=== PATIENT | female | born 1990 | race African-American/Black ===

== ENCOUNTER → 2017-12-25 15:32 | Outpatient (REF) | payer MEDICAID, SELFPAY ==
[2017-12-25 18:23] LABS: Basophils # 0.1 K/mm3 (0-0.2); Basophils % 0.7 % (0.1-2.0); Eosinophils # 0.1 K/mm3 (0.0-0.4); Eosinophils % 1.3 % (0.1-12.0); Hemoglobin 15.2 g/dL (12.2-16.2); Lymphocytes # 3.3 K/mm3 (0.7-4.5); Lymphocytes % 40.2 K/mm3 (10-50); Mean Corpuscular HGB Conc 33.7 g/dL (31.8-35.4); Mean Corpuscular Hemoglobin 31.6 pg (27.0-31.2); Mean Corpuscular Volume 93.7 fl (81-99); Mean Platelet Volume 8.2 fl (7.4-10.4); Monocytes # 0.6 K/mm3 (0.1-1.0); Neutrophils # 4.2 K/mm3 (1.8-7.8); Neutrophils % 50.8 % (37.0-80.0); Platelet Count 363 K/mm3 (142-424); Red Cell Distribution Width 13.1 % (11.5-17.5); White Blood Count 8.3 K/mm3 (4.8-10.8)
[2017-12-25 20:32] LABS: Alanine Aminotransferase 56 U/L (12-78); Albumin Level 4.1 gm/dL (3.4-5.0); Albumin/Globulin Ratio 0.9 (1.1-1.8); Alkaline Phosphatase 71 U/L (46-116); Anion Gap 16.7 mEq/L (5-15); Aspartate Amino Transferase 38 U/L (15-37); Bilirubin,Total 0.5 mg/dL (0.2-1.0); Blood Urea Nitrogen 7 mg/dL (7-18); Calcium 9.7 mg/dL (8.5-10.1); Carbon Dioxide 24 mmol/L (21.0-32.0); Chloride 103 mmol/L (98-107); Chol/HDL Ratio 5.9 (1-3.5); Cholesterol 267 mg/dL (140-200); Creatinine,Serum 0.98 mg/dL (0.55-1.02); Estimated Glomerular Filt Rate 69 ml/min (>60); GFR (African American) 83 ML/MIN (>60); Globulin 4.7 gm/dl (1.3-3.2); Glucose 89 mg/dL (74-106); HDL Cholesterol 45 mg/dL (29-89); LDL Cholesterol 184 mg/dL (0-130); Potassium 3.7 mmoL/L (3.5-5.1); Sodium 140 mmol/L (136-145); Thyroid Stimulating Hormone 2.85 uIU/ml (0.358-3.740); Total Protein,Serum 8.8 gm/dL (6.4-8.2); Triglycerides 189 mg/dL (30-200); VLDL Cholesterol 38 mg/dL (0-40)
[2017-12-25 22:29] LABS: Hemoglobin A1C 5.1 % (0.0-7.0)
[2017-12-27 06:23] LABS: Folate 9.6 ng/mL (>3.0); Vitamin B12 671 pg/mL (232-1245); Vitamin D 25 Hydroxy 17.9 ng/mL (30.0-100.0)
== END ==
LOC: LAB 15:32
PROVIDERS: Visit Provider Physician Assistant
DX: I10 Essential (primary) hypertension; E55.9 Vitamin D deficiency, unspecified
CPT/HCPCS: 80053; 80061; 82607; 82652; 82746; 83036; 84436; 84443; 85025

== ENCOUNTER → 2018-07-18 17:29 | Outpatient (CLI) | payer MEDICAID, SELFPAY ==
[2018-07-23 10:28] LABS: Neisseria gonorrhoeae, NAA Negative (Negative)
== END ==
PROVIDERS: Visit Provider Physician Assistant
DX: R30.0 Dysuria (principal)
CPT/HCPCS: 87086; 87491; 87591

== ENCOUNTER → 2018-08-27 13:59 | Outpatient (CLI) | payer MEDICAID, SELFPAY | PROVIDERS: Visit Provider Obstetrics & Gynecology | DX: Z34.90 Encounter for supervision of normal pregnancy, unspecified, unspecified trimester (principal) | CPT/HCPCS: 84702 ==

== ENCOUNTER → 2018-09-05 14:38 | Outpatient (CLI) | payer MEDICAID, SELFPAY ==
--- NOTE | 2018-09-05 14:50 | US_ITS ---
US OB transvaginal HISTORY: ITS.REASON: US OB T/V- Dates Check Viability ORDERING PHYSICIAN: Nafisa Zuniga MD PATIENT AGE: 27 years COMPARISON: None FINDINGS: There is an intrauterine gestational sac which has an oval appearance and mildly flattened on one end. A yolk sac is present. There appears to be a pole which measures 0.43 cm which would correlate to a gestational age of 6 weeks and 1 day. No heart tones are evident. The adnexa are unremarkable. There is a small amount fluid in the cul-de-sac. IMPRESSION: Intrauterine gestational sac with yolk sac and probable pole corresponding to gestational age of 6 weeks and 1 day. No heart tones evident. Cannot confirm viability at this time. Recommend follow-up exam in one week as well as correlation with serial beta hCGs to confirm viability
[2018-09-05 15:36] LABS: Basophils % 0.5 % (0.1-2.0); Eosinophils # 0.2 K/mm3 (0.0-0.4); Eosinophils % 2.3 % (0.1-12.0); Hematocrit 39.9 % (37.0-47.0); Hemoglobin 12.8 g/dL (12.2-16.2); Lymphocytes # 3.1 K/mm3 (0.7-4.5); Lymphocytes % 44.3 % (10-50); Mean Corpuscular HGB Conc 32.2 g/dL (31.8-35.4); Mean Corpuscular Volume 96.4 fl (81-99); Mean Platelet Volume 7.1 fl (7.4-10.4); Monocytes # 0.5 K/mm3 (0.1-1.0); Neutrophils # 3.2 K/mm3 (1.8-7.8); Neutrophils % 45.9 % (37.0-80.0); Platelet Count 327 K/mm3 (142-424); Red Blood Count 4.14 M/mm3 (4.20-5.40); Red Cell Distribution Width 13.2 % (11.5-17.5)
[2018-09-07 12:33] LABS: HIV Screen 4th Generation wRfx Non Reactive (Non Reactive)
[2018-09-07 12:34] LABS: Hepatitis B Surface Antigen Negative (Negative); Hepatitis C Antibody >11.0 s/co ratio (0.0-0.9); Rapid Plasma Reagin Ab Titer Non Reactive (NonRea<1:1)
== END ==
PROVIDERS: Visit Provider Obstetrics & Gynecology
DX: Z34.90 Encounter for supervision of normal pregnancy, unspecified, unspecified trimester (principal); O26.841 Uterine size-date discrepancy, first trimester; O36.80X0 Pregnancy with inconclusive fetal viability, not applicable or unspecified
CPT/HCPCS: 36415; 76817; 84702; 85025; 86592; 86703; 86762; 86850; 87340; 87380; G0432

== ENCOUNTER → 2018-09-20 07:56 | Outpatient (CLI) | payer MEDICAID, SELFPAY ==
--- NOTE | 2018-09-20 08:06 | US_ITS ---
US OB transvaginal HISTORY: ITS.REASON: US OB T/V- Check Viability of decreasing hCG ORDERING PHYSICIAN: Nafisa Zuniga MD PATIENT AGE: 27 years COMPARISON: None FINDINGS: There is an intrauterine gestational sac present. The yolk sac has collapsed. A pole is noted with a crown-rump length of 4 mm correlating to a gestational age of 6 weeks and 1 day. This is unchanged from 09/05/2018. No heart tones are evident. IMPRESSION: Nonviable intrauterine
[2018-09-20 10:40] LABS: HCG,Quantitative 62339 mIU/mL
== END ==
PROVIDERS: Visit Provider Obstetrics & Gynecology
DX: Z34.90 Encounter for supervision of normal pregnancy, unspecified, unspecified trimester (principal); O36.80X0 Pregnancy with inconclusive fetal viability, not applicable or unspecified
CPT/HCPCS: 36415; 76817; 84702

== ENCOUNTER → 2019-01-01 14:10 | Outpatient (CLI) | payer MEDICAID, SELFPAY ==
--- NOTE | 2019-01-01 14:12 | US_ITS ---
US Kidney CLINICAL INDICATION: Left-sided pain, back pain ORDERING PHYSICIAN: LEYDA Sue PATIENT AGE: 28 years Comparison: None FINDINGS: The kidneys are normal size shape and position. No hydronephrosis. No renal mass or perinephric fluid collection. No cortical thinning or scarring. IMPRESSION: Unremarkable bilateral renal ultrasound
== END ==
PROVIDERS: PCP Physician Assistant; Visit Provider Physician Assistant
DX: R10.9 Unspecified abdominal pain (principal)
CPT/HCPCS: 76770

== ENCOUNTER → 2019-04-01 17:15 | Outpatient (CLI) | payer MEDICAID, SELFPAY ==
[2019-04-01 18:42] LABS: Basophils % 0.6 % (0.1-2.0); Eosinophils # 0.1 K/mm3 (0.0-0.4); Eosinophils % 1.1 % (0.1-12.0); Hemoglobin 15.4 g/dL (12.2-16.2); Lymphocytes # 3.9 K/mm3 (0.7-4.5); Lymphocytes % 54.2 % (10-50); Mean Corpuscular HGB Conc 33.5 g/dL (31.8-35.4); Mean Corpuscular Hemoglobin 31.3 pg (27.0-31.2); Mean Corpuscular Volume 93.4 fl (81-99); Mean Platelet Volume 7.4 fl (7.4-10.4); Monocytes # 0.6 K/mm3 (0.1-1.0); Monocytes % 7.8 % (1.7-9.3); Neutrophils # 2.6 K/mm3 (1.8-7.8); Neutrophils % 36.4 % (37.0-80.0); Platelet Count 412 K/mm3 (142-424); Red Blood Count 4.93 M/mm3 (4.20-5.40); White Blood Count 7.2 K/mm3 (4.8-10.8)
[2019-04-01 19:00] LABS: MANUAL DIFFERENTIAL MANUAL DIFFERENTIAL (MANUAL DIFF)
[2019-04-01 19:36] LABS: Eosinophils % 1 % (0-3); Lymphocytes % 54 % (10-50); Monocytes % 8 % (2-9); Neutrophils % 36 % (42-76); Platelet Estimate Normal; RBC Morphology Normal; Total Cells Counted 100
[2019-04-01 20:17] LABS: Alanine Aminotransferase 58 U/L (12-78); Albumin Level 4.3 gm/dL (3.4-5.0); Alkaline Phosphatase 63 U/L (46-116); Aspartate Amino Transferase 32 U/L (15-37); Bilirubin,Total 0.7 mg/dL (0.2-1.0); Blood Urea Nitrogen 12 mg/dL (7-18); Calcium 9.4 mg/dL (8.5-10.1); Carbon Dioxide 21 mmol/L (21.0-32.0); Chloride 103 mmol/L (98-107); Chol/HDL Ratio 6.1 (1-3.5); Cholesterol 305 mg/dL (140-200); Creatinine,Serum 1.04 mg/dL (0.55-1.02); Estimated Glomerular Filt Rate 64 ml/min (>60); GFR (African American) 77 ML/MIN (>60); Globulin 4.5 gm/dl (1.3-3.2); Glucose 89 mg/dL (74-106); HDL Cholesterol 50 mg/dL (29-89); LDL Cholesterol 232 mg/dL (0-130); Sodium 137 mmol/L (136-145); T4 (Thyroxine) 9.1 ug/dl (4.7-13.3); Thyroid Stimulating Hormone 2.54 uIU/ml (0.358-3.740); Total Protein,Serum 8.8 gm/dL (6.4-8.2); Triglycerides 114 mg/dL (30-200); VLDL Cholesterol 23 mg/dL (0-40)
[2019-04-04 18:01] LABS: Vitamin D 25 Hydroxy 27.4 ng/mL (30.0-100.0)
== END ==
PROVIDERS: Visit Provider Physician Assistant
DX: F41.9 Anxiety disorder, unspecified (principal); E55.9 Vitamin D deficiency, unspecified
CPT/HCPCS: 80053; 80061; 82652; 84436; 84443; 85007; 85025

== ENCOUNTER → 2019-04-08 17:01 | Outpatient (CLI) | payer MEDICAID, SELFPAY ==
[2019-04-11 09:46] LABS: Neisseria gonorrhoeae, NAA Negative (Negative)
== END ==
PROVIDERS: Visit Provider Nurse Practitioner Obstetrics & Gynecology
DX: Z72.51 High risk heterosexual behavior (principal)
CPT/HCPCS: 87491; 87591

== ENCOUNTER → 2019-08-21 09:56 | Outpatient (CLI) | payer MEDICAID, SELFPAY ==
[2019-08-21 10:31] LABS: Basophils # 0.1 K/mm3 (0-0.2); Basophils % 0.8 % (0.1-2.0); Eosinophils # 0.2 K/mm3 (0.0-0.4); Eosinophils % 2.8 % (0.1-12.0); Hematocrit 45.3 % (37.0-47.0); Hemoglobin 15.5 g/dL (12.2-16.2); Lymphocytes % 45.2 % (10-50); Mean Corpuscular HGB Conc 34.1 g/dL (31.8-35.4); Mean Corpuscular Hemoglobin 32.6 pg (27.0-31.2); Mean Corpuscular Volume 95.4 fl (81-99); Mean Platelet Volume 7.3 fl (7.4-10.4); Monocytes # 0.5 K/mm3 (0.1-1.0); Monocytes % 7.6 % (1.7-9.3); Neutrophils # 2.9 K/mm3 (1.8-7.8); Neutrophils % 43.5 % (37.0-80.0); Platelet Count 378 K/mm3 (142-424); Red Blood Count 4.75 M/mm3 (4.20-5.40); Red Cell Distribution Width 12.8 % (11.5-17.5); White Blood Count 6.6 K/mm3 (4.8-10.8)
[2019-08-21 10:56] LABS: Anion Gap 6.1 mEq/L (5-15); Calcium 9.1 mg/dL (8.5-10.1); Carbon Dioxide 26 mmol/L (21.0-32.0); Chloride 103 mmol/L (98-107); Creatinine,Serum 0.87 mg/dL (0.55-1.02); Estimated Glomerular Filt Rate 78 ml/min (>60); GFR (African American) 95 ML/MIN (>60); HCG Qualitative, Serum Negative (Negative); Potassium 4.1 mmoL/L (3.5-5.1); Sodium 131 mmol/L (136-145)
[2019-08-21 11:23] LABS: Blood Urea Nitrogen 11 mg/dL (7-18); Glucose 99 mg/dL (74-106)
== END ==
PROVIDERS: Visit Provider Nurse Practitioner Obstetrics & Gynecology
DX: Z01.818 Encounter for other preprocedural examination (principal); Z30.9 Encounter for contraceptive management, unspecified
CPT/HCPCS: 36415; 80048; 84703; 85025

== ENCOUNTER → 2019-10-30 16:24 | Outpatient (CLI) | payer MEDICAID, SELFPAY | PROVIDERS: Visit Provider Nurse Practitioner Family | DX: R34 Anuria and oliguria (principal) | CPT/HCPCS: 87086; 87088 ==

== ENCOUNTER → 2019-11-06 16:39 | Outpatient (CLI) | payer MEDICAID, SELFPAY | PROVIDERS: Visit Provider Physician Assistant | DX: M54.9 Dorsalgia, unspecified (principal) | CPT/HCPCS: 87086; 87088; 87186 ==

== ENCOUNTER → 2020-01-29 15:11 | Outpatient (CLI) | payer MEDICAID, SELFPAY ==
[2020-01-29 18:12] LABS: Barbiturates Screen,Urine Negative ng/ml (<200)
[2020-01-29 18:13] LABS: Amphetamine/Metha Screen,Urine Negative ng/ml (<1000); Benzodiazepines Screen,Urine Positive ng/ml (<200)
[2020-01-29 18:14] LABS: Cannabinoid Screen,Urine Positive ng/ml (<50)
[2020-01-29 18:15] LABS: Cocaine Screen,Urine Negative ng/ml (<300); Methadone Screen,Urine Negative ng/ml (<300)
[2020-01-29 18:16] LABS: Opiate Screen,Urine Negative ng/ml (<300)
[2020-01-29 18:17] LABS: Phencyclidine Screen,Urine Negative ng/ml (<25)
== END ==
PROVIDERS: Visit Provider Podiatrist
DX: M79.675 Pain in left toe(s) (principal); M79.674 Pain in right toe(s)
CPT/HCPCS: 80305

== ENCOUNTER 2020-02-15 15:00 | Emergency (ER) | payer MEDICAID, SELFPAY ==
[2020-02-15 15:01] VITALS: BP 124/94; PULSE 87; RESP 18; TEMP 36.6; O2SAT 100; BMI 34.0
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
[2020-02-15 16:17] VITALS: BP 128/84; PULSE 73; RESP 18; TEMP 36.7; O2SAT 98
== END 2020-02-15 16:23 | disposition home or self-care (01) ==
PROVIDERS: Emergency Provider Emergency Medicine; PCP Physician Assistant
DX: M54.5 Low back pain (principal); F41.8 Other specified anxiety disorders; G40.909 Epilepsy, unspecified, not intractable, without status epilepticus; F25.0 Schizoaffective disorder, bipolar type; Z88.0 Allergy status to penicillin; F17.210 Nicotine dependence, cigarettes, uncomplicated
CPT/HCPCS: 72100; 96372; 99282

== ENCOUNTER → 2020-02-16 17:50 | Outpatient (CLI) | payer MEDICAID, SELFPAY | PROVIDERS: Visit Provider Podiatrist | DX: M79.675 Pain in left toe(s) (principal) | CPT/HCPCS: 87070; 87077; 87186; 87205 ==

== ENCOUNTER 2020-02-27 10:39 | Outpatient (RCR) | payer MEDICAID, SELFPAY ==
--- NOTE | 2020-02-27 11:26 | HMH.PTOPEV ---
PT Outpatient Evaluation Rehab PT Outpatient Evaluation Start: 02/27/20 11:12 Freq: Status: Active Protocol: Document 02/27/20 11:12 YOLANDA (Rec: 02/27/20 11:25 [email or web address] [id number]) Electronically Signed By Kwan Jones, PT 02/27/20 11:12 Outpatient Therapy Subjective History Subjective History Patient is a 29 year old female presenting to outpatient PT with reports of acute low back pain starting approx 2-3 weeks ago of insidious onset. Most recent imaging negative. Special tests indicate L upslip of the innominant. Comorbidities include hs of bipolar disorder , schizophrenia and tubal liagation. Chief Complaint Pain,Stiff Symptom Type Ache,Throb Symptoms Relieved By Heat,Ice,Prescription Meds Symptoms Aggravated By Standing,Bending/Stooping, Walking,Lifting Prior Functional Limitations None Current Functional Limitations Lifting,Housework,Sleeping, Standing,Squatting,Recreation Activity,Walking,Bending/ Stooping Symptom Description Constant but Variable Level of pain today (0-10) 7 Pain scale - at its best (0-10) 4 Pain scale - at its worst (0-10) 10 Lumbopelvic Eval Posture Thoracic Spine Posture Standing Position Increased Kyphosis Lumbar Spine Posture Standing Position Increased Lordosis Assistive device Assistive Devices None / NA Palapation tenderness bilateral lumbar spinal tenderness Yes: L3-S1 3/4 Lumbar/Sacral Palpation Findings Tenderness Lumbar/Sacral Palpation Overall Comment L PSIS 3/4 Accessory Movement L3 bilateral L4 bilateral L5 bilateral S1 bilateral Range of Motion Lumbar Spine Active Flexion Range of 70 Motion (degrees) Lumbar Spine Active Extension Range of 24 Motion (degrees) Left Lumbar Spine Lateral Flexion Active 22 Range of Motion (degrees) Right Lumbar Spine Lateral Flexion 25 Active Range of Motion (degrees) Lumbar Spine ROM Limitations Soft Tissue Tightness Manual Muscle Test Bilateral Knee Extension Strength Grade 5 Normal Knee Flexion Strength Grade 5 Normal Hip Flexion Strength Grade 5 Normal Ankle Dorsiflexion Strength Grade 5 Normal Gastronemius/Soleus Strength Grade 5 Normal DTR Rt Patellar 2+ Lt Pat
== END 2020-02-27 10:45 | disposition home or self-care (01) ==
LOC: PT 10:39
PROVIDERS: PCP Physician Assistant; Visit Provider Physician Assistant
DX: M54.5 Low back pain (principal)
CPT/HCPCS: 97163

== ENCOUNTER → 2020-06-09 14:07 | Outpatient (CLI) | payer MEDICAID, SELFPAY ==
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
== END ==
PROVIDERS: PCP Physician Assistant; Visit Provider Physician Assistant
DX: M54.5 Low back pain (principal)
CPT/HCPCS: 72148; 76376

== ENCOUNTER 2020-09-16 12:26 | Emergency (ER) | payer MEDICAID, SELFPAY ==
[2020-09-16] VITALS (7 sets, daily range): BP systolic 99–125; BP diastolic 62–93; PULSE 72–96; RESP 16–18; TEMP 37.4; O2SAT 96–99; BMI 35.9
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
[2020-09-16 12:51] LABS: Basophils # 0.1 K/mm3 (0-0.2); Basophils % 0.7 % (0.1-2.0); Eosinophils # 0.3 K/mm3 (0.0-0.4); Eosinophils % 3.7 % (0.1-12.0); Hematocrit 46.4 % (37.0-47.0); Hemoglobin 15.7 g/dL (12.2-16.2); Lymphocytes # 4.4 K/mm3 (0.7-4.5); Lymphocytes % 54.6 % (10-50); Mean Corpuscular HGB Conc 33.7 g/dL (31.8-35.4); Mean Platelet Volume 7.8 fl (7.4-10.4); Monocytes # 0.7 K/mm3 (0.1-1.0); Monocytes % 8.7 % (1.7-9.3); Neutrophils # 2.6 K/mm3 (1.8-7.8); Neutrophils % 32.2 % (37.0-80.0); Platelet Count 356 K/mm3 (142-424); Red Blood Count 4.88 M/mm3 (4.20-5.40); Red Cell Distribution Width 13.5 % (11.5-17.5)
[2020-09-16 12:54] LABS: MANUAL DIFFERENTIAL MANUAL DIFFERENTIAL (MANUAL DIFF)
[2020-09-16 13:00] LABS: Alanine Aminotransferase 72 U/L (12-78); Albumin Level 4.6 g/dl (3.5-5.0); Albumin/Globulin Ratio 1.1 (1.1-1.8); Alkaline Phosphatase 82 U/L (38-126); Aspartate Amino Transferase 67 U/L (14-36); Bilirubin,Total 0.4 mg/dl (0.2-1.3); Blood Urea Nitrogen 11 mg/dl (7-17); Calcium 9.9 mg/dl (8.4-10.2); Carbon Dioxide 29 mmol/L (22.0-30.0); Chloride 103 mmol/L (98-107); Creatinine Clearance Estimated 127 mL/min (50-200); Estimated Glomerular Filt Rate 75 ml/min (>60); GFR (African American) 90 ML/MIN (>60); Globulin 4.2 g/dL (1.3-3.2); Glucose 86 mg/dl (74-100); Sodium 139 mmol/L (136-145); Total Protein,Serum 8.8 g/dl (6.3-8.2)
[2020-09-16 13:03] LABS: Eosinophils % 5 % (0-3); Lymphocytes % 51 % (10-50); Monocytes % 6 % (2-9); Neutrophils % 38 % (42-76); Platelet Estimate Normal; RBC Morphology Normal; Total Cells Counted 100
[2020-09-16 13:06] LABS: Ethyl Alcohol < 10 mg/dl (0-10)
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
[2020-09-16 13:11] LABS: HCG Qualitative, Serum Negative (Negative)
[2020-10-12 13:08] LABS: POC Glucose,Bedside 132 (70-110)
== END 2020-09-16 16:58 | disposition home or self-care (01) ==
PROVIDERS: Emergency Provider Emergency Medicine; PCP Physician Assistant
DX: S00.83XA Contusion of other part of head, initial encounter (principal); S16.1XXA Strain of muscle, fascia and tendon at neck level, initial encounter; S39.012A Strain of muscle, fascia and tendon of lower back, initial encounter; S30.1XXA Contusion of abdominal wall, initial encounter; V48.1XXA Car passenger injured in noncollision transport accident in nontraffic accident, initial encounter; Y92.488 Other paved roadways as the place of occurrence of the external cause; Z88.0 Allergy status to penicillin; Z88.6 Allergy status to analgesic agent; F17.210 Nicotine dependence, cigarettes, uncomplicated
CPT/HCPCS: 70450; 70486; 71045; 71275; 72125; 72128; 72131; 72170; 74177; 80053; 82962; 84703; 85007; 85025; 99291; Q9967

== ENCOUNTER → 2020-12-14 17:45 | Outpatient (CLI) | payer MEDICAID, SELFPAY ==
[2020-12-14 18:46] LABS: Amphetamine/Metha Screen,Urine Negative ng/ml (<1000)
[2020-12-14 18:47] LABS: Barbiturates Screen,Urine Negative ng/ml (<200)
[2020-12-14 18:48] LABS: Benzodiazepines Screen,Urine Negative ng/ml (<200); Cannabinoid Screen,Urine Positive ng/ml (<50)
[2020-12-14 18:49] LABS: Cocaine Screen,Urine Negative ng/ml (<300)
[2020-12-14 18:50] LABS: Methadone Screen,Urine Negative ng/ml (<300); Opiate Screen,Urine Negative ng/ml (<300)
[2020-12-14 18:51] LABS: Phencyclidine Screen,Urine Negative ng/ml (<25)
== END ==
PROVIDERS: Visit Provider Physician Assistant
DX: R30.0 Dysuria (principal); Z79.899 Other long term (current) drug therapy
CPT/HCPCS: 80305; 87086

== ENCOUNTER → 2021-01-11 15:40 | Outpatient (CLI) | payer MEDICAID, SELFPAY ==
[2021-01-11 18:39] LABS: Alanine Aminotransferase 53 U/L (12-78); Albumin/Globulin Ratio 1.3 (1.1-1.8); Alkaline Phosphatase 83 U/L (38-126); Anion Gap 13.3 mEq/L (5-15); Aspartate Amino Transferase 50 U/L (14-36); Bilirubin,Total 0.8 mg/dl (0.2-1.3); Blood Urea Nitrogen 7 mg/dl (7-17); Calcium 9.7 mg/dl (8.4-10.2); Carbon Dioxide 19 mmol/L (22.0-30.0); Chloride 110 mmol/L (98-107); Chol/HDL Ratio 4.1 (1-3.5); Cholesterol 223 mg/dl (140-200); Estimated Glomerular Filt Rate 99 ml/min (>60); GFR (African American) 120 ML/MIN (>60); Globulin 3.9 g/dL (1.3-3.2); Glucose 120 mg/dl (74-100); HDL Cholesterol 54 mg/dl (40-60); Potassium 4.3 mmoL/L (3.5-5.1); Sodium 138 mmol/L (136-145); Total Protein,Serum 8.9 g/dl (6.3-8.2); Triglycerides 183 mg/dl (30-150); VLDL Cholesterol 37 mg/dL (0-40)
[2021-01-11 18:40] LABS: Basophils # 0.1 K/mm3 (0-0.2); Basophils % 0.8 % (0.1-2.0); Eosinophils # 0.2 K/mm3 (0.0-0.4); Eosinophils % 2.4 % (0.1-12.0); Hematocrit 46.8 % (37.0-47.0); Hemoglobin 16.2 g/dL (12.2-16.2); Lymphocytes # 3.6 K/mm3 (0.7-4.5); Lymphocytes % 43.7 % (10-50); Mean Corpuscular HGB Conc 34.6 g/dL (31.8-35.4); Mean Corpuscular Hemoglobin 32.2 pg (27.0-31.2); Mean Corpuscular Volume 93.1 fl (81-99); Mean Platelet Volume 8.6 fl (7.4-10.4); Monocytes # 0.6 K/mm3 (0.1-1.0); Monocytes % 7.5 % (1.7-9.3); Neutrophils # 3.7 K/mm3 (1.8-7.8); Neutrophils % 45.6 % (37.0-80.0); Platelet Count 354 K/mm3 (142-424); Red Blood Count 5.03 M/mm3 (4.20-5.40); Red Cell Distribution Width 13.3 % (11.5-17.5); White Blood Count 8.2 K/mm3 (4.8-10.8)
[2021-01-11 18:51] LABS: Direct LDL Cholesterol 114.49 mg/dL (100-129)
[2021-01-11 18:56] LABS: 25-OH Vitamin D, Total 52.8 ng/mL (30-100)
[2021-01-11 18:57] LABS: T4 (Thyroxine) 10.5 ug/dl (5.53-11.0)
[2021-01-11 18:58] LABS: Amphetamine/Metha Screen,Urine Negative ng/ml (<1000); Barbiturates Screen,Urine Negative ng/ml (<200)
[2021-01-11 18:59] LABS: Benzodiazepines Screen,Urine Positive ng/ml (<200)
[2021-01-11 19:01] LABS: Methadone Screen,Urine Negative ng/ml (<300)
[2021-01-11 19:02] LABS: Cocaine Screen,Urine Negative ng/ml (<300); Opiate Screen,Urine Positive ng/ml (<300)
[2021-01-11 19:03] LABS: Phencyclidine Screen,Urine Negative ng/ml (<25)
[2021-01-11 19:25] LABS: Cannabinoid Screen,Urine Positive ng/ml (<50)
[2021-01-14 23:07] LABS: Neisseria gonorrhoeae, NAA Negative (Negative)
== END ==
PROVIDERS: Visit Provider Physician Assistant
DX: R30.0 Dysuria (principal); N76.0 Acute vaginitis; E66.9 Obesity, unspecified; R53.83 Other fatigue; Z72.0 Tobacco use; F41.9 Anxiety disorder, unspecified; Z68.36 Body mass index [BMI] 36.0-36.9, adult
CPT/HCPCS: 80053; 80061; 80305; 82306; 84436; 84443; 85025; 87086; 87210; 87491; 87591

== ENCOUNTER 2021-02-23 13:54 | Emergency (ER) | payer MEDICAID, SELFPAY ==
[2021-02-23 13:55] VITALS: BP 120/83; PULSE 77; RESP 17; TEMP 36.7; O2SAT 67; BMI 36.0
--- NOTE | 2021-02-23 14:02 | PC.NURSE ---
stroke alert was called and then cancelled by dr Pulliam
--- NOTE | 2021-02-23 14:15 | PC.NURSE ---
1415- attempted to get pt history. pt gave some information but was not willing to answer a lot of questions at this time due to staccato speech.
[2021-02-23 14:28] VITALS: BP 111/69; PULSE 63; RESP 12; O2SAT 97
--- NOTE | 2021-02-23 14:30 | CT_ITS ---
Procedure: CT ANGIO NECK CTA HEAD CLINICAL HISTORY: staccato speech Confusion, slurred speech COMPARISON: CT CT ANGIO HEAD from 02/23/2021 TECHNIQUE: IV Contrast: 100ml Isovue 370 Axial images obtained with sagittal and coronal reformats. All CT scans at the facility use one or more dose reduction, viz: automated exposure control, ma/kV adjustment per patient size (including targeted exams where dose is matched to indication, i.e. head), or iterative reconstruction technique. FINDINGS: CTA neck: The aortic arch and great vessels have an unremarkable appearance. The common carotids and internal carotids are unremarkable. No evidence stenosis or dissection. No aneurysms or occlusive change. The vertebral arteries are unremarkable. No evidence dissection. There are a few scattered mildly prominent cervical lymph nodes which are nonspecific. CTA head: Arterial opacification is somewhat limited. No obvious aneurysm or dissection evident. There is mild protrudes along the posterior aspect of the suprasellar portion of the right internal carotid artery. This area measures less than 2 mm and may be related to an infundibulum as opposed to small aneurysm. Consider follow-up to confirm stability. No major intracranial occlusive process is evident. No evidence of sagittal sinus thrombosis. No enhancing lesions evident. IMPRESSION: No acute finding. No stenotic lesions dissections or aneurysms. 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 Stability may be confirmed with follow-up. Dictated by: Fernando Washington MD 02/23/2021 16:16 Fernando Washington MD in [facility] 02/23/2021 16:16
--- NOTE | 2021-02-23 14:30 | XR_ITS ---
PROCEDURE: XR CHEST 2V CLINICAL HISTORY: neuro change COMPARISON: CR CXR CHEST(2 VIEWS-NOT PORTABLE) from 04/26/2014 CR CXR2 CHEST-AP VIEW ONLY from 11/28/[address] ANGIO CHEST from 09/16/2020 CR XR CHEST PORTABLE from 09/16/2020 FINDINGS: The cardiomediastinal silhouette and pulmonary vascularity are within normal limits. The lungs are clear without infiltrates, suspicious nodules, or pleural effusions. No acute bony abnormalities. IMPRESSION: No acute findings. Dictated by: Fernando Washington MD 02/23/2021 17:09 Fernando Washington MD in [facility] 02/23/2021 17:10
--- NOTE | 2021-02-23 14:36 | HMH.EDNEU ---
ED Disposition Clinical Impression: Delirium, Abnormal drug screen Vaginitis Qualifiers: Chronicity: acute Qualified Code(s): N76.0 - Acute vaginitis Disposition: Home, Self-Care Condition on Discharge: Good Instructions: DI for Vaginal Discharge Additional Instructions: see pcp this week Prescriptions: Fluconazole [Diflucan 100mg tablet] 100 mg PO DAILY #5 tab Transmission Status: Pending to [facility] Referrals: Chaparrita Haynes PA [Primary Care Provider] - - Critical Care Critical Care Time: No Attestation: On 02/23/21, the high probability of a clinically significant, sudden or life threatening deterioration of the following system(s) required my full and direct attention, intervention and personal management. The time I documented below is in addition to time spent performing reported procedures but includes the following listed in this critical care notation. Medical Decision Making - Medical Records Medical records reviewed: Yes: I reviewed the patient's medical records. - Homer Inquiry Pt receiving controlled substance: No Vital Signs: 02/23/21 13:55 02/23/21 14:28 02/23/21 15:20 Temperature 98.1 F Temperature Source Oral Pulse Rate 63 72 Pulse Rate [Left Radial] 77 Respiratory Rate 17 12 16 Blood Pressure 111/69 114/78 Blood Pressure [Right Arm] 120/83 Blood Pressure Mean [Right Arm] 95 Blood Pressure Source Automatic Cuff Blood Pressure Source [Right Arm] Automatic Cuff Blood Pressure Position Supine Blood Pressure Position [Right Arm] Sitting 02 Sat by Pulse Oximetry 67 L 97 97 Oxygen Delivery Method Room Air Room Air Room Air 02/23/21 15:54 02/23/21 16:00 Temperature Temperature Source Pulse Rate 88 79 Pulse Rate [Left Radial] Respiratory Rate 22 22 Blood Pressure 124/87 133/87 Blood Pressure [Right Arm] Blood Pressure Mean [Right Arm] Blood Pressure Source Blood Pressure Source [Right Arm] Blood Pressure Position Blood Pressure Position [Right Arm] 02 Sat by Pulse Oximetry 100 99 Oxygen Delivery Method - Lab Data Lab results reviewed: Yes: I reviewed the patient's lab results. Lab Results 02/23/21 14:13: WBC 8.5, RBC 4.80, Hgb 15.1, Hct 43.5, MCV 90.6, MCH 31.4 H, MCHC 34.7, RDW 13.4, Plt Count 351, MPV 9.0, Neut % (Auto) 57.7, Lymph % (Auto) 34.3, [place] % (Auto) 5.0, Eos % (Auto) 2.1, Baso % (Auto) 0.8, Neut # (Auto) 4.9, Lymph # (Auto) 2.9, [place] # (Auto) 0.4, Eos # (Auto) 0.2, Baso # (Auto) 0.1 02/23/21 14:13: Sodium 140, Potassium 3.2 L, Chloride 108 H, Carbon Dioxide 24, Anion Gap 11.2, BUN 7, Creatinine 0.70, Estimated Creat Clear 178, Estimated GFR 99, Est GFR ( Amer) 120, Glucose 104 H, Calcium 9.7, Total Bilirubin 0.7, AST 48 H, ALT 35, Alkaline Phosphatase 89, Total Protein 8.5 H, Albumin 4.8, Globulin 3.7 H, Albumin/Globulin Ratio 1.3, Salicylates < 1.0 L, Acetaminophen < 10 L 02/23/21 14:13: Plasma/Serum Alcohol < 10 02/23/21 14:13: Serum HCG, Qual Negative 02/23/21 16:07: Urine Color Yellow, Urine Appearance Clear, Urine pH 6.5, Ur Specific [place] 1.010, Urine Protein Negative, Urine Glucose (UA) Negative, Urine Ketones Negative, Urine Blood Negative, Urine Nitrate Negative, Urine Bilirubin Negative, Urine Urobilinogen 1.0, Ur Leukocyte Esterase Negative, Urine RBC None, Urine WBC Occasional, Ur Squamous Epith Cells Occasional, Urine Bacteria None 02/23/21 16:07: Urine Opiates Screen Negative, Urine Methadone Screen Negative, Ur Barbituates Screen Negative, Ur Phencyclidine Scrn Negative, Ur Amphetamines Screen TNP, U Benzodiazepines Scrn Negative, Urine Cocaine Screen Negative, U Marijuana (THC) Screen Positive H Result diagrams: 02/23/21 14:13 02/23/21 14:13 Orders (Tests/Meds): ED MEDICATIONS Discontinued Medications Generic Name Dose Route Start Last Admin Trade Name Freq PRN Reason Stop Dose Admin Diphenhydramine HCl 25 mg 02/23/21 14:35 02/23/21 14:47 Diphenhydramine
[2021-02-23 14:41] LABS: Basophils # 0.1 K/mm3 (0-0.2); Basophils % 0.8 % (0.1-2.0); Eosinophils # 0.2 K/mm3 (0.0-0.4); Eosinophils % 2.1 % (0.1-12.0); Hematocrit 43.5 % (37.0-47.0); Hemoglobin 15.1 g/dL (12.2-16.2); Lymphocytes # 2.9 K/mm3 (0.7-4.5); Lymphocytes % 34.3 % (10-50); Mean Corpuscular HGB Conc 34.7 g/dL (31.8-35.4); Mean Corpuscular Hemoglobin 31.4 pg (27.0-31.2); Mean Corpuscular Volume 90.6 fl (81-99); Monocytes # 0.4 K/mm3 (0.1-1.0); Neutrophils # 4.9 K/mm3 (1.8-7.8); Neutrophils % 57.7 % (37.0-80.0); Platelet Count 351 K/mm3 (142-424); Red Cell Distribution Width 13.4 % (11.5-17.5); White Blood Count 8.5 K/mm3 (4.8-10.8)
[2021-02-23 14:44] LABS: Chloride 108 mmol/L (98-107); Potassium 3.2 mmoL/L (3.5-5.1); Sodium 140 mmol/L (136-145)
[2021-02-23 14:47] LABS: Alanine Aminotransferase 35 U/L (12-78); Albumin Level 4.8 g/dl (3.5-5.0); Albumin/Globulin Ratio 1.3 (1.1-1.8); Alkaline Phosphatase 89 U/L (38-126); Anion Gap 11.2 mEq/L (5-15); Aspartate Amino Transferase 48 U/L (14-36); Bilirubin,Total 0.7 mg/dl (0.2-1.3); Blood Urea Nitrogen 7 mg/dl (7-17); Calcium 9.7 mg/dl (8.4-10.2); Carbon Dioxide 24 mmol/L (22.0-30.0); Creatinine Clearance Estimated 178 mL/min (50-200); Estimated Glomerular Filt Rate 99 ml/min (>60); GFR (African American) 120 ML/MIN (>60); Globulin 3.7 g/dL (1.3-3.2); Glucose 104 mg/dl (74-100); Total Protein,Serum 8.5 g/dl (6.3-8.2)
[2021-02-23 14:48] LABS: Acetaminophen < 10 ug/ml (10-30); Ethyl Alcohol < 10 mg/dl (0-10); Salicylate < 1.0 mg/dL (2.0-20.0)
[2021-02-23 14:59] LABS: HCG Qualitative, Serum Negative (Negative)
--- NOTE | 2021-02-23 15:05 | CT_ITS ---
PROCEDURE: CT HEAD/BRAIN WO CON CLINICAL INDICATION: confusion Slurred speech COMPARISON: CT CT HEAD/BRAIN WO CON from 09/16/2020 TECHNIQUE: Axial images obtained. All CT scans at the facility use one or more dose reduction, viz: automated exposure control, ma/kV adjustment per patient size (including targeted exams where dose is matched to indication, i.e. head), or iterative reconstruction technique. FINDINGS: No midline shift, mass effect, intracranial hemorrhage, hydrocephalus, or extra-axial fluid collection is evident. There is mild degree of motion artifact at the skull base. The anterior arch and posterior arch of C1 are incompletely fused as a normal variant. The calvarium has an unremarkable appearance. No mastoid effusion. No sinus air-fluid level. IMPRESSION: No acute intracranial finding Dictated by: Fernando Washington MD 02/23/2021 15:59 Fernando Washington MD in [facility] 02/23/2021 15:59
[2021-02-23 15:20] VITALS: BP 114/78; PULSE 72; RESP 16; O2SAT 97
--- NOTE | 2021-02-23 15:44 | PC.NURSE ---
Pt is with rad.
--- NOTE | 2021-02-23 15:52 | PC.NURSE ---
Pt returned from rad
[2021-02-23 15:54] VITALS: BP 124/87; PULSE 88; RESP 22; O2SAT 100
[2021-02-23 16:00] VITALS: BP 133/87; PULSE 79; RESP 22; O2SAT 99
--- NOTE | 2021-02-23 16:06 | PC.NURSE ---
1405-pt stated she believed she was having a stroke. pt stated if you dont think its a stroke i dont want to be treated here. pt refused blood work at first but then stated she was okay with it.
[2021-02-23 16:11] LABS: Microscopic, Urine URINE MICROSCOPIC (MICROSCOPIC)
[2021-02-23 16:22] LABS: Appearance,Urine CLEAR (Clear); Bilirubin,Urine Negative (Negative); Blood, Urine Negative (Negative); Color,Urine YELLOW (Yellow); Glucose,Urine (UA) Negative (Negative); Ketones,Urine Negative (Negative); Leukocyte Esterase,Urine Negative (Negative); Nitrate,Urine Negative (Negative); PH,Urine 6.5 (5.0-8.5); Protein,Urine Negative (Negative)
[2021-02-23 16:34] LABS: Benzodiazepines Screen,Urine Negative ng/ml (<200); Squamous Epithelial Cell,Urine Occasional #/hpf (0-5); WBC,Urine Occasional #/hpf (0-3)
[2021-02-23 16:35] LABS: Barbiturates Screen,Urine Negative ng/ml (<200)
[2021-02-23 16:36] LABS: Cannabinoid Screen,Urine Positive ng/ml (<50); Cocaine Screen,Urine Negative ng/ml (<300)
[2021-02-23 16:37] LABS: Methadone Screen,Urine Negative ng/ml (<300)
[2021-02-23 16:38] LABS: Opiate Screen,Urine Negative ng/ml (<300); Phencyclidine Screen,Urine Negative ng/ml (<25)
--- NOTE | 2021-02-23 16:56 | PC.NURSE ---
Dr pratt at bedside
[2021-02-23 17:13] VITALS: BP 133/87; PULSE 79; RESP 20; TEMP 36.7; O2SAT 99
== END 2021-02-23 17:15 | disposition home or self-care (01) ==
PROVIDERS: Emergency Provider Emergency Medicine; PCP Physician Assistant
DX: R41.0 Disorientation, unspecified (principal); N76.0 Acute vaginitis; R89.2 Abnormal level of other drugs, medicaments and biological substances in specimens from other organs, systems and tissues; F12.10 Cannabis abuse, uncomplicated; F41.8 Other specified anxiety disorders; Z79.899 Other long term (current) drug therapy
CPT/HCPCS: 70450; 70496; 70498; 71046; 80053; 80305; 80329; 81001; 84703; 85025; 96365; 99282; 99283; Q9967

== ENCOUNTER 2021-03-27 08:14 | Emergency (ER) | payer MEDICAID, SELFPAY ==
[2021-03-27 08:14] VITALS: BP 122/86; PULSE 90; RESP 18; TEMP 36.5; O2SAT 100; BMI 33.2
--- NOTE | 2021-03-27 08:26 | HMH.EDBACK ---
ED Disposition Clinical Impression: Sciatica associated with disorder of lumbar spine Low back pain Qualifiers: Chronicity: acute Back pain laterality: left Sciatica presence: with sciatica Sciatica laterality: sciatica of left side Qualified Code(s): M54.42 - Lumbago with sciatica, left side Disposition: Home, Self-Care Condition on Discharge: Fair Instructions: DI for Low Back Pain, DI for Back Pain With Sciatica Additional Instructions: Not lift anything heavier than a grocery bag. No stooping, bending over, or lifting heavy objects for the next 2 days. Follow-up with your primary care physician in 3 days if you do not feel better. Return to the emergency department if you feel worse. Take all medications as prescribed. Prescriptions: Ketorolac Tromethamine [Toradol 10mg tablet] 10 mg PO Q6HP PRN #8 tab MDD 40mg/day PRN Reason: Back pain Transmission Status: Pending to [facility] predniSONE [Deltasone 20mg tablet] 60 mg PO DAILY #15 tab Transmission Status: Pending to [id number] Referrals: Chaparrita Haynes PA [Primary Care Provider] - 3 days - Critical Care Critical Care Time: No Attestation: On 03/27/21, the high probability of a clinically significant, sudden or life threatening deterioration of the following system(s) required my full and direct attention, intervention and personal management. The time I documented below is in addition to time spent performing reported procedures but includes the following listed in this critical care notation. Medical Decision Making - Medical Records Medical records reviewed: Yes: I reviewed the patient's medical records. - Homer Inquiry Pt receiving controlled substance: No Medical Decision Narrative: The patient presents to the emergency department with what appears to be an exacerbation of chronic back pain. She was lifting something heavy at work yesterday. After that she started developing low back pain radiating to the left posterior thigh. Her neurologic exam is normal. Her straight leg raise is positive. This appears to be sciatica without any neuro deficits. The patient will be treated with nonsteroidal anti-inflammatories as well as steroids as an outpatient. The patient will be instructed not to lift any heavy objects. I have instructed the patient to follow-up with her primary care physician in about 3 days if her symptoms do not improve. Back Pain HPI - General Chief Complaint: Back Pain/Injury Stated Complaint: back pain Time Seen by Provider: 03/27/21 08:26 Mode of Arrival: Ambulatory - History of Present Illness HPI Narrative: The patient presents to the emergency department complaining of low back pain radiating to the left posterior thigh. She states that this is similar to her prior back pain. She has been diagnosed with sciatica in the past and has had MRIs as well as plain x-rays in the past. She states that this pain developed this time after having lifted a heavy object at work yesterday. She denies any neuro deficits. MD Complaint: back pain Similar Symptoms Previously: Yes - Related Data Previous Rx's Medication Instructions Recorded clonazepam 0.5 mg tablet 0.5 mg PO BID #60 tab 12/14/20 atorvastatin 10 mg tablet See Rx Instructions .ROUTE 03/09/21 .COMPLEX #90 tab djjzwdbfwtysidz-txwtbvrcxcanbwh-OU 5 ml PO Q6H PRN #180 ml 03/09/21 2 mg-30 mg-10 mg/5 mL oral syrup cariprazine 1.5 mg capsule 1.5 mg PO DAILY #90 cap 03/09/21 cholecalciferol (vitamin D3) 25 See Rx Instructions .ROUTE 03/09/21 mcg (1,000 unit) tablet .COMPLEX #90 tab doxepin 25 mg capsule See Rx Instructions .ROUTE 03/09/21 .COMPLEX #90 cap ergocalciferol (vitamin D2) 1,250 See Rx Instructions .ROUTE 03/09/21 mcg (50,000 unit) capsule .COMPLEX #14 cap hydroxyzine HCl 25 mg tablet See Rx Instructions .ROUTE 03/09/21 .COMPLEX #90 tab prazosin 1 mg capsule 1 mg PO QHS #90 cap 03/09/21 promethazine 12.5 mg tablet 12.5 mg P
[2021-03-27 08:51] VITALS: BP 124/90; PULSE 66; RESP 20; TEMP 36.5; O2SAT 99
== END 2021-03-27 08:56 | disposition home or self-care (01) ==
PROVIDERS: Emergency Provider Emergency Medicine; PCP Physician Assistant
DX: M54.42 Lumbago with sciatica, left side (principal); X50.0XXA Overexertion from strenuous movement or load, initial encounter; Y92.69 Other specified industrial and construction area as the place of occurrence of the external cause; Y99.0 Civilian activity done for income or pay; F17.210 Nicotine dependence, cigarettes, uncomplicated
CPT/HCPCS: 96372; 99281

== ENCOUNTER 2021-04-08 21:20 | Emergency (ER) | payer MEDICAID, SELFPAY ==
[2021-04-08 21:34] VITALS: BP 128/92; PULSE 64; RESP 18; TEMP 36.8; O2SAT 100; BMI 32.0
[2021-04-08 21:43] VITALS: BP 128/92; PULSE 64; RESP 18; TEMP 36.8; O2SAT 100
[2021-04-08 21:53] LABS: Microscopic, Urine URINE MICROSCOPIC (MICROSCOPIC)
[2021-04-08 21:55] LABS: Appearance,Urine SL CLOUDY (Clear); Bilirubin,Urine Negative (Negative); Blood, Urine Negative (Negative); Color,Urine YELLOW (Yellow); Glucose,Urine (UA) Negative (Negative); Ketones,Urine Negative (Negative); Leukocyte Esterase,Urine Negative (Negative); Nitrate,Urine Negative (Negative); Protein,Urine Negative (Negative); Urobilinogen,Urine 0.2 EU/dl (0.2)
--- NOTE | 2021-04-08 22:02 | HMH.EDBACK ---
ED Disposition Clinical Impression: Lumbar radiculopathy, Obesity (BMI 30.0-34.9) Disposition: Home, Self-Care Condition on Discharge: Good Instructions: DI for Back Pain With Sciatica Additional Instructions: use meds and see pcp on sunday Prescriptions: predniSONE [Prednisone 20mg Tab] 20 mg PO BID #10 tab Transmission Status: Pending to [facility] Referrals: Chaparrita Haynes PA [Primary Care Provider] - - Critical Care Critical Care Time: No Attestation: On 04/08/21, the high probability of a clinically significant, sudden or life threatening deterioration of the following system(s) required my full and direct attention, intervention and personal management. The time I documented below is in addition to time spent performing reported procedures but includes the following listed in this critical care notation. Medical Decision Making - Medical Records Medical records reviewed: Yes: I reviewed the patient's medical records. - Homer Inquiry Pt receiving controlled substance: No Vital Signs: 04/08/21 21:34 04/08/21 21:43 Temperature 98.3 F 98.3 F Temperature Source Oral Oral Pulse Rate 64 Pulse Rate [Right Brachial] 64 Respiratory Rate 18 18 Blood Pressure 128/92 H Blood Pressure [Right Arm] 128/92 H Blood Pressure Mean [Right Arm] 104 Blood Pressure Source Automatic Cuff Blood Pressure Source [Right Arm] Automatic Cuff Blood Pressure Position Supine Blood Pressure Position [Right Arm] Supine 02 Sat by Pulse Oximetry 100 100 Oxygen Delivery Method Room Air Room Air - Lab Data Lab results reviewed: Yes: I reviewed the patient's lab results. Lab Results 04/08/21 21:30: Urine Color Yellow, Urine Appearance Sl cloudy, Urine pH 6.0, Ur Specific [place] 1.010, Urine Protein Negative, Urine Glucose (UA) Negative, Urine Ketones Negative, Urine Blood Negative, Urine Nitrate Negative, Urine Bilirubin Negative, Urine Urobilinogen 0.2, Ur Leukocyte Esterase Negative, Urine RBC 3-5, Urine WBC 3-5, Ur Squamous Epith Cells 5-10, Urine Bacteria Trace Orders (Tests/Meds): ED MEDICATIONS Generic Name Dose Route Start Last Admin Trade Name Freq PRN Reason Stop Dose Admin Sodium Chloride 1,000 mls @ 999 mls/hr 04/08/21 22:30 04/08/21 22:16 Sod Chlor 0.9% 1000ml Bag IV 04/08/21 23:30 999 mls/hr .Q1H1M MICKEY Administration Discontinued Medications Generic Name Dose Route Start Last Admin Trade Name Awilda PRN Reason Stop Dose Admin Ketorolac Tromethamine 30 mg 04/08/21 22:03 04/08/21 22:07 Ketorolac 30mg/Ml Vial IV 04/08/21 22:04 30 mg ONCE ONE Administration Methylprednisolone Sodium Succinate 125 mg 04/08/21 22:02 04/08/21 22:07 Methylprednisolone Sod Succ 125mg Vial IV 04/08/21 22:03 125 mg ONCE ONE Administration - Radiology Data #1 Image(s): L-Spine Image Reviewed: Yes I have reviewed radiologist's interpretation Preliminary Findings: Abnormal (see report ) - Reevaluation(s) Time: 23:39 Reevaluation #1: improved Medical Decision Narrative: acute lumbar radicular pain and will give trial of meds Back Pain HPI - General Chief Complaint: Back Pain/Injury Stated Complaint: ao Nina LOWER BACK PAIN Time Seen by Provider: 04/08/21 22:02 Mode of Arrival: Ambulatory Source of Information: Patient, Medical Record Limitations: No Limitations Description of Symptoms (Recalled from ER Triage Doc. by RN): Pt reports lower back pain since 1400 today. Pt bent over to mop under a bed and felt a pop twice. pt reports pain 7/10 and pain radiates down both legs. - History of Present Illness HPI Narrative: acute excerbation of lumbar pain bending over w/o rash or fever or trauma and no gi or gu sx Complaint: back pain Onset (ago): hour(s) Duration: intermittent Similar Symptoms Previously: Yes Location: lumbar spine Severity: moderate Quality: sharp Radiation: left leg, right leg Context: bending Associated symp
[2021-04-08 22:03] LABS: Bacteria,Urine Trace /lpf
--- NOTE | 2021-04-08 22:43 | XR_ITS ---
PROCEDURE INFORMATION: Exam: XR Lumbosacral Spine Exam date and time: 04/08/2021 10:43 PM Age: 30 years old Clinical indication: Low back pain TECHNIQUE: Imaging protocol: XR of the lumbosacral spine. Views: 4 or 5 views. COMPARISON: CT LUMBAR SPINE WO CON 09/16/2020 2:16 PM FINDINGS: Bones/joints: There are moderate discogenic degenerative changes of L5-S1. Soft tissues: Unremarkable. IMPRESSION: There are moderate discogenic degenerative changes of L5-S1.
[2021-04-09 00:26] VITALS: BP 122/68; PULSE 62; RESP 16; TEMP 36.8; O2SAT 98
== END 2021-04-09 00:31 | disposition home or self-care (01) ==
PROVIDERS: Emergency Provider Emergency Medicine; PCP Physician Assistant
DX: M54.16 Radiculopathy, lumbar region (principal); E66.9 Obesity, unspecified; F41.8 Other specified anxiety disorders; F17.210 Nicotine dependence, cigarettes, uncomplicated; Z88.0 Allergy status to penicillin; Z79.899 Other long term (current) drug therapy
CPT/HCPCS: 72110; 81001; 96365; 96375; 99282

== ENCOUNTER 2021-06-02 15:09 | Emergency (ER) | payer MEDICAID, SELFPAY ==
--- NOTE | 2021-06-02 15:14 | XR_ITS ---
PROCEDURE: XR WRIST RT MIN 3V CLINICAL INDICATION: punched something COMPARISON: No exams were available for comparison FINDINGS: No fracture or dislocation. No lytic or blastic change. There is normal mineralization. The joint spaces are well-preserved. No significant degenerative/arthritic changes. No erosive changes evident. Other findings:None. IMPRESSION: No acute findings. Dictated by: Fernando Washington MD 06/02/2021 16:07 Fernando Washington MD in [place] 06/02/2021 16:07
--- NOTE | 2021-06-02 15:14 | XR_ITS ---
PROCEDURE: XR HAND RT MIN 3V CLINICAL INDICATION: punched something COMPARISON: No exams were available for comparison FINDINGS: There is a healing fracture involving the mid shaft of the 5th metacarpal. There is some developing callus formation. There is minimal impaction of the fracture fragments. There is mild dorsal displacement of the distal fracture fragment of approximately 2-3 mm. The The joint spaces are well-preserved. No significant degenerative/arthritic changes. No erosive changes evident. Other findings:None. IMPRESSION: Minimally displaced and impacted healing fracture of the 5th metacarpal Dictated by: Fernando Washington MD 06/02/2021 16:16 Fernando Washington MD in [place] 06/02/2021 16:16
[2021-06-02 15:17] VITALS: BP 119/78; PULSE 79; RESP 16; TEMP 36.6; O2SAT 99; BMI 31.1
[2021-06-02 17:01] VITALS: BP 110/78; PULSE 69; RESP 16; TEMP 36.6
--- NOTE | 2021-06-02 17:02 | HMH.EDUTC ---
[facility] [place] Clinical Impression: Right hand fracture Qualifiers: Encounter type: initial encounter Fracture type: closed Qualified Code(s): S62.91XA - Unspecified fracture of right wrist and hand, initial encounter for closed fracture Disposition: Home, Self-Care Condition on Discharge: Good Instructions: DI for a Hand Fracture, Hand Fracture Additional Instructions: Rest the extremity, apply ice for 15 minutes as tolerated three or four times per day, Elevate the extremity as tolerated while you are resting. Take ibuprofen for pain. I sent in a prescription to your pharmacy. Follow up with Dr. Schofield (orthopedics). I called his office and made an appointment for June 08 at 9:00am. Please call and verify this appointment with his office before you go. Follow up with your regular doctor. GO TO THE ER FOR ANY WORSENING SYMPTOMS Referrals: Chaparrita Haynes PA [Primary Care Provider] - Dell Schofield MD [Staff Physician] - 06/08/21 9:00 am Time of Disposition: 17:04 Medical Decision Making - Medical Records Medical records reviewed: No: I reviewed the patient's medical records. - Homer Inquiry Pt receiving controlled substance: No Vital Signs: 06/02/21 15:17 06/02/21 17:01 Temperature 98 F 98 F Temperature Source Oral Pulse Rate 69 Pulse Rate [Left] 79 Respiratory Rate 16 16 Blood Pressure 110/78 Blood Pressure [Right Arm] 119/78 Blood Pressure Mean [Right Arm] 91 02 Sat by Pulse Oximetry 99 - Radiology Data #1 Image(s): Hand Image Reviewed: Yes I reviewed the patient's radiology image, Yes I have reviewed radiologist's interpretation Preliminary Findings: Abnormal PROCEDURE: XR WRIST RT MIN 3V CLINICAL INDICATION: punched something COMPARISON: No exams were available for comparison FINDINGS: No fracture or dislocation. No lytic or blastic change. There is normal mineralization. The joint spaces are well-preserved. No significant degenerative/arthritic changes. No erosive changes evident. Other findings:None. IMPRESSION: No acute findings. Dictated by: Fernando Washington MD 06/02/2021 16:07 Fernando Washington MD in [place] 06/02/2021 16:07 [facility] [place] HPI - General Stated complaint: Right hand injury Time Seen by Provider: 06/02/21 15:35 Mode of Arrival: Ambulatory Source of Information: Patient Limitations: No Limitations Description of Symptoms (Recalled from Triage Doc. by RN): pt punched a wooden door about a week ago. pt presents with swelling to her R hand. pt c/o pain on a scale 8/10 HEENT Symptoms (Recalled from RN notes): No Resp Symptoms (Recalled from RN notes): No Skin Symptoms (Recalled from RN notes): No MS Symptoms (Recalled from RN notes): Yes (R hand pain) Functional Status (Recalled from RN notes): na - History of Present Illness Provider Complaint: She states that she punched a door 1 week ago. Since then she has had right hand pain and swelling. She denies any other injury. - Related Data Home Medications Medication Instructions Recorded Confirmed Atorvastatin Calcium [Lipitor 10mg See Rx Instructions .ROUTE .COMPLEX 04/08/21 04/08/21 Tab] Cariprazine HCl [Vraylar] 1.5 mg PO DAILY 04/08/21 04/08/21 Cholecalciferol (Vitamin D3) See Rx Instructions .ROUTE .COMPLEX 04/08/21 04/08/21 [Vitamin D3 1,000 Unit Tab] Doxepin HCl [Sinequan 25mg capsule] See Rx Instructions .ROUTE .COMPLEX 04/08/21 04/08/21 Prazosin HCl [Minipress] 1 mg PO QHS 04/08/21 04/08/21 SUMAtriptan succinate [Sumatriptan See Rx Instructions PO .COMPLEX 04/08/21 04/08/21 Succinate] Tizanidine HCl See Rx Instructions .ROUTE .COMPLEX 04/08/21 04/08/21 hydrOXYzine HCL [Hydroxyzine HCl] See Rx Instructions .ROUTE .COMPLEX 04/08/21 04/08/21 Previous Rx's Medication Instructions Recorded clonazepam 0.5 mg tablet 0.5 mg PO BID #60 tab 12/14/20 nwbrgouareuesuy-eyfingmbvvbzdrp-BF 5 ml PO Q6H PRN #180 ml 03/09/21 2 mg-30 mg-10 mg/5 mL oral syrup er
== END 2021-06-02 17:11 | disposition home or self-care (01) ==
PROVIDERS: Emergency Provider Nurse Practitioner Family; PCP Physician Assistant
DX: S62.91XA Unspecified fracture of right hand, initial encounter for closed fracture (principal); W22.09XA Striking against other stationary object, initial encounter; Y92.019 Unspecified place in single-family (private) house as the place of occurrence of the external cause; F17.210 Nicotine dependence, cigarettes, uncomplicated; F41.8 Other specified anxiety disorders; F19.11 Other psychoactive substance abuse, in remission
CPT/HCPCS: 29125; 73110; 73130; 99202; G0463

== ENCOUNTER 2021-06-07 14:00 | Outpatient (RCR) | payer MEDICAID, SELFPAY | END 2021-06-07 14:05 | disposition home or self-care (01) | LOC: PT 14:00 | PROVIDERS: Visit Provider Physician Assistant | DX: M54.50 Low back pain, unspecified (principal) | CPT/HCPCS: 97010; 97014; 97110; 97163; G0283 ==

== ENCOUNTER 2021-06-13 23:06 | Emergency (ER) | payer MEDICAID, SELFPAY ==
[2021-06-13 23:08] VITALS: BP 114/86; PULSE 88; RESP 16; TEMP 37.4; O2SAT 94; BMI 29.5
[2021-06-13 23:30] LABS: Coronavirus 19, PCR Not Detected (NotDetected); Influenza A, PCR Not Detected (NotDetected); Influenza B, PCR Not Detected (NotDetected)
--- NOTE | 2021-06-13 23:34 | CT_ITS ---
PROCEDURE INFORMATION: Exam: CT Abdomen And Pelvis With Contrast Exam date and time: 06/13/2021 11:34 PM Age: 30 years old Clinical indication: Abdominal pain; Localized; Left lower quadrant (llq); Patient HX: Left lower abd pain with nausea and vomiting TECHNIQUE: Imaging protocol: Computed tomography of the abdomen and pelvis with contrast. Radiation optimization: All CT scans at this facility use at least one of these dose optimization techniques: automated exposure control; mA and/or kV adjustment per patient size (includes targeted exams where dose is matched to clinical indication); or iterative reconstruction. Contrast material: ISOVUE; Contrast volume: 75 ml; Contrast route: IV; COMPARISON: CT ABDOMEN PELVIS W CON 09/16/2020 2:23 PM FINDINGS: Lungs: Calcification in the left lower lobe consistent with granuloma. There is a nonspecific nodular density in the right middle lobe measuring 3.4 mm seen on series 3, image 7. Pleural spaces: There are no pleural effusions. Heart: The visualized portions of the heart are unremarkable. There is no evidence of pericardial fluid collections. Liver: There are 2 hyperdense masses within the liver, 1 in the left lobe measuring approximately 15 x 13 mm and the other in the right lobe measuring approximately 11 by 10 mm. There is an the additional heterogeneous hypoechoic density in the right hepatic lobe showing mild peripheral puddling of contrast measuring approximately 11.4 x 11.4 mm suggestive of a hemiangioma. Gallbladder and bile ducts: Normal. No calcified stones. No ductal dilation. Pancreas: The pancreas is normal. Spleen: The spleen is normal. Adrenal glands: The adrenal glands are normal. Kidneys and ureters: There are a few tiny bilateral renal collecting system calcifications. No hydronephrosis. Stomach and bowel: There is a moderate degree of residual ingested material within the stomach.The duodenum is unremarkable. There is apparent small bowel wall thickening involving a few loops of proximal small bowel which is nonspecific and could be related to incomplete distension. Cannot entirely exclude other entities including enteritis or other inflammatory/infiltrative processes. Remaining Unopacified loops of small bowel within range of normal. Lack of gastrointestinal contrast limits evaluation of bowel. There is mildly excessive colonic stool content. Appendix: No evidence of appendicitis. Intraperitoneal space: There is no evidence of free intraperitoneal or pelvic fluid. No evidence of intraperitoneal free air. Vasculature: No abdominal aortic aneurysm. Lymph nodes: There is no evidence of pathologic adenopathy. Urinary bladder: The bladder is decompressed. Reproductive: The uterus is either atrophic or absent. The left ovary is normal. The right ovary is normal. Bones/joints: There is no evidence of acute fracture. Small focus of sclerosis in the right proximal femur measuring approximately 10 mm is nonspecific but may reflect benign enostosis . Similar but smaller finding is seen slightly more distally and in the proximal left femur. Soft tissues: There is a tiny fat-containing umbilical hernia. IMPRESSION: 1. Apparent nonspecific wall thickening involving a few loops of proximal small bowel which could be related to incomplete distension. Cannot exclude other entities including enteritis or other inflammatory/infiltrative processes. 2. 2 hyperdense masses within the liver, 1 in the left lobe measuring approximately 15 x 13 mm and the other in the right lobe measuring approximately 11 by 10 mm, , which were present on prior exam dated 09/16/2020, although not as well visualized iban
[2021-06-13 23:44] LABS: Microscopic, Urine URINE MICROSCOPIC (MICROSCOPIC)
[2021-06-13 23:46] LABS: Appearance,Urine SL CLOUDY (Clear); Basophils # 0.1 K/mm3 (0-0.2); Basophils % 0.9 % (0.1-2.0); Bilirubin,Urine Negative (Negative); Blood, Urine Negative (Negative); Color,Urine YELLOW (Yellow); Eosinophils # 0.1 K/mm3 (0.0-0.4); Eosinophils % 1.4 % (0.1-12.0); Glucose,Urine (UA) Negative (Negative); Hematocrit 48.3 % (37.0-47.0); Ketones,Urine Negative (Negative); Leukocyte Esterase,Urine Negative (Negative); Lymphocytes # 2.9 K/mm3 (0.7-4.5); Lymphocytes % 32.2 % (10-50); Mean Corpuscular HGB Conc 33.1 g/dL (31.8-35.4); Mean Corpuscular Hemoglobin 32.1 pg (27.0-31.2); Mean Corpuscular Volume 97.1 fl (81-99); Mean Platelet Volume 8.3 fl (7.4-10.4); Monocytes # 0.5 K/mm3 (0.1-1.0); Monocytes % 5.8 % (1.7-9.3); Neutrophils # 5.4 K/mm3 (1.8-7.8); Neutrophils % 59.6 % (37.0-80.0); Nitrate,Urine Negative (Negative); Platelet Count 379 K/mm3 (142-424); Protein,Urine Negative (Negative); Red Blood Count 4.97 M/mm3 (4.20-5.40); Red Cell Distribution Width 13.4 % (11.5-17.5); Specific Gravity, Urine >= 1.030 (1.005-1.030); Urobilinogen,Urine 0.2 EU/dl (0.2); White Blood Count 9.1 K/mm3 (4.8-10.8)
[2021-06-13 23:48] VITALS: BP 110/71; PULSE 79; O2SAT 93
[2021-06-13 23:54] LABS: Alanine Aminotransferase 35 U/L (12-78); Albumin Level 4.5 g/dl (3.5-5.0); Albumin/Globulin Ratio 1.1 (1.1-1.8); Alkaline Phosphatase 64 U/L (38-126); Amylase 98 U/L (30-110); Anion Gap 11.3 mEq/L (5-15); Aspartate Amino Transferase 44 U/L (14-36); Bacteria,Urine Trace /lpf; Bilirubin,Total 0.5 mg/dl (0.2-1.3); Blood Urea Nitrogen 7 mg/dl (7-17); Calcium 9.7 mg/dl (8.4-10.2); Carbon Dioxide 27 mmol/L (22.0-30.0); Chloride 104 mmol/L (98-107); Creatinine Clearance Estimated 128 mL/min (50-200); Estimated Glomerular Filt Rate 85 ml/min (>60); GFR (African American) 103 ML/MIN (>60); Globulin 4.1 g/dL (1.3-3.2); Glucose 120 mg/dl (74-100); Lactic Acid 0.9 mmol/L (0.7-2.1); Lipase 33 U/L (23-300); Potassium 4.3 mmoL/L (3.5-5.1); RBC,Urine Occasional #/hpf (0-3); Sodium 138 mmol/L (136-145); Total Protein,Serum 8.6 g/dl (6.3-8.2); WBC,Urine Occasional #/hpf (0-3)
[2021-06-14 00:03] LABS: Amphetamine/Metha Screen,Urine Negative ng/ml (<1000); Barbiturates Screen,Urine Negative ng/ml (<200)
[2021-06-14 00:04] LABS: Benzodiazepines Screen,Urine Negative ng/ml (<200)
[2021-06-14 00:05] LABS: Cannabinoid Screen,Urine Positive ng/ml (<50); Cocaine Screen,Urine Negative ng/ml (<300)
[2021-06-14 00:06] LABS: Methadone Screen,Urine Negative ng/ml (<300)
[2021-06-14 00:07] LABS: Opiate Screen,Urine Positive ng/ml (<300); Phencyclidine Screen,Urine Negative ng/ml (<25)
[2021-06-14 00:19] LABS: Erythrocyte Sedimentation Rate 2 mm/hr (0-20)
[2021-06-14 00:30] VITALS: BP 118/81; PULSE 78; O2SAT 95
[2021-06-14 01:00] VITALS: BP 104/71; PULSE 77; O2SAT 95
--- NOTE | 2021-06-14 01:20 | HMH.EDNVD ---
ED Disposition Clinical Impression: Abdominal pain Qualifiers: Abdominal location: generalized Qualified Code(s): R10.84 - Generalized abdominal pain Disposition: Home, Self-Care Condition on Discharge: Good Instructions: DI for Acute Abdominal Pain Additional Instructions: see pcp this week Referrals: Chaparrita Haynes PA [Primary Care Provider] - - Critical Care Critical Care Time: No Attestation: On 06/13/21, the high probability of a clinically significant, sudden or life threatening deterioration of the following system(s) required my full and direct attention, intervention and personal management. The time I documented below is in addition to time spent performing reported procedures but includes the following listed in this critical care notation. Medical Decision Making - Medical Records Medical records reviewed: Yes: I reviewed the patient's medical records. - [place] Inquiry Pt receiving controlled substance: No Vital Signs: 06/13/21 23:08 06/13/21 23:48 06/14/21 00:30 Temperature 99.3 F Temperature Source Oral Pulse Rate 79 78 Pulse Rate [Left] 88 Respiratory Rate 16 Blood Pressure 110/71 118/81 Blood Pressure [Right Arm] 114/86 Blood Pressure Mean 84 87 Blood Pressure Mean [Right Arm] 95 02 Sat by Pulse Oximetry 94 L 93 L 95 Oxygen Delivery Method Room Air Room Air Room Air 06/14/21 01:00 Temperature Temperature Source Pulse Rate 77 Pulse Rate [Left] Respiratory Rate Blood Pressure 104/71 L Blood Pressure [Right Arm] Blood Pressure Mean 79 Blood Pressure Mean [Right Arm] 02 Sat by Pulse Oximetry 95 Oxygen Delivery Method Room Air - Lab Data Lab results reviewed: Yes: I reviewed the patient's lab results. Lab Results 06/13/21 23:16: SARS-CoV-2 (PCR) Not detected, Influenza A Untype (PCR) Not detected, Influenza Type B (PCR) Not detected 06/13/21 23:30: Urine Color Yellow, Urine Appearance Sl cloudy, Urine pH 6.0, Ur Specific Fraser >= 1.030, Urine Protein Negative, Urine Glucose (UA) Negative, Urine Ketones Negative, Urine Blood Negative, Urine Nitrate Negative, Urine Bilirubin Negative, Urine Urobilinogen 0.2, Ur Leukocyte Esterase Negative, Urine RBC Occasional, Urine WBC Occasional, Ur Squamous Epith Cells None, Urine Bacteria Trace 06/13/21 23:30: WBC 9.1, RBC 4.97, Hgb 16.0, Hct 48.3 H, MCV 97.1, MCH 32.1 H, MCHC 33.1, RDW 13.4, Plt Count 379, MPV 8.3, Neut % (Auto) 59.6, Lymph % (Auto) 32.2, Frio % (Auto) 5.8, Eos % (Auto) 1.4, Baso % (Auto) 0.9, Neut # (Auto) 5.4, Lymph # (Auto) 2.9, Frio # (Auto) 0.5, Eos # (Auto) 0.1, Baso # (Auto) 0.1, ESR 2 06/13/21 23:30: Sodium 138, Potassium 4.3, Chloride 104, Carbon Dioxide 27, Anion Gap 11.3, BUN 7, Creatinine 0.80, Estimated Creat Clear 128, Estimated GFR 85, Est GFR ( Amer) 103, Glucose 120 H, Calcium 9.7, Total Bilirubin 0.5, AST 44 H, ALT 35, Alkaline Phosphatase 64, C-Reactive Protein 4.0, Total Protein 8.6 H, Albumin 4.5, Globulin 4.1 H, Albumin/Globulin Ratio 1.1, Amylase 98, Lipase 33, Procalcitonin 0.040 06/13/21 23:30: Lactate 0.9 06/13/21 23:30: Urine Opiates Screen Positive H, Urine Methadone Screen Negative, Ur Barbituates Screen Negative, Ur Phencyclidine Scrn Negative, Ur Amphetamines Screen Negative, U Benzodiazepines Scrn Negative, Urine Cocaine Screen Negative, U Marijuana (THC) Screen Positive H Result diagrams: 06/13/21 23:30 06/13/21 23:30 Orders (Tests/Meds): ED MEDICATIONS Generic Name Dose Route Start Last Admin Trade Name Freq PRN Reason Stop Dose Admin Sodium Chloride 1,000 mls @ 999 mls/hr 06/13/21 23:45 06/13/21 23:56 Sod Chlor 0.9% 1000ml Bag IV 06/14/21 00:45 999 mls/hr .Q1H1M MICKEY Administration Discontinued Medications Generic Name Dose Route Start Last Admin Trade Name Freq PRN Reason Stop Dose Admin Acetaminophen 1,000 mg 06/13/21 23:41 06/13/21 23:56 Acetaminophen 500mg Tab PO 06/13/21 23:42 1,000 mg ONCE ONE Administration Famoti
[2021-06-14 02:13] VITALS: BP 104/71; PULSE 78; RESP 14; TEMP 37.2; O2SAT 95
[2021-06-15 13:15] LABS: Lithium (Eskalith(R)) 0.2 mmol/L (0.5-1.2)
== END 2021-06-14 02:15 | disposition home or self-care (01) ==
PROVIDERS: Emergency Provider Emergency Medicine; PCP Physician Assistant
DX: R10.84 Generalized abdominal pain (principal); F41.8 Other specified anxiety disorders; I10 Essential (primary) hypertension; F12.10 Cannabis abuse, uncomplicated; F19.10 Other psychoactive substance abuse, uncomplicated; Z88.0 Allergy status to penicillin
CPT/HCPCS: 74177; 80053; 80178; 80305; 81001; 82150; 83605; 83690; 84145; 85025; 85651; 86140; 87040; 99283; C9803; Q9967; U0003; U0005

== ENCOUNTER → 2021-06-30 08:35 | Outpatient (CLI) | payer MEDICAID, SELFPAY ==
--- NOTE | 2021-06-30 08:35 | US_ITS ---
PROCEDURE: US GALLBLADDER CLINICAL INDICATION: abdominal pain COMPARISON: CT CT ABDOMEN PELVIS W CON from 06/13/2021 FINDINGS: Pancreas: Unremarkable/Not well seen Liver: In the right hepatic lobe anteriorly there is a 1.3 x 1 cm hypoechoic lesion indeterminate. It can't be determined from these images if this is related to the hypodense lesion with peripheral puddling or the hyperdense lesion in the right hepatic lobe. As mentioned previously nonemergent MRI of the liver with hemangioma protocol may provide more definitive evaluation.. There is appropriate direction of blood flow within a non dilated portal vein. Right kidney: Unremarkable appearing. No hydronephrosis. Gallbladder: No stones are evident. There is no gallbladder wall thickening. Common duct is normal in diameter. IMPRESSION: Negative gallbladder ultrasound. No stones evident. Indeterminate 1.3 cm hypoechoic lesion of the right hepatic lobe anteriorly Dictated by: Fernando Washington MD 06/30/2021 15:40 Fernando Washington MD in [place] 06/30/2021 15:40
== END ==
PROVIDERS: PCP Emergency Medicine; Visit Provider Emergency Medicine
DX: R10.9 Unspecified abdominal pain (principal)
CPT/HCPCS: 76705

== ENCOUNTER → 2021-07-27 09:01 | Outpatient (CLI) | payer MEDICAID, SELFPAY ==
--- NOTE | 2021-07-27 09:02 | MR_ITS ---
PROCEDURE INFORMATION: Exam: MR Abdomen Without and With Contrast Exam date and time: 07/27/2021 9:02 AM Age: 30 years old Clinical indication: Abdominal pain; Additional info: Liver lesion. Liver lesion seen on US, nausea, . 16ml prohance injected. TECHNIQUE: Imaging protocol: MR of the abdomen without and with intravenous contrast. Contrast material: PROHANCE; Contrast volume: 16 ml; Contrast route: IV; COMPARISON: 1. CT ABDOMEN PELVIS W CON 06/13/2021 11:54 PM 2. ABDPELW/O CT ABD PELVIS W/O CONTRAST 07/06/2017 7:00:[address] ABDOMEN PELVIS W CON 09/16/2020 2:23:06 PM FINDINGS: Lungs: Lung bases are clear. Liver: There is enlargement of the liver, measuring 19.2 cm. Minimal hepatic steatosis is appreciated. Liver lesions as follows: Lesion 1: -Location: Segment IV B -Morphology: Ellipsoid and well-circumscribed. -Size: 1.9 cm x 2 cm. -T1: Hypointense -T2: Hyperintense -DWI: Hyperintense -Contrast enhancement: Early arterial peripheral nodular enhancement with complete filling at the portal venous phase sequences. -COMMENTS: THIS IS MOST COMPATIBLE WITH A HEMANGIOMA. Lesion 2: -Location: Segment V -Morphology: Well-circumscribed and ellipsoid. -Size: 1.6 cm x 9 mm. -T1: Hypointense -T2: Hyperintense -DWI: Hyperintense -Contrast enhancement: Early arterial peripheral nodular enhancement with centripetal fill in at the portal venous phase sequences. -COMMENTS: THIS IS MOST COMPATIBLE WITH A HEMANGIOMA. Lesion 3: -Location: Segment V -Morphology: Well-circumscribed and ellipsoid. -Size: 1.2 cm x 8 mm. -T1: Hypointense -T2: Hyperintense -DWI: Hyperintense -Contrast enhancement: Minimal peripheral enhancement on the early arterial phase images with gradual centripetal fill in. There is complete fill in on the delayed 10 and 15 minutes postcontrast images. -COMMENTS: THIS IS MOST IN FAVOR WITH A SMALL AND PERHAPS ATYPICAL HEMANGIOMA. Lesion 4: -Location: Segment II -Morphology: Ovoid and well-circumscribed. -Size: 8 mm x 8 mm. -T1: Hypointense -T2: Hyperintense -DWI: Hyperintense -Contrast enhancement: Early arterial complete enhancement. -COMMENTS: THIS IS MOST IN FAVOR WITH A TINY FLASH FILLING HEMANGIOMA. The liver is otherwise unremarkable. Gallbladder and bile ducts: Unremarkable. No stones. No ductal dilation. Pancreas: Unremarkable. No ductal dilation. Spleen: Unremarkable. No splenomegaly. Adrenal glands: Unremarkable. No mass. Kidneys and ureters: Unremarkable. No solid mass. No hydronephrosis. Stomach and bowel: Visualized stomach and intestines are unremarkable. Intraperitoneal space: No free fluid. Arteries: No abdominal aortic aneurysm. Bones/joints: No acute skeletal abnormality or aggressive osseous lesion. Soft tissues: Body wall soft tissues are unremarkable. IMPRESSION: 1. FOUR HEPATIC HEMANGIOMAS. THESE ARE COMPATIBLE WITH THE PREVIOUSLY IDENTIFIED LIVER LESIONS DATING BACK TO 2017. 2. NO CONCERNING OR AGGRESSIVE LIVER LESIONS ARE APPRECIATED. SPECIFICALLY, THERE IS NO EVIDENCE FOR HEPATOCELLULAR CARCINOMA. 3. ASIDE FROM MILD HEPATIC STEATOSIS, THERE IS NO EVIDENCE FOR INFILTRATIVE/DEPOSITION RELATED LIVER DISEASE IN THIS EXAMINATION. 4. MILD HEPATOMEGALY.
== END ==
PROVIDERS: PCP Physician Assistant; Visit Provider Physician Assistant
DX: K76.9 Liver disease, unspecified (principal)
CPT/HCPCS: 74183; A9576

== ENCOUNTER 2021-10-06 10:51 | Emergency (ER) | payer MEDICAID, SELFPAY ==
[2021-10-06 11:03] VITALS: BP 114/77; PULSE 85; RESP 17; TEMP 36.6; O2SAT 98; BMI 34.0
[2021-10-06 11:29] LABS: Strep Scrn Group A (Rapid) Negative (Negative)
--- NOTE | 2021-10-06 11:53 | HMH.EDUTC ---
[facility] Disposition Clinical Impression: Lesion of tongue, Tongue pain, Tongue infection Disposition: Home, Self-Care Condition on Discharge: Good Additional Instructions: Drink plenty of fluids. Take tylenol for pain or fever. Take the medications as directed. Follow up with your regular doctor. Follow up with the ENT doctor. I put in a referral to Dr. Velez. Any areas that are sore in your mouth for longer than 2 weeks must be evaluated by an ENT. There is alway the possibility of oral cancer that has to be ruled out in this case. GO TO THE ER FOR ANY WORSENING SYMPTOMS Use the viscous lidocaine for the localized pain and discomfort. Prescriptions: cephALEXin [cephALEXin 500mg capsule] 500 mg PO Q6H 10 Days #40 cap Transmission Status: Received by [facility] lidocaine HCL [Lidocaine 2% viscous solution 15mL UDC] 1 applicatio MM QIDP PRN #60 ml PRN Reason: Mouth Irritation Transmission Status: Received by [facility] Referrals: Chaparrita Haynes PA [Primary Care Provider] - Adela Velez MD [Consulting Physician] - Time of Disposition: 12:22 Medical Decision Making - Medical Records Medical records reviewed: No: I reviewed the patient's medical records. - [place] Inquiry Pt receiving controlled substance: No Vital Signs: 10/06/21 11:03 10/06/21 12:26 Temperature 98 F 98 F Temperature Source Oral Pulse Rate 85 Pulse Rate [Left] 85 Respiratory Rate 17 17 Blood Pressure 114/77 Blood Pressure [Right Arm] 114/77 Blood Pressure Mean [Right Arm] 89 02 Sat by Pulse Oximetry 98 - Lab Data Lab Results 10/06/21 11:08: Group A Strep Rapid Negative Orders (Tests/Meds): ORDERS Category Date Time Status Strep Screen Confirmation Stat Micro 10/06/21 11:08 Received [facility] HPI - General Stated complaint: knot on tongue, hard to talk Time Seen by Provider: 10/06/21 11:53 Mode of Arrival: Ambulatory Source of Information: Patient Limitations: No Limitations Description of Symptoms (Recalled from Triage Doc. by RN): pt c/o a knot on my tongue, hard to talk. x1 month HEENT Symptoms (Recalled from RN notes): Yes Resp Symptoms (Recalled from RN notes): No Skin Symptoms (Recalled from RN notes): No MS Symptoms (Recalled from RN notes): No Functional Status (Recalled from RN notes): wnl - History of Present Illness Provider Complaint: She states that for the past 1 month she has had a sore area on her tongue. She states that she can feel a knot beneath the area where she is sore. Seh denies any known injury to her tongue. She does not have any teeth to bite it with. She denies any other complaints. She does smoke cigarettes. She denies any oral tobacco use. - Related Data Previous Rx's Medication Instructions Recorded atorvastatin 10 mg tablet See Rx Instructions .ROUTE 06/06/21 .COMPLEX #90 tab cholecalciferol (vitamin D3) 25 See Rx Instructions .ROUTE 06/06/21 mcg (1,000 unit) tablet .COMPLEX #90 tab doxepin 25 mg capsule See Rx Instructions .ROUTE 06/06/21 .COMPLEX #90 cap ergocalciferol (vitamin D2) 1,250 See Rx Instructions .ROUTE 06/06/21 mcg (50,000 unit) capsule .COMPLEX #14 cap prazosin 1 mg capsule 1 mg PO QHS #90 cap 06/06/21 propranolol 120 mg capsule,24 120 mg PO DAILY #90 cap 06/06/21 hr,extended release ondansetron 8 mg disintegrating 8 mg PO Q8H PRN #30 tab 06/27/21 tablet cetirizine 10 mg tablet 10 mg PO DAILY #90 tab 07/11/21 fluticasone propionate 50 1 spray INTRANASAL QDAY 30 Days 07/11/21 mcg/actuation nasal #9.9 g spray,suspension hydroxyzine HCl 25 mg tablet See Rx Instructions .ROUTE 07/19/21 .COMPLEX #90 tab linaclotide 145 mcg capsule See Rx Instructions .ROUTE 07/19/21 .COMPLEX #90 cap sumatriptan succinate 100 mg tablet See Rx Instructions .ROUTE 08/22/21 .COMPLEX #9 tab cariprazine 3 mg capsule See Rx Instructions .ROUTE 10/06/21 .COMPLEX #30 capsule cephALEXin [cephALEXin
[2021-10-06 12:26] VITALS: BP 114/77; PULSE 85; RESP 17; TEMP 36.6
== END 2021-10-06 12:26 | disposition home or self-care (01) ==
PROVIDERS: Emergency Provider Nurse Practitioner Family; PCP Physician Assistant
DX: K14.0 Glossitis (principal); F17.210 Nicotine dependence, cigarettes, uncomplicated
CPT/HCPCS: 87430; 99202; 99212; 99213; G0463

== ENCOUNTER → 2022-03-23 06:09 | Outpatient (CLI) | payer MEDICAID, SELFPAY ==
[2022-03-22 18:00] LABS: Adenovirus,PCR Not Detected (NotDetected); Bordetella Pertussis Not Detected (NotDetected); Chlamydophila Pneumoniae, PCR Not Detected (NotDetected); Coronavirus 19, PCR Not Detected (NotDetected); Coronavirus 229E Not Detected (NotDetected); Coronavirus NL63 Not Detected (NotDetected); Coronavirus OC43 Not Detected (NotDetected); Coronovirus HKU1,PCR Not Detected (NotDetected); Human Metapneumovirus Not Detected (NotDetected); Influenza A, PCR Not Detected (NotDetected); Influenza AH1, 2009 Not Detected (NotDetected); Influenza AH1, PCR Not Detected (NotDetected); Influenza AH3,PCR Not Detected (NotDetected); Influenza B, PCR Not Detected (NotDetected); Mycoplasma Pneumoniae, PCR Not Detected (NotDetected); Parainfluenza 1, PCR Not Detected (NotDetected); Parainfluenza 2, PCR Not Detected (NotDetected); Parainfluenza 3, PCR Not Detected (NotDetected); Parainfluenza 4, PCR Not Detected (NotDetected); Respiratory Syncytial Virus Not Detected (NotDetected); Rhinovirus/Enterovirus Not Detected (NotDetected)
== END ==
PROVIDERS: PCP Physician Assistant; Visit Provider Physician Assistant
DX: Z20.822 Contact with and (suspected) exposure to COVID-19 (principal); R11.2 Nausea with vomiting, unspecified
CPT/HCPCS: 87086; 87581; 87632; 87798; C9803; U0003; U0005

== ENCOUNTER → 2022-04-10 15:52 | Outpatient (CLI) | payer MEDICAID, SELFPAY ==
[2022-04-10 18:01] LABS: Basophils # 0.1 K/mm3 (0-0.2); Basophils % 1.1 % (0.1-2.0); Eosinophils # 0.3 K/mm3 (0.0-0.4); Eosinophils % 2.8 % (0.1-12.0); Hemoglobin 14.8 g/dL (12.2-16.2); Lymphocytes # 2.9 K/mm3 (0.7-4.5); Lymphocytes % 32.3 % (10-50); Mean Corpuscular HGB Conc 31.6 g/dL (31.8-35.4); Mean Corpuscular Hemoglobin 31.9 pg (27.0-31.2); Mean Corpuscular Volume 101.1 fl (81-99); Mean Platelet Volume 8.2 fl (7.4-10.4); Monocytes # 0.7 K/mm3 (0.1-1.0); Monocytes % 7.8 % (1.7-9.3); Neutrophils # 5.1 K/mm3 (1.8-7.8); Neutrophils % 55.9 % (37.0-80.0); Platelet Count 408 K/mm3 (142-424); Red Blood Count 4.65 M/mm3 (4.20-5.40); Red Cell Distribution Width 13.2 % (11.5-17.5); White Blood Count 9.1 K/mm3 (4.8-10.8)
[2022-04-10 19:03] LABS: Alanine Aminotransferase 28 U/L (12-78); Albumin Level 4.3 g/dl (3.5-5.0); Albumin/Globulin Ratio 1.4 (1.1-1.8); Alkaline Phosphatase 55 U/L (38-126); Anion Gap 11.3 mEq/L (5-15); Aspartate Amino Transferase 40 U/L (14-36); Bilirubin,Total 0.3 mg/dl (0.2-1.3); Blood Urea Nitrogen 6 mg/dl (7-17); Calcium 9.2 mg/dl (8.4-10.2); Carbon Dioxide 28 mmol/L (22.0-30.0); Chloride 106 mmol/L (98-107); Estimated Glomerular Filt Rate 84 ml/min (>60); GFR (African American) 102 ML/MIN (>60); Globulin 3.1 g/dL (1.3-3.2); Glucose 78 mg/dl (74-100); Potassium 4.3 mmoL/L (3.5-5.1); Sodium 141 mmol/L (136-145); Total Protein,Serum 7.4 g/dl (6.3-8.2)
== END ==
PROVIDERS: PCP Physician Assistant; Visit Provider Nurse Practitioner Obstetrics & Gynecology
DX: Z01.419 Encounter for gynecological examination (general) (routine) without abnormal findings (principal)
CPT/HCPCS: 36415; 80053; 85025

== ENCOUNTER → 2022-04-14 14:08 | Outpatient (CLI) | payer MEDICAID, SELFPAY ==
--- NOTE | 2022-04-14 14:08 | US_ITS ---
FINAL REPORT CLINICAL HISTORY: pelvic pain FINDINGS: Transvaginal sonographic images of the pelvis were obtained. The uterus measures 5.6 x 3.5 x 4.7 cm. The endometrium measures 0.52 cm. The right ovary measures 2.8 x 2.0 x 2.0 cm. The left ovary measures 3.1 x 2.1 x 1.8 cm. Multiple small follicles are seen in both ovaries. There is no evidence of free fluid. IMPRESSION: No acute process. Reviewed, Interpreted and Dictated by Alexandro Huber III, MD Transcribed by Yarelis Mayfield Authenticated and . [facility]
== END ==
PROVIDERS: PCP Physician Assistant; Visit Provider Nurse Practitioner Obstetrics & Gynecology
DX: R10.2 Pelvic and perineal pain (principal)
CPT/HCPCS: 76830

== ENCOUNTER 2022-04-29 20:00 | Emergency (ER) | payer MEDICAID, SELFPAY ==
[2022-04-29 20:02] VITALS: BP 103/86; PULSE 100; RESP 19; TEMP 36.6; O2SAT 100; BMI 33.6
[2022-04-29 20:15] LABS: Coronavirus 19, PCR Not Detected (NotDetected); Influenza A, PCR Not Detected (NotDetected); Influenza B, PCR Not Detected (NotDetected)
--- NOTE | 2022-04-29 20:19 | XR_ITS ---
PROCEDURE INFORMATION: Exam: XR Chest Exam date and time: 04/29/2022 8:42 PM Age: 31 years old Clinical indication: Cough and other: Possible covid; Additional info: Cough, poss covid TECHNIQUE: Imaging protocol: Radiologic exam of the chest. Views: 2 views. COMPARISON: CR XR CHEST 2V 02/23/2021 3:39 PM FINDINGS: Lungs: No consolidation. Probable calcified granuloma within LEFT lung base. Pleural spaces: No significant pleural effusion. No pneumothorax. Heart/Mediastinum: No cardiomegaly. Bones/joints: No displaced fracture. Soft tissues: Unremarkable. IMPRESSION: No definite acute cardiopulmonary disease. If symptoms persist, consider CT for further evaluation.
[2022-04-29 20:31] LABS: Basophils # 0.2 K/mm3 (0-0.2); Basophils % 1.3 % (0.1-2.0); Eosinophils # 0.1 K/mm3 (0.0-0.4); Eosinophils % 0.7 % (0.1-12.0); Hematocrit 46.6 % (37.0-47.0); Hemoglobin 15.7 g/dL (12.2-16.2); Lymphocytes # 4.9 K/mm3 (0.7-4.5); Lymphocytes % 44.2 % (10-50); Mean Corpuscular HGB Conc 33.7 g/dL (31.8-35.4); Mean Corpuscular Hemoglobin 32.5 pg (27.0-31.2); Mean Corpuscular Volume 96.4 fl (81-99); Mean Platelet Volume 7.9 fl (7.4-10.4); Monocytes # 0.8 K/mm3 (0.1-1.0); Monocytes % 7.1 % (1.7-9.3); Neutrophils # 5.2 K/mm3 (1.8-7.8); Neutrophils % 46.6 % (37.0-80.0); Platelet Count 351 K/mm3 (142-424); Red Blood Count 4.84 M/mm3 (4.20-5.40); Red Cell Distribution Width 13.4 % (11.5-17.5); White Blood Count 11.1 K/mm3 (4.8-10.8)
[2022-04-29 20:32] LABS: Alanine Aminotransferase 43 U/L (12-78); Albumin Level 4.6 g/dl (3.5-5.0); Albumin/Globulin Ratio 1.2 (1.1-1.8); Alkaline Phosphatase 61 U/L (38-126); Anion Gap 11.4 mEq/L (5-15); Aspartate Amino Transferase 50 U/L (14-36); Bilirubin,Total 0.4 mg/dl (0.2-1.3); Blood Urea Nitrogen 9 mg/dl (7-17); Calcium 10.2 mg/dl (8.4-10.2); Carbon Dioxide 27 mmol/L (22.0-30.0); Chloride 105 mmol/L (98-107); Creatinine Clearance Estimated 131 mL/min (50-200); Estimated Glomerular Filt Rate 84 ml/min (>60); GFR (African American) 102 ML/MIN (>60); Globulin 3.8 g/dL (1.3-3.2); Glucose 100 mg/dl (74-100); Potassium 3.4 mmoL/L (3.5-5.1); Sodium 140 mmol/L (136-145); Total Protein,Serum 8.4 g/dl (6.3-8.2)
[2022-04-29 20:38] LABS: C-Reactive Protein 1.2 mg/L (0-4)
--- NOTE | 2022-04-29 20:50 | PC.NURSE ---
Pt gone to RAD
[2022-04-29 20:51] LABS: Procalcitonin 0.033 ng/mL (0.0-2.0)
--- NOTE | 2022-04-29 20:53 | PC.NURSE ---
Pt back from RAD
[2022-04-29 20:57] LABS: Erythrocyte Sedimentation Rate 14 mm/hr (0-20)
[2022-04-29 21:09] LABS: Microscopic, Urine URINE MICROSCOPIC (MICROSCOPIC)
[2022-04-29 21:19] LABS: Appearance,Urine CLEAR (Clear); Bilirubin,Urine Negative (Negative); Blood, Urine TRACE-I (Negative); Color,Urine YELLOW (Yellow); Glucose,Urine (UA) Negative (Negative); Ketones,Urine Negative (Negative); Leukocyte Esterase,Urine Negative (Negative); Nitrate,Urine Negative (Negative); PH,Urine 6.5 (5.0-8.5); Protein,Urine Negative (Negative); Urobilinogen,Urine 0.2 EU/dl (0.2)
[2022-04-29 21:31] LABS: WBC,Urine Occasional #/hpf (0-3)
[2022-04-29 21:32] VITALS: BP 118/73; PULSE 65; O2SAT 100
[2022-04-29 21:32] LABS: Amorphous Sediment,Urine 2+ /lpf; Bacteria,Urine 3+ /lpf; Squamous Epithelial Cell,Urine 20-50 #/hpf (0-5)
--- NOTE | 2022-04-29 21:32 | PC.NURSE ---
Rounded on pt. No needs or complaints voiced at this time.
[2022-04-29 22:00] VITALS: BP 107/73; PULSE 72; O2SAT 99
--- NOTE | 2022-04-29 22:11 | HMH.EDURI ---
Discharge Plan Disposition Patient Disposition: Home, Self-Care Prescriptions Prescriptions: New ondansetron HCl 4 mg Tablet 4 mg PO Q8H PRN (Reason: Nausea) Qty: 14 0RF levofloxacin 500 mg tablet 500 mg PO DAILY Qty: 7 0RF No Action atorvastatin 10 mg tablet See Rx Instructions .Route .COMPLEX Qty: 90 3RF Rx Instructions: TAKE ONE TABLET BY MOUTH ONCE A DAY FOR CHOLESTEROL cholecalciferol (vitamin D3) 25 mcg (1,000 unit) tablet See Rx Instructions .Route .COMPLEX Qty: 90 3RF Rx Instructions: TAKE ONE TABLET BY MOUTH ONCE A DAY quetiapine [Seroquel XR] 50 mg tablet extended release 24 hr 100 mg PO HS Qty: 180 0RF ondansetron 8 mg tablet,disintegrating 8 mg PO Q8H PRN (Reason: nausea and vomiting) Qty: 30 0RF cetirizine [All Day Allergy (cetirizine)] 10 mg tablet 10 mg PO DAILY Qty: 90 3RF metronidazole 500 mg tablet 500 mg PO BID Qty: 28 1RF triamcinolone acetonide 0.1 % paste 1 applic dental BID PRN (Reason: mouth irritation) Qty: 5 0RF Rx Instructions: use after food and/or drink and/or oral hygiene albuterol sulfate 90 mcg/actuation HFA aerosol inhaler 1 inh inhalation QID PRN (Reason: shortness of breath or wheezing) Qty: 6.7 0RF tizanidine 4 mg tablet See Rx Instructions .ROUTE .COMPLEX Qty: 90 0RF Dose Instruction: TAKE ONE TABLET BY MOUTH EVERY 8 HOURS NEEDED FOR MUSCLE SPASTICITY Rx Instructions: TAKE ONE TABLET BY MOUTH EVERY 8 HOURS NEEDED FOR MUSCLE SPASTICITY sumatriptan succinate 100 mg tablet See Rx Instructions .ROUTE .COMPLEX Qty: 9 2RF Dose Instruction: TAKE 1 TABLET BY MOUTH AT ONSET OF MIGRAINE, THEN MAY REPEAT 1 TIME IN 2 HOURS IF NO RELIEF. MAX OF 2 IN 24 HOURS. Rx Instructions: TAKE 1 TABLET BY MOUTH AT ONSET OF MIGRAINE, THEN MAY REPEAT 1 TIME IN 2 HOURS IF NO RELIEF. MAX OF 2 IN 24 HOURS. propranolol 120 mg capsule,extended release 24 hr See Rx Instructions .ROUTE .COMPLEX Qty: 30 2RF Dose Instruction: TAKE ONE CAPSULE BY MOUTH ONCE A DAY FOR BLOOD PRESSURE Rx Instructions: TAKE ONE CAPSULE BY MOUTH ONCE A DAY FOR BLOOD PRESSURE ergocalciferol (vitamin D2) 1,250 mcg (50,000 unit) capsule See Rx Instructions .ROUTE .COMPLEX Qty: 4 3RF Dose Instruction: TAKE ONE CAPSULE BY MOUTH EVERY WEEK Rx Instructions: TAKE ONE CAPSULE BY MOUTH EVERY WEEK Vraylar 3 mg capsule See Rx Instructions .ROUTE .COMPLEX Qty: 30 2RF Dose Instruction: TAKE ONE CAPSULE BY MOUTH ONCE A DAY Rx Instructions: TAKE ONE CAPSULE BY MOUTH ONCE A DAY doxepin 25 mg capsule See Rx Instructions .ROUTE .COMPLEX Qty: 30 2RF Dose Instruction: TAKE ONE CAPSULE BY MOUTH AT BEDTIME Rx Instructions: TAKE ONE CAPSULE BY MOUTH AT BEDTIME hydroxyzine HCl 25 mg tablet See Rx Instructions .ROUTE .COMPLEX Qty: 90 2RF Dose Instruction: TAKE ONE TABLET BY MOUTH 3 TIMES A DAY NEEDED FOR ANXIETY Rx Instructions: TAKE ONE TABLET BY MOUTH 3 TIMES A DAY NEEDED FOR ANXIETY prazosin 1 mg capsule See Rx Instructions .ROUTE .COMPLEX Qty: 90 3RF Dose Instruction: TAKE ONE CAPSULE BY MOUTH AT BEDTIME Rx Instructions: TAKE ONE CAPSULE BY MOUTH AT BEDTIME lithium carbonate 300 mg tablet extended release See Rx Instructions .ROUTE .COMPLEX Qty: 30 0RF Dose Instruction: TAKE ONE TABLET BY MOUTH AT BEDTIME Rx Instructions: TAKE ONE TABLET BY MOUTH AT BEDTIME Referrals Follow up/Referrals: Chaparrita Haynes PA [Primary Care Provider] - See instructions Clinical Impressions Clinical Impression: Bronchitis Instructions Patient Instructions: DI for Acute Bronchitis Discharge ED Provider: Mau Pulliam URI/Sore Throat HPI General Chief Complaint: Upper Respiratory Infection Stated Complaint: covid exposed,V&D,Sore throat, Time Seen by Provider: 04/29/22 22:11 Mode of Arrival: Family Vehicle
[2022-04-29 22:31] VITALS: BP 109/90; PULSE 73; O2SAT 100
[2022-04-29 22:38] VITALS: BP 109/80; PULSE 82; RESP 18; TEMP 36.7; O2SAT 98
== END 2022-04-29 22:40 | disposition home or self-care (01) ==
PROVIDERS: Emergency Provider Emergency Medicine; PCP Physician Assistant
DX: J20.9 Acute bronchitis, unspecified (principal); F17.210 Nicotine dependence, cigarettes, uncomplicated; Z20.822 Contact with and (suspected) exposure to COVID-19
CPT/HCPCS: 71046; 80053; 81001; 84145; 85025; 85651; 86140; 87086; 96361; 96374; 99284; C9803; J2405; U0003; U0005

== ENCOUNTER → 2022-05-19 14:45 | Outpatient (CLI) | payer MEDICAID, SELFPAY ==
[2022-05-19 18:32] LABS: Basophils # 0.1 K/mm3 (0-0.2); Basophils % 1.1 % (0.1-2.0); Eosinophils # 0.4 K/mm3 (0.0-0.4); Eosinophils % 3.8 % (0.1-12.0); Hematocrit 43.9 % (37.0-47.0); Hemoglobin 14.9 g/dL (12.2-16.2); Lymphocytes # 2.9 K/mm3 (0.7-4.5); Lymphocytes % 29.6 % (10-50); Mean Corpuscular HGB Conc 33.9 g/dL (31.8-35.4); Mean Corpuscular Volume 97.4 fl (81-99); Mean Platelet Volume 8.8 fl (7.4-10.4); Monocytes # 0.6 K/mm3 (0.1-1.0); Neutrophils # 5.8 K/mm3 (1.8-7.8); Neutrophils % 59.5 % (37.0-80.0); Platelet Count 348 K/mm3 (142-424); Red Blood Count 4.51 M/mm3 (4.20-5.40); Red Cell Distribution Width 13.2 % (11.5-17.5); White Blood Count 9.7 K/mm3 (4.8-10.8)
[2022-05-19 18:39] LABS: Alanine Aminotransferase 55 U/L (12-78); Albumin Level 4.2 g/dl (3.5-5.0); Albumin/Globulin Ratio 1.3 (1.1-1.8); Alkaline Phosphatase 53 U/L (38-126); Anion Gap 16.3 mEq/L (5-15); Aspartate Amino Transferase 61 U/L (14-36); Bilirubin,Total 0.6 mg/dl (0.2-1.3); Blood Urea Nitrogen 12 mg/dl (7-17); Calcium 9.3 mg/dl (8.4-10.2); Carbon Dioxide 23 mmol/L (22.0-30.0); Chloride 105 mmol/L (98-107); Estimated Glomerular Filt Rate 84 ml/min (>60); GFR (African American) 102 ML/MIN (>60); Globulin 3.2 g/dL (1.3-3.2); Glucose 103 mg/dl (74-100); Potassium 4.3 mmoL/L (3.5-5.1); Sodium 140 mmol/L (136-145); Total Protein,Serum 7.4 g/dl (6.3-8.2)
[2022-05-21 08:09] LABS: Hep A Ab, Total Negative (Negative); Hep B Core Ab, Total Negative (Negative); Hep B Surface Ab, Qual Non Reactive (.); Hepatitis B Surface Antigen Negative (Negative); Hepatitis C Antibody >11.0 s/co ratio (0.0-0.9)
[2022-05-21 10:36] LABS: HIV Screen 4th Generation wRfx Non Reactive (Non Reactive)
[2022-05-25 04:11] LABS: ALT (SGPT) P5P 46 IU/L (0-40); Alpha 2-Macroglobulins, Qn 201 mg/dL (110-276); Apolipoprotein A-1 154 mg/dL (116-209); Bilirubin, Total 0.3 mg/dL (0.0-1.2); Fibrosis Score 0.16 (0.00-0.21); GGT 97 IU/L (0-60); Haptoglobin 69 mg/dL (33-278); Necroinflammat Activity Grade A0-A1 (.); Necroinflammat Activity Score 0.22 (0.00-0.17)
[2022-05-25 22:07] LABS: HCV Genotype Charge YES; HCV RNA (International Units) 19900000 IU/mL (.); Hepatitis C Genotype 1a (.)
== END ==
PROVIDERS: PCP Nurse Practitioner Family; Visit Provider Nurse Practitioner Family
DX: B18.2 Chronic viral hepatitis C (principal); Z11.4 Encounter for screening for human immunodeficiency virus [HIV]
CPT/HCPCS: 80053; 81596; 85025; 86703; 86704; 86706; 86708; 87340; 87380; 87522; 87902; G0432

== ENCOUNTER → 2022-05-24 13:59 | Outpatient (CLI) | payer MEDICAID, SELFPAY ==
[2022-05-24 14:05] LABS: MANUAL DIFFERENTIAL MANUAL DIFFERENTIAL (MANUAL DIFF)
[2022-05-24 14:40] LABS: Basophils # 0.1 K/mm3 (0-0.2); Basophils % 0.8 % (0.1-2.0); Eosinophils % 0.1 % (0.1-12.0); Hematocrit 45.6 % (37.0-47.0); Hemoglobin 15.2 g/dL (12.2-16.2); Lymphocytes # 3.7 K/mm3 (0.7-4.5); Mean Corpuscular HGB Conc 33.2 g/dL (31.8-35.4); Mean Corpuscular Hemoglobin 32.2 pg (27.0-31.2); Mean Platelet Volume 7.8 fl (7.4-10.4); Monocytes # 0.9 K/mm3 (0.1-1.0); Monocytes % 6.2 % (1.7-9.3); Neutrophils % 67.9 % (37.0-80.0); Platelet Count 361 K/mm3 (142-424); Red Blood Count 4.71 M/mm3 (4.20-5.40); Red Cell Distribution Width 13.4 % (11.5-17.5); White Blood Count 14.7 K/mm3 (4.8-10.8)
[2022-05-24 15:42] LABS: Lymphocytes % 24 % (10-50); Monocytes % 2 % (2-9); Neutrophils % 74 % (42-76); Total Cells Counted 100
[2022-05-24 15:43] LABS: Tear Drop Cells 1+
[2022-05-24 15:44] LABS: Platelet Estimate Normal
[2022-05-24 16:59] LABS: Chloride 105 mmol/L (98-107); Sodium 140 mmol/L (136-145)
[2022-05-24 17:00] LABS: Potassium 4.8 mmoL/L (3.5-5.1)
[2022-05-24 17:02] LABS: Alanine Aminotransferase 61 U/L (12-78); Albumin Level 4.8 g/dl (3.5-5.0); Albumin/Globulin Ratio 1.4 (1.1-1.8); Alkaline Phosphatase 66 U/L (38-126); Anion Gap 15.8 mEq/L (5-15); Aspartate Amino Transferase 62 U/L (14-36); Bilirubin,Total 0.3 mg/dl (0.2-1.3); Blood Urea Nitrogen 5 mg/dl (7-17); Calcium 9.7 mg/dl (8.4-10.2); Carbon Dioxide 24 mmol/L (22.0-30.0); Estimated Glomerular Filt Rate 98 ml/min (>60); GFR (African American) 119 ML/MIN (>60); Globulin 3.5 g/dL (1.3-3.2); Glucose 73 mg/dl (74-100); Total Protein,Serum 8.3 g/dl (6.3-8.2)
[2022-05-24 17:22] LABS: HCG,Quantitative < 2 mIU/ml (0-5.42)
== END ==
PROVIDERS: PCP Physician Assistant; Visit Provider Nurse Practitioner Obstetrics & Gynecology
DX: Z01.812 Encounter for preprocedural laboratory examination (principal); Z20.822 Contact with and (suspected) exposure to COVID-19; N92.0 Excessive and frequent menstruation with regular cycle
CPT/HCPCS: 36415; 80053; 84702; 85007; 85014; 85018; 85048; 85049; C9803; U0003; U0005

== ENCOUNTER 2022-05-26 05:07 | Day surgery (SDC) | payer MEDICAID, SELFPAY ==
[2022-05-23 11:19] VITALS: BMI 34.0
[2022-05-26] VITALS (12 sets, daily range): BP systolic 95–120; BP diastolic 55–85; PULSE 57–89; RESP 16–20; TEMP 36.1–43; O2SAT 91–99
[2022-05-26 07:39] LABS: Appearance,Urine SL CLOUDY (Clear); Bilirubin,Urine Negative (Negative); Blood, Urine Negative (Negative); Color,Urine YELLOW (Yellow); Glucose,Urine (UA) Negative (Negative); Ketones,Urine Negative (Negative); Leukocyte Esterase,Urine Negative (Negative); Microscopic, Urine URINE MICROSCOPIC (MICROSCOPIC); Nitrate,Urine Negative (Negative); PH,Urine 6.5 (5.0-8.5); Protein,Urine Negative (Negative); Specific Gravity, Urine 1.015 (1.005-1.030); Urobilinogen,Urine 0.2 EU/dl (0.2)
--- NOTE | 2022-05-26 07:51 | EXP.ANES.CKL ---
[facility] Medical History Allergic rhinitis Allergies Anxiety Anxiety Asthma Bipolar disorder Bipolar disorder Chronic cough Chronic headaches Cracked skin on feet Depression Headache, migraine History of gastroesophageal reflux (GERD) Hyperlipemia Hypertension Kidney stone Low back pain Migraines Nasal bleeding Seizures Sinus headache Urinary tract infection Surgical History History of surgery KIDNEY STENT PLACED AND REMOVED Family History Mother Ovarian cancer Diabetes Father Lung cancer Diabetes Liver failure Social History Smoking Status: Current every day smoker tobacco type: cigarettes packs per day: 1 years smoked: 15 second hand exposure: Yes alcohol intake: current substance use type: former substance user and marijuana 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al status: unemployed Travel in the last 8 weeks: None housing: house number of children: 0 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al exposures/hazards: No caffeine: Yes [facility] Anesthesia Checklist Patient Identification Patient Identification: Arm Band Structural Data Admitted From: Home Planned Operative Procedure/s: Hysteroscopy, D&C, Novasure Ablation Consent for Planned Operative Procedure(s) Verified: Yes Verified Documents: Surgical Consent and History and Physical NPO Status Verified Time NPO: 00:00 Additional verifications Anesthesia Reactions: No Hx Blood Transfusions: No Blood Transfusion Reaction: No Airway Assessment C-Spine Mobility Assessed: Yes TMJ Mobility Assessed: Yes Dentition: Edentulous Neurological Assessment Level of Consciousness: Awake and Alert Anesthesia Plan Anesthesia Risk discussed: Yes Anesthesia Plan: Verified ASA Class: II Anesthesia Type: General
[2022-05-26 07:52] LABS: Bacteria,Urine Trace /lpf; WBC,Urine Occasional #/hpf (0-3)
--- NOTE | 2022-05-26 08:08 | EXP.OP.NOTE ---
Date of procedure: 05/26/22 Pre-op Diagnosis:: Menorrhagia Post-op Diagnosis:: Menorrhagia Procedure performed:: Hysteroscopy, NovaSure ablation Surgeon:: Eric Carpenter MD CORPORATE STRATEGY ASSOCIATE:: Tan Ansari Anesthesia: LMA Estimated blood loss (mL): 50 Clinical Note:: She is a 31-year-old 0 para 0 lady who expressed a desire for NovaSure ablation. She has extremely heavy periods. She has not had a tubal ligation but she does not want to have children. She has a female partner. Operative findings:: She had a normal-appearing retroverted uterus. The endometrium appeared somewhat lush but otherwise normal. The uterus sounded to 7 cm. The width was 3.5 cm and the length of the endometrial cavity was 4.5 cm. Operative note:: She was taken to the operating room where LMA anesthesia was found be adequate. She was prepped and draped in the normal sterile fashion in the lithotomy position. A weighted speculum was placed in the vagina and the anterior lip of the cervix was grasped with a tenaculum. The cervix was then dilated to approximately 6 mm. I then inserted a hysteroscope into the uterine cavity and the findings were as previously dictated. I then sounded the uterus and determine the length of the uterus. I then inserted the NovaSure device and determine the width of the endometrial cavity. The endometrial cavity length was 4.5 cm and the width was 3.5 cm. This was placed into the NovaSure device. I then ran the device through its program. I further inspected the endometrial cavity and was found to be completely charred. I then injected 30 cc of 0.5% ropivacaine at the 3:00, 5:00, 7:00, and 9:00 positions of the cervix. She tolerated procedure well and was taken to the recovery room in excellent condition. All sponge and instrument counts were correct. The estimated blood loss was less than 50 cc. Condition: stable Disposition: PACU Specimens:: None Complications:: None
--- NOTE | 2022-05-26 08:11 | P.PNANES_ITS ---
[facility] Anesthesia Record Part I Anesthesia Record I Intake, IV Amount: 1,000 Estimated blood loss (mL): 25 Urine output (mL): 0 Blood Products used (#): none Blood Pressure: 115/70 SaO2: 91 Pulse Rate: 63 Respiratory Rate: 16 Temperature: 97.6 F Patient is:: Drowsy, Nasal O2 and Stable Stable to PACU at:: 08:05
--- NOTE | 2022-05-26 08:46 | SUR.PHASEI ---
0835- detailed report called to sabine rogers in post op at this time. 0836- pt left in stable condition with sabine rogers in post op
--- NOTE | 2022-05-26 09:19 | P.PNANES_ITS ---
[facility] Anesthesia Record Part II Anesthesia Record Part II Discharge Time: 08:35 Destination: Surgical Day Care (OP Surgery) PACU nurse assessment reviewed?: Yes Patient Condition:: Good Anesthesia Complications:: None Swallowing reflex intact?: Yes Cyanosis?: No Blood Pressure: 108/81 Pulse Rate: 60 Temperature: 97.6 F Mental Status: Alert & Oriented Pain level:: 0 Nausea and/or vomitting:: None Intake, IV Amount: 0
== END 2022-05-26 09:07 | disposition home or self-care (01) ==
PROVIDERS: PCP Nurse Practitioner Family; Visit Provider Nurse Practitioner Obstetrics & Gynecology
PROC: 0U5B8ZZ Destruction of Endometrium, Via Natural or Artificial Opening Endoscopic (ICD-10-PCS; CPT 58563; principal; 2022-05-26 07:30)
DX: N92.0 Excessive and frequent menstruation with regular cycle (principal); Z72.0 Tobacco use; Z79.899 Other long term (current) drug therapy
CPT/HCPCS: 58563; 81001; 94640; 96374; J2405

== ENCOUNTER 2022-06-06 18:04 | Emergency (ER) | payer MEDICAID, SELFPAY ==
--- NOTE | 2022-06-06 19:17 | ECG_ITS ---
APPROVED REPORT Exam: Resting ECG HR:60 bpm ECG Measurements Heart Rate 60 AXES SD 159 P 29 QRSd 93 QRS 87 QT 391 T 69 QTc 393 Conclusion SINUS RHYTHM NORMAL ECG UNCONFIRMED REPORT Electronically signed by : Joseph Valladares MD 06/06/2022 20:48:00
[2022-06-06 19:25] VITALS: BMI 32.3
--- NOTE | 2022-06-06 19:39 | XR_ITS ---
PROCEDURE INFORMATION: Exam: XR Chest Exam date and time: 06/06/2022 7:38 PM Age: 31 years old Clinical indication: Other: Chest pain; Patient HX: Blood in urine TECHNIQUE: Imaging protocol: Radiologic exam of the chest. Views: 2 views. COMPARISON: CR XR CHEST 2V 04/29/2022 8:42 PM FINDINGS: Lungs: Stable 7 mm nodule at the lateral left lung base which may be a small granuloma. No consolidation. Pleural spaces: No pneumothorax. Heart/Mediastinum: No cardiomegaly. Bones/joints: No acute fracture. IMPRESSION: No acute findings.
[2022-06-06 19:47] LABS: Microscopic, Urine URINE MICROSCOPIC (MICROSCOPIC)
[2022-06-06 19:47] LABS: Basophils # 0.2 K/mm3 (0-0.2); Basophils % 1.1 % (0.1-2.0); Eosinophils # 0.4 K/mm3 (0.0-0.4); Eosinophils % 2.1 % (0.1-12.0); Hematocrit 46.6 % (37.0-47.0); Hemoglobin 15.7 g/dL (12.2-16.2); Lymphocytes # 3.8 K/mm3 (0.7-4.5); Lymphocytes % 22.4 % (10-50); Mean Corpuscular HGB Conc 33.6 g/dL (31.8-35.4); Mean Corpuscular Hemoglobin 32.8 pg (27.0-31.2); Mean Corpuscular Volume 97.7 fl (81-99); Mean Platelet Volume 8.3 fl (7.4-10.4); Monocytes # 0.9 K/mm3 (0.1-1.0); Neutrophils # 11.8 K/mm3 (1.8-7.8); Neutrophils % 69.4 % (37.0-80.0); Platelet Count 389 K/mm3 (142-424); Red Blood Count 4.77 M/mm3 (4.20-5.40); Red Cell Distribution Width 13.3 % (11.5-17.5); White Blood Count 17.1 K/mm3 (4.8-10.8)
[2022-06-06 19:51] VITALS: BP 112/70; PULSE 80; RESP 18; TEMP 36.7; O2SAT 98; BMI 34.0
[2022-06-06 19:53] LABS: MANUAL DIFFERENTIAL MANUAL DIFFERENTIAL (MANUAL DIFF)
[2022-06-06 19:59] LABS: Chloride 103 mmol/L (98-107); Sodium 139 mmol/L (136-145)
[2022-06-06 20:02] LABS: Blood Urea Nitrogen 8 mg/dl (7-17); Calcium 9.2 mg/dl (8.4-10.2); Carbon Dioxide 24 mmol/L (22.0-30.0); Creatinine Clearance Estimated 151 mL/min (50-200); Estimated Glomerular Filt Rate 98 ml/min (>60); GFR (African American) 119 ML/MIN (>60); Glucose 99 mg/dl (74-100)
--- NOTE | 2022-06-06 20:03 | CT_ITS ---
PROCEDURE INFORMATION: Exam: CT Abdomen And Pelvis Without Contrast Exam date and time: 06/06/2022 8:20 PM Age: 31 years old Clinical indication: Abdominal pain; Prior surgery; Surgery date: <1 month; Surgery type: D&c TECHNIQUE: Imaging protocol: Computed tomography of the abdomen and pelvis without contrast. Radiation optimization: All CT scans at this facility use at least one of these dose optimization techniques: automated exposure control; mA and/or kV adjustment per patient size (includes targeted exams where dose is matched to clinical indication); or iterative reconstruction. COMPARISON: MR ABDOMEN WO/W CON 07/27/2021 9:28 AM FINDINGS: Lungs: Calcified granuloma left lower lobe. Liver: Right lobe of the liver measures 18 cm in length. Three subtle hypodense foci are again demonstrated in both the left and right lobes of the liver. No contrast was administered. Gallbladder and bile ducts: Normal. No calcified stones. No ductal dilation. Pancreas: Normal. No ductal dilation. Spleen: Normal. No splenomegaly. Adrenal glands: Normal. No mass. Kidneys and ureters: The bilateral punctate nonobstructing renal calculi demonstrated in both upper poles as well as the lower pole of the right kidney. These measure up to 3 mm. Stomach and bowel: Extensive amount of retained stool throughout the colon. Findings compatible with excessive stool burden. Appendix: No evidence of appendicitis. Intraperitoneal space: Unremarkable. No free air. No significant fluid collection. Vasculature: Unremarkable. No abdominal aortic aneurysm. Lymph nodes: Unremarkable. No enlarged lymph nodes. Urinary bladder: Unremarkable as visualized. Reproductive: Unremarkable as visualized. Bones/joints: Unremarkable. No acute fracture. Soft tissues: Small fat filled umbilical hernia. Other findings: These have been demonstrated to correspond to hemangiomas on a prior MR of the abdomen dated 07/27/2021. IMPRESSION: 1. Extensive amount of retained stool throughout the colon. Findings compatible with excessive stool burden. 2. Hypodense foci again demonstrated in the left and right lobes of the liver. These findings have been demonstrated to correspond to hemangiomas on a prior MRI of the abdomen dated 07/27/2021. No contrast administered on the current study. 3. Multiple bilateral non-obstructing renal calculi.
[2022-06-06 20:08] LABS: Appearance,Urine CLOUDY (Clear); Blood, Urine 3+ (Negative); Color,Urine ORANGE (Yellow); Glucose,Urine (UA) Negative (Negative); Ketones,Urine Negative (Negative); Leukocyte Esterase,Urine 3+ (Negative); Nitrate,Urine Negative (Negative); Protein,Urine 1+ (Negative); Specific Gravity, Urine 1.015 (1.005-1.030); Urobilinogen,Urine 0.2 EU/dl (0.2)
[2022-06-06 20:09] LABS: Urine Pregnancy, HCG Qual. Negative (Negative)
[2022-06-06 20:10] LABS: Bilirubin,Urine 1+ (Negative)
[2022-06-06 20:17] LABS: Troponin I < 0.01 ng/ml (0.00-0.034)
[2022-06-06 20:22] LABS: Bacteria,Urine Trace /lpf; RBC,Urine TNTC #/hpf (0-3); WBC,Urine 20-50 #/hpf (0-3)
--- NOTE | 2022-06-06 20:41 | HMH.EDGENADL ---
Discharge Plan Disposition Patient Disposition: Home, Self-Care Prescriptions Prescriptions: New cefdinir [cefdinir] 300 mg capsule 300 mg PO BID Qty: 14 0RF No Action triamcinolone acetonide 0.1 % paste 1 applic dental BID PRN (Reason: mouth irritation) Qty: 5 0RF Rx Instructions: use after food and/or drink and/or oral hygiene albuterol sulfate 90 mcg/actuation HFA aerosol inhaler 1 inh inhalation QID PRN (Reason: shortness of breath or wheezing) Qty: 6.7 0RF Linzess 145 mcg capsule 145 mcg PO DAILY cetirizine [All Day Allergy (cetirizine)] 10 mg tablet 10 mg PO DAILY atorvastatin 10 mg tablet 10 mg PO DAILY Rx Instructions: TAKE ONE TABLET BY MOUTH ONCE A DAY FOR CHOLESTEROL doxepin 25 mg capsule 25 mg PO HS Rx Instructions: TAKE ONE CAPSULE BY MOUTH AT BEDTIME sumatriptan succinate 100 mg tablet 100 mg PO DAILYP PRN (Reason: migraines) Rx Instructions: TAKE 1 TABLET BY MOUTH AT ONSET OF MIGRAINE, THEN MAY REPEAT 1 TIME IN 2 HOURS IF NO RELIEF. MAX OF 2 IN 24 HOURS. prazosin 1 mg capsule 1 mg PO HS Rx Instructions: TAKE ONE CAPSULE BY MOUTH AT BEDTIME lithium carbonate 300 mg tablet extended release 300 mg PO HS Rx Instructions: TAKE ONE TABLET BY MOUTH AT BEDTIME hydroxyzine HCl 25 mg tablet 25 mg PO TID Rx Instructions: TAKE ONE TABLET BY MOUTH 3 TIMES A DAY NEEDED FOR ANXIETY ergocalciferol (vitamin D2) 1,250 mcg (50,000 unit) capsule 50,000 unit PO WEEKLY Rx Instructions: TAKE ONE CAPSULE BY MOUTH EVERY WEEK propranolol 120 mg capsule,extended release 24 hr 120 mg PO DAILY Rx Instructions: TAKE ONE CAPSULE BY MOUTH ONCE A DAY FOR BLOOD PRESSURE cholecalciferol (vitamin D3) 25 mcg (1,000 unit) tablet 1,000 unit PO DAILY Rx Instructions: TAKE ONE TABLET BY MOUTH ONCE A DAY quetiapine 50 mg tablet extended release 24 hr 50 mg PO DAILY Rx Instructions: TAKE TWO TABLETS BY MOUTH AT BEDTIME Vraylar 3 mg capsule 3 mg PO DAILY Rx Instructions: TAKE ONE CAPSULE BY MOUTH ONCE A DAY ondansetron HCl 4 mg Tablet 4 mg PO Q8H PRN (Reason: Nausea) Qty: 14 0RF Referrals Follow up/Referrals: Eric Carpenter MD [Staff Physician] - See instructions Stone,Chaparrita Davison, PA [Primary Care Provider] - See instructions Clinical Impressions Clinical Impression: UTI (urinary tract infection), SIRS (systemic inflammatory response syndrome) Instructions Patient Instructions: DI for Urinary Tract Infection (UTI) Discharge ED Provider: Farhad Bear General Adult HPI <Farhad Bear MD - Last Filed: 06/06/22 21:04> General Chief complaint: Chest Pain Stated complaint: Heavy Bleeding after surgery Time Seen by Provider: 06/06/22 19:30 Mode of Arrival: Wheelchair Source of Information: Patient Limitations: No Limitations Description of Symptoms (Recalled from ER Triage Doc. by RN): Per pt, she had an ablation and a suction d&c on 05/26/22 by . Pt states that since yesterday she has had abdominal pain and diffuse back pain. Patient states the she began having chest pain described as a stabbing since 5pm. Says that the pain radiates to her right chest. Patient did not think that the chest pain was severe until she was waiting in the lobby. Patient also states that she is having vaginal pain and burning in her vagina for the prior three days and vaginal bleeding since this a.m. History of Present Illness HPI narrative: Patient is a 31-year-old female with a past medical history of recent suction D&C on 05/26. She states that since yesterday she started to get diffuse abdominal pain. She locates it more in her suprapubic region as well as her back. She says that it does burn when she pees a little bit. She says that she has had vaginal bleeding since the procedure but says that it might have gotten a little bit worse. She says that
--- NOTE | 2022-06-06 20:53 | US_ITS ---
PROCEDURE INFORMATION: Exam: US Pelvis, Transvaginal; US Duplex Artery or Vein of the Abdominal and/or Reproductive Organs, Limited Ovaries Exam date and time: 06/06/2022 9:56 PM Age: 31 years old Clinical indication: Pelvic pain; Prior surgery; Surgery date: <1 month; Surgery type: D and c on may 26; Additional info: Concern for endometritis/retained products from d and c. TECHNIQUE: Imaging protocol: Real-time transvaginal pelvic ultrasound with image documentation. Transvaginal imaging was used for better evaluation of the endometrium, adnexa, and/or cervix. Real-time duplex ultrasound scan of the arterial flow of the ovaries with B-mode, color Doppler flow and spectral waveform analysis. COMPARISON: US TRANSVAGINAL 04/14/2022 2:57 PM FINDINGS: Uterus: Uterus measures 6.6 x 3.5 x 5.0 cm in size. No myometrial mass. Endometrium: 1.0 cm in thickness. No significant vascularity.0.3 x 1.1 x 0.9 cm hypoechoic lesion with few internal echoes within endometrial canal. Right ovary: 2.3 x 1.3 x 1.4 cm in size. No mass. Normal flow. Left ovary: 2.2 x 2.3 x 3.2 cm in size. No mass. Normal flow. Intraperitoneal space: Trace free fluid within pelvis. IMPRESSION: Small mildly complex fluid collection within endometrial canal, possibly hemorrhage. Infection not entirely excluded. Clinical correlation is needed.
--- NOTE | 2022-06-06 20:58 | PC.NURSE ---
U/S called for transvaginal U/S
[2022-06-06 21:00] VITALS: BP 100/54; PULSE 78; O2SAT 96
[2022-06-06 21:30] VITALS: BP 103/69; PULSE 80; O2SAT 98
[2022-06-06 21:39] LABS: Lymphocytes % 27 % (10-50); Monocytes % 1 % (2-9); Neutrophils % 71 % (42-76); Platelet Estimate Normal; RBC Morphology Normal; Total Cells Counted 100
[2022-06-06 22:30] VITALS: BP 125/72; PULSE 87; RESP 20; TEMP 36.8; O2SAT 98
--- NOTE | 2022-06-06 22:54 | PC.NURSE ---
Second trop cancelled per Dr. Pulliam
== END 2022-06-06 22:32 | disposition home or self-care (01) ==
PROVIDERS: Emergency Provider Student in an Organized Health Care Education/Training Program; PCP Physician Assistant
DX: R07.9 Chest pain, unspecified (principal); R10.9 Unspecified abdominal pain; N93.9 Abnormal uterine and vaginal bleeding, unspecified; M54.50 Low back pain, unspecified; R30.0 Dysuria; R06.02 Shortness of breath; D72.829 Elevated white blood cell count, unspecified; R05.9 Cough, unspecified; I10 Essential (primary) hypertension; K21.9 Gastro-esophageal reflux disease without esophagitis; E78.5 Hyperlipidemia, unspecified; F31.9 Bipolar disorder, unspecified; G43.909 Migraine, unspecified, not intractable, without status migrainosus; G40.909 Epilepsy, unspecified, not intractable, without status epilepticus; J45.909 Unspecified asthma, uncomplicated; F41.9 Anxiety disorder, unspecified; Z79.51 Long term (current) use of inhaled steroids; Z79.52 Long term (current) use of systemic steroids; Z79.899 Other long term (current) drug therapy; Z88.0 Allergy status to penicillin; Z87.440 Personal history of urinary (tract) infections; Z83.3 Family history of diabetes mellitus; Z80.1 Family history of malignant neoplasm of trachea, bronchus and lung; Z83.79 Family history of other diseases of the digestive system; Z80.41 Family history of malignant neoplasm of ovary; Z98.890 Other specified postprocedural states
CPT/HCPCS: 71046; 74176; 76830; 80048; 81001; 81025; 84484; 85007; 85025; 86140; 87086; 93005; 96361; 96374; 96375; 99285

== ENCOUNTER 2022-07-23 09:29 | Emergency (ER) | payer MEDICAID, SELFPAY ==
[2022-07-23 09:31] VITALS: BP 119/81; PULSE 90; RESP 17; TEMP 36.7; O2SAT 98; BMI 33.2
--- NOTE | 2022-07-23 09:37 | PC.NURSE ---
DR. SOMMERS AT BEDSIDE FOR EVALUATION
--- NOTE | 2022-07-23 09:42 | HMH.EDGENADL ---
Discharge Plan Disposition Patient Disposition: Home, Self-Care Condition: Good Prescriptions Prescriptions: New ondansetron 4 mg tablet,disintegrating 4 mg PO DAILY Qty: 30 0RF cefdinir 300 mg capsule 300 mg PO BID 10 Days Qty: 20 0RF No Action triamcinolone acetonide 0.1 % paste 1 applic dental BID PRN (Reason: mouth irritation) Qty: 5 0RF Rx Instructions: use after food and/or drink and/or oral hygiene albuterol sulfate 90 mcg/actuation HFA aerosol inhaler 1 inh inhalation QID PRN (Reason: shortness of breath or wheezing) Qty: 6.7 0RF sofosbuvir-velpatasvir 400-100 mg tablet 1 tab PO DAILY Qty: 28 2RF sumatriptan succinate 100 mg tablet See Rx Instructions .ROUTE .COMPLEX Qty: 9 0RF Dose Instruction: TAKE 1 TABLET BY MOUTH AT ONSET OF MIGRAINE, THEN MAY REPEAT 1 TIME IN 2 HOURS IF NO RELIEF. MAX OF 2 IN 24 HOURS. Rx Instructions: TAKE 1 TABLET BY MOUTH AT ONSET OF MIGRAINE, THEN MAY REPEAT 1 TIME IN 2 HOURS IF NO RELIEF. MAX OF 2 IN 24 HOURS. propranolol 120 mg capsule,extended release 24 hr See Rx Instructions .ROUTE .COMPLEX Qty: 30 0RF Dose Instruction: TAKE ONE CAPSULE BY MOUTH ONCE A DAY FOR BLOOD PRESSURE Rx Instructions: TAKE ONE CAPSULE BY MOUTH ONCE A DAY FOR BLOOD PRESSURE Vraylar 3 mg capsule See Rx Instructions .ROUTE .COMPLEX Qty: 30 0RF Dose Instruction: TAKE ONE CAPSULE BY MOUTH ONCE A DAY Rx Instructions: TAKE ONE CAPSULE BY MOUTH ONCE A DAY hydroxyzine HCl 25 mg tablet See Rx Instructions .ROUTE .COMPLEX Qty: 90 0RF Dose Instruction: TAKE ONE TABLET BY MOUTH 3 TIMES A DAY NEEDED FOR ANXIETY Rx Instructions: TAKE ONE TABLET BY MOUTH 3 TIMES A DAY NEEDED FOR ANXIETY doxepin 25 mg capsule See Rx Instructions .ROUTE .COMPLEX Qty: 30 0RF Dose Instruction: TAKE ONE CAPSULE BY MOUTH AT BEDTIME Rx Instructions: TAKE ONE CAPSULE BY MOUTH AT BEDTIME cholecalciferol (vitamin D3) 25 mcg (1,000 unit) tablet See Rx Instructions .ROUTE .COMPLEX Qty: 30 0RF Dose Instruction: TAKE ONE TABLET BY MOUTH ONCE A DAY Rx Instructions: TAKE ONE TABLET BY MOUTH ONCE A DAY atorvastatin 10 mg tablet See Rx Instructions .ROUTE .COMPLEX Qty: 30 0RF Dose Instruction: TAKE ONE TABLET BY MOUTH ONCE A DAY FOR CHOLESTEROL Rx Instructions: TAKE ONE TABLET BY MOUTH ONCE A DAY FOR CHOLESTEROL Linzess 145 mcg capsule 145 mcg PO DAILY cetirizine [All Day Allergy (cetirizine)] 10 mg tablet 10 mg PO DAILY prazosin 1 mg capsule 1 mg PO HS Rx Instructions: TAKE ONE CAPSULE BY MOUTH AT BEDTIME lithium carbonate 300 mg tablet extended release 300 mg PO HS Rx Instructions: TAKE ONE TABLET BY MOUTH AT BEDTIME ergocalciferol (vitamin D2) 1,250 mcg (50,000 unit) capsule 50,000 unit PO WEEKLY Rx Instructions: TAKE ONE CAPSULE BY MOUTH EVERY WEEK quetiapine 50 mg tablet extended release 24 hr 50 mg PO DAILY Rx Instructions: TAKE TWO TABLETS BY MOUTH AT BEDTIME Referrals Follow up/Referrals: Chaparrita Haynes PA [Primary Care Provider] - See instructions Activity Restrictions/Add. Instructions Additional Instructions/Restrictions: Please follow up with your primary care physician in 2-3 days for further management. Please take antibiotic as prescribed for your UTI. Please also drink plenty of water and eat 3 balanced meals. Also discuss with your primary care physician regarding rechecking your potassium levels in a few weeks, now that you are no longer on your potassium supplements. You have also been prescribed zofran please take as prescribed. Return to ED if inability to eat and drink or worsening symptoms. Call back to hospital in 3 hours to obtain your COVID results. If COVID positive self quarantine for 5 days. Clinical Impressions Clinical Impression: UTI (urinary tract infection), Upper respiratory infe
[2022-07-23 10:00] LABS: Basophils # 0.1 K/mm3 (0-0.2); Basophils % 1.3 % (0.1-2.0); Eosinophils # 0.1 K/mm3 (0.0-0.4); Eosinophils % 0.7 % (0.1-12.0); Hematocrit 44.1 % (37.0-47.0); Hemoglobin 14.5 g/dL (12.2-16.2); Lymphocytes # 2.4 K/mm3 (0.7-4.5); Lymphocytes % 30.1 % (10-50); Mean Corpuscular HGB Conc 32.9 g/dL (31.8-35.4); Mean Corpuscular Hemoglobin 31.9 pg (27.0-31.2); Mean Platelet Volume 8.1 fl (7.4-10.4); Monocytes # 0.5 K/mm3 (0.1-1.0); Monocytes % 6.6 % (1.7-9.3); Neutrophils # 4.8 K/mm3 (1.8-7.8); Neutrophils % 61.3 % (37.0-80.0); Platelet Count 394 K/mm3 (142-424); Red Blood Count 4.54 M/mm3 (4.20-5.40); Red Cell Distribution Width 13.5 % (11.5-17.5); White Blood Count 7.8 K/mm3 (4.8-10.8)
[2022-07-23 10:01] VITALS: BP 120/58; PULSE 68; O2SAT 100
[2022-07-23 10:04] LABS: Microscopic, Urine URINE MICROSCOPIC (MICROSCOPIC)
[2022-07-23 10:05] LABS: Chloride 109 mmol/L (98-107); Sodium 137 mmol/L (136-145)
[2022-07-23 10:07] LABS: Appearance,Urine CLEAR (Clear); Blood, Urine Negative (Negative); Color,Urine YELLOW (Yellow); Glucose,Urine (UA) Negative (Negative); Ketones,Urine Negative (Negative); Leukocyte Esterase,Urine Negative (Negative); Nitrate,Urine Negative (Negative); Protein,Urine 1+ (Negative); Specific Gravity, Urine >= 1.030 (1.005-1.030)
[2022-07-23 10:08] LABS: Alanine Aminotransferase 27 U/L (12-78); Albumin Level 4.3 g/dl (3.5-5.0); Albumin/Globulin Ratio 1.3 (1.1-1.8); Alkaline Phosphatase 64 U/L (38-126); Aspartate Amino Transferase 36 U/L (14-36); Bilirubin,Total 0.6 mg/dl (0.2-1.3); Blood Urea Nitrogen 6 mg/dl (7-17); Calcium 9.5 mg/dl (8.4-10.2); Carbon Dioxide 23 mmol/L (22.0-30.0); Creatinine Clearance Estimated 148 mL/min (50-200); Estimated Glomerular Filt Rate 98 ml/min (>60); GFR (African American) 119 ML/MIN (>60); Globulin 3.3 g/dL (1.3-3.2); Glucose 103 mg/dl (74-100); Lipase 21 U/L (23-300); Total Protein,Serum 7.6 g/dl (6.3-8.2)
[2022-07-23 10:09] LABS: Lactic Acid 0.7 mmol/L (0.7-2.1)
[2022-07-23 10:11] LABS: Bilirubin,Urine 1+ (Negative)
[2022-07-23 10:12] LABS: HCG Qualitative, Serum Negative (Negative)
--- NOTE | 2022-07-23 10:12 | PC.NURSE ---
notified ER of critical potassium
[2022-07-23 10:16] LABS: Coronavirus 19, PCR Not Detected (NotDetected); Influenza A, PCR Not Detected (NotDetected); Influenza B, PCR Not Detected (NotDetected)
[2022-07-23 10:18] LABS: Bacteria,Urine 2+ /lpf; Mucus,Urine 1+ /lpf
--- NOTE | 2022-07-23 10:21 | PC.NURSE ---
DR. SOMMERS AT BEDSIDE TO DISCUSS POC
[2022-07-23 10:31] VITALS: BP 113/83; PULSE 76; O2SAT 100
[2022-07-23 10:35] VITALS: BP 113/83; PULSE 71; RESP 17; TEMP 36.7; O2SAT 100
== END 2022-07-23 10:35 | disposition home or self-care (01) ==
PROVIDERS: Emergency Provider Student in an Organized Health Care Education/Training Program; PCP Physician Assistant
DX: N39.0 Urinary tract infection, site not specified (principal); J06.9 Acute upper respiratory infection, unspecified; E87.6 Hypokalemia; Z79.899 Other long term (current) drug therapy; Z88.0 Allergy status to penicillin; I10 Essential (primary) hypertension; E78.5 Hyperlipidemia, unspecified; F31.9 Bipolar disorder, unspecified; K21.9 Gastro-esophageal reflux disease without esophagitis; G43.909 Migraine, unspecified, not intractable, without status migrainosus; Z80.41 Family history of malignant neoplasm of ovary; Z80.1 Family history of malignant neoplasm of trachea, bronchus and lung; Z83.3 Family history of diabetes mellitus
CPT/HCPCS: 80053; 81001; 83605; 83690; 84703; 85025; 87086; 99284; C9803; U0003; U0005

== ENCOUNTER 2022-08-17 17:26 | Emergency (ER) | payer MEDICAID, SELFPAY ==
[2022-08-17 18:18] VITALS: BP 126/83; PULSE 78; RESP 18; TEMP 36.7; O2SAT 99; BMI 32.1
--- NOTE | 2022-08-17 18:20 | PC.NURSE ---
pt in triage room at this time to assess pt, VS obtained, VS WNL. Explained to pt I will have to put pt back out in lobby until a bed is available in ER for pt but I will ask ER MD for any verbal orders for that we can go ahead and get started on her like a chest xray. Pt begins taking bp cuff and sat probe off and states If I pass out again it's on ya'll , pt then has her significant other help her up, I explained to pt again that I do not have a bed available in the ER for pt at this time, I will get her in a room as soon as one is available, pt walking out of triage state to me If I pass out again I'm suing you and continues to walk to the lobby. Notified greenhouse staff of the above. supervisor channel process states she is on the way down to transport an admitted pt to second floor, which will then open up and bed. Stated to greenhouse staff I will room this pt as soon as the admitted pt ER room is cleaned.
--- NOTE | 2022-08-17 18:34 | PC.NURSE ---
registration called out for assistance for pt in the bathroom for vomiting blood. PT ambulated to wheelchair. Ask pt where she would like to sit in the lobby until bed is available. pt states that literally she is vomiting blood are we just going to leave her out there. Explained by myself and Brenda Delatorre that no rooms in ER are available, offered to retake pt vitals, pt refused at this time. Pt called her dad and told him she was vomiting blood and we would not see her. Per pt her dad will be here and he has some words for us and he heard how we were talking to her. Pt offered by Brenda to bring pt back to the ER and place in the hallway, pt refused and states if you put me in the hallway there will be trouble , at this time, pt states what are we going to do if she dies? Again instructed pt that we have no beds in the ER, we do have a pt being admitted and going upstairs and then we can get her back to that room. Pt states that she wants to talk with a higher nurse than us. HS aware and will see pt.
--- NOTE | 2022-08-17 19:38 | PC.NURSE ---
shift change report given to sabine cordova and giannarn
--- NOTE | 2022-08-17 19:54 | PC.NURSE ---
pt brought back to room 8. She states I think I have a UTI because I'm itching and it tamez when I pee . Asked pt to give a urine sample but she it unable to at this time. Stating I just peed before I came back . Pt has also stated during this triage, I haven't been able to pee for a while because I can't keep anything down . She further states I did drink a little red Gatorade earlier today. Pt also reports she has had a light nose bleed intermittently the last few days.
--- NOTE | 2022-08-17 20:11 | PC.NURSE ---
Pt used call drake to let staff know, I have been recording you doing nothing . She was given hospital policy on video recording. Pt crumbled up the paper and threw it in the floor. supervisor ride assembly notified on these events.
[2022-08-17 20:24] LABS: Chloride 103 mmol/L (98-107); Sodium 140 mmol/L (136-145)
[2022-08-17 20:26] LABS: Alanine Aminotransferase 16 U/L (12-78); Aspartate Amino Transferase 30 U/L (14-36); Blood Urea Nitrogen 8 mg/dl (7-17); Creatinine Clearance Estimated 125 mL/min (50-200); Estimated Glomerular Filt Rate 84 ml/min (>60); GFR (African American) 102 ML/MIN (>60)
[2022-08-17 20:27] LABS: Albumin Level 4.4 g/dl (3.5-5.0); Albumin/Globulin Ratio 1.4 (1.1-1.8); Alkaline Phosphatase 55 U/L (38-126); Bilirubin,Total 0.4 mg/dl (0.2-1.3); Carbon Dioxide 29 mmol/L (22.0-30.0); Globulin 3.2 g/dL (1.3-3.2); Glucose 96 mg/dl (74-100); Total Protein,Serum 7.6 g/dl (6.3-8.2)
--- NOTE | 2022-08-17 20:27 | XR_ITS ---
PROCEDURE INFORMATION: Exam: XR Chest Exam date and time: 08/17/2022 8:50 PM Age: 31 years old Clinical indication: Cough; Additional info: Congestion, cough TECHNIQUE: Imaging protocol: Radiologic exam of the chest. Views: 1 view. COMPARISON: CR XR CHEST 2V 06/06/2022 7:38 PM FINDINGS: Lungs: No consolidation. Stable small nodular calcification left midlung zone likely granulomatous in nature. Pleural spaces: Unremarkable. No pleural effusion. No pneumothorax. Heart/Mediastinum: Unremarkable. No cardiomegaly. Bones/joints: Unremarkable for age. IMPRESSION: Negative chest
--- NOTE | 2022-08-17 20:27 | PC.NURSE ---
pt call light was on. I opened the curtain. the pt asked If I can not pee can you all cath me? . I replied Yes at which point she added Just so you are aware I have been recording all of you standing around doing nothing. I then closed the curtain went to the nurses station. retrieved and made a copy of the hospitals recording policy. i entered the room and handed the paper to the pt and said. Im sorry, it is against hospital policy for you to record the staff with out permission and here is a copy so you can have the guide lines she took the paper from me then crumbled it up and threw it at the floor. her father then turned to me and said you had to go get that didn't you? I responded yes sir its our policy. and I left the room.
[2022-08-17 20:46] LABS: Basophils # 0.2 K/mm3 (0-0.2); Eosinophils # 0.3 K/mm3 (0.0-0.4); Eosinophils % 2.9 % (0.1-12.0); Hematocrit 48.7 % (37.0-47.0); Hemoglobin 15.4 g/dL (12.2-16.2); Lymphocytes # 4.5 K/mm3 (0.7-4.5); Lymphocytes % 52.3 % (10-50); Mean Corpuscular HGB Conc 31.6 g/dL (31.8-35.4); Mean Corpuscular Hemoglobin 31.7 pg (27.0-31.2); Mean Corpuscular Volume 100.2 fl (81-99); Mean Platelet Volume 7.7 fl (7.4-10.4); Monocytes # 0.7 K/mm3 (0.1-1.0); Monocytes % 7.7 % (1.7-9.3); Neutrophils % 35.1 % (37.0-80.0); Platelet Count 375 K/mm3 (142-424); Red Blood Count 4.86 M/mm3 (4.20-5.40); Red Cell Distribution Width 13.2 % (11.5-17.5); White Blood Count 8.6 K/mm3 (4.8-10.8)
--- NOTE | 2022-08-17 20:55 | PC.NURSE ---
Pt used call light to request staff to take out my IV because I am gonna leave . Let pt know she is not up for discharge yet and she states well I want that number to report all yall for being rude and not helping me. I am fucking sick and passing out and throwing uip blood and no one is doing any thing about it! Pt's father also cussing in room. I let him know that was inappropriate and if he could not maintain his composure he needs to leave the room. [facility] supervisor with this RN and witnessed this encounter. Pt also requesting this RN to leave the room because I don't want to deal with you . Unfortunately, I let pt know that there are limited number of staff and she has already requested several other staff to not come back in her or I will call the police . motor vehicles supervisor aware.
[2022-08-17 21:01] LABS: HCG Qualitative, Serum Negative (Negative); MANUAL DIFFERENTIAL MANUAL DIFFERENTIAL (MANUAL DIFF)
--- NOTE | 2022-08-17 21:04 | HMH.EDGENADL ---
Discharge Plan Disposition Chief Complaint: Weakness Prescriptions Prescriptions: No Action benzonatate 100 mg capsule 100 mg PO TID PRN (Reason: cough) Qty: 30 0RF ondansetron 4 mg tablet,disintegrating 4 mg PO DAILY Qty: 30 0RF docusate sodium 100 mg tablet 100 mg PO DAILY Qty: 30 2RF albuterol sulfate 90 mcg/actuation HFA aerosol inhaler 1 inh inhalation QID PRN (Reason: shortness of breath or wheezing) Qty: 6.7 0RF sofosbuvir-velpatasvir 400-100 mg tablet 1 tab PO DAILY levofloxacin 500 mg tablet 500 mg PO DAILY 10 Days Qty: 10 0RF methylprednisolone [Medrol (Corwin)] 4 mg tablets,dose pack See Rx Instructions PO PER PKG DIR Qty: 21 0RF Rx Instructions: PO PER PKG DIR minocycline 100 mg capsule 100 mg PO BID Qty: 14 0RF [id number] [Bromfed DM] 2-30-10 mg/5 mL syrup 10 ml PO TID PRN (Reason: cold symptoms) 5 Days Qty: 150 0RF atorvastatin 10 mg tablet See Rx Instructions .ROUTE .COMPLEX Qty: 30 0RF Dose Instruction: TAKE ONE TABLET BY MOUTH ONCE A DAY FOR CHOLESTEROL Rx Instructions: TAKE ONE TABLET BY MOUTH ONCE A DAY FOR CHOLESTEROL doxepin 25 mg capsule See Rx Instructions .ROUTE .COMPLEX Qty: 30 0RF Dose Instruction: TAKE ONE CAPSULE BY MOUTH AT BEDTIME Rx Instructions: TAKE ONE CAPSULE BY MOUTH AT BEDTIME hydroxyzine HCl 25 mg tablet See Rx Instructions .ROUTE .COMPLEX Qty: 90 0RF Dose Instruction: TAKE ONE TABLET BY MOUTH 3 TIMES A DAY NEEDED FOR ANXIETY Rx Instructions: TAKE ONE TABLET BY MOUTH 3 TIMES A DAY NEEDED FOR ANXIETY Vraylar 3 mg capsule See Rx Instructions .ROUTE .COMPLEX Qty: 30 0RF Dose Instruction: TAKE ONE CAPSULE BY MOUTH ONCE A DAY Rx Instructions: TAKE ONE CAPSULE BY MOUTH ONCE A DAY sumatriptan succinate 100 mg tablet See Rx Instructions .ROUTE .COMPLEX Qty: 9 0RF Dose Instruction: TAKE 1 TABLET BY MOUTH AT ONSET OF MIGRAINE, THEN MAY REPEAT 1 TIME IN 2 HOURS IF NO RELIEF. MAX OF 2 IN 24 HOURS. Rx Instructions: TAKE 1 TABLET BY MOUTH AT ONSET OF MIGRAINE, THEN MAY REPEAT 1 TIME IN 2 HOURS IF NO RELIEF. MAX OF 2 IN 24 HOURS. propranolol 120 mg capsule,extended release 24 hr See Rx Instructions .ROUTE .COMPLEX Qty: 30 0RF Dose Instruction: TAKE ONE CAPSULE BY MOUTH ONCE A DAY FOR BLOOD PRESSURE Rx Instructions: TAKE ONE CAPSULE BY MOUTH ONCE A DAY FOR BLOOD PRESSURE cetirizine 10 mg tablet See Rx Instructions .ROUTE .COMPLEX Qty: 30 0RF Dose Instruction: TAKE ONE TABLET BY MOUTH ONCE A DAY Rx Instructions: TAKE ONE TABLET BY MOUTH ONCE A DAY prazosin 1 mg capsule See Rx Instructions .ROUTE .COMPLEX Qty: 30 0RF Dose Instruction: TAKE ONE CAPSULE BY MOUTH AT BEDTIME Rx Instructions: TAKE ONE CAPSULE BY MOUTH AT BEDTIME ergocalciferol (vitamin D2) 1,250 mcg (50,000 unit) capsule See Rx Instructions .ROUTE .COMPLEX Qty: 4 0RF Dose Instruction: TAKE ONE CAPSULE BY MOUTH EVERY WEEK Rx Instructions: TAKE ONE CAPSULE BY MOUTH EVERY WEEK quetiapine 50 mg tablet extended release 24 hr See Rx Instructions .ROUTE .COMPLEX Qty: 60 0RF Dose Instruction: TAKE TWO TABLETS BY MOUTH AT BEDTIME Rx Instructions: TAKE TWO TABLETS BY MOUTH AT BEDTIME lithium carbonate 300 mg tablet extended release See Rx Instructions .ROUTE .COMPLEX Qty: 30 0RF Dose Instruction: TAKE ONE TABLET BY MOUTH AT BEDTIME Rx Instructions: TAKE ONE TABLET BY MOUTH AT BEDTIME Linzess 145 mcg capsule 145 mcg PO DAILY ergocalciferol (vitamin D2) 1,250 mcg (50,000 unit) capsule 50,000 unit PO WEEKLY Rx Instructions: TAKE ONE CAPSULE BY MOUTH EVERY WEEK Referrals Follow up/Referrals: Gopal Bentley MD [Primary Care Provider] - See instructions Discharge ED Provider: Fausto Vigil General Adult HPI General Chief complaint: Weakness
[2022-08-17 21:45] LABS: Eosinophils % 4 % (0-3); Lymphocytes % 59 % (10-50); Monocytes % 2 % (2-9); Neutrophils % 35 % (42-76); Total Cells Counted 100
[2022-08-17 21:46] LABS: Macrocytosis 1+; Platelet Estimate Normal
[2022-08-17 22:00] VITALS: BP 141/100; PULSE 80; RESP 20; TEMP -17.7; TEMP 0; O2SAT 98
== END 2022-08-17 22:05 | disposition left against medical advice (07) ==
PROVIDERS: Emergency Medicine; Emergency Provider Student in an Organized Health Care Education/Training Program; PCP Family Medicine
DX: J18.9 Pneumonia, unspecified organism (principal); R53.1 Weakness; R55 Syncope and collapse; K62.5 Hemorrhage of anus and rectum; F31.9 Bipolar disorder, unspecified; J45.909 Unspecified asthma, uncomplicated; F41.9 Anxiety disorder, unspecified; Z87.440 Personal history of urinary (tract) infections; E78.5 Hyperlipidemia, unspecified; I10 Essential (primary) hypertension; M54.50 Low back pain, unspecified; R56.9 Unspecified convulsions
CPT/HCPCS: 71045; 80053; 84703; 85007; 85025; 99285

== ENCOUNTER → 2022-08-18 15:46 | Outpatient (CLI) | payer MEDICAID, SELFPAY ==
[2022-08-18 17:53] LABS: Adenovirus,PCR Not Detected (NotDetected); Bordetella Pertussis Not Detected (NotDetected); Chlamydophila Pneumoniae, PCR Not Detected (NotDetected); Coronavirus 19, PCR Not Detected (NotDetected); Coronavirus 229E Not Detected (NotDetected); Coronavirus NL63 Not Detected (NotDetected); Coronavirus OC43 Not Detected (NotDetected); Coronovirus HKU1,PCR Not Detected (NotDetected); Human Metapneumovirus Not Detected (NotDetected); Influenza A, PCR Not Detected (NotDetected); Influenza AH1, 2009 Not Detected (NotDetected); Influenza AH1, PCR Not Detected (NotDetected); Influenza AH3,PCR Not Detected (NotDetected); Influenza B, PCR Not Detected (NotDetected); Mycoplasma Pneumoniae, PCR Not Detected (NotDetected); Parainfluenza 1, PCR Not Detected (NotDetected); Parainfluenza 2, PCR Not Detected (NotDetected); Parainfluenza 3, PCR Not Detected (NotDetected); Parainfluenza 4, PCR Not Detected (NotDetected); Respiratory Syncytial Virus Not Detected (NotDetected); Rhinovirus/Enterovirus Not Detected (NotDetected)
== END ==
PROVIDERS: PCP Nurse Practitioner Family; Visit Provider Nurse Practitioner Family
DX: R50.9 Fever, unspecified (principal); R05.9 Cough, unspecified; R55 Syncope and collapse; R11.2 Nausea with vomiting, unspecified; J02.9 Acute pharyngitis, unspecified
CPT/HCPCS: 87581; 87632; 87798; C9803; U0003; U0005

== ENCOUNTER → 2022-12-22 08:39 | Outpatient (CLI) | payer MEDICAID, SELFPAY ==
--- NOTE | 2022-12-22 08:43 | XR_ITS ---
FINAL REPORT CLINICAL HISTORY: Left knee pain FINDINGS: Left knee Three views were obtained. There is no acute fracture or dislocation. The joint spaces appear normal. No soft tissue abnormality is identified. IMPRESSION: No acute process. Reviewed, Interpreted and Dictated by Nick Kent MD Transcribed by Yarelis Mayfield Authenticated and [facility]
--- NOTE | 2022-12-22 08:43 | XR_ITS ---
FINAL REPORT CLINICAL HISTORY: right knee pain FINDINGS: Right knee Three views were obtained. There is no acute fracture or dislocation. The joint spaces appear normal. No soft tissue abnormality is identified. IMPRESSION: No acute process. Reviewed, Interpreted and Dictated by Nick Kent MD Transcribed by Yarelis Mayfield Authenticated and . [facility]
== END ==
PROVIDERS: PCP Physician Assistant; Visit Provider Orthopaedic Surgery
DX: M25.561 Pain in right knee (principal); M25.562 Pain in left knee
CPT/HCPCS: 73562

== ENCOUNTER 2023-01-09 14:24 | Emergency (ER) | payer MEDICAID, SELFPAY ==
[2023-01-09 14:30] VITALS: BP 134/90; PULSE 66; RESP 19; TEMP 36.9; O2SAT 99; BMI 30.9
--- NOTE | 2023-01-09 14:40 | EXP.UTC ---
Discharge Plan Disposition Patient Disposition: Home, Self-Care Condition: Good Prescriptions Prescriptions: New cefdinir 300 mg capsule 300 mg PO BID 10 Days Qty: 20 0RF ondansetron 4 mg tablet,disintegrating 4 mg PO Q8H PRN (Reason: nausea and vomiting) Qty: 10 0RF No Action docusate sodium 100 mg tablet 100 mg PO DAILY Qty: 30 2RF quetiapine 50 mg tablet extended release 24 hr 50 mg PO HS clonazepam [Klonopin] 1 mg tablet 1 mg PO BID Qty: 60 0RF aripiprazole [Abilify] 15 mg tablet 15 mg PO HS Qty: 30 2RF prazosin 2 mg capsule 2 mg PO HS Qty: 30 2RF albuterol sulfate 90 mcg/actuation HFA aerosol inhaler 2 inh inhalation Q4-6H PRN (Reason: shortness of breath or wheezing) Qty: 8.5 1RF Vraylar 4.5 mg capsule 4.5 mg PO DAILY Qty: 30 2RF cholecalciferol (vitamin D3) 25 mcg (1,000 unit) tablet See Rx Instructions .ROUTE .COMPLEX Qty: 30 0RF Dose Instruction: TAKE ONE TABLET BY MOUTH ONCE A DAY Rx Instructions: TAKE ONE TABLET BY MOUTH ONCE A DAY sumatriptan succinate 100 mg tablet See Rx Instructions .ROUTE .COMPLEX Qty: 9 0RF Dose Instruction: TAKE 1 TABLET BY MOUTH AT ONSET OF MIGRAINE, THEN MAY REPEAT 1 TIME IN 2 HOURS IF NO RELIEF. MAX OF 2 IN 24 HOURS. Rx Instructions: TAKE 1 TABLET BY MOUTH AT ONSET OF MIGRAINE, THEN MAY REPEAT 1 TIME IN 2 HOURS IF NO RELIEF. MAX OF 2 IN 24 HOURS. lithium carbonate 300 mg tablet extended release See Rx Instructions .ROUTE .COMPLEX Qty: 30 2RF Dose Instruction: TAKE ONE TABLET BY MOUTH AT BEDTIME Rx Instructions: TAKE ONE TABLET BY MOUTH AT BEDTIME cetirizine 10 mg tablet See Rx Instructions .ROUTE .COMPLEX Qty: 30 2RF Dose Instruction: TAKE ONE TABLET BY MOUTH ONCE A DAY Rx Instructions: TAKE ONE TABLET BY MOUTH ONCE A DAY atorvastatin 10 mg tablet See Rx Instructions .ROUTE .COMPLEX Qty: 30 2RF Dose Instruction: TAKE ONE TABLET BY MOUTH ONCE A DAY FOR CHOLESTEROL Rx Instructions: TAKE ONE TABLET BY MOUTH ONCE A DAY FOR CHOLESTEROL doxepin 25 mg capsule See Rx Instructions .ROUTE .COMPLEX Qty: 30 2RF Dose Instruction: TAKE ONE CAPSULE BY MOUTH AT BEDTIME Rx Instructions: TAKE ONE CAPSULE BY MOUTH AT BEDTIME hydroxyzine HCl 25 mg tablet See Rx Instructions .ROUTE .COMPLEX Qty: 90 0RF Dose Instruction: TAKE ONE TABLET BY MOUTH 3 TIMES A DAY NEEDED FOR ANXIETY Rx Instructions: TAKE ONE TABLET BY MOUTH 3 TIMES A DAY NEEDED FOR ANXIETY propranolol 120 mg capsule,extended release 24 hr See Rx Instructions .ROUTE .COMPLEX Qty: 30 0RF Dose Instruction: TAKE ONE CAPSULE BY MOUTH ONCE A DAY FOR BLOOD PRESSURE Rx Instructions: TAKE ONE CAPSULE BY MOUTH ONCE A DAY FOR BLOOD PRESSURE Linzess 145 mcg capsule 145 mcg PO DAILY Referrals Follow up/Referrals: Chaparrita Haynes PA [Primary Care Provider] - See instructions Activity Restrictions/Add. Instructions Additional Instructions/Restrictions: Drink extra fluids with and between meals. If you have difficulty drinking, try very small amounts of water or suck on ice chips. ? Avoid fruit juices, as these do not replace minerals and can actually increase diarrhea. ? Children and adults can use sports drinks to replenish electrolytes. Younger children and infants should use products formulated for children, like oral rehydration solutions. ? Eat food in small amounts and let your stomach recover. ? Get lots of rest. You may feel tired or weak. ? No greasy or fried foods for the next 24-48 hours BRAT diet Bananas Rice Apples and [place] ? Make sure to drink plenty of liquids ? Return if needed ? Straight to ER if any life threatening symptoms ? Zofran as prescribed ? You was given an outpatient order for diarrhea panel, please collect specimen and bring back to
[2023-01-09 14:43] LABS: Apearance,Urine Cloudy (Clear); Color,Urine Dark Yellow (Yellow); Protein,Urine Trace (Negative)
[2023-01-09 14:44] LABS: Bilirubin,Urine Negative (Negative); Blood, Urine Trace (Negative); Glucose,Urine (UA) Negative (Negative); Ketones,Urine Negative (Negative); UTC Leukocyte Esterase,Urine 1+ (Negative); UTC Nitrate,Urine Negative (Negative); UTC Pregnancy Test, Urine Negative (Negative); Urobilinogen,Urine 0.2 EU/dl (0.2)
[2023-01-09 15:08] VITALS: BP 134/90; PULSE 66; RESP 19; TEMP 36.9; O2SAT 99
== END 2023-01-09 15:10 | disposition home or self-care (01) ==
PROVIDERS: Emergency Provider Nurse Practitioner; PCP Physician Assistant
DX: N39.0 Urinary tract infection, site not specified (principal); R11.2 Nausea with vomiting, unspecified; R19.7 Diarrhea, unspecified; R51.9 Headache, unspecified; F17.290 Nicotine dependence, other tobacco product, uncomplicated; I10 Essential (primary) hypertension; E78.5 Hyperlipidemia, unspecified; F41.9 Anxiety disorder, unspecified; F31.9 Bipolar disorder, unspecified
CPT/HCPCS: 81003; 81025; 87086; 99212; 99214; G0463

== ENCOUNTER → 2023-02-07 11:00 | Outpatient (CLI) | payer MEDICAID, SELFPAY ==
[2023-02-07 12:50] LABS: Basophils % 0.5 % (0.1-2.0); Eosinophils # 0.4 K/mm3 (0.0-0.4); Hematocrit 42.7 % (37.0-47.0); Hemoglobin 14.6 g/dL (12.2-16.2); Lymphocytes # 3.6 K/mm3 (0.7-4.5); Lymphocytes % 40.6 % (10-50); Mean Corpuscular HGB Conc 34.3 g/dL (31.8-35.4); Mean Corpuscular Hemoglobin 31.9 pg (27.0-31.2); Mean Platelet Volume 8.3 fl (7.4-10.4); Monocytes # 0.8 K/mm3 (0.1-1.0); Monocytes % 9.2 % (1.7-9.3); Neutrophils # 4.1 K/mm3 (1.8-7.8); Neutrophils % 45.7 % (37.0-80.0); Platelet Count 340 K/mm3 (142-424); Red Blood Count 4.59 M/mm3 (4.20-5.40); Red Cell Distribution Width 12.9 % (11.5-17.5)
[2023-02-07 12:55] LABS: Benzodiazepines Screen,Urine Negative ng/ml (<200)
[2023-02-07 12:56] LABS: Amphetamine/Metha Screen,Urine Negative ng/ml (<1000); Barbiturates Screen,Urine Negative ng/ml (<200)
[2023-02-07 12:57] LABS: Cannabinoid Screen,Urine Positive ng/ml (<50)
[2023-02-07 12:58] LABS: Cocaine Screen,Urine Negative ng/ml (<300); Methadone Screen,Urine Negative ng/ml (<300)
[2023-02-07 12:59] LABS: Alanine Aminotransferase 16 U/L (12-78); Albumin Level 4.4 g/dl (3.5-5.0); Albumin/Globulin Ratio 1.4 (1.1-1.8); Alkaline Phosphatase 56 U/L (38-126); Anion Gap 16.4 mEq/L (5-15); Aspartate Amino Transferase 32 U/L (14-36); Bilirubin,Total 0.4 mg/dl (0.2-1.3); Blood Urea Nitrogen 13 mg/dl (7-17); Calcium 9.8 mg/dl (8.4-10.2); Carbon Dioxide 22 mmol/L (22.0-30.0); Chloride 105 mmol/L (98-107); Estimated Glomerular Filt Rate 98 ml/min (>60); GFR (African American) 118 ML/MIN (>60); Globulin 3.1 g/dL (1.3-3.2); Glucose 88 mg/dl (74-100); Opiate Screen,Urine Negative ng/ml (<300); Phencyclidine Screen,Urine Negative ng/ml (<25); Potassium 4.4 mmoL/L (3.5-5.1); Sodium 139 mmol/L (136-145); Total Protein,Serum 7.5 g/dl (6.3-8.2)
[2023-02-07 13:29] LABS: Thyroid Stimulating Hormone 3.92 uIU/mL (0.465-4.68)
[2023-02-08 08:53] LABS: HIV Screen 4th Generation wRfx Non Reactive (Non Reactive)
[2023-02-08 11:12] LABS: Rapid Plasma Reagin Ab Titer Non Reactive (NonRea<1:1)
[2023-02-08 14:18] LABS: Lithium (Eskalith(R)) 0.1 mmol/L (0.5-1.2)
[2023-02-08 23:34] LABS: Neisseria gonorrhoeae, NAA Negative (Negative)
[2023-03-07 23:50] LABS: Treponema pallidum Antibodies Non Reactive
== END ==
LOC: LAB.DROPOF 02-21 14:24
PROVIDERS: PCP Physician Assistant; Visit Provider Physician Assistant
DX: Z79.899 Other long term (current) drug therapy (principal); Z86.19 Personal history of other infectious and parasitic diseases; Z87.898 Personal history of other specified conditions; G40.909 Epilepsy, unspecified, not intractable, without status epilepticus; Z11.4 Encounter for screening for human immunodeficiency virus [HIV]; F31.9 Bipolar disorder, unspecified
CPT/HCPCS: 80053; 80178; 80305; 84443; 85025; 86593; 86703; 86780; 87086; 87491; 87522; 87591; G0432

== ENCOUNTER → 2023-02-07 13:54 | Outpatient (CLI) | payer MEDICAID, SELFPAY | PROVIDERS: PCP Physician Assistant; Visit Provider Physician Assistant | DX: F31.9 Bipolar disorder, unspecified (principal) ==

== ENCOUNTER 2023-02-11 16:27 | Emergency (ER) | payer MEDICAID, SELFPAY ==
[2023-02-11 16:29] VITALS: BP 104/69; PULSE 77; RESP 17; TEMP 36.9; O2SAT 100; BMI 31.7
[2023-02-11 16:38] VITALS: BP 104/69; PULSE 79; O2SAT 100
[2023-02-11 17:00] VITALS: BP 95/52; PULSE 79; O2SAT 97
[2023-02-11 17:18] VITALS: BP 112/79; PULSE 85; O2SAT 99
--- NOTE | 2023-02-11 17:23 | HMH.EDGENADL ---
Discharge Plan Disposition Patient Disposition: Home, Self-Care Condition: Good Prescriptions Prescriptions: New ondansetron HCl 4 mg tablet 4 mg PO Q8H 4 Days Qty: 12 0RF No Action Orabase (benzocaine) 20 % paste 1 applic mucous membrane TID PRN (Reason: mix with kenalog) Qty: 11.9 0RF triamcinolone acetonide 0.1 % paste 1 applic dental TID PRN (Reason: mouth irritation) Qty: 5 0RF Rx Instructions: use after food and/or drink and/or oral hygiene ziprasidone HCl [Geodon] 20 mg capsule 20 mg PO BID Qty: 60 2RF Rx Instructions: give with food (meal/snack) clonazepam [Klonopin] 1 mg tablet 1 mg PO BID Qty: 60 0RF albuterol sulfate 90 mcg/actuation HFA aerosol inhaler 2 inh inhalation Q4-6H PRN (Reason: shortness of breath or wheezing) Qty: 8.5 1RF cholecalciferol (vitamin D3) 25 mcg (1,000 unit) tablet See Rx Instructions .ROUTE .COMPLEX Qty: 30 0RF Dose Instruction: TAKE ONE TABLET BY MOUTH ONCE A DAY Rx Instructions: TAKE ONE TABLET BY MOUTH ONCE A DAY cetirizine 10 mg tablet See Rx Instructions .ROUTE .COMPLEX Qty: 30 2RF Dose Instruction: TAKE ONE TABLET BY MOUTH ONCE A DAY Rx Instructions: TAKE ONE TABLET BY MOUTH ONCE A DAY atorvastatin 10 mg tablet See Rx Instructions .ROUTE .COMPLEX Qty: 30 2RF Dose Instruction: TAKE ONE TABLET BY MOUTH ONCE A DAY FOR CHOLESTEROL Rx Instructions: TAKE ONE TABLET BY MOUTH ONCE A DAY FOR CHOLESTEROL propranolol 120 mg capsule,extended release 24 hr See Rx Instructions .ROUTE .COMPLEX Qty: 30 0RF Dose Instruction: TAKE ONE CAPSULE BY MOUTH ONCE A DAY FOR BLOOD PRESSURE Rx Instructions: TAKE ONE CAPSULE BY MOUTH ONCE A DAY FOR BLOOD PRESSURE ondansetron 4 mg tablet,disintegrating 4 mg PO Q8H PRN (Reason: nausea and vomiting) Qty: 10 0RF Referrals Follow up/Referrals: Chaparrita Haynes PA [Primary Care Provider] - See instructions Activity Restrictions/Add. Instructions Additional Instructions/Restrictions: Zofran (nausea medication) has been sent to the pharmacy. He can put this under your tongue and let it dissolve every 6 hours for vomiting. Be sure to drink as much electrolyte containing fluid as you can. If you have any other concerning signs or symptoms, return to your primary care provider or the emergency department for further evaluation. Clinical Impressions Clinical Impression: Vomiting and diarrhea Stand Alone Forms Stand Alone Forms: Work/School Release Instructions Patient Instructions: DI for Acute Abdominal Pain Discharge ED Provider: Tomasz Cheung General Adult HPI General Chief complaint: Abdominal Pain Stated complaint: diarrhea, migraine, abd pain Time Seen by Provider: 02/11/23 16:36 Mode of Arrival: Ambulatory Source of Information: Patient Limitations: No Limitations Description of Symptoms (Recalled from ER Triage Doc. by RN): 32 F presents from home with c/o mid abdominal pain, nausea/vomiting/diarrhea that started last night after eating dinner. Patient reports this has continued to worsen since last night, and causing her to become light headed. Patient does have chronc issues with n/d and abdominal pain. Denies fever, chills, chest pain, SOA History of Present Illness HPI narrative: This is a 32-year-old female with numerous psychiatric diagnoses, menorrhagia, chronic abdominal pain, anxiety presenting with abdominal pain, vomiting, diarrhea. Patient states that today, she started vomiting. Diarrhea. Has had too numerous to count episodes of vomiting and diarrhea. Nonbloody. No fevers, chills, chest pain, shortness of breath, but has had dysuria. Nothing in particular makes it better Related Data Previous Rx's Medication Instructions Recorded albuterol sulfate 90 mcg/actuation 2 inh inhalation Q4-6H PRN 08/18/22 aerosol inhaler shortness of breath or wheezing #8.5 grams cholecalciferol (vitamin D3) 25
[2023-02-11 17:26] LABS: Microscopic, Urine URINE MICROSCOPIC (MICROSCOPIC)
[2023-02-11 17:28] LABS: Basophils % 0.5 % (0.1-2.0); Eosinophils # 0.4 K/mm3 (0.0-0.4); Eosinophils % 4.5 % (0.1-12.0); Hematocrit 41.8 % (37.0-47.0); Hemoglobin 13.9 g/dL (12.2-16.2); Lymphocytes # 3.5 K/mm3 (0.7-4.5); Lymphocytes % 41.4 % (10-50); Mean Corpuscular HGB Conc 33.4 g/dL (31.8-35.4); Mean Corpuscular Hemoglobin 31.4 pg (27.0-31.2); Mean Platelet Volume 7.7 fl (7.4-10.4); Monocytes # 0.6 K/mm3 (0.1-1.0); Monocytes % 6.8 % (1.7-9.3); Neutrophils % 46.8 % (37.0-80.0); Platelet Count 323 K/mm3 (142-424); Red Blood Count 4.44 M/mm3 (4.20-5.40); Red Cell Distribution Width 12.9 % (11.5-17.5); White Blood Count 8.5 K/mm3 (4.8-10.8)
[2023-02-11 17:30] VITALS: BP 112/73; PULSE 70; O2SAT 100
[2023-02-11 17:33] LABS: Urine Pregnancy, HCG Qual. Negative (Negative)
[2023-02-11 17:37] LABS: Chloride 104 mmol/L (98-107); Sodium 139 mmol/L (136-145)
[2023-02-11 17:39] LABS: Alanine Aminotransferase 19 U/L (12-78); Aspartate Amino Transferase 32 U/L (14-36); Blood Urea Nitrogen 13 mg/dl (7-17); Creatinine Clearance Estimated 140 mL/min (50-200); Estimated Glomerular Filt Rate 98 ml/min (>60); GFR (African American) 118 ML/MIN (>60)
[2023-02-11 17:40] LABS: Albumin Level 4.3 g/dl (3.5-5.0); Albumin/Globulin Ratio 1.4 (1.1-1.8); Alkaline Phosphatase 42 U/L (38-126); Appearance,Urine CLEAR (Clear); Bilirubin,Total 0.3 mg/dl (0.2-1.3); Bilirubin,Urine Negative (Negative); Blood, Urine Negative (Negative); Calcium 9.7 mg/dl (8.4-10.2); Carbon Dioxide 25 mmol/L (22.0-30.0); Color,Urine YELLOW (Yellow); Globulin 3.1 g/dL (1.3-3.2); Glucose 95 mg/dl (74-100); Glucose,Urine (UA) Negative (Negative); Ketones,Urine Negative (Negative); Leukocyte Esterase,Urine Negative (Negative); Lipase 42 U/L (23-300); Nitrate,Urine Negative (Negative); PH,Urine 6.5 (5.0-8.5); Protein,Urine Negative (Negative); Specific Gravity, Urine <= 1.005 (1.005-1.030); Total Protein,Serum 7.4 g/dl (6.3-8.2); Urobilinogen,Urine 0.2 EU/dl (0.2)
[2023-02-11 18:06] LABS: Erythrocyte Sedimentation Rate 15 mm/hr (0-20)
[2023-02-11 18:13] LABS: Squamous Epithelial Cell,Urine Occasional #/hpf (0-5); WBC,Urine Occasional #/hpf (0-3)
[2023-02-11 18:52] VITALS: BP 112/73; PULSE 70; RESP 16; TEMP 36.9
== END 2023-02-11 18:53 | disposition home or self-care (01) ==
PROVIDERS: Emergency Provider Emergency Medicine; PCP Physician Assistant
DX: R10.9 Unspecified abdominal pain (principal); R11.2 Nausea with vomiting, unspecified; R19.7 Diarrhea, unspecified; R42 Dizziness and giddiness; F41.9 Anxiety disorder, unspecified; F31.9 Bipolar disorder, unspecified; J45.909 Unspecified asthma, uncomplicated; G43.909 Migraine, unspecified, not intractable, without status migrainosus; E78.5 Hyperlipidemia, unspecified; I10 Essential (primary) hypertension; F17.290 Nicotine dependence, other tobacco product, uncomplicated
CPT/HCPCS: 80053; 81001; 81025; 83690; 85025; 85651; 86140; 96374; 96375; 99284; 99285; J2405

== ENCOUNTER 2023-03-09 07:51 | Emergency (ER) | payer MEDICAID, SELFPAY ==
[2023-03-09 07:52] VITALS: BP 119/73; PULSE 91; RESP 18; TEMP 36.7; O2SAT 98; BMI 31.1
[2023-03-09 08:00] VITALS: BP 128/83; PULSE 83; O2SAT 97
--- NOTE | 2023-03-09 08:04 | XR_ITS ---
FINAL REPORT CLINICAL HISTORY: twisting injury, lateral right ankle pain COMPARISON: None FINDINGS: AP, oblique, and lateral views of the right ankle were obtained. There is no prior exam for comparison. There is no fracture or dislocation. The ankle mortise is intact. Lateral soft tissue edema. IMPRESSION: Lateral soft tissue edema without acute osseous abnormality of the right ankle. Reviewed, Interpreted and Dictated by Lauren Chicas MD Transcribed by Rosa Gutierrez Authenticated and [facility]
[2023-03-09 08:20] LABS: Alanine Aminotransferase 17 U/L (12-78); Albumin Level 4.9 g/dl (3.5-5.0); Albumin/Globulin Ratio 1.6 (1.1-1.8); Alkaline Phosphatase 52 U/L (38-126); Aspartate Amino Transferase 29 U/L (14-36); Bilirubin,Total 0.5 mg/dl (0.2-1.3); Blood Urea Nitrogen 13 mg/dl (7-17); Calcium 9.5 mg/dl (8.4-10.2); Carbon Dioxide 23 mmol/L (22.0-30.0); Chloride 108 mmol/L (98-107); Creatinine Clearance Estimated 138 mL/min (50-200); Estimated Glomerular Filt Rate 98 ml/min (>60); GFR (African American) 118 ML/MIN (>60); Globulin 3.1 g/dL (1.3-3.2); Glucose 98 mg/dl (74-100); Lipase 42 U/L (23-300); Sodium 139 mmol/L (136-145)
--- NOTE | 2023-03-09 08:25 | PC.NURSE ---
radiology aware of ankle x-ray
--- NOTE | 2023-03-09 08:33 | HMH.EDGENADL ---
Discharge Plan Disposition Patient Disposition: Home, Self-Care Prescriptions Prescriptions: New ondansetron 4 mg tablet,disintegrating 4 mg PO Q6H PRN (Reason: nausea and vomiting) 5 Days Qty: 20 0RF No Action Orabase (benzocaine) 20 % paste 1 applic mucous membrane TID PRN (Reason: mix with kenalog) Qty: 11.9 0RF triamcinolone acetonide 0.1 % paste 1 applic dental TID PRN (Reason: mouth irritation) Qty: 5 0RF Rx Instructions: use after food and/or drink and/or oral hygiene ziprasidone HCl [Geodon] 20 mg capsule 20 mg PO BID Qty: 60 2RF Rx Instructions: give with food (meal/snack) clonazepam [Klonopin] 1 mg tablet 1 mg PO BID Qty: 60 0RF albuterol sulfate 90 mcg/actuation HFA aerosol inhaler 2 inh inhalation Q4-6H PRN (Reason: shortness of breath or wheezing) Qty: 8.5 1RF cholecalciferol (vitamin D3) 25 mcg (1,000 unit) tablet See Rx Instructions .ROUTE .COMPLEX Qty: 30 0RF Dose Instruction: TAKE ONE TABLET BY MOUTH ONCE A DAY Rx Instructions: TAKE ONE TABLET BY MOUTH ONCE A DAY cetirizine 10 mg tablet See Rx Instructions .ROUTE .COMPLEX Qty: 30 2RF Dose Instruction: TAKE ONE TABLET BY MOUTH ONCE A DAY Rx Instructions: TAKE ONE TABLET BY MOUTH ONCE A DAY atorvastatin 10 mg tablet See Rx Instructions .ROUTE .COMPLEX Qty: 30 2RF Dose Instruction: TAKE ONE TABLET BY MOUTH ONCE A DAY FOR CHOLESTEROL Rx Instructions: TAKE ONE TABLET BY MOUTH ONCE A DAY FOR CHOLESTEROL propranolol 120 mg capsule,extended release 24 hr See Rx Instructions .ROUTE .COMPLEX Qty: 30 0RF Dose Instruction: TAKE ONE CAPSULE BY MOUTH ONCE A DAY FOR BLOOD PRESSURE Rx Instructions: TAKE ONE CAPSULE BY MOUTH ONCE A DAY FOR BLOOD PRESSURE ondansetron 4 mg tablet,disintegrating 4 mg PO Q8H PRN (Reason: nausea and vomiting) Qty: 10 0RF ondansetron HCl 4 mg tablet 4 mg PO Q8H 4 Days Qty: 12 0RF Referrals Follow up/Referrals: Chaparrita Haynes PA [Primary Care Provider] - See instructions Activity Restrictions/Add. Instructions Additional Instructions/Restrictions: Please return with any inability to tolerate fluids by mouth. Clinical Impressions Clinical Impression: Nausea vomiting and diarrhea Stand Alone Forms Stand Alone Forms: Work/School Release Instructions Patient Instructions: DI for Diarrhea and Traveler's Diarrhea -- Adult, DI for Diarrhea and Traveler's Diarrhea -- Child, DI for Nausea -- Adult, DI for Nausea -- Child Discharge ED Provider: Tomasz Cheung General Adult HPI General Chief complaint: Nausea/Vomiting/Diarrhea Stated complaint: Weak, dizzy, vomiting, diarrhea Time Seen by Provider: 03/09/23 07:53 Mode of Arrival: Ambulatory Source of Information: Patient Limitations: No Limitations Description of Symptoms (Recalled from ER Triage Doc. by RN): Patient reports nausea, diarrhea and lightheadedness for [address] the [address] into the ER for evaluation she twisted her right ankle also. History of Present Illness HPI narrative: Patient is a 32-year-old female here with nausea vomiting diarrhea. This been going on for 2 days. She has no fever, no sick contacts, no significant abdominal pain associated with this other than cramping intermittently when she has vomiting episodes. Nonbloody nonbilious bilious emesis. No blood in her stool. No significant past medical problems. Related Data Previous Rx's Medication Instructions Recorded albuterol sulfate 90 mcg/actuation 2 inh inhalation Q4-6H PRN 08/18/22 aerosol inhaler shortness of breath or wheezing #8.5 grams cholecalciferol (vitamin D3) 25 See Rx Instructions .Route 09/07/22 mcg (1,000 unit) tablet .COMPLEX #30 tabs atorvastatin 10 mg tablet See Rx Instructions .Route 12/22/22 .COMPLEX #30 tabs cetirizine 10 mg tablet See Rx Instructions .Route 12/22/22 .COMPLEX #30 tabs ondansetron 4 mg disintegrating 4 mg PO Q8H PRN nause
--- NOTE | 2023-03-09 08:46 | XR_ITS ---
FINAL REPORT CLINICAL HISTORY: pain and swelling top of rt foot COMPARISON: None FINDINGS: AP, oblique and lateral views of the right foot were obtained. There is no prior exam for comparison. There is no acute fracture or dislocation. The joint spaces are preserved. Soft tissues are normal. IMPRESSION: No acute osseous abnormality of the right foot. Reviewed, Interpreted and Dictated by Lauren Chicas MD Transcribed by Rosa Gutierrez Authenticated and [facility]
[2023-03-09 08:58] LABS: HCG,Quantitative < 2 mIU/ml (0-5.42)
[2023-03-09 09:18] LABS: Hematocrit 42.4 % (37.0-47.0); Hemoglobin 14.8 g/dL (12.2-16.2); Mean Corpuscular HGB Conc 34.9 g/dL (31.8-35.4); Mean Corpuscular Hemoglobin 31.7 pg (27.0-31.2); Mean Corpuscular Volume 90.8 fl (81-99); Platelet Count 318 K/mm3 (142-424); Red Blood Count 4.67 M/mm3 (4.20-5.40); Red Cell Distribution Width 12.2 % (11.5-17.5); White Blood Count 8.9 K/mm3 (4.8-10.8)
[2023-03-09 09:19] LABS: Basophils # 0.1 K/mm3 (0-0.2); Basophils % 0.7 % (0.1-2.0); Eosinophils # 0.3 K/mm3 (0.0-0.4); Eosinophils % 3.8 % (0.1-12.0); Lymphocytes # 3.7 K/mm3 (0.7-4.5); Lymphocytes % 41.4 % (10-50); Mean Platelet Volume 9.7 fl (7.4-10.4); Monocytes # 0.9 K/mm3 (0.1-1.0); Monocytes % 10.2 % (1.7-9.3); Neutrophils # 3.8 K/mm3 (1.8-7.8); Neutrophils % 43.1 % (37.0-80.0)
[2023-03-09 09:35] VITALS: BP 108/61; PULSE 71; RESP 18; TEMP 36.7; O2SAT 100
== END 2023-03-09 09:39 | disposition home or self-care (01) ==
PROVIDERS: Student in an Organized Health Care Education/Training Program; Emergency Provider Emergency Medicine; PCP Physician Assistant
DX: R11.2 Nausea with vomiting, unspecified (principal); R19.7 Diarrhea, unspecified; R42 Dizziness and giddiness; F41.9 Anxiety disorder, unspecified; J45.909 Unspecified asthma, uncomplicated; F31.9 Bipolar disorder, unspecified; I10 Essential (primary) hypertension; E78.5 Hyperlipidemia, unspecified; F17.290 Nicotine dependence, other tobacco product, uncomplicated
CPT/HCPCS: 73610; 73630; 80053; 83690; 84702; 85025; 96361; 96374; 96375; 99285; J0131; J2405

== ENCOUNTER 2023-03-11 15:47 | Emergency (ER) | payer MEDICAID, SELFPAY ==
[2023-03-11 16:00] VITALS: BP 129/78; PULSE 72; RESP 20; O2SAT 100
[2023-03-11 16:14] VITALS: BP 122/80; PULSE 78; RESP 20; TEMP 36.9; O2SAT 100; BMI 29.2
--- NOTE | 2023-03-11 16:27 | HMH.EDGENADL ---
Discharge Plan Disposition Patient Disposition: Home, Self-Care Condition: Good Prescriptions Prescriptions: No Action Orabase (benzocaine) 20 % paste 1 applic mucous membrane TID PRN (Reason: mix with kenalog) Qty: 11.9 0RF triamcinolone acetonide 0.1 % paste 1 applic dental TID PRN (Reason: mouth irritation) Qty: 5 0RF Rx Instructions: use after food and/or drink and/or oral hygiene ziprasidone HCl [Geodon] 20 mg capsule 20 mg PO BID Qty: 60 2RF Rx Instructions: give with food (meal/snack) clonazepam [Klonopin] 1 mg tablet 1 mg PO BID Qty: 60 0RF albuterol sulfate 90 mcg/actuation HFA aerosol inhaler 2 inh inhalation Q4-6H PRN (Reason: shortness of breath or wheezing) Qty: 8.5 1RF cholecalciferol (vitamin D3) 25 mcg (1,000 unit) tablet See Rx Instructions .ROUTE .COMPLEX Qty: 30 0RF Dose Instruction: TAKE ONE TABLET BY MOUTH ONCE A DAY Rx Instructions: TAKE ONE TABLET BY MOUTH ONCE A DAY cetirizine 10 mg tablet See Rx Instructions .ROUTE .COMPLEX Qty: 30 2RF Dose Instruction: TAKE ONE TABLET BY MOUTH ONCE A DAY Rx Instructions: TAKE ONE TABLET BY MOUTH ONCE A DAY atorvastatin 10 mg tablet See Rx Instructions .ROUTE .COMPLEX Qty: 30 2RF Dose Instruction: TAKE ONE TABLET BY MOUTH ONCE A DAY FOR CHOLESTEROL Rx Instructions: TAKE ONE TABLET BY MOUTH ONCE A DAY FOR CHOLESTEROL propranolol 120 mg capsule,extended release 24 hr See Rx Instructions .ROUTE .COMPLEX Qty: 30 0RF Dose Instruction: TAKE ONE CAPSULE BY MOUTH ONCE A DAY FOR BLOOD PRESSURE Rx Instructions: TAKE ONE CAPSULE BY MOUTH ONCE A DAY FOR BLOOD PRESSURE ondansetron 4 mg tablet,disintegrating 4 mg PO Q8H PRN (Reason: nausea and vomiting) Qty: 10 0RF ondansetron HCl 4 mg tablet 4 mg PO Q8H 4 Days Qty: 12 0RF ondansetron 4 mg tablet,disintegrating 4 mg PO Q6H PRN (Reason: nausea and vomiting) 5 Days Qty: 20 0RF Referrals Follow up/Referrals: Provider,Referral, MD [Referring] - See instructions Activity Restrictions/Add. Instructions Additional Instructions/Restrictions: Seizure precautions - do not do any of these activities until cleared by your neurologist: 1) avoid sleep deprivation 2) avoid open bodies of water and open flames 3) avoid swimming alone 4) take showers, do not take baths 5) avoid any situation where loss of consciousness may predispose to injury or 6) avoid driving Clinical Impressions Clinical Impression: Observed seizure-like activity Stand Alone Forms Stand Alone Forms: Work/School Release Instructions Patient Instructions: DI for Seizure Disorder -- Adult, DI for Seizure (Not Epilepsy/Seizure Disorder), DI for Seizure Disorder -- Child Discharge ED Provider: Kirill Jasso General Adult HPI General Chief complaint: Seizure Stated complaint: seizure Time Seen by Provider: 03/11/23 16:15 Mode of Arrival: EMS Source of Information: Patient Limitations: No Limitations Description of Symptoms (Recalled from ER Triage Doc. by RN): pt to ed c/o seizure. pt states she was working at [employer] and had a seizure. pt states she has a hx of seizures and takes medications daily. pt states pcp has been adjusting dosing. pt reports feeling at baseline, just tired. History of Present Illness HPI narrative: 32-year-old female history of bipolar disorder, reported seizure disorder on multiple medications, recent history of visit for nausea vomiting and diarrhea, presents after spell at work today. Patient reports that she has had increased stress and has been feeling bad at home. Denies fevers chills. Reports some throat pain. Reports history of frequent UTIs, but think she has UTI right now, complaining of burning with urination. Reports that she was unable to take her seizure medications a couple days ago but has been taking them over the last couple of days.Spell was characteristic for her. Lasted a s
--- NOTE | 2023-03-11 16:36 | PC.NURSE ---
rounded on pt, warm blanket given, urine sent to lab
[2023-03-11 16:44] LABS: Microscopic, Urine URINE MICROSCOPIC (MICROSCOPIC)
[2023-03-11 16:49] LABS: Appearance,Urine SL CLOUDY (Clear); Bilirubin,Urine Negative (Negative); Blood, Urine Negative (Negative); Color,Urine YELLOW (Yellow); Glucose,Urine (UA) Negative (Negative); Ketones,Urine Negative (Negative); Leukocyte Esterase,Urine TRACE (Negative); Nitrate,Urine Negative (Negative); PH,Urine 6.5 (5.0-8.5); Protein,Urine Negative (Negative); Urobilinogen,Urine 0.2 EU/dl (0.2)
[2023-03-11 16:58] LABS: Basophils % 0.4 % (0.1-2.0); Eosinophils # 0.1 K/mm3 (0.0-0.4); Eosinophils % 0.6 % (0.1-12.0); Hematocrit 43.3 % (37.0-47.0); Lymphocytes # 1.9 K/mm3 (0.7-4.5); Lymphocytes % 16.9 % (10-50); Mean Corpuscular HGB Conc 32.4 g/dL (31.8-35.4); Mean Corpuscular Hemoglobin 30.8 pg (27.0-31.2); Mean Corpuscular Volume 95.1 fl (81-99); Monocytes # 0.5 K/mm3 (0.1-1.0); Monocytes % 4.7 % (1.7-9.3); Neutrophils # 8.9 K/mm3 (1.8-7.8); Neutrophils % 77.5 % (37.0-80.0); Platelet Count 318 K/mm3 (142-424); Red Blood Count 4.55 M/mm3 (4.20-5.40); Red Cell Distribution Width 13.1 % (11.5-17.5); White Blood Count 11.5 K/mm3 (4.8-10.8)
[2023-03-11 17:00] VITALS: BP 117/81; PULSE 76; O2SAT 100
[2023-03-11 17:01] LABS: Bacteria,Urine Trace /lpf; WBC,Urine Occasional #/hpf (0-3)
[2023-03-11 17:02] LABS: Chloride 108 mmol/L (98-107); Potassium 4.1 mmoL/L (3.5-5.1); Sodium 140 mmol/L (136-145)
[2023-03-11 17:05] LABS: Alanine Aminotransferase 16 U/L (12-78); Albumin Level 4.4 g/dl (3.5-5.0); Albumin/Globulin Ratio 1.3 (1.1-1.8); Alkaline Phosphatase 52 U/L (38-126); Anion Gap 14.1 mEq/L (5-15); Aspartate Amino Transferase 27 U/L (14-36); Bilirubin,Total 0.3 mg/dl (0.2-1.3); Blood Urea Nitrogen 11 mg/dl (7-17); Carbon Dioxide 22 mmol/L (22.0-30.0); Creatinine Clearance Estimated 142 mL/min (50-200); Estimated Glomerular Filt Rate 98 ml/min (>60); GFR (African American) 118 ML/MIN (>60); Globulin 3.3 g/dL (1.3-3.2); Total Protein,Serum 7.7 g/dl (6.3-8.2)
[2023-03-11 17:06] LABS: Calcium 9.4 mg/dl (8.4-10.2); Glucose 97 mg/dl (74-100)
[2023-03-11 17:30] VITALS: BP 109/71; PULSE 74; RESP 18; O2SAT 99
--- NOTE | 2023-03-11 17:42 | PC.NURSE ---
rounded on pt nothing needed, call light at bs
[2023-03-11 18:03] VITALS: BP 112/74; PULSE 74; RESP 20; TEMP 36.9; O2SAT 99
== END 2023-03-11 18:05 | disposition home or self-care (01) ==
PROVIDERS: Emergency Provider Emergency Medicine; PCP Physician Assistant
DX: G40.909 Epilepsy, unspecified, not intractable, without status epilepticus (principal); F41.9 Anxiety disorder, unspecified; J45.909 Unspecified asthma, uncomplicated; E78.5 Hyperlipidemia, unspecified; F31.9 Bipolar disorder, unspecified; I10 Essential (primary) hypertension
CPT/HCPCS: 80053; 81001; 85025; 96361; 96374; 99284; J2405

== ENCOUNTER → 2023-04-02 17:22 | Outpatient (CLI) | payer MEDICAID, SELFPAY ==
[2023-04-03 10:27] LABS: Barbiturates Screen,Urine Negative ng/ml (<200); Benzodiazepines Screen,Urine Negative ng/ml (<200)
[2023-04-03 10:28] LABS: Amphetamine/Metha Screen,Urine Negative ng/ml (<1000)
[2023-04-03 10:29] LABS: Cocaine Screen,Urine Negative ng/ml (<300); Methadone Screen,Urine Negative ng/ml (<300)
[2023-04-03 10:30] LABS: Cannabinoid Screen,Urine Positive ng/ml (<50); Opiate Screen,Urine Negative ng/ml (<300)
[2023-04-03 10:31] LABS: Phencyclidine Screen,Urine Negative ng/ml (<25)
== END ==
PROVIDERS: Nurse Practitioner Psychiatric/Mental Health; PCP Physician Assistant; Visit Provider Physician Assistant
DX: Z87.898 Personal history of other specified conditions (principal)
CPT/HCPCS: 80305

== ENCOUNTER 2023-07-01 12:55 | Emergency (ER) | payer MEDICAID, SELFPAY ==
[2023-07-01] VITALS (9 sets, daily range): BP systolic 100–118; BP diastolic 57–79; PULSE 70–90; RESP 16–20; TEMP 36.7; O2SAT 96–99; BMI 29.2
--- NOTE | 2023-07-01 13:36 | PC.NURSE ---
RT @ BS for lubao neb
[2023-07-01 13:52] LABS: Strep Scrn Group A (Rapid) Negative (Negative)
--- NOTE | 2023-07-01 14:00 | PC.NURSE ---
Rounded on patient; warm blanket provided. Call light within reach of patient
--- NOTE | 2023-07-01 14:11 | HMH.EDGENADL ---
Discharge Plan Disposition Patient Disposition: Home, Self-Care Prescriptions Prescriptions: New prednisone 20 mg tablet 40 mg PO BID 5 Days Qty: 20 0RF ondansetron 4 mg tablet,disintegrating 4 mg PO Q6H PRN (Reason: nausea and vomiting) Qty: 10 1RF nicotine 21 mg/24 hr patch 24 hour 1 patch transdermal DAILY Qty: 14 4RF No Action minocycline 100 mg tablet 100 mg PO BID Qty: 60 2RF tretinoin 0.025 % cream 1 applic topical HS Qty: 45 0RF albuterol sulfate 90 mcg/actuation HFA aerosol inhaler 2 inh inhalation Q4-6H PRN (Reason: shortness of breath or wheezing) Qty: 8.5 1RF atorvastatin 10 mg tablet See Rx Instructions .ROUTE .COMPLEX Qty: 30 2RF Dose Instruction: TAKE ONE TABLET BY MOUTH ONCE A DAY FOR CHOLESTEROL Rx Instructions: TAKE ONE TABLET BY MOUTH ONCE A DAY FOR CHOLESTEROL cetirizine 10 mg tablet See Rx Instructions .ROUTE .COMPLEX Qty: 30 2RF Dose Instruction: TAKE ONE TABLET BY MOUTH ONCE A DAY Rx Instructions: TAKE ONE TABLET BY MOUTH ONCE A DAY cholecalciferol (vitamin D3) 25 mcg (1,000 unit) tablet See Rx Instructions .ROUTE .COMPLEX Qty: 30 0RF Dose Instruction: TAKE ONE TABLET BY MOUTH ONCE A DAY Rx Instructions: TAKE ONE TABLET BY MOUTH ONCE A DAY propranolol 120 mg capsule,extended release 24 hr See Rx Instructions .ROUTE .COMPLEX Qty: 30 2RF Dose Instruction: TAKE ONE CAPSULE BY MOUTH ONCE A DAY FOR BLOOD PRESSURE Rx Instructions: TAKE ONE CAPSULE BY MOUTH ONCE A DAY FOR BLOOD PRESSURE divalproex [Depakote ER] 250 mg tablet extended release 24 hr 250 mg PO BID Qty: 60 2RF magnesium citrate Solution 300 ml PO DAILY PRN (Reason: constipation) Qty: 296 1RF Linzess 145 mcg capsule 145 mcg PO DAILY Qty: 30 2RF permethrin [Elimite] 5 % cream 1 applic topical Q14D Qty: 60 1RF Trintellix 10 mg tablet 10 mg PO .COMPLEX Qty: 30 1RF Rx Instructions: 10 mg PO take 1/2 tablet for 8 days; then increase to 1 tablet; clonazepam [Klonopin] 1 mg tablet 1 mg PO BID Qty: 60 0RF Referrals Follow up/Referrals: Chaparrita Haynes PA [Primary Care Provider] - See instructions Activity Restrictions/Add. Instructions Additional Instructions/Restrictions: 4 puffs of albuterol every 4 hours for the next 48 hours. Take prednisone daily for 5 days. Zofran also sent to the pharmacy with a refill for nausea and vomiting. Call your family doctor to establish care for this visit to the emergency department and schedule follow-up within 48 hours to ensure improvement. If you have any worsening of your condition or any other concerning signs or symptoms, return to the emergency department or your primary care doctor for further evaluation. Clinical Impressions Clinical Impression: Asthma exacerbation Instructions Patient Instructions: DI for Diarrhea and Traveler's Diarrhea -- Adult, DI for Diarrhea and Traveler's Diarrhea -- Child, DI for Nausea -- Adult, DI for Nausea -- Child Discharge ED Provider: Tomasz Cheung General Adult HPI General Chief complaint: Nausea/Vomiting/Diarrhea Stated complaint: vomiting,diarrhea,cough,sweats Time Seen by Provider: 07/01/23 12:59 Mode of Arrival: Ambulatory Source of Information: Patient Limitations: No Limitations Description of Symptoms (Recalled from ER Triage Doc. by RN): Presents to ED with c/o N/V/D x 3 days. Patient denies fever. Patient reports a dry cough and states her trhoat hurts when she swallows. Patient reports scant blood in stool. Patient took Zofran 4mg SL yesterday. History of Present Illness HPI narrative: 32-year-old female history of hepatitis C, anxiety, bipolar, depression, UTIs presenting with cough, vomiting, fever. Patient states that she has had 1 sick contact in the past few days. Cough is productive of clear frothy sputum. Feels febrile, but has not had objective temperatures measured. Denies urinary sympt
[2023-07-01 14:42] LABS: Coronavirus 19, PCR Not Detected (NotDetected); Influenza A, PCR Not Detected (NotDetected); Influenza B, PCR Not Detected (NotDetected)
== END 2023-07-01 15:54 | disposition home or self-care (01) ==
PROVIDERS: Emergency Provider Emergency Medicine; PCP Physician Assistant
DX: R05.9 Cough, unspecified (principal); R50.9 Fever, unspecified; R11.10 Vomiting, unspecified; J45.901 Unspecified asthma with (acute) exacerbation; I10 Essential (primary) hypertension; Z87.891 Personal history of nicotine dependence
CPT/HCPCS: 87430; 87636; 99284

== ENCOUNTER 2023-07-05 19:25 | Emergency (ER) | payer MEDICAID, SELFPAY ==
[2023-07-05 19:25] VITALS: RESP 22; TEMP 36.7; O2SAT 97; BMI 28.3
--- NOTE | 2023-07-05 19:30 | ECG_ITS ---
APPROVED REPORT Exam: Resting ECG HR:79 bpm ECG Measurements Heart Rate 79 AXES WV 157 P 45 QRSd 100 QRS 72 QT 349 T 50 QTc 384 Conclusion SINUS RHYTHM WITH SINUS ARRHYTHMIA NORMAL ECG INTERPRETATION BASED ON A DEFAULT AGE OF 40 YEARS UNCONFIRMED REPORT Electronically signed by : Joseph Valladares MD 07/06/2023 16:10:04
[2023-07-05 19:39] VITALS: PULSE 86
[2023-07-05 19:41] VITALS: BP 145/104; PULSE 86; RESP 22; TEMP 36.7; O2SAT 97
[2023-07-05 20:00] VITALS: BP 92/55; PULSE 77; RESP 18; O2SAT 96
[2023-07-05 20:30] VITALS: BP 104/62; PULSE 74; RESP 14; O2SAT 97
--- NOTE | 2023-07-05 20:30 | XR_ITS ---
PROCEDURE INFORMATION: Exam: XR Chest Exam date and time: 07/05/2023 8:31 PM Age: 32 years old Clinical indication: Sternal or substernal pain; Additional info: Cp TECHNIQUE: Imaging protocol: Radiologic exam of the chest. Views: 2 views. COMPARISON: CR XR CHEST PORTABLE 08/17/2022 8:50 PM FINDINGS: Lungs: Left lower lobe calcified granulomas unchanged from prior exam. No consolidations Pleural spaces: Unremarkable. No pleural effusion. No pneumothorax. Heart/Mediastinum: Unremarkable. No cardiomegaly. Bones/joints: Unremarkable. IMPRESSION: No acute findings.
--- NOTE | 2023-07-05 20:31 | HMH.EDGENADL ---
Discharge Plan Disposition Patient Disposition: Home, Self-Care Chief Complaint: Chest Pain Prescriptions Prescriptions: No Action minocycline 100 mg tablet 100 mg PO BID Qty: 60 2RF tretinoin 0.025 % cream 1 applic topical HS Qty: 45 0RF albuterol sulfate 90 mcg/actuation HFA aerosol inhaler 2 inh inhalation Q4-6H PRN (Reason: shortness of breath or wheezing) Qty: 8.5 1RF atorvastatin 10 mg tablet See Rx Instructions .ROUTE .COMPLEX Qty: 30 2RF Dose Instruction: TAKE ONE TABLET BY MOUTH ONCE A DAY FOR CHOLESTEROL Rx Instructions: TAKE ONE TABLET BY MOUTH ONCE A DAY FOR CHOLESTEROL cetirizine 10 mg tablet See Rx Instructions .ROUTE .COMPLEX Qty: 30 2RF Dose Instruction: TAKE ONE TABLET BY MOUTH ONCE A DAY Rx Instructions: TAKE ONE TABLET BY MOUTH ONCE A DAY cholecalciferol (vitamin D3) 25 mcg (1,000 unit) tablet See Rx Instructions .ROUTE .COMPLEX Qty: 30 0RF Dose Instruction: TAKE ONE TABLET BY MOUTH ONCE A DAY Rx Instructions: TAKE ONE TABLET BY MOUTH ONCE A DAY propranolol 120 mg capsule,extended release 24 hr See Rx Instructions .ROUTE .COMPLEX Qty: 30 2RF Dose Instruction: TAKE ONE CAPSULE BY MOUTH ONCE A DAY FOR BLOOD PRESSURE Rx Instructions: TAKE ONE CAPSULE BY MOUTH ONCE A DAY FOR BLOOD PRESSURE divalproex [Depakote ER] 250 mg tablet extended release 24 hr 250 mg PO BID Qty: 60 2RF magnesium citrate Solution 300 ml PO DAILY PRN (Reason: constipation) Qty: 296 1RF Linzess 145 mcg capsule 145 mcg PO DAILY Qty: 30 2RF permethrin [Elimite] 5 % cream 1 applic topical Q14D Qty: 60 1RF Trintellix 10 mg tablet 10 mg PO .COMPLEX Qty: 30 1RF Rx Instructions: 10 mg PO take 1/2 tablet for 8 days; then increase to 1 tablet; clonazepam [Klonopin] 1 mg tablet 1 mg PO BID Qty: 60 0RF prednisone 20 mg tablet 40 mg PO BID 5 Days Qty: 20 0RF ondansetron 4 mg tablet,disintegrating 4 mg PO Q6H PRN (Reason: nausea and vomiting) Qty: 10 1RF nicotine 21 mg/24 hr patch 24 hour 1 patch transdermal DAILY Qty: 14 4RF Referrals Follow up/Referrals: Provider,Referral, MD [Primary Care Provider] - See instructions Aftab,Celso, MD [Staff Physician] - See instructions Activity Restrictions/Add. Instructions Additional Instructions/Restrictions: At this time it was felt you are safe to be discharged home. If new or worsening symptoms please do not hesitate to return the emergency department. Please call and schedule an appointment with Dr. Ugalde as you are able. Clinical Impressions Clinical Impression: Chest pain Discharge ED Provider: Chandan Tinoco General Adult HPI General Chief complaint: Chest Pain Stated complaint: Chest pain Time Seen by Provider: 07/05/23 20:00 Mode of Arrival: Wheelchair Source of Information: Patient Limitations: No Limitations Description of Symptoms (Recalled from ER Triage Doc. by RN): Patient states she has been having increased shortness of breath and chest pain for the last week. States she was seen here at this emergency department a few days ago. States tonight the pain started about 45mins ago. Pain in substernal chest pain that radiates to middle of back, feels like someone is stabbing me right through my chest. Patient has c/o shortness of breath History of Present Illness HPI narrative: Patient is a 32-year-old female with past medical history of asthma, chronic smoker, bipolar, anxiety, depression who presents emergency department for evaluation of chest pain. Patient states that he has been going on for about a week. Substernal. Intermittently stabbing. Per chart review patient was diagnosed with an asthma exacerbation earlier this week. No other acute complaints at this time. Related Data Previous Rx's Medication Instructions Recorded albuterol sulfate 90 mcg/actuation 2 inh inhalation Q4-6H PRN 03/29/23 aerosol inhaler sh
[2023-07-05 20:47] LABS: D-Dimer 0.51 ug/mL (0.0-0.5)
[2023-07-05 20:51] LABS: Basophils # 0.1 K/mm3 (0-0.2); Basophils % 0.8 % (0.1-2.0); Eosinophils # 0.3 K/mm3 (0.0-0.4); Eosinophils % 2.4 % (0.1-12.0); Hematocrit 44.7 % (37.0-47.0); Hemoglobin 15.6 g/dL (12.2-16.2); Lymphocytes # 5.4 K/mm3 (0.7-4.5); Lymphocytes % 43.9 % (10-50); Mean Corpuscular HGB Conc 34.9 g/dL (31.8-35.4); Mean Corpuscular Hemoglobin 33.4 pg (27.0-31.2); Mean Corpuscular Volume 95.6 fl (81-99); Mean Platelet Volume 8.1 fl (7.4-10.4); Monocytes % 7.8 % (1.7-9.3); Neutrophils # 5.5 K/mm3 (1.8-7.8); Neutrophils % 45.1 % (37.0-80.0); Platelet Count 371 K/mm3 (142-424); Red Blood Count 4.67 M/mm3 (4.20-5.40); White Blood Count 12.3 K/mm3 (4.8-10.8)
[2023-07-05 20:53] LABS: Alanine Aminotransferase 19 U/L (12-78); Albumin Level 4.6 g/dl (3.5-5.0); Albumin/Globulin Ratio 1.4 (1.1-1.8); Alkaline Phosphatase 59 U/L (38-126); Aspartate Amino Transferase 31 U/L (14-36); Bilirubin,Total 0.4 mg/dl (0.2-1.3); Blood Urea Nitrogen 6 mg/dl (7-17); Carbon Dioxide 21 mmol/L (22.0-30.0); Chloride 107 mmol/L (98-107); Creatinine Clearance Estimated 117 mL/min (50-200); Estimated Glomerular Filt Rate 84 ml/min (>60); GFR (African American) 101 ML/MIN (>60); Globulin 3.3 g/dL (1.3-3.2); Glucose 110 mg/dl (74-100); Potassium 3.5 mmoL/L (3.5-5.1); Total Protein,Serum 7.9 g/dl (6.3-8.2)
[2023-07-05 21:06] LABS: Troponin I < 0.01 ng/ml (0.00-0.034)
[2023-07-05 21:49] LABS: Anion Gap 14.5 mEq/L (5-15); Sodium 139 mmol/L (136-145)
--- NOTE | 2023-07-05 22:29 | PC.NURSE ---
Second trop sent. Patient up to bathroom
[2023-07-05 23:01] LABS: Troponin I < 0.01 ng/ml (0.00-0.034)
[2023-07-05 23:10] VITALS: BP 110/78; PULSE 64; RESP 16; TEMP 36.7
== END 2023-07-05 23:22 | disposition home or self-care (01) ==
PROVIDERS: Emergency Provider Emergency Medicine
DX: R07.9 Chest pain, unspecified (principal); J45.909 Unspecified asthma, uncomplicated; F17.290 Nicotine dependence, other tobacco product, uncomplicated; F31.9 Bipolar disorder, unspecified; F41.1 Generalized anxiety disorder; I10 Essential (primary) hypertension; E78.5 Hyperlipidemia, unspecified
CPT/HCPCS: 71046; 80053; 84484; 85025; 85378; 93005; 96374; 99284

== ENCOUNTER 2023-07-23 19:11 | Emergency (ER) | payer MEDICAID, SELFPAY ==
[2023-07-23 19:11] VITALS: BP 137/89; PULSE 110; RESP 24; TEMP 36.6; O2SAT 98; BMI 30.9
--- NOTE | 2023-07-23 19:18 | ECG_ITS ---
APPROVED REPORT Exam: Resting ECG HR:115 bpm ECG Measurements Heart Rate 115 AXES RI 143 P 54 QRSd 90 QRS 83 QT 298 T 26 QTc 366 Conclusion SINUS TACHYCARDIA NONSPECIFIC T-WAVE ABNORMALITY ABNORMAL RHYTHM ECG UNCONFIRMED REPORT Electronically signed by : Joseph Valladares MD 07/24/2023 10:17:54
[2023-07-23 19:28] VITALS: PULSE 110
--- NOTE | 2023-07-23 19:29 | XR_ITS ---
PROCEDURE INFORMATION: Exam: XR Chest Exam date and time: 07/23/2023 7:32 PM Age: 32 years old Clinical indication: Dyspnea TECHNIQUE: Imaging protocol: Radiologic exam of the chest. Views: 1 view. COMPARISON: CR XR CHEST 2V 07/05/2023 8:31 PM FINDINGS: Lungs: Unremarkable. No consolidation. Pleural spaces: Unremarkable. No pleural effusion. No pneumothorax. Heart/Mediastinum: Unremarkable. No cardiomegaly. Bones/joints: Unremarkable. IMPRESSION: No acute findings.
[2023-07-23 19:30] VITALS: PULSE 120; RESP 17; O2SAT 97
--- NOTE | 2023-07-23 19:30 | HMH.EDCP ---
Discharge Plan Disposition Patient Disposition: Home, Self-Care Prescriptions Prescriptions: No Action cetirizine 10 mg tablet See Rx Instructions .ROUTE .COMPLEX Dose Instruction: TAKE ONE TABLET BY MOUTH ONCE A DAY Rx Instructions: TAKE ONE TABLET BY MOUTH ONCE A DAY Rexulti 2 mg tablet 2 mg PO DAILY Qty: 30 2RF Rx Instructions: Start after sample pack given in office today clonazepam [Klonopin] 1 mg tablet 1 mg PO BID Qty: 60 0RF doxycycline hyclate 100 mg tablet 100 mg PO BID Qty: 20 0RF prednisone 20 mg tablet 20 mg PO BID Qty: 10 0RF Rx Instructions: administer with food or milk albuterol sulfate [Proventil HFA] 90 mcg/actuation HFA aerosol inhaler 2 puff inhalation Q6H Qty: 8.5 0RF Rx Instructions: administer with spacer albuterol sulfate 90 mcg/actuation HFA aerosol inhaler 2 inh inhalation Q4-6H PRN (Reason: shortness of breath or wheezing) Qty: 8.5 1RF permethrin [Elimite] 5 % cream 1 applic topical Q14D Qty: 60 1RF Trintellix 10 mg tablet 10 mg PO .COMPLEX Qty: 30 1RF Rx Instructions: 10 mg PO take 1/2 tablet for 8 days; then increase to 1 tablet; ondansetron 4 mg tablet,disintegrating 4 mg PO Q6H PRN (Reason: nausea and vomiting) Qty: 10 1RF nicotine 21 mg/24 hr patch 24 hour 1 patch transdermal DAILY Qty: 14 4RF Referrals Follow up/Referrals: Chaparrita Haynes PA [Primary Care Provider] - See instructions Activity Restrictions/Add. Instructions Additional Instructions/Restrictions: No evidence of an acute cardiopulmonary emergency noted today. Your symptoms were mostly consistent with a panic attack and I advised that you follow-up with your psychiatrist and your primary care doctor as needed. Clinical Impressions Clinical Impression: Panic attack, Chest pain, Dyspnea Discharge ED Provider: Cheryl Zuniga [facility] General Chief Complaint: Chest Pain Stated Complaint: soa Time Seen by Provider: 07/23/23 19:26 Mode of Arrival: EMS Source of Information: Patient Limitations: No Limitations Description of Symptoms (Recalled from ER Triage Doc. by RN): pt reports had pneumonia last week, finished her antibiotics and steroids, hurting mid sternal chest that radiates down her left arm, pt reports productive cough History of Present Illness HPI narrative: 32-year-old female who is extremely anxious and tearful and history is limited secondary to this presents today with chest pain shortness of breath and states she is having severe panic and anxiety attacks. She states that she is very stressed out over Rosalie because he had multiple family members around this time of year and she has lots of life stressors. She is able to tell me that she has had some cough shortness of breath but unable to provide really any other meaningful information at this moment. Related Data Home Medications Medication Instructions Recorded Confirmed cetirizine 10 mg tablet See Rx Instructions .Route .COMPLEX 07/09/23 07/17/23 Previous Rx's Medication Instructions Recorded albuterol sulfate 90 mcg/actuation 2 inh inhalation Q4-6H PRN 03/29/23 aerosol inhaler shortness of breath or wheezing #8.5 grams vortioxetine 10 mg tablet 10 mg PO .COMPLEX #30 tabs 04/16/23 (Trintellix) permethrin 5 % topical cream 1 applic topical Q14D 2 doses #60 06/07/23 (Elimite) grams nicotine 21 mg/24 hr daily 1 patch transdermal DAILY #14 ea 07/01/23 transdermal patch ondansetron 4 mg disintegrating 4 mg PO Q6H PRN nausea and 07/01/23 tablet vomiting #10 tabs albuterol sulfate 90 mcg/actuation 2 puff inhalation Q6H #8.5 grams 07/17/23 aerosol inhaler (Proventil HFA) brexpiprazole 2 mg tablet (Rexulti) 2 mg PO DAILY #30 tabs 07/17/23 clonazepam 1 mg tablet (Klonopin) 1 mg PO BID #60 tabs 07/17/23 doxycycline hyclate 100 mg tablet 100 mg PO BID #20 tabs 07/17/23 prednisone 20 mg tablet 20 mg PO BID #10 tabs 07/17/23 Allergi
[2023-07-23 19:39] LABS: Chloride 105 mmol/L (98-107); Potassium 3.8 mmoL/L (3.5-5.1); Sodium 138 mmol/L (136-145)
[2023-07-23 19:41] LABS: Basophils # 0.1 K/mm3 (0-0.2); Basophils % 0.5 % (0.1-2.0); Eosinophils # 0.1 K/mm3 (0.0-0.4); Eosinophils % 0.8 % (0.1-12.0); Hematocrit 47.1 % (37.0-47.0); Hemoglobin 16.1 g/dL (12.2-16.2); Lymphocytes # 4.4 K/mm3 (0.7-4.5); Lymphocytes % 47.9 % (10-50); Mean Corpuscular HGB Conc 34.2 g/dL (31.8-35.4); Mean Corpuscular Hemoglobin 33.5 pg (27.0-31.2); Mean Corpuscular Volume 98.1 fl (81-99); Mean Platelet Volume 8.2 fl (7.4-10.4); Monocytes # 0.5 K/mm3 (0.1-1.0); Monocytes % 5.3 % (1.7-9.3); Neutrophils # 4.2 K/mm3 (1.8-7.8); Neutrophils % 45.5 % (37.0-80.0); Platelet Count 369 K/mm3 (142-424); Red Cell Distribution Width 13.4 % (11.5-17.5); White Blood Count 9.3 K/mm3 (4.8-10.8)
[2023-07-23 19:42] LABS: Alanine Aminotransferase 23 U/L (12-78); Albumin Level 5.1 g/dl (3.5-5.0); Albumin/Globulin Ratio 1.4 (1.1-1.8); Alkaline Phosphatase 30 U/L (38-126); Anion Gap 13.8 mEq/L (5-15); Aspartate Amino Transferase 37 U/L (14-36); Bilirubin,Total 0.6 mg/dl (0.2-1.3); Blood Urea Nitrogen 10 mg/dl (7-17); Calcium 9.3 mg/dl (8.4-10.2); Carbon Dioxide 23 mmol/L (22.0-30.0); Creatinine Clearance Estimated 128 mL/min (50-200); Estimated Glomerular Filt Rate 84 ml/min (>60); GFR (African American) 101 ML/MIN (>60); Globulin 3.7 g/dL (1.3-3.2); Glucose 132 mg/dl (74-100); Total Protein,Serum 8.8 g/dl (6.3-8.2)
[2023-07-23 19:55] LABS: Troponin I < 0.01 ng/ml (0.00-0.034)
--- NOTE | 2023-07-23 20:17 | PC.NURSE ---
Pt reports having long standing carvalho, [address]F [address] at arrival
--- NOTE | 2023-07-23 20:25 | PC.NURSE ---
Pt up to bathroom with tech, pt requested significant other to go in bathroom with her, tech remained outside door, significant other called out stated pt passed out and he lowered her to floor, pt found to be sitting in bathroom floor, denies injury, assisted back to room, VSS, provider aware
--- NOTE | 2023-07-23 20:31 | PC.NURSE ---
When being put back in bed she reported that the medication she received for pain was helping but states she is still having pain. Her eyes remained closed and she was assisted to the bed with assist x2.
--- NOTE | 2023-07-23 20:31 | PC.NURSE ---
patient states she is having anxiety attach, held pts. hand and talked her down using breathing method. father at bedside
[2023-07-23 21:21] VITALS: BP 124/82; PULSE 107; RESP 18; TEMP 36.9; O2SAT 97
== END 2023-07-23 21:25 | disposition home or self-care (01) ==
PROVIDERS: Emergency Provider Student in an Organized Health Care Education/Training Program; PCP Physician Assistant
DX: R07.9 Chest pain, unspecified (principal); R06.02 Shortness of breath; F41.0 Panic disorder [episodic paroxysmal anxiety]; M79.602 Pain in left arm; F31.9 Bipolar disorder, unspecified; I10 Essential (primary) hypertension; E78.5 Hyperlipidemia, unspecified; F17.290 Nicotine dependence, other tobacco product, uncomplicated; R00.0 Tachycardia, unspecified
CPT/HCPCS: 71045; 80053; 84484; 85025; 93005; 96361; 96374; 99285

== ENCOUNTER 2023-08-27 10:45 | Outpatient (CLI) | payer MEDICAID, SELFPAY ==
--- NOTE | 2023-08-27 10:45 | CT_ITS ---
APPROVED REPORT [employer]: CLINICAL INDICATION Chest Pain TECHNIQUE Image Acquisition: A 128 slice MDCT scanner (Wirea View) was used for data acquisition. A noncontrast coronary calcium scan was performed. A CT attenuation threshold of 130 Hounsfield units (HU) was used for the detection of calcium in contiguous voxels of 1 sq mm in area to be counted as individual lesions. Bolus tracking in the ascending aorta with a threshold of 180 HU was performed. Immediately afterwards, ECG synchronized cardiac CT was then performed from the cardiac base to apex using retrospective gating with ECG tube current modulation. A total of 85 mL of Isovue 370 mg/mL contrast medium was administered at 5 mL/sec followed by a saline flush using a biphasic injection protocol. A tube voltage of 120 KVp was used. The patient received the following medications prior to the cardiac CT. 100 mg of oral metoprolol 0.8 mg of sublingual nitroglycerin The average heart rate at the time of acquisition was 65 bpm and regular. Image Reconstruction Transaxial images were reconstructed at 0.67 mm slide thickness. Data was reviewed interactively on an advanced workstation capable of 2 and 3-dimensional displays in all conventional reconstruction formats, including multiplanar reformations, maximum intensity projections, curved multiplanar reformations, and volume rendered reconstructions. When applicable, selected routine images describing the relevant coronary anatomy and pathology were saved and sent to PACS. Complications None Technical Quality Overall image quality was good. Coronary artery opacification was adequate. Total DLP (Dose-Length Product) is 1301.2 mGy-cm. The reported value represents the total of one or more individual components during the CT acquisition of this date and at this time, and as such, the same value may appear in more than one CT report depending on the interpreting/reporting physicians. COMPARISON None FINDINGS CT Coronary Calcium Scoring LMA (Left Main Artery) = 0 LAD (Left Anterior Descending) = 0 LCX (Left Coronary Circumflex) = 0 RCA (Right Coronary Artery) = 0 Total Calcium Score = 0 using the AJ-130 method. The interpretation of the calcium heart score is based on the following continuum*: 0 = no calcified plaque detected (risk of coronary artery disease is very low ??? less than 5%) 1-10 = calcium detected in extremely minimal levels (risk of coronary diseases is still low ??? less than 10%) 11-100 = mild levels of plaque detected with certainty (mild or minimal narrowing of heart arteries is likely) 101-400 = definite,at least moderate levels of plaque detected (relatively high risk of a heart attack within 3-5 years) >401-999 = extensive levels of plaque detected (high risk of heart attack, high levels of vascular disease are present, high likelihood of at least one significant coronary narrowing) *The calcium heart score quantifies the burden of coronary calcification/plaque in the coronary arteries. The calcium heart score is not able to evaluate the presence or burden of non-calcified (i.e. soft) plaque. There is no identifiable calcification in the aortic valve, mitral annulus or mitral valve, pericardium, or myocardium. Coronary CT Angiography The coronary arterial system is right dominant. Quantitative Stenosis Grading: Left Main (LM): The left main originates normally from the left sinus of Valsalva. The LM bifurcates into the left anterior descending artery and left circumflex artery. The LM is patent with no evidence of atherosclerosis. Left Anterior Descending (LAD) and Diagonal Branches: The LAD gives off 4 diagonal branches. The LAD is a large vessel with wrap-around segment apically. The LAD and its branches are patent with no evidence of atherosclerosis. There is no evidence of LAD bridge. Left Circumflex (LCX) and Obtuse Marginals (OM): The LCX gives off 2 Obtuse Marginal (OM) branches. The LCX and its branches are patent with no evidence of atherosclerosis. Right Coronary Artery (RCA): The RCA originates normally from the right sinus of Valsalva. The RCA gives off a posterior descending artery (PDA) and posterolateral (PL) branches. The RCA and its branches are patent with no evidence of atherosclerosis. Non-Coronary Cardiac Findings: Analysis of the left ventricular (LV) structure and function was performed after 3-D reconstruction of the LV from axial images, with user-corrected automatic contouring for assessment of LV volumes and user-defined reconstruction from oblique planes for measurement of 3-D cardiac structure and function. LVEDV: 146 mL LVESV: 62 mL SV: 84 mL LVEF: 58 % -The left ventricle is normal in size with normal left ventricular systolic function. -There is no left atrial appendage filling defect. Two right pulmonary veins and two left pulmonary veins drain normally into the left atrium. -No pericardial thickening or calcification. -Central and branch pulmonary arteries in the [id number] are unremarkable. -Thoracic aorta within the visualized thoracic aortic-branches in the [id number] is unremarkable. Extracardiac Structures No significant extra-cardiac findings. IMPRESSION -No coronary calcification with an Agatston score = 0 using the AJ-130 method. -No evidence of significant flow-limiting atherosclerosis of the coronary arteries. -No evidence of coronary anomalies. -CAD-RADS 0. Management recommendations per ACC/AHA guidelines*, as clinically appropriate. -No significant non-coronary cardiac findings in the visualized segments of the chest. *Recommendations: CAD RADS 0: Reassurance. Consider non-atherosclerotic causes of chest pain. CAD RADS 1: Consider non-atherosclerotic causes of chest pain. Consider preventive therapy and risk factor modification. CAD RADS 2: Consider non-atherosclerotic causes of chest pain. Consider preventive therapy and risk factor modification, particularly for patients with nonobstructive plaque in multiple segments. CAD RADS 3: Consider further functional testing. Consider symptom-guided anti-ischemic and preventive pharmacotherapy as well as risk factor modification per published guideline statements. CAD RADS 4A: Consider further functional testing or invasive coronary angiography with revascularization per published guideline statements. Consider symptom-guided anti-ischemic and preventive pharmacotherapy as well as risk factor modification per published guideline statements. CAD RADS 4B: Invasive coronary angiography recommended with revascularization per published guideline statements. Consider symptom-guided anti-ischemic and preventive pharmacotherapy as well as risk factor modification per published guideline statements. CAD RADS 5: Consider invasive angiography and/or viability assessment with revascularization per published guideline statements. Consider symptom-guided anti-ischemic and preventive pharmacotherapy as well as risk factor modification per published guideline statements. CRITICAL RESULT None COMMUNICATION Per this written report The coronary and cardiac findings of this CCTA were reviewed, reported, and signed by Venancio Kee MD (Ornamenter) Conclusion Electronically signed by : Kailee Kee MD 08/29/2023 15:02:07
[2023-08-27 11:01] VITALS: BMI 30.9
[2023-08-27 11:13] VITALS: BP 110/69; PULSE 81; RESP 18; TEMP 36.2; O2SAT 100
[2023-08-27] MEDS: METOPROLOL TARTRATE 50MG TABLET 100 MG (11:19)
[2023-08-27 11:32] LABS: Anion Gap 5.8 mEq/L (5-15); Blood Urea Nitrogen 6 mg/dl (7-17); Calcium 8.4 mg/dl (8.4-10.2); Carbon Dioxide 23 mmol/L (22.0-30.0); Chloride 110 mmol/L (98-107); Creatinine Clearance Estimated 141 mL/min (50-200); Estimated Glomerular Filt Rate 98 ml/min (>60); GFR (African American) 118 ML/MIN (>60); Glucose 104 mg/dl (74-100); Potassium 3.8 mmoL/L (3.5-5.1); Sodium 135 mmol/L (136-145)
[2023-08-27 11:57] LABS: HCG Qualitative, Serum Negative (Negative)
[2023-08-27 12:30] VITALS: BP 110/72; PULSE 55; RESP 18; O2SAT 100
[2023-08-27] MEDS: NITROGLYCERIN 0.4MG SL TABLET 0.800000000000000044 MG SL (12:30)
[2023-08-27 12:35] VITALS: BP 96/64; PULSE 61; RESP 18; O2SAT 100
[2023-08-27] MEDS: 0.9 % SODIUM CHLORIDE 50 ML VIAL IV (12:45)
[2023-08-27] MEDS: IOPAMIDOL-370 (76%);100ML BOTTLE 85 ML IV (12:46)
[2023-08-27 12:50] VITALS: BP 103/56; PULSE 67; RESP 18; O2SAT 99
--- NOTE | 2023-08-27 13:05 | CA_ITS ---
APPROVED REPORT EXAM: Comprehensive 2D, Doppler, and color-flow Echocardiogram Auto Body Technician: Peg Garcia RT(R) Ht: 5 ft 3 in Wt: 167lbs BSA: 1.79 BP: 108/74 mmHg Indications: CP, elevated d-dimer, smoker, SOB, family history of HD, bipolar, asthma, dizziness. 2D Dimensions LVEF (Lott's) 64.10 % F: 54 - 74 LV Volume 82.10 mL F: 46 - 106 LV Volume Index 45.9 mL/m2 F: 29 - 61 LA Volume 24.30 mL LA Volume Index 13.58 mL/m2 (M/F) 16-34 EF AP4 66.00 % EF AP2 65.3 % EF BP 64.1 % GL Strain -18.3 % M-Mode Dimensions RVDd 3.15 cm (0.9-2.6) LA Diam 3.70 cm (1.9-4.0) LVDd 4.13 cm (3.5-5.7) LVDs 3.19 cm (3.5-5.7) IVSd 0.95 cm (0.6-1.1) PWd 0.76 cm (0.6-1.1) EF (Teich) 46.20% FS 22.80% EDV (Teich) 75.50 mL ESV (Teich) 40.60 mL LV Diastology E Decel Time 173 (160-240 msec) E/A Ratio 1.0 Mitral Valve MV E Max Ron. 93.0 (40-130 cm/s) MV A Velocity 91.0 (40-130 cm/s) E/A Ratio 1.03 MV PHT 51.0 ms Left Ventricle The left ventricle is normal size. The left ventricular systolic function is normal. The left ventricular ejection fraction is within the normal range. There is normal left ventricular wall thickness. There is normal LV segmental wall motion. The left ventricular diastolic function is normal. LVEF is 60%. Right Ventricle The right ventricle is normal size. The right ventricular systolic function is normal. Atria The left atrium size is normal. The right atrium size is normal. There is no Doppler evidence of interatrial shunt. Aortic Valve The aortic valve opens well. There is no aortic valvular stenosis. No aortic regurgitation is present. Mitral Valve The mitral valve is normal in structure. No evidence of mitral valve stenosis. There is no mitral valve regurgitation noted. Tricuspid Valve The tricuspid valve leaflets are thin and pliable. Trace tricuspid regurgitation. There is insufficient TR jet to estimate RVSP. Pulmonic Valve The pulmonary valve is normal in structure. Trace pulmonic regurgitation. Great Vessels The aortic root is normal in size. The ascending aorta is normal in size. IVC is normal in size and collapses >50% with inspiration. Pericardium There is no pericardial effusion. Other Information Study Quality: Adequate Conclusion Normal biventricular systolic function (LVEF 60%). No significant valvular stenosis or regurgitation. Electronically signed by : Kailee Kee MD 08/31/2023 14:08:19
== END 2023-08-27 23:59 | disposition home or self-care (01) ==
PROVIDERS: PCP Physician Assistant; Visit Provider Nurse Practitioner
DX: R06.00 Dyspnea, unspecified (principal); R07.9 Chest pain, unspecified; F31.9 Bipolar disorder, unspecified; Z87.898 Personal history of other specified conditions
CPT/HCPCS: 75571; 75574; 80048; 84703; 93306; Q9967

== ENCOUNTER 2023-11-28 16:56 | Emergency (ER) | payer MEDICAID, SELFPAY ==
[2023-11-28 17:45] VITALS: BP 99/61; PULSE 66; RESP 18; TEMP 36.9; O2SAT 95; BMI 30.1
--- NOTE | 2023-11-28 17:54 | ED_ITS ---
Discharge Plan Prescriptions Prescriptions: No Action albuterol sulfate 90 mcg/actuation HFA aerosol inhaler 2 inh inhalation Q4-6H PRN (Reason: shortness of breath or wheezing) Qty: 8.5 1RF pantoprazole 40 mg tablet,delayed release (DR/EC) 40 mg PO DAILY Caplyta 42 mg capsule 42 mg PO DAILY trazodone 50 mg tablet 50 mg PO QHS PRN (Reason: sleep) Qty: 30 1RF atorvastatin 10 mg tablet 10 mg PO DAILY budesonide-formoterol [Symbicort] 160-4.5 mcg/actuation HFA aerosol inhaler See Rx Instructions .ROUTE .COMPLEX Rx Instructions: see rx Referrals Follow up/Referrals: Jessica Villalba PA [Primary Care Provider] - See instructions Discharge ED Provider: Primitivo Murray [facility] General Stated complaint: sore throat, cough, vomiting Mode of Arrival: Ambulatory Source of Information: Patient Limitations: No Limitations Time Seen by Provider: 11/28/23 17:54 Description of Symptoms (Recalled from Triage Doc. by RN): Pt's symptoms are sore throat, vomiting, SIN, stomach ache, and runny nose. HEENT Symptoms (Recalled from RN notes): Yes Resp Symptoms (Recalled from RN notes): No Skin Symptoms (Recalled from RN notes): No MS Symptoms (Recalled from RN notes): No Functional Status (Recalled from RN notes): n/a History of Present Illness Provider Complaint: She states that for the past 2 days she has had sore throat, low grade fever, malaise and chills. Related Data Home Medications Medication Instructions Recorded Confirmed lumateperone 42 mg capsule 42 mg PO DAILY 09/11/23 11/28/23 (Caplyta) pantoprazole 40 mg tablet,delayed 40 mg PO DAILY 09/11/23 11/28/23 release atorvastatin 10 mg tablet 10 mg PO DAILY 11/28/23 11/28/23 budesonide-formoterol HFA 160 See Rx Instructions .Route .COMPLEX 11/28/23 11/28/23 mcg-4.5 mcg/actuation aerosol inhaler (Symbicort) Previous Rx's Medication Instructions Recorded albuterol sulfate 90 mcg/actuation 2 inh inhalation Q4-6H PRN 03/29/23 aerosol inhaler shortness of breath or wheezing #8.5 grams trazodone 50 mg tablet 50 mg PO QHS PRN sleep #30 tabs 09/12/23 Allergies Allergy/AdvReac Type Severity Reaction Status Date / Time Penicillins Allergy Rash Verified 11/28/23 17:52 Worker's Comp Is this a Worker's Comp case?: No [facility] Disclaimer: The information contained in this section may have been updated after the patient was seen, as this information can be updated by other users. Medical History Allergic rhinitis Allergies Anxiety Anxiety Asthma Bipolar disorder Bipolar disorder Chronic cough Chronic headaches Cracked skin on feet Delirium Depression Headache, migraine History of gastroesophageal reflux (GERD) History of UTI Hyperlipemia Hypertension Kidney stone Low back pain Migraines Nasal bleeding Seizures Sinus headache Urinary tract infection Surgical History History of esophagogastroduodenoscopy (EGD) History of surgery KIDNEY STENT PLACED AND REMOVED History of tubal ligation Family History Mother Ovarian cancer Diabetes Father Lung cancer Diabetes Liver failure Social History Smoking Status: Current every day smoker tobacco type: cigarettes packs per day: 1 years smoked: 15 second hand exposure: Yes alcohol intake: current substance use type: former substance user and marijuana 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al status: unemployed Travel in the last 8 weeks: None housing: house number of children: 0 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al exposures/hazards: No caffeine: Yes ROS Obtained: Yes All systems reviewed & no additional complaints except as documented Constitutional Constitutional: Reports chills and Reports fever(s) Eyes Eyes: Denies eye discharge ENT Ears, Nose, Mouth, and Throat: Reports as per HPI Cardiovascular Cardiovascular: Denies chest pain Respiratory Respiratory: Denies chest congestion and Reports cough Gastrointestinal Gastrointestingal: Reports nausea; Denies abdominal pain, constipation, cramping, diarrhea or vomiting Musculoskeletal Musculoskeletal: Denies arthralgias Integumentary/Breasts Skin/Breast: Denies rash Neurologic Neurologic: Denies paresthesias Physical Exam General General appearance: alert and in no apparent distress Head Head exam: atraumatic, normocephalic and normal inspection Eye Eye exam: Present normal appearance, PERRL and EOMI ENT ENT exam: Present mucous membranes moist and normal external ear exam Expanded ENT Exam TM/Canal exam: Bilateral TM: erythema and bulging Nose exam: Absent sinus tenderness Mouth exam: Present normal external inspection; Absent drooling Teeth exam: Present normal inspection Throat exam: Present tonsillar erythema, tonsillomegaly and tonsillar exudate Neck Neck exam: Present normal inspection, full ROM and trachea midline; Absent tenderness, meningismus or lymphadenopathy Chest Chest inspection: Present normal inspection and symmetric chest wall rise; Absent tenderness Respiratory Respiratory exam: Present normal lung sounds bilaterally; Absent respiratory distress, wheezes, stridor or accessory muscle use Cardiovascular Cardiovascular exam: Present regular rate and normal rhythm; Absent systolic murmur or diastolic murmur Abdominal Exam Abdominal exam: Present soft and normal bowel sounds; Absent distention, tenderness, guarding, rebound or rigidity Extremities Exam Extremities exam: Present normal inspection and normal capillary refill; Absent calf tenderness Back Exam Back exam: Present normal inspection and full ROM; Absent tenderness, CVA tenderness (R) or CVA tenderness (L) Neurological Exam Neurological exam: Present alert, oriented X3 and CN II-XII intact Psychiatric Psychiatric exam: Present normal affect and normal mood Skin Skin exam: Present warm, dry, intact and normal color Medical Decision Making Medical Records Medical records reviewed: No I reviewed the patient's medical records. [place] Inquiry Pt receiving controlled substance: No Vital Signs: 11/28/23 17:45 Temperature 98.4 F Temperature Source Oral Pulse Rate [Right Radial] 66 Respiratory Rate 18 Blood Pressure [Right Arm] 99/61 L Blood Pressure Mean [Right Arm] 73 Blood Pressure Source [Right Arm] Automatic Cuff Blood Pressure Position [Right Arm] Sitting 02 Sat by Pulse Oximetry 95 Oxygen Delivery Method Room Air Lab Data Lab results reviewed: Yes I reviewed the patient's lab results.
[2023-11-28 18:17] LABS: UTC Strep Screen (Rapid) Negative (Negative)
[2023-11-28 18:42] VITALS: BP 99/61; PULSE 66; RESP 18; TEMP 36.9; O2SAT 95
[2023-11-28 18:46] LABS: Coronavirus 19, PCR Not Detected (NotDetected); Influenza A, PCR Not Detected (NotDetected); Influenza B, PCR Not Detected (NotDetected)
== END 2023-11-28 18:42 | disposition home or self-care (01) ==
PROVIDERS: Emergency Provider Nurse Practitioner Family; PCP Physician Assistant
DX: J02.9 Acute pharyngitis, unspecified (principal); R50.9 Fever, unspecified; B34.9 Viral infection, unspecified; F17.210 Nicotine dependence, cigarettes, uncomplicated; I10 Essential (primary) hypertension; E78.5 Hyperlipidemia, unspecified
CPT/HCPCS: 87636; 87880; 99212; 99214; G0463

== ENCOUNTER 2023-12-08 16:35 | Emergency (ER) | payer MEDICAID, SELFPAY ==
--- NOTE | 2023-12-08 16:29 | ECG_ITS ---
APPROVED REPORT Exam: Resting ECG HR:64 bpm ECG Measurements Heart Rate 64 AXES [place] 146 P 38 QRSd 89 QRS 85 QT 378 T 78 QTc 387 Conclusion SINUS RHYTHM WITH SINUS ARRHYTHMIA NORMAL ECG UNCONFIRMED REPORT Electronically signed by : JYOTI RAMÍREZ, 12/10/2023 03:01:56
[2023-12-08 16:36] VITALS: BP 110/74; PULSE 80; RESP 16; TEMP 36.7; O2SAT 96; BMI 30.2
--- NOTE | 2023-12-08 16:51 | HMH.EDGENADL ---
Discharge Plan Disposition Patient Disposition: Home, Self-Care Chief Complaint: Seizure Prescriptions Prescriptions: No Action albuterol sulfate 90 mcg/actuation HFA aerosol inhaler 2 inh inhalation Q4-6H PRN (Reason: shortness of breath or wheezing) Qty: 8.5 1RF pantoprazole 40 mg tablet,delayed release (DR/EC) 40 mg PO DAILY Caplyta 42 mg capsule 42 mg PO DAILY trazodone 50 mg tablet 50 mg PO QHS PRN (Reason: sleep) Qty: 30 1RF atorvastatin 10 mg tablet 10 mg PO DAILY budesonide-formoterol [Symbicort] 160-4.5 mcg/actuation HFA aerosol inhaler See Rx Instructions .ROUTE .COMPLEX Rx Instructions: see rx azithromycin [Zithromax] 250 mg tablet 250 mg PO UD DOSE PK Qty: 6 0RF Rx Instructions: Take two (2) tablets today, then one (1) tablet days #2 thru #5 methylprednisolone 4 mg Tablets,Dose Pack 4 mg PO DIRECTED 6 Days Qty: 21 0RF Rx Instructions: Take 1 pack as directed for 6 days Referrals Follow up/Referrals: Jessica Villalba PA [Primary Care Provider] - See instructions Activity Restrictions/Add. Instructions Additional Instructions/Restrictions: Call your family doctor to establish care for this visit to the emergency department and schedule follow-up within 48 hours to ensure improvement. Talk to them about possible referral to behavioral health versus neurology if you continue to have symptoms. Clinical Impressions Clinical Impression: Psychogenic nonepileptic seizure Instructions Patient Instructions: DI for Seizure Disorder -- Adult, DI for Seizure (Not Epilepsy/Seizure Disorder), DI for Seizure Disorder -- Child Discharge ED Provider: Tomasz Cheung General Adult HPI General Chief complaint: Seizure Stated complaint: seizure Time Seen by Provider: 12/08/23 16:36 Mode of Arrival: Ambulatory Source of Information: Patient and Parent(s) Limitations: No Limitations Description of Symptoms (Recalled from ER Triage Doc. by RN): pts father states she has been having seizure activity. He states each episode lasts 5-6 minutes and pt sleeps for a long time after. pt is a poor historian History of Present Illness HPI narrative: 33-year-old female with history of schizophrenia, bipolar disorder, migraines, anxiety, depression, PTSD, among others presenting with concern for seizures all day, family here to corroborate story. They state that patient has been having seizures on and off all day. They consist of shaking intermittently bilaterally, not one-sided in particular. Patient has not bitten her tongue, urinated on herself, lost continence of bowel. No confusion afterward. Patient denies are open, patient aware of these episodes. No history of seizures in the past, has never had EEG. Recently had CT head done at outside hospital, this was negative, reportedly. Patient having an episode when I walked in the room, answering questions, stating she has a migraine and dysuria. No fevers, chills, nausea, vomiting, flank pain, chest pain, shortness of breath, or any other complaints at this time. Please note that above description of symptoms, in this electronic medical record under categorization of recalled from ER triage doctor by RN are reflective of an initial nursing assessment, however, is not reflective of my full history and physical exam that was personally taken and clarified. Consequentially, this preceding description of symptoms, which may include the patient's categorized chief complaint in the EMR, do not reflect my personal clinical impression, and the ultimate description of history of present illness and patient stated complaints should be deferred to this section of the note. Unless stated otherwise or congruent with this section of the note, additional signs, symptoms, or incongruence should be interpreted as inaccurate with my clinical impression. Related Data Home Medications Medication Instructions Recorded Confirmed lumateperone 42 mg capsule 42 mg PO DAILY 09/11/23 11/28/23 (Caplyta) pantoprazole 40 mg tablet,delayed 40 mg PO DAILY 09/11/23 11/28/23 release atorvastatin 10 mg tablet 10 mg PO DAILY 11/28/23 11/28/23 budesonide-formoterol HFA 160 See Rx Instructions .Route .COMPLEX 11/28/23 11/28/23 mcg-4.5 mcg/actuation aerosol inhaler (Symbicort) Previous Rx's Medication Instructions Recorded albuterol sulfate 90 mcg/actuation 2 inh inhalation Q4-6H PRN 03/29/23 aerosol inhaler shortness of breath or wheezing #8.5 grams trazodone 50 mg tablet 50 mg PO QHS PRN sleep #30 tabs 09/12/23 azithromycin 250 mg tablet 250 mg PO UD DOSE PK #6 tabs 11/28/23 (Zithromax) methylprednisolone 4 mg tablets in 4 mg PO DIRECTED 6 days #21 tabs 11/28/23 a dose pack Allergies Allergy/AdvReac Type Severity Reaction Status Date / Time Penicillins Allergy Rash Verified 11/28/23 17:52 [facility] Disclaimer: The information contained in this section may have been updated after the patient was seen, as this information can be updated by other users. Medical History Allergic rhinitis Allergies Anxiety Anxiety Asthma Bipolar disorder Bipolar disorder Chronic cough Chronic headaches Cracked skin on feet Delirium Depression Headache, migraine History of gastroesophageal reflux (GERD) History of UTI Hyperlipemia Hypertension Kidney stone Low back pain Migraines Nasal bleeding Seizures Sinus headache Urinary tract infection Surgical History History of esophagogastroduodenoscopy (EGD) History of surgery KIDNEY STENT PLACED AND REMOVED History of tubal ligation Family History Mother Ovarian cancer Diabetes Father Lung cancer Diabetes Liver failure Social History Smoking Status: Current every day smoker tobacco type: cigarettes packs per day: 1 years smoked: 15 second hand exposure: Yes alcohol intake: current substance use type: former substance user and marijuana 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al status: unemployed Travel in the last 8 weeks: None housing: house number of children: 0 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al exposures/hazards: No caffeine: Yes ROS Obtained: Yes All systems reviewed & no additional complaints except as documented Physical Exam General General appearance: alert and in no apparent distress Head Head exam: atraumatic and normocephalic Eye Eye exam: Present normal appearance, PERRL and EOMI ENT ENT exam: Present mucous membranes moist Neck Neck exam: Present normal inspection, full ROM and trachea midline Respiratory Respiratory exam: Present normal lung sounds bilaterally; Absent respiratory distress, wheezes, stridor, accessory muscle use or prolonged expiratory phase Cardiovascular Cardiovascular exam: Present regular rate and normal rhythm Abdominal Exam Abdominal exam: Present soft; Absent distention, tenderness, guarding, rebound or rigidity Extremities Exam Extremities exam: Present normal inspection; Absent edema Neurological Exam Neurological exam: Present alert, oriented X3, CN II-XII intact and normal gait; Absent motor sensory deficit Skin Skin exam: Present warm and dry; Absent diaphoresis or erythema Medical Decision Making Medical Records Medical records reviewed: Yes I reviewed the patient's medical records. [place] Inquiry Pt receiving controlled substance: No [place] was queried for this patient: No Vital Signs: 12/08/23 16:36 12/08/23 17:00 12/08/23 17:30 Temperature 98.1 F Temperature Source Oral Pulse Rate 45 L 46 L Pulse Rate [Right Radial] 80 Respiratory Rate 16 18 18 Blood Pressure 104/69 L 113/69 Blood Pressure [Right Arm] 110/74 Blood Pressure Mean 84 89 Blood Pressure Mean [Right Arm] 86 02 Sat by Pulse Oximetry 96 97 97 Oxygen Delivery Method Room Air Lab Data Lab Results 12/08/23 16:37: WBC 6.6, RBC 4.87, Hgb 16.0, Hct 49.1 H, MCV 100.9 H, MCH 32.9 H, MCHC 32.6, RDW 13.7, Plt Count 312, MPV 8.2, Neut % (Auto) 48.5, Lymph % (Auto) 41.9, [place] % (Auto) 7.0, Eos % (Auto) 1.4, Baso % (Auto) 1.3, Neut # (Auto) 3.2, Lymph # (Auto) 2.8, [place] # (Auto) 0.5, Eos # (Auto) 0.1, Baso # (Auto) 0.1, Sodium 139, Potassium 4.1, Chloride 110 H, Carbon Dioxide 26, Anion Gap 7.1, BUN 7, Creatinine 0.70, Estimated Creat Clear 136, Estimated GFR 97, Est GFR ( Amer) 117, Glucose 96, Calcium 9.4, Magnesium 1.9, Total Bilirubin 0.8, AST 31, ALT 15, Alkaline Phosphatase 56, Total Protein 7.1, Albumin 4.2, Globulin 2.9, Albumin/Globulin Ratio 1.4 12/08/23 17:05: Urine Color Yellow, Urine Appearance Clear, Urine pH 7.0, Ur Specific [place] 1.010, Urine Protein Negative, Urine Glucose (UA) Negative, Urine Ketones Negative, Urine Blood Negative, Urine Nitrate Negative, Urine Bilirubin Negative, Urine Urobilinogen 0.2, Ur Leukocyte Esterase Negative, Urine RBC None, Urine WBC None, Ur Squamous Epith Cells 3-5, Urine Bacteria None, Urine HCG, Qual Negative 12/08/23 16:37 12/08/23 16:37 Orders (Tests/Meds): ED MEDICATIONS Discontinued Medications Generic Name Dose Route Start Last Admin Trade Name Awilda PRN Reason Stop Dose Admin Acetaminophen 1,000 mg 12/08/23 16:47 12/08/23 17:02 Acetaminophen 1,000mg/100ml Vial IV 12/08/23 16:48 1,000 mg ONCE ONE Administration Diphenhydramine HCl 25 mg 12/08/23 16:47 12/08/23 17:03 Diphenhydramine 50mg/Ml Vial IV 12/08/23 16:48 25 mg ONCE ONE Administration Lactated Ringer's 1,000 mls @ 999 mls/hr 12/08/23 16:47 12/08/23 17:02 Lactated Ringer's 1000 Ml Bag IV 12/08/23 17:47 999 mls/hr .Q1H1M ONE Administration Ketorolac Tromethamine 15 mg 12/08/23 16:47 12/08/23 17:02 Ketorolac 30mg/Ml Vial IV 12/08/23 16:48 15 mg ONCE ONE Administration Prochlorperazine Edisylate 10 mg 12/08/23 16:47 12/08/23 17:03 Prochlorperazine 10mg/2ml Vial IV 12/08/23 16:48 10 mg ONCE ONE Administration ORDERS Category Date Time Status CBC w/Auto Diff [Complete Blood Count Auto Diff] Stat Lab 12/08/23 16:37 Completed CMP [Comprehensive Metabolic Panel] Stat Lab 12/08/23 16:37 Completed Magnesium Stat Lab 12/08/23 16:37 Completed UA [Urinalysis and Microscopic] Stat Lab 12/08/23 17:05 Completed Urine , HCG Qual. Stat Lab 12/08/23 17:05 Completed VBG [Venous Blood Gas] Stat RT 12/08/23 16:47 Ordered Medical Decision Narrative: 33-year-old female with history of schizophrenia, bipolar disorder, migraines, anxiety, depression, PTSD, among others presenting with concern for seizures all day, family here to corroborate story. They state that patient has been having seizures on and off all day. They consist of shaking intermittently bilaterally, not one-sided in particular. Patient has not bitten her tongue, urinated on herself, lost continence of bowel. No confusion afterward. Patient denies are open, patient aware of these episodes. No history of seizures in the past, has never had EEG. Recently had CT head done at outside hospital, this was negative, reportedly. Patient having an episode when I walked in the room, answering questions, stating she has a migraine and dysuria. No fevers, chills, nausea, vomiting, flank pain, chest pain, shortness of breath, or any other complaints at this time. H&P noted that patient has numerous psychiatric comorbidities underlying which is complicating this picture. History was obtained via conversation with patient and family. On arrival, patient hemodynamically stable, alert, oriented x4, appropriate, GCS 15, moving all extremities spontaneously, pupils equal and reactive to light. Full physical exam performed and significant for well-appearing female no acute distress. Think she is having an episode now. States she is having a migraine. Grossly neurologically intact and cranial nerves, cerebellar, motor, sensory, reflexes intact and symmetric. Abdomen is soft, nontender, nondistended, no flank tenderness. No overlying skin changes. No rash, no neck tenderness or stiffness. Lungs and heart without acute complaints or findings. Pulses are equal and symmetric. Differential includes headache, migraine, pseudoseizures, anxiety, depression, metabolic abnormality, UTI, among others. Patient was given migraine cocktail for symptomatic management and correction of underlying abnormalities. Workup independently interpreted and significant for nonactionable hematologic workup. No UTI, urine is negative. See radiology read for full review of final results. Independent interpretation of EKG shows sinus rhythm [address] or T wave changes concerning for acute anemia. No abnormalities overall. NH, QRS, QT intervals within normal limits. On reevaluation, patient eating, feeling much better, no complaints, appropriate for discharge. Patient has true seizure disorder, given presentation. Is recommended that she keeps having these I feel it is incredibly unlikely that situations, she follow-up with her family doctor and possible referral to neurology versus behavioral health. She is agreeable to this plan. Because patient at baseline without signs or symptoms of clinical decompensation, deemed appropriate for discharge. Results were relayed to patient who voiced understanding and were agreeable to outpatient management and follow up. I discussed my clinical impression with patient and answered all questions. At this time, the evidence for any other entities in the differential is insufficient to warrant any further testing or ED observation. This was explained as well. Advisory was given that persistent or worsening symptoms require further evaluation. I confirmed the understanding of this discussion. Critical Care Critical Care Time Critical Care Time: No
[2023-12-08 16:58] LABS: Basophils # 0.1 K/mm3 (0-0.2); Basophils % 1.3 % (0.1-2.0); Eosinophils # 0.1 K/mm3 (0.0-0.4); Eosinophils % 1.4 % (0.1-12.0); Hematocrit 49.1 % (37.0-47.0); Lymphocytes # 2.8 K/mm3 (0.7-4.5); Lymphocytes % 41.9 % (10-50); Mean Corpuscular HGB Conc 32.6 g/dL (31.8-35.4); Mean Corpuscular Hemoglobin 32.9 pg (27.0-31.2); Mean Corpuscular Volume 100.9 fl (81-99); Mean Platelet Volume 8.2 fl (7.4-10.4); Monocytes # 0.5 K/mm3 (0.1-1.0); Neutrophils # 3.2 K/mm3 (1.8-7.8); Neutrophils % 48.5 % (37.0-80.0); Platelet Count 312 K/mm3 (142-424); Red Blood Count 4.87 M/mm3 (4.20-5.40); Red Cell Distribution Width 13.7 % (11.5-17.5); White Blood Count 6.6 K/mm3 (4.8-10.8)
[2023-12-08 17:00] VITALS: BP 104/69; PULSE 45; RESP 18; O2SAT 97
[2023-12-08 17:00] LABS: Chloride 110 mmol/L (98-107); Sodium 139 mmol/L (136-145)
[2023-12-08 17:01] LABS: Potassium 4.1 mmoL/L (3.5-5.1)
[2023-12-08] MEDS: ACETAMINOPHEN 1,000MG/100ML VIAL 1000 MG IV (17:02)
[2023-12-08] MEDS: LACTATED RINGERS 1000ML 1,000 ML 999 ML IV (17:02)
[2023-12-08] MEDS: KETOROLAC 30MG/ML VIAL 15 MG IV (17:02)
[2023-12-08 17:03] LABS: Alanine Aminotransferase 15 U/L (12-78); Albumin Level 4.2 g/dl (3.5-5.0); Albumin/Globulin Ratio 1.4 (1.1-1.8); Alkaline Phosphatase 56 U/L (38-126); Anion Gap 7.1 mEq/L (5-15); Aspartate Amino Transferase 31 U/L (14-36); Bilirubin,Total 0.8 mg/dl (0.2-1.3); Blood Urea Nitrogen 7 mg/dl (7-17); Calcium 9.4 mg/dl (8.4-10.2); Carbon Dioxide 26 mmol/L (22.0-30.0); Creatinine Clearance Estimated 136 mL/min (50-200); Estimated Glomerular Filt Rate 97 ml/min (>60); GFR (African American) 117 ML/MIN (>60); Globulin 2.9 g/dL (1.3-3.2); Glucose 96 mg/dl (74-100); Total Protein,Serum 7.1 g/dl (6.3-8.2)
[2023-12-08] MEDS: diphenhydrAMINE 50MG/ML VIAL 25 MG IV (17:03)
[2023-12-08] MEDS: PROCHLORPERAZINE 10MG/2ML VIAL 10 MG IV (17:03)
[2023-12-08 17:04] LABS: Magnesium 1.9 mg/dl (1.6-2.3)
[2023-12-08 17:23] LABS: Microscopic, Urine URINE MICROSCOPIC (MICROSCOPIC)
[2023-12-08 17:28] LABS: Appearance,Urine CLEAR (Clear); Bilirubin,Urine Negative (Negative); Blood, Urine Negative (Negative); Color,Urine YELLOW (Yellow); Glucose,Urine (UA) Negative (Negative); Ketones,Urine Negative (Negative); Leukocyte Esterase,Urine Negative (Negative); Nitrate,Urine Negative (Negative); Protein,Urine Negative (Negative); Urobilinogen,Urine 0.2 EU/dl (0.2)
[2023-12-08 17:29] LABS: Urine Pregnancy, HCG Qual. Negative (Negative)
[2023-12-08 17:30] VITALS: BP 113/69; PULSE 46; RESP 18; O2SAT 97
[2023-12-08 18:24] VITALS: BP 128/98; PULSE 86; RESP 16; TEMP 37.1; O2SAT 96
== END 2023-12-08 18:36 | disposition home or self-care (01) ==
PROVIDERS: Emergency Provider Emergency Medicine; PCP Physician Assistant
DX: F44.5 Conversion disorder with seizures or convulsions; I49.9 Cardiac arrhythmia, unspecified; F31.9 Bipolar disorder, unspecified; F17.210 Nicotine dependence, cigarettes, uncomplicated; I10 Essential (primary) hypertension; E78.5 Hyperlipidemia, unspecified; K21.9 Gastro-esophageal reflux disease without esophagitis
CPT/HCPCS: 80053; 81001; 81025; 83735; 85025; 93005; 96361; 96374; 96375; 99284; J0131

== ENCOUNTER 2023-12-17 16:14 | Emergency (ER) | payer MEDICAID, SELFPAY ==
--- NOTE | 2023-12-17 16:17 | ECG_ITS ---
APPROVED REPORT Exam: Resting ECG HR:68 bpm ECG Measurements Heart Rate 68 AXES [place] 144 P 27 QRSd 89 QRS 85 QT 385 T 56 QTc 402 Conclusion SINUS RHYTHM WITH SINUS ARRHYTHMIA NORMAL ECG UNCONFIRMED REPORT Electronically signed by : LUCERO MARTINEZ, 12/17/2023 19:10:40
--- NOTE | 2023-12-17 16:17 | CT_ITS ---
PROCEDURE INFORMATION: Exam: CT Head Without Contrast Exam date and time: 12/17/2023 4:55 PM Age: 33 years old Clinical indication: Syncope and collapse; Additional info: Seizure, found down TECHNIQUE: Imaging protocol: Computed tomography of the head without contrast. Radiation optimization: All CT scans at this facility use at least one of these dose optimization techniques: automated exposure control; mA and/or kV adjustment per patient size (includes targeted exams where dose is matched to clinical indication); or iterative reconstruction. COMPARISON: CT ANGIO HEAD 02/23/2021 3:33 PM FINDINGS: Brain: No acute intracranial hemorrhage, cerebral edema, or midline shift. Cerebral ventricles: No hydrocephalus. Paranasal sinuses: There is no acute sinusitis. Mastoid air cells: Visualized mastoid air cells are well aerated. Orbital cavities: The visualized orbits appear unremarkable. Bones/joints: No acute fracture. Soft tissues: Unremarkable. IMPRESSION: No acute intracranial abnormality.
--- NOTE | 2023-12-17 16:22 | ED_ITS ---
Discharge Plan Disposition Patient Disposition: Home, Self-Care Condition: Good Prescriptions Prescriptions: No Action albuterol sulfate 90 mcg/actuation HFA aerosol inhaler 2 inh inhalation Q4-6H PRN (Reason: shortness of breath or wheezing) Qty: 8.5 1RF pantoprazole 40 mg tablet,delayed release (DR/EC) 40 mg PO DAILY Caplyta 42 mg capsule 42 mg PO DAILY trazodone 50 mg tablet 50 mg PO QHS PRN (Reason: sleep) Qty: 30 1RF atorvastatin 10 mg tablet 10 mg PO DAILY budesonide-formoterol [Symbicort] 160-4.5 mcg/actuation HFA aerosol inhaler See Rx Instructions .ROUTE .COMPLEX Rx Instructions: see rx azithromycin [Zithromax] 250 mg tablet 250 mg PO UD DOSE PK Qty: 6 0RF Rx Instructions: Take two (2) tablets today, then one (1) tablet days #2 thru #5 methylprednisolone 4 mg Tablets,Dose Pack 4 mg PO DIRECTED 6 Days Qty: 21 0RF Rx Instructions: Take 1 pack as directed for 6 days Activity Restrictions/Add. Instructions Additional Instructions/Restrictions: You have been evaluated in the ED for your complaints. You may follow-up with your PCP in the next 3 to 5 days. Please return to ED for any new or worsening symptoms. You received Keppra in the ED today which should help to prevent seizures over the next 24 hours. I did speak with your neurologist Dr. Lora at [facility] and made her aware. You should receive a call for follow-up appointment on tomorrow. Please do not operate a vehicle over the next 90 days. Clinical Impressions Clinical Impression: Seizure-like activity Instructions Patient Instructions: DI for Seizure Disorder -- Adult, DI for Seizure (Not Epilepsy/Seizure Disorder), DI for Seizure Disorder -- Child Discharge ED Provider: Manjinder Arthur Adult HPI General Chief complaint: Seizure Stated complaint: seizures Time Seen by Provider: 12/17/23 16:17 Mode of Arrival: EMS Source of Information: Patient and EMS Limitations: No Limitations History of Present Illness HPI narrative: 33-year-old female with past medical history significant for HLD, asthma, GERD, migraines, anxiety, bipolar disorder, hypertension, depression, history of PNES, presents today for evaluation concerning seizure-like activity onset prior to arrival. Report was given by EMS that patient was found outside on the ground by family was with no signs of head trauma. EMS reported that en route to ED patient had a 15-second tonic-clonic seizure. Patient states that she has had cough and congestion over the past several days. Denies any fevers. Reports chest discomfort and shortness of breath over the past week. Also states that she has had dysuria and hematuria. She does smoke marijuana but denies any other substances. Denies alcohol use. Denies any numbness, tingling or weakness. no further complaints Related Data Home Medications Medication Instructions Recorded Confirmed lumateperone 42 mg capsule 42 mg PO DAILY 09/11/23 11/28/23 (Caplyta) pantoprazole 40 mg tablet,delayed 40 mg PO DAILY 09/11/23 11/28/23 release atorvastatin 10 mg tablet 10 mg PO DAILY 11/28/23 11/28/23 budesonide-formoterol HFA 160 See Rx Instructions .Route .COMPLEX 11/28/23 11/28/23 mcg-4.5 mcg/actuation aerosol inhaler (Symbicort) Previous Rx's Medication Instructions Recorded albuterol sulfate 90 mcg/actuation 2 inh inhalation Q4-6H PRN 03/29/23 aerosol inhaler shortness of breath or wheezing #8.5 grams trazodone 50 mg tablet 50 mg PO QHS PRN sleep #30 tabs 09/12/23 azithromycin 250 mg tablet 250 mg PO UD DOSE PK #6 tabs 11/28/23 (Zithromax) methylprednisolone 4 mg tablets in 4 mg PO DIRECTED 6 days #21 tabs 11/28/23 a dose pack Allergies Allergy/AdvReac Type Severity Reaction Status Date / Time Penicillins Allergy Rash Verified 11/28/23 17:52 [facility] Disclaimer: The information contained in this section may have been updated after the patient was seen, as this information can be updated by other users. Medical History Allergic rhinitis Allergies Anxiety Anxiety Asthma Bipolar disorder Bipolar disorder Chronic cough Chronic headaches Cracked skin on feet Delirium Depression Headache, migraine History of gastroesophageal reflux (GERD) History of UTI Hyperlipemia Hypertension Kidney stone Low back pain Migraines Nasal bleeding Seizures Sinus headache Urinary tract infection Surgical History History of esophagogastroduodenoscopy (EGD) History of surgery KIDNEY STENT PLACED AND REMOVED History of tubal ligation Family History Mother Ovarian cancer Diabetes Father Lung cancer Diabetes Liver failure Social History Smoking Status: Unknown if ever smoked years smoked: 15 second hand exposure: Yes alcohol intake: current alcohol intake frequency: holidays/special occasions only substance use type: former substance user and marijuana 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al status: unemployed Travel in the last 8 weeks: None housing: house number of children: 0 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al exposures/hazards: No caffeine: Yes ROS Obtained: Yes All systems reviewed & no additional complaints except as documented Physical Exam General General appearance: alert and in no apparent distress Head Head exam: atraumatic and normocephalic Eye Eye exam: Present normal appearance, PERRL and EOMI ENT ENT exam: Present normal oropharynx and mucous membranes moist Neck Neck exam: Present full ROM; Absent meningismus Respiratory Respiratory exam: Absent respiratory distress, wheezes, stridor or accessory muscle use Cardiovascular Cardiovascular exam: Present normal rhythm Abdominal Exam Abdominal exam: Present soft; Absent distention, tenderness, guarding, rebound or rigidity Neurological Exam Neurological exam: Present alert, oriented X3 and CN II-XII intact; Absent motor sensory deficit Psychiatric Psychiatric exam: Present normal affect and normal mood Skin Skin exam: Present warm and dry Medical Decision Making Medical Records Medical records reviewed: Yes I reviewed the patient's medical records. [place] Inquiry Pt receiving controlled substance: No [place] was queried for this patient: No Vital Signs: 12/17/23 16:31 12/17/23 17:09 Temperature 97.8 F Temperature Source Oral Pulse Rate 72 Pulse Rate [Left Radial] 69 Respiratory Rate 10 L 20 Blood Pressure 118/81 Blood Pressure [Right Arm] 139/97 H Blood Pressure Mean [Right Arm] 111 02 Sat by Pulse Oximetry 99 100 Oxygen Delivery Method Room Air Room Air Lab Data Lab Results 12/17/23 16:19: WBC 7.5, RBC 4.89, Hgb 15.6, Hct 48.2 H, MCV 98.6, MCH 32.0 H, MCHC 32.4, RDW 13.4, Plt Count 278, MPV 8.6, Neut % (Auto) 34.1 L, Lymph % (Auto) 55.6 H, Daniels % (Auto) 7.0, Eos % (Auto) 2.1, Baso % (Auto) 1.2, Neut # (Auto) 2.6, Lymph # (Auto) 4.2, Daniels # (Auto) 0.5, Eos # (Auto) 0.2, Baso # (Auto) 0.1, Total Counted 100, Neutrophils % (Manual) 30 L, Lymphocytes % (Manual) 59 H, Monocytes % (Manual) 8, Eosinophils % (Manual) 3, Platelet Estimate Normal, RBC Morphology Normal, Sodium 139, Potassium 3.8, Chloride 107, Carbon Dioxide 23, Anion Gap 12.8, BUN 9, Creatinine 0.80, Estimated GFR 83, Est GFR ( Amer) 101, Glucose 94, Calcium 9.8, Total Bilirubin 0.7, AST 43 H, ALT 40, Alkaline Phosphatase 55, Troponin I < 0.01, Total Protein 7.7, Albumin 4.7, Globulin 3.0, Albumin/Globulin Ratio 1.6, Procalcitonin < 0.030, Serum HCG, Qual Negative 12/17/23 17:12: Urine Color Yellow, Urine Appearance Clear, Urine pH 6.5, Ur Specific [place] 1.020, Urine Protein Negative, Urine Glucose (UA) Negative, Urine Ketones Negative, Urine Blood Negative, Urine Nitrate Negative, Urine Bilirubin 1+ A, Urine Urobilinogen 0.2, Ur Leukocyte Esterase Negative, Urine RBC Occasional, Urine WBC None, Ur Squamous Epith Cells 5-10, Urine Bacteria Trace, Urine Yeast Occasional, Urine Opiates Screen Negative, Urine Methadone Screen Negative, Ur Barbituates Screen Negative, Ur Phencyclidine Scrn Negative, Ur Amphetamines Screen Negative, U Benzodiazepines Scrn Negative, Urine Cocaine Screen Negative, U Marijuana (THC) Screen Positive H 12/17/23 16:19 12/17/23 16:19 Orders (Tests/Meds): ED MEDICATIONS Discontinued Medications Generic Name Dose Route Start Last Admin Trade Name Freq PRN Reason Stop Dose Admin Lactated Ringer's 1,000 mls @ 999 mls/hr 12/17/23 16:17 12/17/23 16:40 Lactated Ringer's 1000 Ml Bag IV 12/17/23 17:17 999 mls/hr .Q1H1M ONE Administration Levetiracetam 2,000 mg/ Sodium 120 mls @ 240 mls/hr 12/17/23 16:19 12/17/23 16:25 Chloride IV 12/17/23 16:20 240 mls/hr ONCE ONE Administration ORDERS Category Date Time Status CT head/brain wo con Stat Cat Scan 12/17/23 16:17 Completed Complete Blood Count Auto Diff Stat Lab 12/17/23 16:19 Completed Comprehensive Metabolic Panel Stat Lab 12/17/23 16:19 Completed HCG Qualitative, Serum Stat Lab 12/17/23 16:19 Completed Lactate Venous Stat Lab 12/17/23 16:46 Ordered Procalcitonin Stat Lab 12/17/23 16:19 Completed Trop I [Troponin I] Stat Lab 12/17/23 16:19 Completed Troponin I Q3H Lab 12/17/23 19:30 Ordered Troponin I Q3H Lab 12/17/23 22:30 Ordered UA [Urinalysis and Microscopic] Stat Lab 12/17/23 17:12 Completed UDS [Drug Screen,Urine] Stat Lab 12/17/23 17:12 Completed ECG Data Tracing #1: I reviewed this ECG and interpreted as documented below: EKG personally today by me. Sinus rhythm with sinus arrhythmia with a rate of 68 bpm. No ischemic changes. QTc 402. Medical Decision Narrative: 33-year-old female with past medical history significant for HLD, asthma, GERD, migraines, anxiety, bipolar disorder, hypertension, depression, history of PNES, presents today for evaluation concerning seizure-like activity onset prior to arrival. Report was given by EMS that patient was found outside on the ground by family was with no signs of head trauma. EMS reported that en route to ED patient had a 15-second tonic-clonic seizure. Patient states that she has had cough and congestion over the past several days. Denies any fevers. Reports chest discomfort and shortness of breath over the past week. Also states that she has had dysuria and hematuria. She does smoke marijuana but denies any other substances. Denies alcohol use. Of note, she does state that she had a recent EEG on this past Sunday at [facility] On assessment she was in medically stable, lethargic appearing. Alert and oriented. Chest clear to auscultation bilaterally. No external signs of trauma. Abdomen soft nondistended nontender palpation. During my assessment with patient she did have what appeared to be a tonic-clonic seizure lasting about 20 seconds. About 10 seconds after seizure subsided patient was able to respond to my questions with nodding her head and followed commands. Differential diagnoses include but limited to PNES, epilepsy, intracranial [place], electrolyte disturbance, dysrhythmia, ACS, substance use, among others I did order an EKG did not show any ischemic changes. No elevation in WBC at 7.5. No electrolyte derangements. Negative screen. First troponin less than 0.01. Procalcitonin unremarkable. No signs of UTI on urinalysis. Marijuana UDS. I did order for CT head and he was without any acute intracranial abnormalities. I did speak with patient's neurologist Dr. Lora at [facility] and discussed management. She recommended Keppra which has already been given. Stated that given patient's unremarkable workup and returned to baseline that she will schedule follow-up with patient on tomorrow. I did reassess patient who remained medically stable and in no acute distress. She stated that she felt improved at this time. Discussed ED workup and results and discussion with Dr. Lora. She verbalized understanding and agreed with plan. Provided her with return ED precautions and instructions concerning follow-up. She was subsequently discharged home in medically stable and in no acute distress Critical Care Critical Care Time Critical Care Time: No
[2023-12-17] MEDS: levETIRAcetam 2,000 MG in 0.9 % SODIUM CHLORIDE 100 ML 240 MG IV (16:25)
[2023-12-17 16:31] VITALS: BP 118/81; PULSE 72; RESP 10; O2SAT 99
[2023-12-17] MEDS: LACTATED RINGERS 1000ML 1,000 ML 999 ML IV (16:40)
[2023-12-17 16:43] LABS: HCG Qualitative, Serum Negative (Negative)
[2023-12-17 16:45] LABS: Alanine Aminotransferase 40 U/L (12-78); Albumin Level 4.7 g/dl (3.5-5.0); Albumin/Globulin Ratio 1.6 (1.1-1.8); Alkaline Phosphatase 55 U/L (38-126); Anion Gap 12.8 mEq/L (5-15); Aspartate Amino Transferase 43 U/L (14-36); Bilirubin,Total 0.7 mg/dl (0.2-1.3); Blood Urea Nitrogen 9 mg/dl (7-17); Calcium 9.8 mg/dl (8.4-10.2); Carbon Dioxide 23 mmol/L (22.0-30.0); Chloride 107 mmol/L (98-107); Estimated Glomerular Filt Rate 83 ml/min (>60); GFR (African American) 101 ML/MIN (>60); Glucose 94 mg/dl (74-100); Potassium 3.8 mmoL/L (3.5-5.1); Sodium 139 mmol/L (136-145); Total Protein,Serum 7.7 g/dl (6.3-8.2)
--- NOTE | 2023-12-17 16:46 | PC.NURSE ---
Pt provided with warm blanket. No needs voiced. Call light within reach and father at BS
[2023-12-17 16:57] LABS: Troponin I < 0.01 ng/ml (0.00-0.034)
[2023-12-17 17:09] VITALS: BP 139/97; PULSE 69; RESP 20; TEMP 36.6; O2SAT 100; BMI 27.4
[2023-12-17 17:15] LABS: Procalcitonin < 0.030 ng/mL (0.0-2.0)
[2023-12-17 17:20] LABS: Microscopic, Urine URINE MICROSCOPIC (MICROSCOPIC)
[2023-12-17 17:23] LABS: Appearance,Urine CLEAR (Clear); Blood, Urine Negative (Negative); Color,Urine YELLOW (Yellow); Glucose,Urine (UA) Negative (Negative); Ketones,Urine Negative (Negative); Leukocyte Esterase,Urine Negative (Negative); Nitrate,Urine Negative (Negative); PH,Urine 6.5 (5.0-8.5); Protein,Urine Negative (Negative); Urobilinogen,Urine 0.2 EU/dl (0.2)
[2023-12-17 17:27] LABS: Bilirubin,Urine 1+ (Negative)
--- NOTE | 2023-12-17 17:32 | PC.NURSE ---
spoke with HS at [place] for phone number for neurology
[2023-12-17 17:41] LABS: Amphetamine/Metha Screen,Urine Negative ng/ml (<1000); Barbiturates Screen,Urine Negative ng/ml (<200)
[2023-12-17 17:42] LABS: Benzodiazepines Screen,Urine Negative ng/ml (<200)
[2023-12-17 17:43] LABS: Cocaine Screen,Urine Negative ng/ml (<300); Methadone Screen,Urine Negative ng/ml (<300)
[2023-12-17 17:44] LABS: Cannabinoid Screen,Urine Positive ng/ml (<50)
[2023-12-17 17:45] LABS: Opiate Screen,Urine Negative ng/ml (<300); Phencyclidine Screen,Urine Negative ng/ml (<25)
[2023-12-17 17:46] LABS: Bacteria,Urine Trace /lpf; RBC,Urine Occasional #/hpf (0-3); Yeast,Urine Occasional /lpf
[2023-12-17 18:07] LABS: Basophils # 0.1 K/mm3 (0-0.2); Basophils % 1.2 % (0.1-2.0); Eosinophils # 0.2 K/mm3 (0.0-0.4); Eosinophils % 2.1 % (0.1-12.0); Hematocrit 48.2 % (37.0-47.0); Hemoglobin 15.6 g/dL (12.2-16.2); Lymphocytes # 4.2 K/mm3 (0.7-4.5); Lymphocytes % 55.6 % (10-50); Mean Corpuscular HGB Conc 32.4 g/dL (31.8-35.4); Mean Corpuscular Volume 98.6 fl (81-99); Mean Platelet Volume 8.6 fl (7.4-10.4); Monocytes # 0.5 K/mm3 (0.1-1.0); Neutrophils # 2.6 K/mm3 (1.8-7.8); Neutrophils % 34.1 % (37.0-80.0); Platelet Count 278 K/mm3 (142-424); Red Blood Count 4.89 M/mm3 (4.20-5.40); Red Cell Distribution Width 13.4 % (11.5-17.5); White Blood Count 7.5 K/mm3 (4.8-10.8)
[2023-12-17 18:10] LABS: MANUAL DIFFERENTIAL MANUAL DIFFERENTIAL (MANUAL DIFF)
[2023-12-17 18:26] LABS: Eosinophils % 3 % (0-3); Lymphocytes % 59 % (10-50); Monocytes % 8 % (2-9); Neutrophils % 30 % (42-76); Platelet Estimate Normal; RBC Morphology Normal; Total Cells Counted 100
[2023-12-17 18:47] VITALS: BP 132/78; PULSE 72; RESP 20; TEMP 36.6; O2SAT 98
== END 2023-12-17 18:49 | disposition home or self-care (01) ==
PROVIDERS: Emergency Provider Emergency Medicine; PCP Pediatrics
DX: R56.9 Unspecified convulsions (principal); I49.9 Cardiac arrhythmia, unspecified; R06.02 Shortness of breath; R05.9 Cough, unspecified; I10 Essential (primary) hypertension; E78.5 Hyperlipidemia, unspecified; K21.9 Gastro-esophageal reflux disease without esophagitis
CPT/HCPCS: 70450; 80053; 80307; 81001; 84145; 84484; 84703; 85007; 85025; 93005; 96361; 96374; 99285; J1953

== ENCOUNTER 2024-01-25 10:00 | Emergency (ER) | payer MEDICAID, SELFPAY ==
--- NOTE | 2024-01-25 09:59 | ECG_ITS ---
APPROVED REPORT Exam: Resting ECG HR:99 bpm ECG Measurements Heart Rate 99 AXES ND 153 P 47 QRSd 85 QRS 88 QT 329 T 51 QTc 386 Conclusion SINUS RHYTHM Electronically signed by : LU CAMPOS, 01/25/2024 13:19:58
[2024-01-25 10:01] VITALS: BP 131/95; PULSE 90; RESP 11; TEMP 36.7; O2SAT 99; BMI 26.5
[2024-01-25 10:03] VITALS: PULSE 94; RESP 18; O2SAT 98
--- NOTE | 2024-01-25 10:13 | XR_ITS ---
FINAL REPORT CLINICAL HISTORY: fall, L shoulder pain pt has had a tubal FINDINGS: Left shoulder Four views were obtained. There is no acute fracture or dislocation. The joint spaces appear normal. No soft tissue abnormality is identified. IMPRESSION: No acute process. Reviewed, Interpreted and Dictated by Alexandro Huber III, MD Transcribed by Yarelis Mayfield Authenticated and [facility]
--- NOTE | 2024-01-25 10:13 | XR_ITS ---
FINAL REPORT CLINICAL HISTORY: soa, L shoulder pain pt has had a tubal FINDINGS: SINGLE-VIEW CHEST The heart size is normal. The mediastinum is normal. The lungs are clear. There is no pneumothorax. IMPRESSION: No acute cardiopulmonary process. Reviewed, Interpreted and Dictated by Alexandro Huber III, MD Transcribed by Yarelis Mayfield Authenticated and [facility]
[2024-01-25] MEDS: LACTATED RINGERS 1000ML 1,000 ML 999 ML IV (10:21)
--- NOTE | 2024-01-25 10:21 | ED_ITS ---
Discharge Plan Disposition Patient Disposition: Home, Self-Care Chief Complaint: Chest Pain Prescriptions Prescriptions: No Action albuterol sulfate 90 mcg/actuation HFA aerosol inhaler 2 inh inhalation Q4-6H PRN (Reason: shortness of breath or wheezing) Qty: 8.5 1RF pantoprazole 40 mg tablet,delayed release (DR/EC) 40 mg PO DAILY Caplyta 42 mg capsule 42 mg PO DAILY Qty: 30 1RF trazodone 50 mg tablet 50 mg PO QHS PRN (Reason: sleep) Qty: 30 1RF propranolol 20 mg tablet PO PRN mupirocin 2 % ointment topical budesonide-formoterol [Symbicort] 160-4.5 mcg/actuation HFA aerosol inhaler See Rx Instructions .ROUTE .COMPLEX Rx Instructions: see rx Activity Restrictions/Add. Instructions Additional Instructions/Restrictions: Workup today was negative and reassuring. Continue following with behavioral health for anxiety and panic. Continue following with your family doctor for further coordination of care as well. Clinical Impressions Clinical Impression: Seizure-like activity, Headache, Panic attack Discharge ED Provider: Tomasz Cheung General Adult HPI General Chief complaint: Chest Pain Stated complaint: chest pain Time Seen by Provider: 01/25/24 10:08 Mode of Arrival: Ambulatory Source of Information: Patient Limitations: No Limitations Description of Symptoms (Recalled from ER Triage Doc. by RN): pt presents to ED with c/o chest pain, fall. pt reports she was awoken this am but family reporting that pt had a fall out of her bed hitting her left arm, head, and ribs. pt reports a hx of seizures. pt reports pain with inspiration History of Present Illness HPI narrative: Please note that above description of symptoms, in this electronic medical record under categorization of recalled from ER triage doctor by RN are reflective of an initial nursing assessment, however, is not reflective of my full history and physical exam that was personally taken and clarified. Consequentially, this preceding description of symptoms, which may include the patient's categorized chief complaint in the EMR, do not reflect my personal clinical impression, and the ultimate description of history of present illness and patient stated complaints should be deferred to this section of the note. Unless stated otherwise or congruent with this section of the note, additional signs, symptoms, or incongruence should be interpreted as inaccurate with my clinical impression. Related Data Home Medications Medication Instructions Recorded Confirmed pantoprazole 40 mg tablet,delayed 40 mg PO DAILY 09/11/23 01/23/24 release budesonide-formoterol HFA 160 See Rx Instructions .Route .COMPLEX 11/28/23 01/23/24 mcg-4.5 mcg/actuation aerosol inhaler (Symbicort) mupirocin 2 % topical ointment topical 01/15/24 01/23/24 propranolol 20 mg tablet mg PO PRN 01/15/24 01/23/24 Previous Rx's Medication Instructions Recorded albuterol sulfate 90 mcg/actuation 2 inh inhalation Q4-6H PRN 03/29/23 aerosol inhaler shortness of breath or wheezing #8.5 grams lumateperone 42 mg capsule 42 mg PO DAILY #30 caps 01/15/24 (Caplyta) trazodone 50 mg tablet 50 mg PO QHS PRN sleep #30 tabs 01/15/24 Allergies Allergy/AdvReac Type Severity Reaction Status Date / Time Penicillins Allergy Rash Verified 01/15/24 13:45 [facility] Disclaimer: The information contained in this section may have been updated after the patient was seen, as this information can be updated by other users. Medical History History of UTI Hyperlipemia Seizures Kidney stone Urinary tract infection Chronic cough Asthma Sinus headache History of gastroesophageal reflux (GERD) Allergies Migraines Delirium Headache, migraine Anxiety Low back pain Bipolar disorder Nasal bleeding Cracked skin on feet Allergic rhinitis Chronic headaches Hypertension Anxiety Bipolar disorder Depression Surgical History History of esophagogastroduodenoscopy (EGD) History of tubal ligation History of surgery KIDNEY STENT PLACED AND REMOVED Family History Mother Ovarian cancer Diabetes Father Lung cancer Diabetes Liver failure Social History Smoking Status: Current every day smoker tobacco type: cigarettes packs per day: 1 years smoked: 15 second hand exposure: Yes alcohol intake: current alcohol intake frequency: holidays/special occasions only substance use type: former substance user and marijuana 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al status: unemployed Travel in the last 8 weeks: None housing: house number of children: 0 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al exposures/hazards: No caffeine: Yes ROS Obtained: Yes All systems reviewed & no additional complaints except as documented Physical Exam General General appearance: alert, in no apparent distress and anxious Head Head exam: atraumatic and normocephalic Eye Eye exam: Present normal appearance, PERRL and EOMI; Absent conjunctival redness, periorbital swelling or periorbital tenderness ENT ENT exam: Present mucous membranes moist Neck Neck exam: Present normal inspection, full ROM and trachea midline Respiratory Respiratory exam: Present normal lung sounds bilaterally; Absent respiratory distress, wheezes, stridor, accessory muscle use or prolonged expiratory phase Cardiovascular Cardiovascular exam: Present regular rate and normal rhythm Abdominal Exam Abdominal exam: Present soft; Absent distention, tenderness, guarding, rebound or rigidity Extremities Exam Extremities exam: Present tenderness (Posterior aspect of left shoulder, no outward signs of injury or deformity.); Absent edema Neurological Exam Neurological exam: Present alert, oriented X3, CN II-XII intact and normal gait; Absent motor sensory deficit Skin Skin exam: Present warm and dry; Absent diaphoresis or erythema Medical Decision Making Medical Records Medical records reviewed: Yes I reviewed the patient's medical records. [place] Inquiry Pt receiving controlled substance: No [place] was queried for this patient: No Vital Signs: 01/25/24 10:01 01/25/24 10:03 01/25/24 10:30 Temperature 98.0 F Temperature Source Oral Pulse Rate 94 H Pulse Rate [Left Radial] 90 Respiratory Rate 11 L 18 12 Blood Pressure Blood Pressure [Right Arm] 131/95 H Blood Pressure Mean [Right Arm] 107 02 Sat by Pulse Oximetry 99 98 Oxygen Delivery Method Room Air 01/25/24 11:12 Temperature Temperature Source Pulse Rate 66 Pulse Rate [Left Radial] Respiratory Rate 24 Blood Pressure 125/82 Blood Pressure [Right Arm] Blood Pressure Mean [Right Arm] 02 Sat by Pulse Oximetry 100 Oxygen Delivery Method Lab Data Lab Results 01/25/24 10:00: WBC 9.6, RBC 4.46, Hgb 14.4, Hct 44.8, MCV 100.3 H, MCH 32.3 H, MCHC 32.2, RDW 13.8, Plt Count 293, MPV 8.2, Neut % (Auto) 47.5, Lymph % (Auto) 41.1, [place] % (Auto) 7.6, Eos % (Auto) 2.5, Baso % (Auto) 1.3, Neut # (Auto) 4.6, Lymph # (Auto) 4.0, [place] # (Auto) 0.7, Eos # (Auto) 0.2, Baso # (Auto) 0.1, S odium 135 L, Potassium 4.0, Chloride 105, Carbon Dioxide 23, Anion Gap 11.0, BUN 7, Creatinine 0.80, Estimated Creat Clear 105, Estimated GFR 83, Est GFR ( Amer) 101, Glucose 106 H, Calcium 9.4, Total Bilirubin 0.3, AST 28, ALT 16, Alkaline Phosphatase 51, Troponin I < 0.01, Total Protein 7.4, Albumin 4.3, Globulin 3.1, Albumin/Globulin Ratio 1.4 01/25/24 10:25: Urine Color Yellow, Urine Appearance Clear, Urine pH 7.0, Ur Specific [place] <= 1.005, Urine Protein Negative, Urine Glucose (UA) Negative, Urine Ketones Negative, Urine Blood Negative, Urine Nitrate Negative, Urine Bilirubin Negative, Urine Urobilinogen 0.2, Ur Leukocyte Esterase Negative, Urine HCG, Qual Negative 01/25/24 10:30: VBG pH 7.40, VBG pCO2 37.8, VBG pO2 60.9 H, VBG HCO3 22.7 L, VBG Total CO2 23.9, VBG O2 Saturation 93.3 H, VBG Base Excess -2.1, VBG Lactic Acid 1.7 01/25/24 10:00 01/25/24 10:00 Orders (Tests/Meds): ED MEDICATIONS Discontinued Medications Generic Name Dose Route Start Last Admin Trade Name Awilda PRN Reason Stop Dose Admin Acetaminophen 1,000 mg 01/25/24 10:13 01/25/24 10:22 Acetaminophen 500mg Tab PO 01/25/24 10:14 1,000 mg ONCE ONE Administration Dexamethasone Sodium Phosphate 10 mg 01/25/24 10:13 01/25/24 10:25 Dexamethasone 4mg/Ml 1ml Vial IV 01/25/24 10:14 10 mg ONCE ONE Administration Diphenhydramine HCl 25 mg 01/25/24 10:13 01/25/24 10:22 Diphenhydramine 50mg/Ml Vial IV 06/07/24 10:14 25 mg ONCE ONE Administration Lactated Ringer's 1,000 mls @ 999 mls/hr 01/25/24 10:13 01/25/24 10:21 Lactated Ringer's 1000 Ml Bag IV 01/25/24 11:13 999 mls/hr .Q1H1M ONE Administration Ketorolac Tromethamine 15 mg 01/25/24 10:13 01/25/24 10:23 Ketorolac 30mg/Ml Vial IV 01/25/24 10:14 15 mg ONCE ONE Administration Prochlorperazine Edisylate 10 mg 01/25/24 10:13 01/25/24 10:22 Prochlorperazine 10mg/2ml Vial IV 01/25/24 10:14 10 mg ONCE ONE Administration ORDERS Category Date Time Status CXR --portable [XR chest portable] Stat Exams 01/25/24 10:13 Completed Shoulder XR left minimum 2 views [XR shoulder LT min 2V Exams 01/25/24 10:13 Completed ] Stat CBC w/Auto Diff [Complete Blood Count Auto Diff] Stat Lab 01/25/24 10:00 Completed CMP [Comprehensive Metabolic Panel] Stat Lab 01/25/24 10:00 Completed Trop I [Troponin I] Stat Lab 01/25/24 10:00 Completed Troponin I Q3H Lab 01/25/24 13:15 Ordered Troponin I Q3H Lab 01/25/24 16:15 Ordered UA [Urinalysis and Microscopic] Stat Lab 01/25/24 10:25 Results Urine , HCG Qual. Stat Lab 01/25/24 10:25 Completed VBG [Venous Blood Gas] Stat RT 01/25/24 10:30 Completed Medical Decision Narrative: 33-year-old female with history of schizophrenia, bipolar disorder, migraines, anxiety and panic, depression, PTSD, PNES, among others presenting with concern for seizure. Patient states that she thinks she had a seizure in her sleep. She fell out of bed, hit her shoulder on a glass coffee table. She does remember the fall. States that she is having severe pain left shoulder and she is having difficulty breathing because of shortness of breath and anxiety. Denies cough, fevers, chills, sick symptoms, but has also been having headaches since all of this. Denies unilateral deficits, any other concerns at this time. Has not taken any meds for the symptoms. History was obtained via conversation with patient. On arrival, patient hemodynamically stable, alert, oriented x4, appropriate, GCS 15, moving all extremities spontaneously, pupils equal and reactive to light. Full physical exam performed and significant for very anxious appearing female who is in no acute distress. Tearful. Nontachypneic, nontachycardic, lungs and heart are clear to auscultation without focal sounds. Neurologically intact including care nerve, cerebellar, motor and sensory exams, ambulatory. Differential includes nonepileptic seizure, anxiety, panic attack, fall, shoulder MSK injury, fracture, dislocation, sprain, factitious disorder, somatizations, malingering, ACS, [place], PE, among others. Patient was given Benadryl, Compazine, Toradol, fluid bolus, Decadron, acetaminophen for symptomatic management and correction of underlying abnormalities. Workup independently interpreted and significant for nonactionable CBC or chemistry. VBG nonactionable with pH 7.4, CO2 low end of normal at 37, oxygen high and lactate negative more consistent with panic attack. Chest x-ray negative, left upper extremity shoulder x-ray also negative on independent rotation. See radiology read for full review of final results. Independent interpretation of EKG shows sinus rhythm [address] or T wave changes concerning for acute ischemia. [place], QRS, QT intervals within normal limits. [place] normal. Low risk [place], PERC negative, D-dimer not necessary. Heart score 0. Urine hCG negative, urinalysis not UTI. On reevaluation, patient resting comfortably, voiding spontaneously, ambulating, at neurologic baseline. Tearful and anxious. 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 Because patient at baseline without signs or symptoms of clinical decompensation, deemed appropriate for discharge. Results were relayed to patient who voiced understanding and were agreeable to outpatient management and follow up. I discussed my clinical impression with patient and answered all questions. At this time, the evidence for any other entities in the differential is insufficient to warrant any further testing or ED observation. This was explained as well. Advisory was given that persistent or worsening symptoms require further evaluation. I confirmed the understanding of this discussion. Programming Instructor disclaimer Much of this encounter note is an electronic manager appointment spoken language to printed text. Electronic manager appointment of the spoken language may permit errors. Although I have reviewed the note, some errors may still exist. Critical Care Critical Care Time Critical Care Time: No
[2024-01-25] MEDS: PROCHLORPERAZINE 10MG/2ML VIAL 10 MG IV (10:22)
[2024-01-25] MEDS: ACETAMINOPHEN 500MG TAB 1000 MG PO (10:22)
[2024-01-25] MEDS: diphenhydrAMINE 50MG/ML VIAL 25 MG IV (10:22)
[2024-01-25] MEDS: KETOROLAC 30MG/ML VIAL 15 MG IV (10:23)
[2024-01-25 10:25] LABS: Chloride 105 mmol/L (98-107); Sodium 135 mmol/L (136-145)
[2024-01-25] MEDS: DEXAMETHASONE 4MG/ML 1ML VIAL 10 MG IV (10:25)
[2024-01-25 10:28] LABS: Alanine Aminotransferase 16 U/L (12-78); Albumin Level 4.3 g/dl (3.5-5.0); Albumin/Globulin Ratio 1.4 (1.1-1.8); Alkaline Phosphatase 51 U/L (38-126); Aspartate Amino Transferase 28 U/L (14-36); Bilirubin,Total 0.3 mg/dl (0.2-1.3); Blood Urea Nitrogen 7 mg/dl (7-17); Calcium 9.4 mg/dl (8.4-10.2); Carbon Dioxide 23 mmol/L (22.0-30.0); Creatinine Clearance Estimated 105 mL/min (50-200); Estimated Glomerular Filt Rate 83 ml/min (>60); GFR (African American) 101 ML/MIN (>60); Globulin 3.1 g/dL (1.3-3.2); Glucose 106 mg/dl (74-100); Total Protein,Serum 7.4 g/dl (6.3-8.2)
[2024-01-25 10:29] LABS: Basophils # 0.1 K/mm3 (0-0.2); Basophils % 1.3 % (0.1-2.0); Eosinophils # 0.2 K/mm3 (0.0-0.4); Eosinophils % 2.5 % (0.1-12.0); Hematocrit 44.8 % (37.0-47.0); Hemoglobin 14.4 g/dL (12.2-16.2); Lymphocytes % 41.1 % (10-50); Mean Corpuscular HGB Conc 32.2 g/dL (31.8-35.4); Mean Corpuscular Hemoglobin 32.3 pg (27.0-31.2); Mean Corpuscular Volume 100.3 fl (81-99); Mean Platelet Volume 8.2 fl (7.4-10.4); Monocytes # 0.7 K/mm3 (0.1-1.0); Monocytes % 7.6 % (1.7-9.3); Neutrophils # 4.6 K/mm3 (1.8-7.8); Neutrophils % 47.5 % (37.0-80.0); Platelet Count 293 K/mm3 (142-424); Red Blood Count 4.46 M/mm3 (4.20-5.40); Red Cell Distribution Width 13.8 % (11.5-17.5); White Blood Count 9.6 K/mm3 (4.8-10.8)
[2024-01-25 10:30] VITALS: RESP 12
[2024-01-25 10:30] LABS: Microscopic, Urine URINE MICROSCOPIC (MICROSCOPIC)
[2024-01-25 10:44] LABS: Lactate Venous 1.7 mmol/L (0.4-2.0); VBG Base Excess -2.1 mmol/L (-2.4-2.3); VBG HCO3 22.7 mmol/L (23-30); VBG Oxygen Saturation 93.3 % (50-70); VBG PCO2 37.8 mmol/L (35-51); VBG PO2 60.9 mmol/L (28-40); VBG Total CO2 23.9 mmol/L (23-27)
[2024-01-25 11:00] LABS: Troponin I < 0.01 ng/ml (0.00-0.034)
[2024-01-25 11:12] VITALS: BP 125/82; PULSE 66; RESP 24; O2SAT 100
[2024-01-25 11:17] LABS: Appearance,Urine CLEAR (Clear); Bilirubin,Urine Negative (Negative); Blood, Urine Negative (Negative); Color,Urine YELLOW (Yellow); Glucose,Urine (UA) Negative (Negative); Ketones,Urine Negative (Negative); Leukocyte Esterase,Urine Negative (Negative); Nitrate,Urine Negative (Negative); Protein,Urine Negative (Negative); Specific Gravity, Urine <= 1.005 (1.005-1.030); Urine Pregnancy, HCG Qual. Negative (Negative); Urobilinogen,Urine 0.2 EU/dl (0.2)
[2024-01-25 11:31] VITALS: BP 101/58; PULSE 67; RESP 19; O2SAT 97
[2024-01-25 11:56] VITALS: BP 136/57; PULSE 67; RESP 17; TEMP 36.7; O2SAT 99
[2024-01-25 12:45] LABS: Squamous Epithelial Cell,Urine Occasional #/hpf (0-5); WBC,Urine Occasional #/hpf (0-3)
[2024-01-25 12:46] LABS: Amorphous Sediment,Urine Trace /lpf
== END 2024-01-25 11:58 | disposition home or self-care (01) ==
PROVIDERS: Emergency Provider Emergency Medicine
DX: R07.9 Chest pain, unspecified (principal); R51.9 Headache, unspecified; F44.5 Conversion disorder with seizures or convulsions; M25.512 Pain in left shoulder; F41.0 Panic disorder [episodic paroxysmal anxiety]; F17.210 Nicotine dependence, cigarettes, uncomplicated; E78.5 Hyperlipidemia, unspecified; I10 Essential (primary) hypertension; K21.9 Gastro-esophageal reflux disease without esophagitis; W06.XXXA Fall from bed, initial encounter; F31.9 Bipolar disorder, unspecified; F41.9 Anxiety disorder, unspecified
CPT/HCPCS: 71045; 73030; 80053; 81001; 81025; 82803; 84484; 85025; 93005; 96361; 96374; 96375; 99285; J7120

== ENCOUNTER 2024-04-16 20:03 | Emergency (ER) | payer MEDICAID, SELFPAY ==
--- NOTE | 2024-04-16 20:15 | XR_ITS ---
PROCEDURE INFORMATION: Exam: XR Chest Exam date and time: 04/16/2024 9:13 PM Age: 33 years old Clinical indication: Pain; Chest pressure; Additional info: Cp pseudoseizure TECHNIQUE: Imaging protocol: Radiologic exam of the chest. Views: 1 view. Total images: 1 COMPARISON: CR XR CHEST PORTABLE 01/25/2024 10:28 AM FINDINGS: Tubes, catheters and devices: EKG leads are present. Lungs: Calcified pulmonary granuloma. No consolidation. No pulmonary vascular congestion or edema. Pleural spaces: Unremarkable. No pleural effusion. No pneumothorax. Heart/Mediastinum: Unremarkable. No cardiomegaly. No mediastinal widening or hilar enlargement. Bones/joints: Unremarkable. Soft tissues: Breast attenuation artifact. Other findings: Slight rotation to the right. IMPRESSION: 1. No radiographically acute cardiopulmonary process. 2. Remote calcified granulomatous disease.
--- NOTE | 2024-04-16 20:19 | ECG_ITS ---
APPROVED REPORT Exam: Resting ECG HR:96 bpm ECG Measurements Heart Rate 96 AXES AK 160 P 59 QRSd 90 QRS 79 QT 319 T 57 QTc 372 Conclusion SINUS RHYTHM WITH OCCASIONAL VENTRICULAR PREMATURE COMPLEXES BORDERLINE ECG No STEMI Electronically signed by : MICHELLE MEREDITH, 04/17/2024 06:25:23
[2024-04-16 20:26] VITALS: BP 158/99; PULSE 107; RESP 20; TEMP 36.8; O2SAT 98; BMI 27.4
[2024-04-16 20:37] LABS: Basophils # 0.1 K/mm3 (0-0.2); Basophils % 0.9 % (0.1-2.0); Eosinophils # 0.2 K/mm3 (0.0-0.4); Eosinophils % 1.1 % (0.1-12.0); Hematocrit 48.4 % (37.0-47.0); Hemoglobin 15.7 g/dL (12.2-16.2); Lymphocytes # 5.3 K/mm3 (0.7-4.5); Lymphocytes % 40.8 % (10-50); Mean Corpuscular HGB Conc 32.4 g/dL (31.8-35.4); Mean Corpuscular Hemoglobin 32.4 pg (27.0-31.2); Mean Corpuscular Volume 99.8 fl (81-99); Monocytes % 7.8 % (1.7-9.3); Neutrophils # 6.5 K/mm3 (1.8-7.8); Neutrophils % 49.5 % (37.0-80.0); Platelet Count 310 K/mm3 (142-424); Red Blood Count 4.84 M/mm3 (4.20-5.40); Red Cell Distribution Width 13.1 % (11.5-17.5); White Blood Count 13.1 K/mm3 (4.8-10.8)
[2024-04-16 20:42] VITALS: BP 121/80; PULSE 114; RESP 28; O2SAT 99
[2024-04-16 20:45] LABS: VBG Base Excess -8.6 mmol/L (-2.4-2.3); VBG HCO3 16.8 mmol/L (23-30); VBG Oxygen Saturation 99.4 % (50-70); VBG PCO2 29.9 mmol/L (35-51); VBG PH 7.37 mmol/L (7.31-7.41); VBG PO2 199.8 mmol/L (28-40); VBG Total CO2 17.7 mmol/L (23-27)
[2024-04-16 20:52] LABS: Chloride 109 mmol/L (98-107); Sodium 139 mmol/L (136-145)
[2024-04-16 20:54] LABS: Alanine Aminotransferase 23 U/L (12-78); Aspartate Amino Transferase 30 U/L (14-36); Blood Urea Nitrogen 6 mg/dl (7-17); Carbon Dioxide 19 mmol/L (22.0-30.0); Creatinine Clearance Estimated 103 mL/min (50-200); Estimated Glomerular Filt Rate 73 ml/min (>60); GFR (African American) 88 ML/MIN (>60)
[2024-04-16 20:55] LABS: Albumin/Globulin Ratio 1.5 (1.1-1.8); Alkaline Phosphatase 48 U/L (38-126); Bilirubin,Total 0.7 mg/dl (0.2-1.3); Calcium 9.6 mg/dl (8.4-10.2); Globulin 3.4 g/dL (1.3-3.2); Glucose 98 mg/dl (74-100); Lipase 35 U/L (23-300); Magnesium 1.5 mg/dl (1.6-2.3); Total Protein,Serum 8.4 g/dl (6.3-8.2)
[2024-04-16 20:59] LABS: Ethyl Alcohol < 10 mg/dl (0-10)
[2024-04-16 21:00] LABS: Lactic Acid 2.7 mmol/L (0.7-2.1)
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
[2024-04-16 21:02] LABS: Activated Partial Thrombo Time 30.2 seconds (22.8-30.6)
[2024-04-16 21:08] LABS: Acetaminophen < 10 ug/ml (10-30); Salicylate < 1.0 mg/dL (2.0-20.0)
--- NOTE | 2024-04-16 21:08 | PC.NURSE ---
[place] [employer] at bedside per pt request
[2024-04-16 21:12] LABS: HCG,Quantitative < 2 mIU/ml (0-5.42)
[2024-04-16 21:18] LABS: Microscopic, Urine URINE MICROSCOPIC (MICROSCOPIC)
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
[2024-04-16 21:26] LABS: Appearance,Urine CLEAR (Clear); Bilirubin,Urine Negative (Negative); Blood, Urine Negative (Negative); Color,Urine YELLOW (Yellow); Glucose,Urine (UA) Negative (Negative); Ketones,Urine Negative (Negative); Leukocyte Esterase,Urine 1+ (Negative); Nitrate,Urine Negative (Negative); Protein,Urine Negative (Negative); Specific Gravity, Urine 1.015 (1.005-1.030); Urobilinogen,Urine 0.2 EU/dl (0.2)
[2024-04-16 21:26] LABS: T4 (Thyroxine) 10.1 ug/dl (5.53-11.0); Troponin I < 0.01 ng/ml (0.00-0.034)
[2024-04-16 21:39] LABS: Amphetamine/Metha Screen,Urine Negative ng/ml (<1000); Barbiturates Screen,Urine Negative ng/ml (<200)
[2024-04-16 21:40] LABS: Benzodiazepines Screen,Urine Negative ng/ml (<200)
[2024-04-16 21:41] LABS: Cannabinoid Screen,Urine Positive ng/ml (<50); Cocaine Screen,Urine Positive ng/ml (<300)
[2024-04-16 21:42] LABS: Methadone Screen,Urine Negative ng/ml (<300)
[2024-04-16 21:43] LABS: Opiate Screen,Urine Negative ng/ml (<300); Phencyclidine Screen,Urine Negative ng/ml (<25)
[2024-04-16 21:47] LABS: Bacteria,Urine 1+ /lpf; Mucus,Urine 1+ /lpf; Squamous Epithelial Cell,Urine TNTC #/hpf (0-5); Trichomonas,Urine 1+ /lpf
[2024-04-16 22:02] LABS: D-Dimer 0.32 ug/mL (0.0-0.5)
--- NOTE | 2024-04-16 22:09 | PC.NURSE ---
[facility] in room at this time
--- NOTE | 2024-04-16 23:21 | PC.NURSE ---
Pt resting in bed, Friend at bedside at this time. Father reports he has to go home and take his insulin and will be back.
[2024-04-17 00:29] LABS: Reflex Lactic Add Lactic Reflex
--- NOTE | 2024-04-17 00:36 | PC.NURSE ---
blood work drawn
[2024-04-17 00:51] LABS: Lactic Acid Follow Up (RFLX 1) 0.7 mmol/L (0.7-2.1)
[2024-04-17 01:07] LABS: Troponin I < 0.01 ng/ml (0.00-0.034)
[2024-04-17 01:30] VITALS: BP 126/89; PULSE 89; RESP 18; TEMP 37.1; O2SAT 97
--- NOTE | 2024-04-19 08:30 | PC.NURSE ---
urine culture reviewed with , due to colony count, possible contaminated, wait for final
== END 2024-04-17 01:43 | disposition home or self-care (01) ==
PROVIDERS: Emergency Provider Emergency Medicine
DX: F41.0 Panic disorder [episodic paroxysmal anxiety] (principal); R74.02 Elevation of levels of lactic acid dehydrogenase [LDH]; R00.0 Tachycardia, unspecified; E83.42 Hypomagnesemia; F14.90 Cocaine use, unspecified, uncomplicated; B96.83 Acinetobacter baumannii as the cause of diseases classified elsewhere; F31.9 Bipolar disorder, unspecified
CPT/HCPCS: 71045; 80050; 80053; 80307; 80320; 80329; 81001; 82803; 83605; 83690; 83735; 84436; 84443; 84484; 84702; 85025; 85378; 85730; 87086; 87088; 87186; 93005; 96361; 96365; 96375; 99285; G0480; J1790; J2060; J3475; J7030; J7120

== ENCOUNTER 2024-05-19 20:08 | Emergency (ER) | payer MEDICAID, SELFPAY ==
[2024-05-19 22:27] VITALS: BP 125/69; PULSE 70; O2SAT 100
[2024-05-19 22:29] VITALS: BP 125/69; PULSE 68; RESP 16; TEMP 36.7; O2SAT 100; BMI 29.5
[2024-05-19 22:31] VITALS: BP 100/70; PULSE 63; O2SAT 100
--- NOTE | 2024-05-19 22:51 | HMH.EDGENADL ---
Discharge Plan Disposition Patient Disposition: Home, Self-Care Prescriptions Prescriptions: New Preparation H 0.25-14-74.9 % ointment 1 applic [place] TID PRN (Reason: hemorrhoids) Qty: 28 1RF No Action albuterol sulfate 90 mcg/actuation HFA aerosol inhaler 2 inh inhalation Q4-6H PRN (Reason: shortness of breath or wheezing) Qty: 8.5 1RF pantoprazole 40 mg tablet,delayed release (DR/EC) 40 mg PO DAILY propranolol 20 mg tablet PO PRN mupirocin 2 % ointment topical Caplyta 42 mg capsule 42 mg PO DAILY Qty: 30 1RF trazodone 50 mg tablet 50 mg PO QHS PRN (Reason: sleep) Qty: 30 1RF buspirone 10 mg tablet 10 mg PO BID Qty: 60 1RF budesonide-formoterol [Symbicort] 160-4.5 mcg/actuation HFA aerosol inhaler See Rx Instructions .ROUTE .COMPLEX Rx Instructions: see rx Referrals Follow up/Referrals: Provider,Referral, [Primary Care Provider] - See instructions Activity Restrictions/Add. Instructions Additional Instructions/Restrictions: One half To 1 full cap of MiraLAX daily for the next 2 weeks until still having 2 soft bowel movements daily. You may need more or less to maintain this. Preparation H 3 times daily for symptoms. Call your family doctor to establish care for this visit to the emergency department and schedule follow-up within 48 hours to ensure improvement. If you have any worsening of your condition or any other concerning signs or symptoms, return to the emergency department or your primary care doctor for further evaluation. Clinical Impressions Clinical Impression: Hemorrhoids Instructions Patient Instructions: DI for Acute Abdominal Pain Print Language Print Language: Macedonian Discharge ED Provider: Tomasz Cheung General Adult HPI General Chief complaint: Abdominal Pain Stated complaint: blood in stool Time Seen by Provider: 05/19/24 22:33 Mode of Arrival: Ambulatory Source of Information: Patient Limitations: No Limitations Description of Symptoms (Recalled from ER Triage Doc. by RN): Patient was constipated for one week; that resolved today and she had a bowel movement. When she had the bowel movement, she noticed some blood in the stool and on the toilet paper. History of Present Illness HPI narrative: Please note that above description of symptoms, in this electronic medical record under categorization of recalled from ER triage doctor by RN are reflective of an initial nursing assessment, however, is not reflective of my full history and physical exam that was personally taken and clarified. Consequentially, this preceding description of symptoms, which may include the patient's categorized chief complaint in the EMR, do not reflect my personal clinical impression, and the ultimate description of history of present illness and patient stated complaints should be deferred to this section of the note. Unless stated otherwise or congruent with this section of the note, additional signs, symptoms, or incongruence should be interpreted as inaccurate with my clinical impression. Related Data Home Medications ?Medication ?Instructions ?Recorded ?Confirmed pantoprazole 40 mg tablet,delayed 40 mg PO DAILY 09/11/23 04/28/24 release budesonide-formoterol HFA 160 See Rx Instructions .Route .COMPLEX 11/28/23 04/28/24 mcg-4.5 mcg/actuation aerosol inhaler (Symbicort) mupirocin 2 % topical ointment topical 01/15/24 04/28/24 propranolol 20 mg tablet mg PO PRN 01/15/24 04/28/24 Previous Rx's ?Medication ?Instructions ?Recorded albuterol sulfate 90 mcg/actuation 2 inh inhalation Q4-6H PRN 03/29/23 aerosol inhaler shortness of breath or wheezing #8.5 grams buspirone 10 mg tablet 10 mg PO BID #60 tabs 04/17/24 lumateperone 42 mg capsule 42 mg PO DAILY #30 caps 04/17/24 (Caplyta) trazodone 50 mg tablet 50 mg PO QHS PRN sleep #30 tabs 04/17/24 phenylephrine 0.25 %-mineral oil 1 applic [place] TID PRN hemorrhoids 05/19/24 14 %-petrolatm 74.9 % rectal #28 grams ointment (Preparation H) Allergies Allergy/AdvReac Type Severity Reaction Status Date / Time Penicillins Allergy Rash Verified 04/28/24 13:10 [facility] Disclaimer: The information contained in this section may have been updated after the patient was seen, as this information can be updated by other users. Medical History History of UTI Hyperlipemia Seizures Kidney stone Urinary tract infection Chronic cough Asthma Sinus headache History of gastroesophageal reflux (GERD) Allergies Migraines Delirium Headache, migraine Anxiety Low back pain Bipolar disorder Nasal bleeding Cracked skin on feet Allergic rhinitis Chronic headaches Hypertension Anxiety Bipolar disorder Depression Surgical History History of esophagogastroduodenoscopy (EGD) History of tubal ligation History of surgery KIDNEY STENT PLACED AND REMOVED Family History Mother Ovarian cancer Diabetes Father Lung cancer Diabetes Liver failure Social History Smoking Status: Former smoker tobacco type: cigarettes packs per day: 1 years smoked: 15 second hand exposure: Yes alcohol intake: current alcohol intake frequency: holidays/special occasions only substance use type: former substance user and marijuana 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al status: unemployed Travel in the last 8 weeks: None housing: house number of children: 0 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al exposures/hazards: No caffeine: Yes ROS Obtained: Yes All systems reviewed & no additional complaints except as documented Physical Exam General General appearance: alert Head Head exam: atraumatic and normocephalic Eye Eye exam: Present normal appearance, PERRL and EOMI Neck Neck exam: Present normal inspection, full ROM and trachea midline Respiratory Respiratory exam: Absent respiratory distress, wheezes, stridor, accessory muscle use or prolonged expiratory phase Cardiovascular Cardiovascular exam: Present other (Pulses equal symmetric in upper and lower extremities) Abdominal Exam Abdominal exam: Present soft; Absent distention, tenderness or pulsatile mass Extremities Exam Extremities exam: Absent edema Neurological Exam Neurological exam: Present alert, oriented X3 and CN II-XII intact; Absent motor sensory deficit Skin Skin exam: Present warm and dry; Absent diaphoresis or erythema Medical Decision Making Medical Records Medical records reviewed: Yes I reviewed the patient's medical records. Screening: Per USPSTF and CDC recommendations, given the prevalence of disease in our region, it is our hospital?s policy to screen for HIV and viral Hepatitis for all patients aged 18 and over and those with ongoing risk factors. Homer Inquiry Pt receiving controlled substance: No Homer was queried for this patient: No Vital Signs: 05/19/24 22:29 Temperature 98.1 F Temperature Source Oral Pulse Rate [Right Radial] 68 Respiratory Rate 16 Blood Pressure [Right Arm] 125/69 Blood Pressure Mean [Right Arm] 87 Blood Pressure Source [Right Arm] Automatic Cuff Blood Pressure Position [Right Arm] Sitting 02 Sat by Pulse Oximetry 100 Oxygen Delivery Method Room Air Medical Decision Narrative: 33-year-old female no relevant medical history presenting with blood in her stool. She states that she has been constipated the last 2 or 3 days, usually has a bowel movement every day. Fortunately had bowel movement today just for arrival and had pain in her rectum, blood on the stool and some blood in the toilet. She had blood on the toilet paper afterward. No pain or bleeding since that time, but states that it is itchy. No other concerning symptoms. History obtained with patient. On arrival, very well-appearing. Normotensive, nontachycardic, no abdominal tenderness. Given history, conversation had with patient regarding utility of rectal exam and likelihood of anal fissure versus hemorrhoids, patient opting out of rectal exam at this time and I feel that is completely reasonable. Patient be sent with recommendations for bowel regimen as well as Preparation H. Because patient at baseline without signs or symptoms of clinical decompensation, deemed appropriate for discharge. I discussed my clinical impression with patient and answered all questions. At this time, the evidence for any other entities in the differential is insufficient to warrant any further testing or ED observation. This was explained as well. Advisory was given that persistent or worsening symptoms require further evaluation. I confirmed the understanding of this discussion. [employer] disclaimer Much of this encounter note is an electronic drum maker spoken language to printed text. Electronic drum maker of the spoken language may permit errors. Although I have reviewed the note, some errors may still exist. Critical Care Critical Care Time Critical Care Time: No
[2024-05-19 23:00] VITALS: BP 106/68; PULSE 60; O2SAT 99
[2024-05-19 23:12] VITALS: BP 106/68; PULSE 64; RESP 20; TEMP 36.7; O2SAT 98
== END 2024-05-19 23:13 | disposition home or self-care (01) ==
PROVIDERS: Emergency Provider Emergency Medicine
DX: K64.9 Unspecified hemorrhoids (principal)
CPT/HCPCS: 99283

== ENCOUNTER 2024-05-25 18:28 | Emergency (ER) | payer MEDICAID, SELFPAY ==
[2024-05-25] VITALS (8 sets, daily range): BP systolic 87–105; BP diastolic 55–66; PULSE 50–87; RESP 16–22; TEMP 36.8; O2SAT 93–100; BMI 32.9
--- NOTE | 2024-05-25 18:50 | CT_ITS ---
PROCEDURE INFORMATION: Exam: CT Abdomen And Pelvis With Contrast Exam date and time: 05/25/2024 7:52 PM Age: 33 years old Clinical indication: Constipation; Additional info: No bm for 2 weeks, n/v TECHNIQUE: Imaging protocol: Computed tomography of the abdomen and pelvis with contrast. Radiation optimization: All CT scans at this facility use at least one of these dose optimization techniques: automated exposure control; mA and/or kV adjustment per patient size (includes targeted exams where dose is matched to clinical indication); or iterative reconstruction. Contrast material: ISOVUE; Contrast volume: 75 ml; Contrast route: IV; COMPARISON: CT ABDOMEN PELVIS WO CON 06/06/2022 8:20 PM FINDINGS: Liver: 1.1 x 1.4 cm enhancing focus in medial left liver lobe. Heterogeneous hypodense focus in anterior segment right liver lobe measuring 1.2 x 1.1 cm. Third focus in anterior segment right liver lobe measures 1.2 x 1.0 cm. Gallbladder and biliary ducts: Normal. No calcified stones. No ductal dilation. Pancreas: Normal. No ductal dilation. Spleen: Normal. No splenomegaly. Adrenal glands: Normal. No mass. Kidneys and ureters: Normal. No hydronephrosis. Stomach and bowel: Moderately nonobstructive large colonic stool burden. Appendix: No evidence of appendicitis. Intraperitoneal space: Small likely physiologic free fluid collection in cul-de-sac. Vasculature: Unremarkable. No abdominal aortic aneurysm. Lymph nodes: Unremarkable. No enlarged lymph nodes. Urinary bladder: Unremarkable as visualized. Reproductive: Unremarkable as visualized. Bones/joints: Unremarkable. No acute fracture. Soft tissues: Unremarkable. IMPRESSION: 1. Moderately large colonic stool burden. 2. Hepatic hemangiomas.
--- NOTE | 2024-05-25 18:55 | ED_ITS ---
<Statement entered by Cheryl Zuniga MD - 05/25/24 22:50> I was consulted by the BREA, and we discussed the complexity of the problems being addressed. I approved the treatment and management plan for this patient's care in the emergency department, thus performing a substantive portion of the medical decision making. Cheryl Zuniga MD, KAILYN, FACEP Discharge Plan Disposition Patient Disposition: Home, Self-Care Condition: Good Prescriptions Prescriptions: No Action albuterol sulfate 90 mcg/actuation HFA aerosol inhaler 2 inh inhalation Q4-6H PRN (Reason: shortness of breath or wheezing) Qty: 8.5 1RF pantoprazole 40 mg tablet,delayed release (DR/EC) 40 mg PO DAILY propranolol 20 mg tablet PO PRN mupirocin 2 % ointment topical Caplyta 42 mg capsule 42 mg PO DAILY Qty: 30 1RF trazodone 50 mg tablet 50 mg PO QHS PRN (Reason: sleep) Qty: 30 1RF buspirone 10 mg tablet 10 mg PO BID Qty: 60 1RF budesonide-formoterol [Symbicort] 160-4.5 mcg/actuation HFA aerosol inhaler See Rx Instructions .ROUTE .COMPLEX Rx Instructions: see rx Preparation H 0.25-14-74.9 % ointment 1 applic [place] TID PRN (Reason: hemorrhoids) Qty: 28 1RF Referrals Follow up/Referrals: Real Avila [Primary Care Provider] - See instructions Activity Restrictions/Add. Instructions Additional Instructions/Restrictions: You were seen for constipation. You also have some liver hemangiomas. Increase your miralax to 2 caps daily. Please follow up with your PCP this week. Return to ED for worsening symptoms. Clinical Impressions Clinical Impression: Constipation Instructions Patient Instructions: DI for Acute Abdominal Pain Print Language Print Language: Sinhala Discharge ED Provider: Cheryl Zuniga General Adult HPI General Chief complaint: Abdominal Pain Stated complaint: constipation x2 weeks Time Seen by Provider: 05/25/24 18:43 Mode of Arrival: Ambulatory Source of Information: Patient and Parent(s) Limitations: No Limitations Description of Symptoms (Recalled from ER Triage Doc. by RN): reports no bm exceppt minimal in 2 weeks. History of Present Illness HPI narrative: Patient presents complaining of abdominal pain, distention and constipation. She reports she has not had a normal bowel movement in several weeks. She did have a small bowel movement a few days ago. She is also experiencing nausea and vomiting. Denies fever. Denies . Related Data Home Medications ?Medication ?Instructions ?Recorded ?Confirmed pantoprazole 40 mg tablet,delayed 40 mg PO DAILY 09/11/23 04/28/24 release budesonide-formoterol HFA 160 See Rx Instructions .Route .COMPLEX 11/28/23 04/28/24 mcg-4.5 mcg/actuation aerosol inhaler (Symbicort) mupirocin 2 % topical ointment topical 01/15/24 04/28/24 propranolol 20 mg tablet mg PO PRN 01/15/24 04/28/24 Previous Rx's ?Medication ?Instructions ?Recorded albuterol sulfate 90 mcg/actuation 2 inh inhalation Q4-6H PRN 03/29/23 aerosol inhaler shortness of breath or wheezing #8.5 grams buspirone 10 mg tablet 10 mg PO BID #60 tabs 04/17/24 lumateperone 42 mg capsule 42 mg PO DAILY #30 caps 04/17/24 (Caplyta) trazodone 50 mg tablet 50 mg PO QHS PRN sleep #30 tabs 04/17/24 phenylephrine 0.25 %-mineral oil 1 applic [place] TID PRN hemorrhoids 05/19/24 14 %-petrolatm 74.9 % rectal #28 grams ointment (Preparation H) Allergies Allergy/AdvReac Type Severity Reaction Status Date / Time Penicillins Allergy Rash Verified 04/28/24 13:10 [facility] Disclaimer: The information contained in this section may have been updated after the patient was seen, as this information can be updated by other users. Medical History History of UTI Hyperlipemia Seizures Kidney stone Urinary tract infection Chronic cough Asthma Sinus headache History of gastroesophageal reflux (GERD) Allergies Migraines Delirium Headache, migraine Anxiety Low back pain Bipolar disorder Nasal bleeding Cracked skin on feet Allergic rhinitis Chronic headaches Hypertension Anxiety Bipolar disorder Depression Surgical History History of esophagogastroduodenoscopy (EGD) History of tubal ligation History of surgery KIDNEY STENT PLACED AND REMOVED Family History Mother Ovarian cancer Diabetes Father Lung cancer Diabetes Liver failure Social History Smoking Status: Current every day smoker tobacco type: cigarettes packs per day: 1 years smoked: 15 second hand exposure: Yes alcohol intake: current alcohol intake frequency: holidays/special occasions only substance use type: former substance user and marijuana 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al status: unemployed Travel in the last 8 weeks: None housing: house number of children: 0 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al exposures/hazards: No caffeine: Yes Other Medical History Have you received the Flu Vaccine for this season: No Have you received the Pneumonia Vaccine: No ROS Obtained: Yes Systems reviewed as appropriate & no additional complaints except as documented Physical Exam General General appearance: alert and in no apparent distress Head Head exam: atraumatic and normocephalic Eye Eye exam: Present normal appearance and EOMI Chest Chest inspection: Present symmetric chest wall rise Respiratory Respiratory exam: Present normal lung sounds bilaterally; Absent wheezes or stridor Cardiovascular Cardiovascular exam: Present regular rate and normal rhythm; Absent systolic murmur Abdominal Exam Abdominal exam: Present soft, distention and tenderness (generalized) Extremities Exam Extremities exam: Present full ROM Neurological Exam Neurological exam: Present alert and oriented X3 Psychiatric Psychiatric exam: Present normal affect and normal mood Skin Skin exam: Present warm, dry and intact Medical Decision Making Medical Records Screening: Per USPSTF and CDC recommendations, given the prevalence of disease in our region, it is our hospital?s policy to screen for HIV and viral Hepatitis for all patients aged 18 and over and those with ongoing risk factors. Generalized in summary patient is a 33-year-old female who presents the emergency department for evaluation of constipation. Patient is slightly hypotensive upon arrival, afebrile. Abdominal distention and mild generalized tenderness to palpation. Differential diagnosis includes constipation, small bowel obstruction, gastroenteritis. Initial workup will be conducted with labs, CT abdomen and pelvis. Initial inventions include IV fluid bolus. Initial workup reviewed by me reveals normal CBC/CMP. UA reveals leukocyte esterase, culture pending. CTAP shows constipation. Follow up with PCP for hemangiomas. Upon repeat evaluation patient feeling much better after enema and bowel movement. Given this patient discharged and advised to increase her miralax. I informally interpreted the patient's CT read and is remarkable for constipation. Homer Inquiry Pt receiving controlled substance: No Homer was queried for this patient: No Vital Signs: 05/25/24 18:30 05/25/24 18:51 05/25/24 19:30 Temperature 98.3 F Temperature Source Oral Pulse Rate 72 65 Pulse Rate [Right] 87 Respiratory Rate 20 22 Blood Pressure 94/58 L 93/55 L Blood Pressure [Right Arm] 93/55 L Blood Pressure Mean 67 Blood Pressure Mean [Right Arm] 67 02 Sat by Pulse Oximetry 97 96 94 L Oxygen Delivery Method Room Air 05/25/24 20:00 05/25/24 20:31 05/25/24 21:00 Temperature Temperature Source Pulse Rate 55 L 66 72 Pulse Rate [Right] Respiratory Rate Blood Pressure 95/62 L 101/66 L 87/59 L Blood Pressure [Right Arm] Blood Pressure Mean Blood Pressure Mean [Right Arm] 02 Sat by Pulse Oximetry 97 95 93 L Oxygen Delivery Method 05/25/24 22:31 05/25/24 22:32 Temperature 98.2 F Temperature Source Oral Pulse Rate 50 L 53 L Pulse Rate [Right] Respiratory Rate 16 Blood Pressure 105/59 L 105/59 L Blood Pressure [Right Arm] Blood Pressure Mean Blood Pressure Mean [Right Arm] 02 Sat by Pulse Oximetry 98 Oxygen Delivery Method Room Air Lab Data Lab Results 05/25/24 18:59: WBC 5.6, RBC 4.40, Hgb 14.3, Hct 41.6, MCV 94.6, MCH 32.6 H, MCHC 34.5, RDW 12.8, Plt Count 299, MPV 7.3 L, Neut % (Auto) 47.2, Lymph % (Auto) 44.2, [place] % (Auto) 7.2, Eos % (Auto) 0.6, Baso % (Auto) 0.8, Neut # (Auto) 2.7, Lymph # (Auto) 2.5, [place] # (Auto) 0.4, Eos # (Auto) 0.0, Baso # (Auto) 0.0, Sodium 135 L, Potassium 3.7, Chloride 106, Carbon Dioxide 23, Anion Gap 9.7, BUN 9, Creatinine 0.70, Estimated Creat Clear 149, Estimated GFR 97, Est GFR ( Amer) 117, Glucose 115 H, Calcium 9.1, Total Bilirubin 0.5, AST 31, ALT 21, Alkaline Phosphatase 38, Total Protein 7.0, Albumin 4.0, Globulin 3.0, Albumin/Globulin Ratio 1.3, Lipase 36, HIV 1&2 Antibody Rapid Nonreactive 05/25/24 19:52: Urine Color Yellow, Urine Appearance Slightly cloudy, Urine pH 6.5, Ur Specific [place] <= 1.005, Urine Protein Negative, Urine Glucose (UA) Negative, Urine Ketones Negative, Urine Blood Negative, Urine Nitrate Negative, Urine Bilirubin Negative, Urine Urobilinogen 0.2, Ur Leukocyte Esterase 1+ A, Urine HCG, Qual Negative 05/25/24 18:59 05/25/24 18:59 Orders (Tests/Meds): ED MEDICATIONS Generic Name Dose Route Start Last Admin Trade Name Freq PRN Reason Stop Dose Admin Sodium Chloride 10 ml 05/25/24 18:50 Sodium Chloride 0.9% 10ml Flush Syringe IV 06/24/24 18:49 NEEDED PRN Maintain IV Site Sodium Chloride 10 ml 05/25/24 19:51 05/25/24 19:52 Sodium Chloride 0.9% 10ml Syr (Rad Only) IV 06/24/24 19:50 10 ml NEEDED PRN Administration Maintain IV Site Discontinued Medications Generic Name Dose Route Start Last Admin Trade Name Freq PRN Reason Stop Dose Admin Sodium Chloride 1,000 mls @ 999 mls/hr 05/25/24 19:00 05/25/24 19:07 Sod Chlor 0.9% 1000ml Bag IV 05/25/24 20:00 999 mls/hr .Q1H1M MICKEY Administration Iopamidol 75 ml 05/25/24 19:51 05/25/24 19:52 Iopamidol-370 (76%);100ml Bottle IV 05/25/24 19:52 75 ml ONCE ONE Administration ORDERS Category Date Time Status CT abdomen pelvis w con Stat Cat Scan 05/25/24 18:50 Completed Complete Blood Count Auto Diff Stat Lab 05/25/24 18:59 Completed Comprehensive Metabolic Panel Stat Lab 05/25/24 18:59 Completed HIV (1&2) Antibody Rapid Stat Lab 05/25/24 18:59 Completed Hep C Ab with Reflex to RNA Stat Lab 05/25/24 18:59 Received Lipase Stat Lab 05/25/24 18:59 Completed Urinalysis and Microscopic Stat Lab 05/25/24 19:52 Results Urine , HCG Qual. Stat Lab 05/25/24 19:52 Completed Urine Culture Stat Micro 05/25/24 19:[address] Scan: Abdomen and Pelvis Time Received: 22:[address] Reviewed: Yes I have viewed the radiologist's interpretation Findings Narrative: IMPRESSION: 1. Moderately large colonic stool burden. 2. Hepatic hemangiomas. US Data ED US Reviewed: Yes I have viewed radiologist's interpretation Critical Care Critical Care Time Critical Care Time: No
[2024-05-25] MEDS: 0.9 % SODIUM CHLORIDE 1000ML 1,000 ML 999 ML IV (19:07)
[2024-05-25 19:19] LABS: Basophils % 0.8 % (0.1-2.0); Eosinophils % 0.6 % (0.1-12.0); Hematocrit 41.6 % (37.0-47.0); Hemoglobin 14.3 g/dL (12.2-16.2); Lymphocytes # 2.5 K/mm3 (0.7-4.5); Lymphocytes % 44.2 % (10-50); Mean Corpuscular HGB Conc 34.5 g/dL (31.8-35.4); Mean Corpuscular Hemoglobin 32.6 pg (27.0-31.2); Mean Corpuscular Volume 94.6 fl (81-99); Mean Platelet Volume 7.3 fl (7.4-10.4); Monocytes # 0.4 K/mm3 (0.1-1.0); Monocytes % 7.2 % (1.7-9.3); Neutrophils # 2.7 K/mm3 (1.8-7.8); Neutrophils % 47.2 % (37.0-80.0); Platelet Count 299 K/mm3 (142-424); Red Cell Distribution Width 12.8 % (11.5-17.5); White Blood Count 5.6 K/mm3 (4.8-10.8)
[2024-05-25 19:25] LABS: Chloride 106 mmol/L (98-107); Potassium 3.7 mmoL/L (3.5-5.1); Sodium 135 mmol/L (136-145)
[2024-05-25 19:28] LABS: Alanine Aminotransferase 21 U/L (12-78); Albumin/Globulin Ratio 1.3 (1.1-1.8); Alkaline Phosphatase 38 U/L (38-126); Anion Gap 9.7 mEq/L (5-15); Aspartate Amino Transferase 31 U/L (14-36); Bilirubin,Total 0.5 mg/dl (0.2-1.3); Blood Urea Nitrogen 9 mg/dl (7-17); Carbon Dioxide 23 mmol/L (22.0-30.0); Creatinine Clearance Estimated 149 mL/min (50-200); Estimated Glomerular Filt Rate 97 ml/min (>60); GFR (African American) 117 ML/MIN (>60)
[2024-05-25 19:29] LABS: Calcium 9.1 mg/dl (8.4-10.2); Glucose 115 mg/dl (74-100)
[2024-05-25] MEDS: IOPAMIDOL-370 (76%);100ML BOTTLE 75 ML IV (19:52)
[2024-05-25] MEDS: SODIUM CHLORIDE 0.9% 10ML SYR (RAD ONLY) 10 ML IV (19:52)
--- NOTE | 2024-05-25 19:52 | PC.NURSE ---
urine sample collected and submitted to lab. Pt also taken to CT scan via wheelchair.
[2024-05-25 19:59] LABS: Microscopic, Urine URINE MICROSCOPIC (MICROSCOPIC)
[2024-05-25 20:02] LABS: Bilirubin,Urine Negative (Negative); Blood, Urine Negative (Negative); Color,Urine YELLOW (Yellow); Glucose,Urine (UA) Negative (Negative); Ketones,Urine Negative (Negative); Leukocyte Esterase,Urine 1+ (Negative); Nitrate,Urine Negative (Negative); PH,Urine 6.5 (5.0-8.5); Protein,Urine Negative (Negative); Specific Gravity, Urine <= 1.005 (1.005-1.030); Urine Pregnancy, HCG Qual. Negative (Negative); Urobilinogen,Urine 0.2 EU/dl (0.2)
[2024-05-25 20:02] LABS: Lipase 36 U/L (23-300)
[2024-05-25 20:04] LABS: Appearance,Urine Slightly Cloudy (Clear)
[2024-05-25 20:10] LABS: HIV (1&2) Antibody Rapid NONREACTIVE (NONREACTIVE)
--- NOTE | 2024-05-25 22:20 | PC.NURSE ---
enema administer and pt placed on bedside commode
--- NOTE | 2024-05-25 22:27 | PC.NURSE ---
pt had a xl bowel movement and reports feeling much better
[2024-05-25 22:48] LABS: Bacteria,Urine 1+ /lpf; Squamous Epithelial Cell,Urine 20-50 #/hpf (0-5); Trichomonas,Urine 2+ /lpf
[2024-05-28 20:10] LABS: HCV Ab Reactive (Non Reactive)
== END 2024-05-25 22:37 | disposition home or self-care (01) ==
PROVIDERS: Physician Assistant; Emergency Provider Student in an Organized Health Care Education/Training Program; PCP Family Medicine
DX: A59.00 Urogenital trichomoniasis, unspecified (principal); K59.00 Constipation, unspecified; R10.9 Unspecified abdominal pain; R14.0 Abdominal distension (gaseous); R11.2 Nausea with vomiting, unspecified
CPT/HCPCS: 74177; 80053; 81001; 81025; 83690; 85025; 86803; 87086; 87389; 96360; 99285; J7030; Q9967

== ENCOUNTER 2024-06-12 00:03 | Emergency (ER) | payer MEDICAID, SELFPAY ==
[2024-06-12 00:02] VITALS: BP 128/95; PULSE 104; RESP 20; TEMP 37.2; O2SAT 100; BMI 29.2
--- NOTE | 2024-06-12 00:04 | XR_ITS ---
PROCEDURE INFORMATION: Exam: XR Right Knee Exam date and time: 06/12/2024 12:36 AM Age: 33 years old Clinical indication: Pain; Knee; Right; Additional info: Fall, pain TECHNIQUE: Imaging protocol: Radiologic exam of the right knee. Views: 3 views. COMPARISON: CR XR KNEE RT 3V 12/22/2022 8:55 AM FINDINGS: Bones/joints: Normal. Soft tissues: Normal. IMPRESSION: No acute findings.
--- NOTE | 2024-06-12 00:04 | XR_ITS ---
PROCEDURE INFORMATION: Exam: XR Right Ankle Exam date and time: 06/12/2024 12:36 AM Age: 33 years old Clinical indication: Pain; Ankle; Right; Additional info: Fall, lateral malleolus tenderness and swelling TECHNIQUE: Imaging protocol: Radiologic exam of the right ankle. Views: 3 or more views. COMPARISON: CR XR ANKLE RT MIN 3V 03/09/2023 8:35 AM FINDINGS: Bones/joints: Normal. Soft tissues: Mild lateral soft tissue swelling. IMPRESSION: 1. Lateral soft tissue swelling. 2. No visible acute fracture.
--- NOTE | 2024-06-12 00:04 | CT_ITS ---
PROCEDURE INFORMATION: Exam: CT Head Without Contrast Exam date and time: 06/12/2024 12:34 AM Age: 33 years old Clinical indication: Injury or trauma; Fall; Additional info: Fall, struck nose, loc TECHNIQUE: Imaging protocol: Computed tomography of the head without contrast. Radiation optimization: All CT scans at this facility use at least one of these dose optimization techniques: automated exposure control; mA and/or kV adjustment per patient size (includes targeted exams where dose is matched to clinical indication); or iterative reconstruction. COMPARISON: CT HEAD/BRAIN WO CON 12/17/2023 4:55 PM FINDINGS: Brain: Normal appearing brain parenchyma without intraparenchymal hemorrhage and normal butler-white matter differentiation/no obvious acute ischemic stroke. No intra-or extra-axial fluid collection, no supra-or infratentorial mass, no mass effect or midline shift. Cerebral ventricles: Ventricles, sulci and basal cisterns are normal in size without hydrocephalus. Paranasal sinuses: No significant mucoperiosteal thickening in the visualized paranasal sinuses. Mastoid air cells: No mastoid effusion. Bones: Visualized skull bones are grossly normal. Soft tissues: Small RIGHT frontal scalp and nasal soft tissue hematoma. IMPRESSION: No evidence of an acute intracranial hemorrhage, mass lesion or obvious acute ischemic infarction.
--- NOTE | 2024-06-12 00:04 | XR_ITS ---
PROCEDURE INFORMATION: Exam: XR Right Tibia and Fibula Exam date and time: 06/12/2024 12:36 AM Age: 33 years old Clinical indication: Pain; Lower leg; Right; Additional info: Fall pain TECHNIQUE: Imaging protocol: Radiologic exam of the right tibia and fibula. Views: 2 views. COMPARISON: CR XR FOOT RT MIN 3V 06/12/2024 12:36 AM FINDINGS: Bones/joints: Normal. Soft tissues: Normal. IMPRESSION: No acute findings.
--- NOTE | 2024-06-12 00:04 | XR_ITS ---
PROCEDURE INFORMATION: Exam: XR Right Foot Exam date and time: 06/12/2024 12:36 AM Age: 33 years old Clinical indication: Pain; Foot; Right; Additional info: Fall TECHNIQUE: Imaging protocol: Radiologic exam of the right foot. Views: 3 or more views. COMPARISON: CR XR FOOT RT MIN 3V 03/09/2023 8:38 AM FINDINGS: Bones/joints: Normal. Soft tissues: Normal. IMPRESSION: No acute findings.
--- NOTE | 2024-06-12 00:04 | CT_ITS ---
PROCEDURE INFORMATION: Exam: CT Cervical Spine Without Contrast Exam date and time: 06/12/2024 12:40 AM Age: 33 years old Clinical indication: Injury or trauma; Fall; Additional info: Fall, struck face, positive loc TECHNIQUE: Imaging protocol: Computed tomography of the cervical spine without contrast. Radiation optimization: All CT scans at this facility use at least one of these dose optimization techniques: automated exposure control; mA and/or kV adjustment per patient size (includes targeted exams where dose is matched to clinical indication); or iterative reconstruction. COMPARISON: CT CERVICAL SPINE WO CON 09/16/2020 2:00 PM FINDINGS: Bones: Loss of normal curvature of the spine, alignment of the vertebral bodies is grossly normal. Nonfusion of the anterior and posterior arch of C1. No evidence of acute compression fracture or deformity in the cervical spine. No acute fracture involving the vertebral bodies or their posterior elements. Discs/Spinal canal/Neural foramina: Mild chronic degenerative changes in the visualized cervical spine. Lungs: NA Soft tissues: Pre-and paravertebral soft tissues are grossly normal. Bilateral cervical ribs. IMPRESSION: Mild chronic degenerative changes without an acute bony cervical spine injury or abnormality. COMMENTS: Recommend followup with MRI if clinically suspicion for discoligamentous/soft tissue or cord abnormality.
--- NOTE | 2024-06-12 00:06 | CT_ITS ---
PROCEDURE INFORMATION: Exam: CT Maxillofacial and Orbits Without Contrast Exam date and time: 06/12/2024 12:37 AM Age: 33 years old Clinical indication: Injury or trauma; Fall; Additional info: Fall, nasal swelling and pain TECHNIQUE: Imaging protocol: Computed tomography of the maxillofacial including orbits without contrast. Radiation optimization: All CT scans at this facility use at least one of these dose optimization techniques: automated exposure control; mA and/or kV adjustment per patient size (includes targeted exams where dose is matched to clinical indication); or iterative reconstruction. COMPARISON: CT FACIAL BONES WO CON 09/16/2020 2:06 PM FINDINGS: Paranasal sinuses: No fluid level in the paranasal sinuses. Mastoid air cells: No evidence of mastoid effusion. Orbital cavities: See below. Bones/joints: The mandible, maxilla, paranasal sinuses, pterygoid plates, nasal bones, bony orbital lazo, zygomatic arches, temporal bones, bones of the skull base are unremarkable without acute displaced fracture. Unremarkable temporomandibular joints. Soft tissues: Small RIGHT frontal scalp and nasal soft tissue hematoma. IMPRESSION: No evidence of acute maxillofacial bony injury.
--- NOTE | 2024-06-12 00:08 | HMH.EDGENADL ---
Discharge Plan Disposition Patient Disposition: Home, Self-Care Condition: Good Prescriptions Prescriptions: New Saline Nasal 0.65 % aerosol,spray 1 spray intranasal Q4H PRN (Reason: nasal congestion) Qty: 44 0RF No Action albuterol sulfate 90 mcg/actuation HFA aerosol inhaler 2 inh inhalation Q4-6H PRN (Reason: shortness of breath or wheezing) Qty: 8.5 1RF pantoprazole 40 mg tablet,delayed release (DR/EC) 40 mg PO DAILY propranolol 20 mg tablet PO PRN mupirocin 2 % ointment topical trazodone 100 mg tablet 100 mg PO QHS PRN (Reason: insomnia) Qty: 30 1RF buspirone 10 mg tablet 10 mg PO BID Qty: 60 1RF Caplyta 42 mg capsule 42 mg PO DAILY Qty: 30 1RF budesonide-formoterol [Symbicort] 160-4.5 mcg/actuation HFA aerosol inhaler See Rx Instructions .ROUTE .COMPLEX Rx Instructions: see rx Preparation H 0.25-14-74.9 % ointment 1 applic SD TID PRN (Reason: hemorrhoids) Qty: 28 1RF metronidazole 500 mg tablet 500 mg PO BID 7 Days Qty: 14 0RF Referrals Follow up/Referrals: Real Avila [Primary Care Provider] - See instructions Activity Restrictions/Add. Instructions Additional Instructions/Restrictions: You were evaluated in the ER and are appropriate for discharge at this time. Use the prescribed saline nasal spray if needed for congestion. Follow-up with your primary care doctor in a few days for reevaluation. Return to the ER with new, worsening, or otherwise concerning symptoms. Clinical Impressions Clinical Impression: Fall, Injury to nose, Ankle pain, right Print Language Print Language: Cameroonian Discharge ED Provider: Patrick Saenz General Adult HPI General Chief complaint: Fall Stated complaint: fall/seizure Time Seen by Provider: 06/12/24 00:05 History of Present Illness HPI narrative: 33-year-old female who tells me she has a history of pseudoseizures presents to the ER after fall. Patient states she was making a TikTok in front of her window when she felt like she was going to have a seizure and fell to the ground. She states she struck her nose and hurt her ankle. She is complaining of pain in the nose and ankle. She reports having a pseudoseizure, EMS also reports that she had a seizure-like episode with them that lasted less than 30 seconds and patient immediately returned to her mental baseline as soon as the activity stopped. She did not require any interventions from EMS. Patient states she has had at least 3 other pseudoseizures this week already. She states this is normal for her. Review of records demonstrates she has a history of IV drug use, bipolar, patient reports she has not yet taken her trazodone tonight. Other medications include buspirone, propranolol, Chantix. Patient denies any recent symptoms of being ill, she states her only complaints are her nose and her right lower leg, especially the ankle. EMS reports patient stood with assistance and pivoted on the stretcher. She has not ambulated on the ankle since the injury. EMS reports [id number] glucose 106. ROS otherwise negative, no other complaints of pain or injury. Related Data Home Medications ?Medication ?Instructions ?Recorded ?Confirmed pantoprazole 40 mg tablet,delayed 40 mg PO DAILY 09/11/23 04/28/24 release budesonide-formoterol HFA 160 See Rx Instructions .Route .COMPLEX 11/28/23 04/28/24 mcg-4.5 mcg/actuation aerosol inhaler (Symbicort) mupirocin 2 % topical ointment topical 01/15/24 04/28/24 propranolol 20 mg tablet mg PO PRN 01/15/24 04/28/24 Previous Rx's ?Medication ?Instructions ?Recorded albuterol sulfate 90 mcg/actuation 2 inh inhalation Q4-6H PRN 03/29/23 aerosol inhaler shortness of breath or wheezing #8.5 grams phenylephrine 0.25 %-mineral oil 1 applic SD TID PRN hemorrhoids 05/19/24 14 %-petrolatm 74.9 % rectal #28 grams ointment (Preparation H) metronidazole 500 mg tablet 500 mg PO BID 7 days #14 tabs 05/25/24 buspirone 10 mg tablet 10 mg PO BID #60 tabs 06/10/24 lumateperone 42 mg capsule 42 mg PO DAILY #30 caps 06/10/24 (Caplyta) trazodone 100 mg tablet 100 mg PO QHS PRN insomnia #30 tabs 06/10/24 sodium chloride 0.65 % nasal spray 1 spray intranasal Q4H PRN nasal 06/12/24 aerosol (Saline Nasal) congestion #44 mL Allergies Allergy/AdvReac Type Severity Reaction Status Date / Time Penicillins Allergy Rash Verified 04/28/24 13:10 [facility] Disclaimer: The information contained in this section may have been updated after the patient was seen, as this information can be updated by other users. Medical History History of UTI Hyperlipemia Seizures Kidney stone Urinary tract infection Chronic cough Asthma Sinus headache History of gastroesophageal reflux (GERD) Allergies Migraines Delirium Headache, migraine Anxiety Low back pain Bipolar disorder Nasal bleeding Cracked skin on feet Allergic rhinitis Chronic headaches Hypertension Anxiety Bipolar disorder Depression Surgical History History of esophagogastroduodenoscopy (EGD) History of tubal ligation History of surgery KIDNEY STENT PLACED AND REMOVED Family History Mother Ovarian cancer Diabetes Father Lung cancer Diabetes Liver failure Social History Smoking Status: Former smoker tobacco type: cigarettes packs per day: 1 years smoked: 15 second hand exposure: Yes alcohol intake: current alcohol intake frequency: holidays/special occasions only substance use type: former substance user and marijuana 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al status: unemployed Travel in the last 8 weeks: None housing: house number of children: 0 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al exposures/hazards: No caffeine: Yes Other Medical History Have you received the Flu Vaccine for this season: No Have you received the Pneumonia Vaccine: No ROS Obtained: Yes Systems reviewed as appropriate & no additional complaints except as documented Positive ROS per HPI Physical Exam General General appearance: alert and in no apparent distress Head Head exam: normocephalic and other (Swelling of the nose) Eye Eye exam: Present PERRL and EOMI ENT ENT exam: Present normal oropharynx (No findings of intraoral injury, patient has upper dentures in place, lower lip piercing present), mucous membranes moist and other (Patient has swelling and tenderness over the bridge of the nose however there is no malalignment or findings of deviation, there is no finding of septal hematoma, patient is able to breathe through the nares.) Neck Neck exam: Present normal inspection and full ROM; Absent tenderness Chest Chest inspection: Present symmetric chest wall rise; Absent tenderness Respiratory Respiratory exam: Present normal lung sounds bilaterally; Absent respiratory distress, wheezes or stridor Cardiovascular Cardiovascular exam: Present regular rate and normal rhythm Abdominal Exam Abdominal exam: Present soft; Absent distention or tenderness Extremities Exam Extremities exam: Present full ROM, tenderness (Tenderness of the right knee without swelling or deformity, no findings of injury, tenderness of the right levin without deformity, crepitus, or findings of injury, tenderness of right ankle and right foot), joint swelling (Mild swelling with point tenderness over the right lateral malleolus, patient does have full range of motion at the ankle, neurovascularly intact distally) and other (2+ pulses throughout) Back Exam Back exam: Present full ROM; Absent tenderness Neurological Exam Neurological exam: Present alert, oriented X3 and CN II-XII intact; Absent motor sensory deficit Psychiatric Psychiatric exam: Present normal affect and normal mood Skin Skin exam: Present warm and dry Medical Decision Making Medical Records Medical records reviewed: Yes I reviewed the patient's medical records. Screening: Per USPSTF and CDC recommendations, given the prevalence of disease in our region, it is our hospital?s policy to screen for HIV and viral Hepatitis for all patients aged 18 and over and those with ongoing risk factors. MR Comment: Patient evaluated by OB in December for concerns of breast abnormality, patient was identified to have a sebaceous cyst, no intervention planned at this time. She was recently evaluated in our ER for constipation and treated with enema. She was seen by Nafisa Greenberg with [facility] on 06/10/24. She reported 14 days off nicotine and being irritable with appetite suppression. Patient's trazodone dose was changed for symptoms of insomnia. [place] Inquiry Pt receiving controlled substance: No Vital Signs: 06/12/24 00:02 Temperature 99.0 F Temperature Source Oral Pulse Rate [Left Radial] 104 H Respiratory Rate 20 Blood Pressure [Right Arm] 128/95 H Blood Pressure Mean [Right Arm] 106 Blood Pressure Source [Right Arm] Automatic Cuff Blood Pressure Position [Right Arm] Supine 02 Sat by Pulse Oximetry 100 Oxygen Delivery Method Room Air Lab Data Lab Results 06/12/24 00:04: WBC 8.5, RBC 4.76, Hgb 15.4, Hct 44.9, MCV 94.3, MCH 32.3 H, MCHC 34.3, RDW 12.9, Plt Count 302, MPV 7.3 L, Neut % (Auto) 44.1, Lymph % (Auto) 45.3, [place] % (Auto) 9.9 H, Eos % (Auto) 0.1, Baso % (Auto) 0.5, Neut # (Auto) 3.8, Lymph # (Auto) 3.9, [place] # (Auto) 0.8, Eos # (Auto) 0.0, Baso # (Auto) 0.1, PT 10.8, INR 0.96, Sodium 137, Potassium 3.6, Chloride 105, Carbon Dioxide 21 L, Anion Gap 14.6, BUN 8, Creatinine 0.80, Estimated Creat Clear 116, Estimated GFR 83, Est GFR ( Amer) 101, Glucose 89, Calcium 9.7, Total Bilirubin 0.5, AST 28, ALT 18, Alkaline Phosphatase 34 L, Troponin I < 0.01, Total Protein 7.7, Albumin 4.6, Globulin 3.1, Albumin/Globulin Ratio 1.5, Serum HCG, Qual Negative, HIV 1&2 Antibody Rapid Nonreactive 06/12/24 00:04 06/12/24 00:04 Orders (Tests/Meds): ED MEDICATIONS Generic Name Dose Route Start Last Admin Trade Name Freq PRN Reason Stop Dose Admin Methocarbamol 500 mg 06/12/24 00:15 06/12/24 00:15 Methocarbamol 500mg Tablet PO 07/12/24 00:14 500 mg BID MICKEY Administration Discontinued Medications Generic Name Dose Route Start Last Admin Trade Name Freq PRN Reason Stop Dose Admin Acetaminophen 1,000 mg 06/12/24 00:05 06/12/24 00:15 Acetaminophen 500mg Tab PO 06/12/24 00:06 1,000 mg ONCE ONE Administration ORDERS Category Date Time Status CT cervical spine wo con Stat Cat Scan 06/12/24 00:[address] facial bones wo con Stat Cat Scan 06/12/24 00:[address] head/brain wo con Stat Cat Scan 06/12/24 00:04 Completed Fibula/tibia XR right 2 views [XR tibia fibula RT 2V] Exams 06/12/24 00:04 Completed Stat Knee XR right 3 views [XR knee RT 3V] Stat Exams 06/12/24 00:04 Completed XR ankle RT min 3V Stat Exams 06/12/24 00:04 Completed XR foot RT min 3V Stat Exams 06/12/24 00:04 Completed CBC w/Auto Diff [Complete Blood Count Auto Diff] Stat Lab 06/12/24 00:04 Completed CMP [Comprehensive Metabolic Panel] Stat Lab 06/12/24 00:04 Completed HCG Qualitative, Serum Stat Lab 06/12/24 00:04 Completed HIV (1&2) Antibody Rapid Stat Lab 06/12/24 00:04 Completed Hep C Ab with Reflex to RNA Stat Lab 06/12/24 00:04 Received PT/INR [Prothrombin Time INR] Stat Lab 06/12/24 00:04 Completed Trop I [Troponin I] Stat Lab 06/12/24 00:04 Completed Troponin I Q3H Lab 06/12/24 03:15 Ordered Troponin I Q3H Lab 06/12/24 06:15 Ordered Medical Decision Narrative: In summary, this 33-year-old female with known history of pseudoseizures, bipolar, tobacco use disorder presents to the emergency department today with concerns of fall, patient also exhibited seizure-like activity and is complaining of nose and ankle pain. On initial evaluation patient is hemodynamically stable, afebrile, GCS 15, no neurologic deficits, no midline tenderness of the cervical spine, no deformity or step-off, only findings of traumatic injury on exam are swelling and tenderness over the bridge of the nose as well as tenderness in the distal right lower extremity. Differential diagnosis includes but is not limited to intracranial bleed, nasal fracture, C-spine injury, fracture, dislocation, patient exhibited seizure-like activity in the ER with abnormal but very well-coordinated rhythmic movements, she responded to noxious stimuli. Differential is pseudoseizures, I considered epileptic seizure however patient had no postictal period and responded to noxious stimuli which go strongly against that potential diagnosis. I did consider arrhythmia, WPW, Brugada, HCM, electrolyte abnormality. Based on these concerns, I ordered serum labs, ECG, CT imaging, x-rays. ECG personally interpreted demonstrates normal sinus rhythm, rate 82, normal axis, normal SD and QTc, no STEMI, no WPW, no Brugada, no HCM. Patient received Tylenol, methocarbamol initially for treatment in the ER. Labs were reviewed and do not demonstrate any actionable abnormalities on CBC or CMP. PT/INR normal. X-rays personally interpreted do not demonstrate acute osseous injury in the right lower extremity. See radiology read for final interpretation. CT imaging was all personally interpreted and I do not appreciate acute traumatic injury in the head, face, or cervical spine. See radiology reads for final interpretations. On reassessment patient's pain is controlled, she has not had any additional seizure-like activity and her labs are reassuring against patient ever having true seizure activity since she has no leukocytosis or other acute abnormalities. Patient has ambulated to the restroom including weightbearing on the right lower extremity. Darrell wrap was applied to the ankle for comfort. Patient and her dad at bedside were given instructions on symptomatic management, follow up instructions, and return precautions for the emergency department. Patient indicated understanding and was discharged in stable condition. Critical Care Critical Care Time Critical Care Time: No
[2024-06-12] MEDS: METHOCARBAMOL 500MG TABLET 500 MG PO (00:15)
[2024-06-12] MEDS: ACETAMINOPHEN 500MG TAB 1000 MG PO (00:15)
[2024-06-12 00:22] LABS: Albumin Level 4.6 g/dl (3.5-5.0); Chloride 105 mmol/L (98-107); INR 0.96 (0.9-1.1); Prothrombin Time 10.8 seconds (10.1-12.5)
[2024-06-12 00:23] LABS: Potassium 3.6 mmoL/L (3.5-5.1); Sodium 137 mmol/L (136-145)
[2024-06-12 00:25] LABS: Alanine Aminotransferase 18 U/L (12-78); Anion Gap 14.6 mEq/L (5-15); Aspartate Amino Transferase 28 U/L (14-36); Blood Urea Nitrogen 8 mg/dl (7-17); Carbon Dioxide 21 mmol/L (22.0-30.0); Creatinine Clearance Estimated 116 mL/min (50-200); Estimated Glomerular Filt Rate 83 ml/min (>60); GFR (African American) 101 ML/MIN (>60)
[2024-06-12 00:26] LABS: Albumin/Globulin Ratio 1.5 (1.1-1.8); Alkaline Phosphatase 34 U/L (38-126); Bilirubin,Total 0.5 mg/dl (0.2-1.3); Calcium 9.7 mg/dl (8.4-10.2); Globulin 3.1 g/dL (1.3-3.2); Glucose 89 mg/dl (74-100); Total Protein,Serum 7.7 g/dl (6.3-8.2)
--- NOTE | 2024-06-12 00:28 | ECG_ITS ---
APPROVED REPORT Exam: Resting ECG HR:82 bpm ECG Measurements Heart Rate 82 AXES GA 164 P 46 QRSd 106 QRS 87 QT 361 T 61 QTc 400 Conclusion SINUS RHYTHM NORMAL ECG Electronically signed by : MICHELLE MEREDITH, 06/12/2024 07:13:28
[2024-06-12 00:30] LABS: HCG Qualitative, Serum Negative (Negative)
[2024-06-12 00:31] LABS: Basophils # 0.1 K/mm3 (0-0.2); Basophils % 0.5 % (0.1-2.0); Eosinophils % 0.1 % (0.1-12.0); Hematocrit 44.9 % (37.0-47.0); Hemoglobin 15.4 g/dL (12.2-16.2); Lymphocytes # 3.9 K/mm3 (0.7-4.5); Lymphocytes % 45.3 % (10-50); Mean Corpuscular HGB Conc 34.3 g/dL (31.8-35.4); Mean Corpuscular Hemoglobin 32.3 pg (27.0-31.2); Mean Corpuscular Volume 94.3 fl (81-99); Mean Platelet Volume 7.3 fl (7.4-10.4); Monocytes # 0.8 K/mm3 (0.1-1.0); Monocytes % 9.9 % (1.7-9.3); Neutrophils # 3.8 K/mm3 (1.8-7.8); Neutrophils % 44.1 % (37.0-80.0); Platelet Count 302 K/mm3 (142-424); Red Blood Count 4.76 M/mm3 (4.20-5.40); Red Cell Distribution Width 12.9 % (11.5-17.5); White Blood Count 8.5 K/mm3 (4.8-10.8)
[2024-06-12 00:48] LABS: HIV (1&2) Antibody Rapid NONREACTIVE (NONREACTIVE)
[2024-06-12 01:23] LABS: Troponin I < 0.01 ng/ml (0.00-0.034)
--- NOTE | 2024-06-12 01:50 | PC.NURSE ---
pt asleep in bed father at bedside.
[2024-06-12 02:51] VITALS: BP 104/71; PULSE 80; RESP 16; TEMP 36.7; O2SAT 98
== END 2024-06-12 02:19 | disposition home or self-care (01) ==
PROVIDERS: Emergency Provider Emergency Medicine; PCP Family Medicine
DX: S09.92XA Unspecified injury of nose, initial encounter (principal); M79.604 Pain in right leg; M25.571 Pain in right ankle and joints of right foot; R56.9 Unspecified convulsions; J34.89 Other specified disorders of nose and nasal sinuses; W18.39XA Other fall on same level, initial encounter; Y93.89 Activity, other specified; Y92.9 Unspecified place or not applicable
CPT/HCPCS: 70450; 70486; 72125; 73562; 73590; 73610; 73630; 80053; 84484; 84703; 85025; 85610; 87389; 93005; 99284

== ENCOUNTER 2024-06-12 14:29 | Emergency (ER) | payer MEDICAID, SELFPAY ==
[2024-06-12] VITALS (7 sets, daily range): BP systolic 117–139; BP diastolic 83–98; PULSE 68–102; RESP 14–20; TEMP 36.7–36.9; O2SAT 96–100; BMI 30.2
--- NOTE | 2024-06-12 14:36 | ED_ITS ---
Discharge Plan Disposition Patient Disposition: Home, Self-Care Condition: Good Prescriptions Prescriptions: No Action albuterol sulfate 90 mcg/actuation HFA aerosol inhaler 2 inh inhalation Q4-6H PRN (Reason: shortness of breath or wheezing) Qty: 8.5 1RF pantoprazole 40 mg tablet,delayed release (DR/EC) 40 mg PO DAILY propranolol 20 mg tablet PO PRN mupirocin 2 % ointment topical trazodone 100 mg tablet 100 mg PO QHS PRN (Reason: insomnia) Qty: 30 1RF buspirone 10 mg tablet 10 mg PO BID Qty: 60 1RF Caplyta 42 mg capsule 42 mg PO DAILY Qty: 30 1RF Saline Nasal 0.65 % aerosol,spray 1 spray intranasal Q4H PRN (Reason: nasal congestion) Qty: 44 0RF budesonide-formoterol [Symbicort] 160-4.5 mcg/actuation HFA aerosol inhaler See Rx Instructions .ROUTE .COMPLEX Rx Instructions: see rx Preparation H 0.25-14-74.9 % ointment [address] TID PRN (Reason: hemorrhoids) Qty: 28 1RF metronidazole 500 mg tablet 500 mg PO BID 7 Days Qty: 14 0RF Referrals Follow up/Referrals: Real Avila [Primary Care Provider] - See instructions Activity Restrictions/Add. Instructions Additional Instructions/Restrictions: As we discussed you need to take Tylenol alternating every 4 hours with Motrin for symptomatic pain. Please apply ice and keep your extremity elevated to keep the swelling down. Please call in the morning to establish your follow-up appointment with Dr. Nicole. Follow-up with your PCP for any persistent or worsening symptoms or return to the ER as needed as we also discussed please follow-up with your mental health provider for referral for therapy as well as your medication management. Clinical Impressions Clinical Impression: Acute pain of right knee, Conversion disorder with abnormal movement, acute episode Print Language Print Language: [place] Discharge ED Provider: Leroy Macias General Adult HPI <LEYDA Jackson - Last Filed: 06/12/24 22:21> General Chief complaint: Recheck/Abnormal Lab/Rx Stated complaint: AO 06/11/24-Pain R leg, headache, has had 2 seizur Time Seen by Provider: 06/12/24 14:35 History of Present Illness HPI narrative: Patient presents for multiple complaints. Patient is a very complex psychiatric medical history including pseudoseizures, conversion disorder, anxiety, PTSD, history of polysubstance abuse, along with a past medical history of COPD, history of hepatitis C. Patient reportedly had one of her pseudoseizures last night and presented to the emergency department for evaluation in the middle of the night for striking her head and pain to her right knee and ankle. She was fully and appropriately evaluated for all those injuries and the only significant finding was some soft tissue swelling to the lateral malleolus of the ankle with no bony abnormalities noted. She was subsequently discharged home however patient presents to the emergency department again today for ongoing and unimproved right knee pain and ankle pain. While in the lobby she had another episode of pseudoseizure. Of note I did speak to the patient's mental health provider who called upon seeing the patient had been admitted to the ER. She actually has evaluated her this week. Full discussion will be detailed below. Patient currently denies chest pain shortness of breath fever chills hemoptysis hematochezia melena nausea vomiting diarrhea but does report pain in the forehead right knee and right ankle. Related Data Home Medications ?Medication ?Instructions ?Recorded ?Confirmed pantoprazole 40 mg tablet,delayed 40 mg PO DAILY 09/11/23 04/28/24 release budesonide-formoterol HFA 160 See Rx Instructions .Route .COMPLEX 11/28/23 04/28/24 mcg-4.5 mcg/actuation aerosol inhaler (Symbicort) mupirocin 2 % topical ointment topical 01/15/24 04/28/24 propranolol 20 mg tablet mg PO PRN 01/15/24 04/28/24 Previous Rx's ?Medication ?Instructions ?Recorded albuterol sulfate 90 mcg/actuation 2 inh inhalation Q4-6H PRN 03/29/23 aerosol inhaler shortness of breath or wheezing #8.5 grams phenylephrine 0.25 %-mineral oil [address] TID PRN hemorrhoids 05/19/24 14 %-petrolatm 74.9 % rectal #28 grams ointment (Preparation H) metronidazole 500 mg tablet 500 mg PO BID 7 days #14 tabs 05/25/24 buspirone 10 mg tablet 10 mg PO BID #60 tabs 10/22/24 lumateperone 42 mg capsule 42 mg PO DAILY #30 caps 06/10/24 (Caplyta) trazodone 100 mg tablet 100 mg PO QHS PRN insomnia #30 tabs 06/10/24 sodium chloride 0.65 % nasal spray 1 spray intranasal Q4H PRN nasal 06/12/24 aerosol (Saline Nasal) congestion #44 mL Allergies Allergy/AdvReac Type Severity Reaction Status Date / Time naloxone [From Narcan] Allergy Anaphylaxis Verified 06/12/24 14:50 Penicillins Allergy Rash Verified 04/28/24 13:10 PFSH <LEYDA Jackson - Last Filed: 06/12/24 22:21> [facility], LAT[facility] Disclaimer: The information contained in this section may have been updated after the patient was seen, as this information can be updated by other users. Medical History History of UTI Hyperlipemia Seizures Kidney stone Urinary tract infection Chronic cough Asthma Sinus headache History of gastroesophageal reflux (GERD) Allergies Migraines Delirium Headache, migraine Anxiety Low back pain Bipolar disorder Nasal bleeding Cracked skin on feet Allergic rhinitis Chronic headaches Hypertension Anxiety Bipolar disorder Depression Surgical History History of esophagogastroduodenoscopy (EGD) History of tubal ligation History of surgery KIDNEY STENT PLACED AND REMOVED Family History Mother Ovarian cancer Diabetes Father Lung cancer Diabetes Liver failure Social History Smoking Status: Current every day smoker tobacco type: cigarettes packs per day: 1 years smoked: 15 second hand exposure: Yes alcohol intake: current alcohol intake frequency: holidays/special occasions only substance use type: former substance user and marijuana 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al status: unemployed Travel in the last 8 weeks: None housing: house number of children: 0 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al exposures/hazards: No caffeine: Yes Other Medical History Have you received the Flu Vaccine for this season: No Have you received the Pneumonia Vaccine: No <LEYDA Jackson - Last Filed: 06/12/24 22:21> ROS Obtained: Yes Systems reviewed as appropriate & no additional complaints except as documented Physical Exam <LEYDA Jackson - Last Filed: 06/12/24 22:21> General General appearance: alert and in no apparent distress Respiratory Respiratory exam: Present normal lung sounds bilaterally Cardiovascular Cardiovascular exam: Present regular rate Neurological Exam Neurological exam: Present alert and oriented X3 Medical Decision Making <LEYDA Jackson - Last Filed: 06/12/24 22:21> Medical Records Medical records reviewed: Yes I reviewed the patient's medical records. Screening: Per USPSTF and CDC recommendations, given the prevalence of disease in our region, it is our hospital?s policy to screen for HIV and viral Hepatitis for all patients aged 18 and over and those with ongoing risk factors. [place] Inquiry Pt receiving controlled substance: No Vital Signs: 06/12/24 14:31 06/12/24 15:04 06/12/24 15:06 Temperature 98.4 F Temperature Source Oral Pulse Rate 102 H 94 H Pulse Rate [Right] 78 Respiratory Rate 20 19 17 Blood Pressure 118/89 136/91 H Blood Pressure [Right Arm] 117/98 H Blood Pressure Mean 43 106 Blood Pressure Mean [Right Arm] 104 02 Sat by Pulse Oximetry 99 96 100 Oxygen Delivery Method Room Air Room Air 06/12/24 15:48 06/12/24 16:01 06/12/24 16:30 Temperature Temperature Source Pulse Rate 80 85 68 Pulse Rate [Right] Respiratory Rate 14 17 14 Blood Pressure 139/83 120/96 H 132/86 Blood Pressure [Right Arm] Blood Pressure Mean 101 99 101 Blood Pressure Mean [Right Arm] 02 Sat by Pulse Oximetry 99 100 100 Oxygen Delivery Method Room Air Room Air Room Air 06/12/24 17:17 Temperature 98.1 F Temperature Source Pulse Rate 77 Pulse Rate [Right] Respiratory Rate 18 Blood Pressure 118/89 Blood Pressure [Right Arm] Blood Pressure Mean Blood Pressure Mean [Right Arm] 02 Sat by Pulse Oximetry Oxygen Delivery Method Room Air Lab Data Lab results reviewed: Yes I reviewed the patient's lab results. Lab Results 06/12/24 14:42: WBC 11.9 H D, RBC 4.66, Hgb 15.0, Hct 43.7, MCV 93.7, MCH 32.3 H , MCHC 34.4, RDW 12.9, Plt Count 311, MPV 7.4, Neut % (Auto) 58.9, Lymph % (Auto) 33.0, [place] % (Auto) 7.0, Eos % (Auto) 0.5, Baso % (Auto) 0.7, Neut # (Auto) 7.0, Lymph # (Auto) 3.9, [place] # (Auto) 0.8, Eos # (Auto) 0.1, Baso # (Auto) 0.1, PT 10.4, INR 0.92, Sodium 142, Potassium 3.6, Chloride 111 H, Carbon Dioxide 17 L, Anion Gap 17.6 H, BUN 5 L D, Creatinine 0.80, Estimated Creat Clear 116, Estimated GFR 83, Est GFR ( Amer) 101, Glucose 108 H D, Calcium 9.5, Magnesium 1.5 L, Total Bilirubin 0.5, AST 33, ALT 23 D, Alkaline Phosphatase 39, Total Creatine Kinase 87, Total Protein 7.9, Albumin 4.6, G lobulin 3.3 H, Albumin/Globulin Ratio 1.4, Serum HCG, Qual Negative, Salicylates < 1.0 L, Acetaminophen < 10 L, Plasma/Serum Alcohol < 10 06/12/24 14:48: VBG pH 7.38, VBG pCO2 28.9 L, VBG pO2 142.0 H, VBG HCO3 16.9 L, VBG Total CO2 17.8 L, VBG O2 Saturation 98.8 H, VBG Base Excess -8.2 L, VBG Lactic Acid 5.0 H 06/12/24 14:42 06/12/24 14:42 Orders (Tests/Meds): ED MEDICATIONS Discontinued Medications Generic Name Dose Route Start Last Admin Trade Name Awilda PRN Reason Stop Dose Admin Acetaminophen 1,000 mg 06/12/24 14:44 06/12/24 16:15 Acetaminophen 500mg Tab PO 06/12/24 14:45 Not Given ONCE ONE Ketorolac Tromethamine 30 mg 06/12/24 17:06 06/12/24 17:11 Ketorolac 30mg/Ml Vial IV 06/12/24 17:07 30 mg ONCE ONE Administration Ondansetron HCl 4 mg 06/12/24 14:44 06/12/24 16:16 Ondansetron 4mg/2ml Vial IV 06/12/24 14:45 4 mg ONCE ONE Administration Oxycodone HCl 5 mg 06/12/24 17:06 06/12/24 17:11 Oxycodone 5mg Immediate Release Tablet PO 06/12/24 17:07 5 mg ONCE ONE Administration Sodium Chloride 10 ml 06/12/24 14:47 Sodium Chloride 0.9% 10ml Flush Syringe IV 07/12/24 14:46 NEEDED PRN Maintain IV Site ORDERS Category Date Time Status CT facial bones wo con Stat Cat Scan 06/12/24 14:[address] head/brain wo con Stat Cat Scan 06/12/24 14:48 Completed Ankle XR -Right minimum 3 Views [XR ankle RT min 3V] Exams 06/12/24 14:49 Completed Stat Femur XR right 2 views [XR femur RT 2V] Stat Exams 06/12/24 14:44 Completed Foot XR right 2 views [XR foot RT 2V] Stat Exams 06/12/24 14:49 Completed Knee XR right 3 views [XR knee RT 3V] Stat Exams 06/12/24 14:49 Completed Tibia/fibula XR right 2 views [XR tibia fibula RT 2V] Exams 06/12/24 14:49 Completed Stat Acetaminophen Stat Lab 06/12/24 14:42 Completed CBC w/Auto Diff [Complete Blood Count Auto Diff] Stat Lab 06/12/24 14:42 Completed CK [Creatine Kinase] Stat Lab 06/12/24 14:42 Completed CMP [Comprehensive Metabolic Panel] Stat Lab 06/12/24 14:42 Completed Ethyl Alcohol Stat Lab 06/12/24 14:42 Completed HCG Qualitative, Serum Stat Lab 06/12/24 14:42 Completed INR [Prothrombin Time INR] Stat Lab 06/12/24 14:42 Completed Magnesium Stat Lab 06/12/24 14:42 Completed Salicylate Stat Lab 06/12/24 14:42 Completed VBG [Venous Blood Gas] Stat RT 06/12/24 14:48 Completed Medical Decision Narrative: In summary patient is a 3-year-old female who presents to the emergency department for evaluation of ultimately right knee and ankle pain. Patient is hemodynamically stable upon arrival, febrile. Physical exam is remarkable for tenderness to palpation at the right knee with no palpable bony deformity and there is tenderness to palpation at the lateral malleolus as well as the medial with no evidence of ecchymosis but there is edema noted.. Differential diagnosis includes possible fracture versus strain versus sprain however I actually reviewed all of her images from yesterday which were negative for any acute bony injury however patient states that she has fallen again today and we actually had to assist the patient out of the floor in the lobby of the ER today for fall #2 so thus I will repeat her workup appropriately.. Initial workup will be conducted with CT scan of the head without contrast plain film x-rays of the right lower extremity. Initial interventions include acetaminophen given the possibility of a head injury. Initial workup reviewed by me again is nonsignificant for acute any acute bony abnormality however patient does have swelling at the right ankle.. Upon repeat evaluation patient still reports pain in the right knee. Given this I have placed the patient in an Darrell wrap as I do not have any suspicion of fracture and she is neurovascular intact distally in the extremity. Given the patient crutches and referred her to Dr. Nicole for further evaluation. <Leroy Macias MD - Last Filed: 06/12/24 22:47> Vital Signs: 06/12/24 14:31 06/12/24 15:04 06/12/24 15:06 Temperature 98.4 F Temperature Source Oral Pulse Rate 102 H 94 H Pulse Rate [Right] 78 Respiratory Rate 20 19 17 Blood Pressure 118/89 136/91 H Blood Pressure [Right Arm] 117/98 H Blood Pressure Mean 43 106 Blood Pressure Mean [Right Arm] 104 02 Sat by Pulse Oximetry 99 96 100 Oxygen Delivery Method Room Air Room Air 06/12/24 15:48 06/12/24 16:01 06/12/24 16:30 Temperature Temperature Source Pulse Rate 80 85 68 Pulse Rate [Right] Respiratory Rate 14 17 14 Blood Pressure 139/83 120/96 H 132/86 Blood Pressure [Right Arm] Blood Pressure Mean 101 99 101 Blood Pressure Mean [Right Arm] 02 Sat by Pulse Oximetry 99 100 100 Oxygen Delivery Method Room Air Room Air Room Air 06/12/24 17:17 Temperature 98.1 F Temperature Source Pulse Rate 77 Pulse Rate [Right] Respiratory Rate 18 Blood Pressure 118/89 Blood Pressure [Right Arm] Blood Pressure Mean Blood Pressure Mean [Right Arm] 02 Sat by Pulse Oximetry Oxygen Delivery Method Room Air Lab Data Lab Results 06/12/24 14:42: WBC 11.9 H D, RBC 4.66, Hgb 15.0, Hct 43.7, MCV 93.7, MCH 32.3 H , MCHC 34.4, RDW 12.9, Plt Count 311, MPV 7.4, Neut % (Auto) 58.9, Lymph % (Auto) 33.0, [place] % (Auto) 7.0, Eos % (Auto) 0.5, Baso % (Auto) 0.7, Neut # (Auto) 7.0, Lymph # (Auto) 3.9, [place] # (Auto) 0.8, Eos # (Auto) 0.1, Baso # (Auto) 0.1, PT 10.4, INR 0.92, Sodium 142, Potassium 3.6, Chloride 111 H, Carbon Dioxide 17 L, Anion Gap 17.6 H, BUN 5 L D, Creatinine 0.80, Estimated Creat Clear 116, Estimated GFR 83, Est GFR ( Amer) 101, Glucose 108 H D, Calcium 9.5, Magnesium 1.5 L, Total Bilirubin 0.5, AST 33, ALT 23 D, Alkaline Phosphatase 39, Total Creatine Kinase 87, Total Protein 7.9, Albumin 4.6, G lobulin 3.3 H, Albumin/Globulin Ratio 1.4, Serum HCG, Qual Negative, Salicylates < 1.0 L, Acetaminophen < 10 L, Plasma/Serum Alcohol < 10 06/12/24 14:48: VBG pH 7.38, VBG pCO2 28.9 L, VBG pO2 142.0 H, VBG HCO3 16.9 L, VBG Total CO2 17.8 L, VBG O2 Saturation 98.8 H, VBG Base Excess -8.2 L, VBG Lactic Acid 5.0 H Orders (Tests/Meds): ED MEDICATIONS Discontinued Medications Generic Name Dose Route Start Last Admin Trade Name Manjinderq PRN Reason Stop Dose Admin Acetaminophen 1,000 mg 06/12/24 14:44 06/12/24 16:15 Acetaminophen 500mg Tab PO 06/12/24 14:45 Not Given ONCE ONE Ketorolac Tromethamine 30 mg 06/12/24 17:06 06/12/24 17:11 Ketorolac 30mg/Ml Vial IV 06/12/24 17:07 30 mg ONCE ONE Administration Ondansetron HCl 4 mg 06/12/24 14:44 06/12/24 16:16 Ondansetron 4mg/2ml Vial IV 06/12/24 14:45 4 mg ONCE ONE Administration Oxycodone HCl 5 mg 06/12/24 17:06 06/12/24 17:11 Oxycodone 5mg Immediate Release Tablet PO 06/12/24 17:07 5 mg ONCE ONE Administration Sodium Chloride 10 ml 06/12/24 14:47 Sodium Chloride 0.9% 10ml Flush Syringe IV 07/12/24 14:46 NEEDED PRN Maintain IV Site ORDERS Category Date Time Status CT facial bones wo con Stat Cat Scan 06/12/24 14:[address] head/brain wo con Stat Cat Scan 06/12/24 14:48 Completed Ankle XR -Right minimum 3 Views [XR ankle RT min 3V] Exams 06/12/24 14:49 Completed Stat Femur XR right 2 views [XR femur RT 2V] Stat Exams 06/12/24 14:44 Completed Foot XR right 2 views [XR foot RT 2V] Stat Exams 06/12/24 14:49 Completed Knee XR right 3 views [XR knee RT 3V] Stat Exams 06/12/24 14:49 Completed Tibia/fibula XR right 2 views [XR tibia fibula RT 2V] Exams 06/12/24 14:49 Completed Stat Acetaminophen Stat Lab 06/12/24 14:42 Completed CBC w/Auto Diff [Complete Blood Count Auto Diff] Stat Lab 06/12/24 14:42 Completed CK [Creatine Kinase] Stat Lab 06/12/24 14:42 Completed CMP [Comprehensive Metabolic Panel] Stat Lab 06/12/24 14:42 Completed Ethyl Alcohol Stat Lab 06/12/24 14:42 Completed HCG Qualitative, Serum Stat Lab 06/12/24 14:42 Completed INR [Prothrombin Time INR] Stat Lab 06/12/24 14:42 Completed Magnesium Stat Lab 06/12/24 14:42 Completed Salicylate Stat Lab 06/12/24 14:42 Completed VBG [Venous Blood Gas] Stat RT 06/12/24 14:48 Completed Medical Decision Narrative: In summary patient is a 3-year-old female who presents to the emergency department for evaluation of ultimately right knee and ankle pain. Patient is hemodynamically stable upon arrival, febrile. Physical exam is remarkable for tenderness to palpation at the right knee with no palpable bony deformity and there is tenderness to palpation at the lateral malleolus as well as the medial with no evidence of ecchymosis but there is edema noted.. Differential diagnosis includes possible fracture versus strain versus sprain however I actually reviewed all of her images from yesterday which were negative for any acute bony injury however patient states that she has fallen again today and we actually had to assist the patient out of the floor in the lobby of the ER today for fall #2 so thus I will repeat her workup appropriately.. Initial workup will be conducted with CT scan of the head without contrast plain film x-rays of the right lower extremity. Initial interventions include acetaminophen given the possibility of a head injury. Initial workup reviewed by me again is nonsignificant for acute any acute bony abnormality however patient does have swelling at the right ankle.. Upon repeat evaluation patient still reports pain in the right knee. Given this I have placed the patient in an Darrell wrap as I do not have any suspicion of fracture and she is neurovascular intact distally in the extremity. Given the patient crutches and referred her to Dr. Nicole for further evaluation. I was consulted by the BREA, and we discussed the complexity of the problems being addressed.I approved the treatment and management plan for this patient?s care in the Emergency Department, thus performing a substantive portion of the medical decision making.Signed, Leroy Macias MD Critical Care <LEYDA Jackson - Last Filed: 06/12/24 22:21> Critical Care Time Critical Care Time: No
--- NOTE | 2024-06-12 14:44 | XR_ITS ---
PROCEDURE INFORMATION: Exam: XR Right Femur Exam date and time: 06/12/2024 3:27 PM Age: 33 years old Clinical indication: Pain and injury or trauma; Fall; Blunt trauma; Thigh or upper leg; Right; Additional info: Reported fall, pain TECHNIQUE: Imaging protocol: Radiologic exam of the right femur. Views: 2 views. Total images: 2 COMPARISON: CR XR KNEE RT 3V 06/12/2024 3:27 PM FINDINGS: Bones/joints: Images of the proximal femur demonstrate no evidence of acute fracture or dislocation. Soft tissues: No soft tissue swelling. IMPRESSION: 1. Images of the proximal femur demonstrate no evidence of acute fracture or dislocation. 2. No soft tissue swelling.
--- NOTE | 2024-06-12 14:46 | PC.NURSE ---
SEIZURE PADS PLACED ON BED. CALL LIGHT WITHIN REACH. FATHER AT BEDSIDE. WARM BLANKET PER PT REQUEST
--- NOTE | 2024-06-12 14:48 | CT_ITS ---
PROCEDURE INFORMATION: Exam: CT Maxillofacial Without Contrast Exam date and time: 06/12/2024 3:30 PM Age: 33 years old Clinical indication: Injury or trauma; Fall; Blunt trauma (contusions or hematomas); Nose; Additional info: Trauma, critical injury suspected, seizure activity, fell and hit nose TECHNIQUE: Imaging protocol: Computed tomography of the face without contrast. Total images: 276 Radiation optimization: All CT scans at this facility use at least one of these dose optimization techniques: automated exposure control; mA and/or kV adjustment per patient size (includes targeted exams where dose is matched to clinical indication); or iterative reconstruction. COMPARISON: CT FACIAL BONES WO CON 09/16/2020 2:06 PM FINDINGS: Paranasal sinuses: Mild mucosal thickening noted within both maxillary sinuses. Remaining sinuses are clear. Orbital cavities: Orbits are normal. Globes are unremarkable. Bones: No evidence of acute fracture. Soft tissues: Unremarkable. IMPRESSION: 1. Mild mucosal thickening noted within both maxillary sinuses. 2. No evidence of acute fracture.
--- NOTE | 2024-06-12 14:48 | CT_ITS ---
PROCEDURE INFORMATION: Exam: CT Head Without Contrast Exam date and time: 06/12/2024 3:28 PM Age: 33 years old Clinical indication: Injury or trauma; Fall; Blunt trauma (contusions or hematomas); Other: Seizure activity; Additional info: Trauma, critical injury suspected, seizure activity, fell and hit nose TECHNIQUE: Imaging protocol: Computed tomography of the head without contrast. Total images: 3 Radiation optimization: All CT scans at this facility use at least one of these dose optimization techniques: automated exposure control; mA and/or kV adjustment per patient size (includes targeted exams where dose is matched to clinical indication); or iterative reconstruction. COMPARISON: CT HEAD/BRAIN WO CON 06/12/2024 12:34 AM FINDINGS: Brain: No hemorrhage, mass effect or midline shift. Cerebral ventricles: No ventriculomegaly. Paranasal sinuses: Visualized sinuses are unremarkable. No fluid levels. Mastoid air cells: Visualized mastoid air cells are well aerated. Bones: Unremarkable. No acute fracture. Soft tissues: Right frontal and nasal soft tissue hematoma. IMPRESSION: 1. No hemorrhage, mass effect or midline shift. 2. Right frontal and nasal soft tissue hematoma.
--- NOTE | 2024-06-12 14:49 | XR_ITS ---
PROCEDURE INFORMATION: Exam: XR Right Ankle Exam date and time: 06/12/2024 3:27 PM Age: 33 years old Clinical indication: Pain and injury or trauma; Fall; Blunt trauma; Ankle; Right; Additional info: Reported fall, pain TECHNIQUE: Imaging protocol: Radiologic exam of the right ankle. Views: 3 or more views. Total images: 3 COMPARISON: CR XR ANKLE RT MIN 3V 06/12/2024 12:36 AM FINDINGS: Bones/joints: No evidence of acute fracture. No evidence of acute dislocation. Soft tissues: Mild lateral soft tissue swelling. IMPRESSION: 1. No evidence of acute fracture. 2. No evidence of acute dislocation. 3. Mild lateral soft tissue swelling.
--- NOTE | 2024-06-12 14:49 | XR_ITS ---
PROCEDURE INFORMATION: Exam: XR Right Foot Exam date and time: 06/12/2024 3:27 PM Age: 33 years old Clinical indication: Pain and injury or trauma; Fall; Blunt trauma; Foot; Right; Additional info: Reported fall, pain TECHNIQUE: Imaging protocol: Radiologic exam of the right foot. Views: 1 or 2 views. Total images: 2 COMPARISON: CR XR FOOT RT MIN 3V 06/12/2024 12:36 AM FINDINGS: Bones/joints: No evidence of acute fracture or dislocation. Soft tissues: Soft tissues are within normal limits. IMPRESSION: No evidence of acute fracture or dislocation.
--- NOTE | 2024-06-12 14:49 | XR_ITS ---
PROCEDURE INFORMATION: Exam: XR Right Tibia and Fibula Exam date and time: 06/12/2024 3:27 PM Age: 33 years old Clinical indication: Pain and injury or trauma; Fall; Blunt trauma; Lower leg; Right; Additional info: Reported fall, pain TECHNIQUE: Imaging protocol: Radiologic exam of the right tibia and fibula. Views: 2 views. Total images: 2 COMPARISON: CR XR TIBIA FIBULA RT 2V 06/12/2024 12:36 AM FINDINGS: Bones/joints: No evidence of acute fracture or dislocation. Soft tissues: Soft tissues are within normal limits. IMPRESSION: No evidence of acute fracture or dislocation.
--- NOTE | 2024-06-12 14:49 | XR_ITS ---
PROCEDURE INFORMATION: Exam: XR Right Knee Exam date and time: 06/12/2024 3:27 PM Age: 33 years old Clinical indication: Pain and injury or trauma; Fall; Blunt trauma; Knee; Right; Additional info: Reported fall, pain TECHNIQUE: Imaging protocol: Radiologic exam of the right knee. Views: 3 views. Total images: 3 COMPARISON: CR XR KNEE RT 3V 06/12/2024 12:36 AM FINDINGS: Bones/joints: No evidence of acute fracture or dislocation. Soft tissues: Soft tissues are within normal limits. IMPRESSION: No evidence of acute fracture or dislocation.
--- NOTE | 2024-06-12 14:51 | PC.NURSE ---
pt is alert and oriented @ this time. Father is @ bedside. Pt reports she is having r leg pain from the knee down, as well as nose and head pain. 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 pt denies any current drug or etoh abuse.
--- NOTE | 2024-06-12 14:53 | ECG_ITS ---
APPROVED REPORT Exam: Resting ECG HR:86 bpm ECG Measurements Heart Rate 86 AXES IA 150 P 25 QRSd 89 QRS 79 QT 352 T 58 QTc 395 Conclusion SINUS RHYTHM NORMAL ECG Electronically signed by : YENI VALERIO, 06/12/2024 22:57:47
[2024-06-12 14:56] LABS: VBG Base Excess -8.2 mmol/L (-2.4-2.3); VBG HCO3 16.9 mmol/L (23-30); VBG Oxygen Saturation 98.8 % (50-70); VBG PCO2 28.9 mmol/L (35-51); VBG PH 7.38 mmol/L (7.31-7.41); VBG Total CO2 17.8 mmol/L (23-27)
[2024-06-12 14:57] LABS: Basophils # 0.1 K/mm3 (0-0.2); Basophils % 0.7 % (0.1-2.0); Eosinophils # 0.1 K/mm3 (0.0-0.4); Eosinophils % 0.5 % (0.1-12.0); Hematocrit 43.7 % (37.0-47.0); Lymphocytes # 3.9 K/mm3 (0.7-4.5); Mean Corpuscular HGB Conc 34.4 g/dL (31.8-35.4); Mean Corpuscular Hemoglobin 32.3 pg (27.0-31.2); Mean Corpuscular Volume 93.7 fl (81-99); Mean Platelet Volume 7.4 fl (7.4-10.4); Monocytes # 0.8 K/mm3 (0.1-1.0); Neutrophils % 58.9 % (37.0-80.0); Platelet Count 311 K/mm3 (142-424); Red Blood Count 4.66 M/mm3 (4.20-5.40); Red Cell Distribution Width 12.9 % (11.5-17.5); White Blood Count 11.9 K/mm3 (4.8-10.8)
[2024-06-12 14:58] LABS: Albumin Level 4.6 g/dl (3.5-5.0); Chloride 111 mmol/L (98-107); Sodium 142 mmol/L (136-145)
[2024-06-12 14:59] LABS: Potassium 3.6 mmoL/L (3.5-5.1)
[2024-06-12 15:01] LABS: Alanine Aminotransferase 23 U/L (12-78); Albumin/Globulin Ratio 1.4 (1.1-1.8); Anion Gap 17.6 mEq/L (5-15); Aspartate Amino Transferase 33 U/L (14-36); Blood Urea Nitrogen 5 mg/dl (7-17); Carbon Dioxide 17 mmol/L (22.0-30.0); Creatinine Clearance Estimated 116 mL/min (50-200); Estimated Glomerular Filt Rate 83 ml/min (>60); GFR (African American) 101 ML/MIN (>60); Globulin 3.3 g/dL (1.3-3.2); Total Protein,Serum 7.9 g/dl (6.3-8.2)
[2024-06-12 15:02] LABS: Alkaline Phosphatase 39 U/L (38-126); Bilirubin,Total 0.5 mg/dl (0.2-1.3); Calcium 9.5 mg/dl (8.4-10.2); Creatine Kinase 87 U/L (30-135); Glucose 108 mg/dl (74-100); Magnesium 1.5 mg/dl (1.6-2.3)
[2024-06-12 15:03] LABS: INR 0.92 (0.9-1.1); Prothrombin Time 10.4 seconds (10.1-12.5)
[2024-06-12 15:16] LABS: HCG Qualitative, Serum Negative (Negative)
[2024-06-12 15:17] LABS: Ethyl Alcohol < 10 mg/dl (0-10)
[2024-06-12 15:18] LABS: Acetaminophen < 10 ug/ml (10-30); Salicylate < 1.0 mg/dL (2.0-20.0)
--- NOTE | 2024-06-12 15:57 | PC.NURSE ---
pt is erratic and tearful. seizure pads in place.
[2024-06-12] MEDS: ONDANSETRON 4MG/2ML VIAL 4 MG IV (16:16)
--- NOTE | 2024-06-12 17:02 | PC.NURSE ---
Rounded on patient. Patient voiced that she does not need anything at this time.
[2024-06-12] MEDS: OXYCODONE 5MG IMMEDIATE RELEASE TABLET 5 MG PO (17:11)
[2024-06-12] MEDS: KETOROLAC 30MG/ML VIAL 30 MG IV (17:11)
[2024-06-12 18:59] LABS: Reflex Lactic Add Lactic Reflex
== END 2024-06-12 17:24 | disposition home or self-care (01) ==
PROVIDERS: Physician Assistant; Emergency Provider Emergency Medicine; PCP Family Medicine
DX: F44.4 Conversion disorder with motor symptom or deficit (principal); M25.561 Pain in right knee; R51.9 Headache, unspecified; M79.604 Pain in right leg; R56.9 Unspecified convulsions
CPT/HCPCS: 70450; 70486; 73552; 73562; 73590; 73610; 73620; 80053; 80320; 80329; 82550; 82803; 83735; 84703; 85025; 85610; 93005; 96374; 96375; 99284; J1885; J2405

== ENCOUNTER 2024-08-18 15:01 | Emergency (ER) | payer MEDICAID, SELFPAY ==
[2024-08-18 15:01] VITALS: BP 115/83; PULSE 94; RESP 19; TEMP 37.2; O2SAT 98; BMI 28.3
[2024-08-18] MEDS: hydrOXYzine pamoate 25MG CAPSULE 50 MG PO (15:17)
--- NOTE | 2024-08-18 15:22 | ECG_ITS ---
APPROVED REPORT Exam: Resting ECG HR:71 bpm ECG Measurements Heart Rate 71 AXES MN 152 P 10 QRSd 100 QRS 67 QT 381 T 43 QTc 404 Conclusion Sinus rhythm Electronically signed by : LU CAMPOS, 08/18/2024 20:57:50
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
[2024-08-18 16:06] VITALS: BP 118/78; PULSE 85; RESP 18; TEMP 36.8; O2SAT 98
== END 2024-08-18 16:11 | disposition home or self-care (01) ==
PROVIDERS: Emergency Provider Emergency Medicine
DX: F43.0 Acute stress reaction (principal); F41.0 Panic disorder [episodic paroxysmal anxiety]
CPT/HCPCS: 93005; 99283

== ENCOUNTER 2024-08-27 14:23 | Outpatient (CLI) | payer MEDICAID, SELFPAY ==
[2024-08-27 15:03] LABS: Basophils % 0.2 % (0.1-2.0); Eosinophils % 0.2 % (0.1-12.0); Hematocrit 39.1 % (37.0-47.0); Lymphocytes # 2.3 K/mm3 (0.7-4.5); Lymphocytes % 43.5 % (10-50); Mean Corpuscular HGB Conc 35.8 g/dL (31.8-35.4); Mean Corpuscular Hemoglobin 32.3 pg (27.0-31.2); Mean Corpuscular Volume 90.3 fl (81-99); Mean Platelet Volume 8.8 fl (7.4-10.4); Monocytes # 0.5 K/mm3 (0.1-1.0); Monocytes % 10.1 % (1.7-9.3); Neutrophils # 2.4 K/mm3 (1.8-7.8); Neutrophils % 45.2 % (37.0-80.0); Platelet Count 285 K/mm3 (142-424); Red Blood Count 4.33 M/mm3 (4.20-5.40); Red Cell Distribution Width 11.9 % (11.5-17.5); White Blood Count 5.2 K/mm3 (4.8-10.8)
[2024-08-27 15:29] LABS: Alanine Aminotransferase 13 U/L (12-78); Albumin Level 4.3 g/dl (3.5-5.0); Alkaline Phosphatase 37 U/L (38-126); Anion Gap 9.1 mEq/L (5-15); Aspartate Amino Transferase 23 U/L (14-36); Bilirubin,Direct 0.3 mg/dl (0.0-0.4); Bilirubin,Indirect 0.3 mg/dL (0.0-0.9); Bilirubin,Total 0.6 mg/dl (0.2-1.3); Bilirubin,Unconjugated 0.3 mg/dL (0.0-1.1); Blood Urea Nitrogen 10 mg/dl (7-17); Calcium 9.4 mg/dl (8.4-10.2); Carbon Dioxide 26 mmol/L (22.0-30.0); Chloride 107 mmol/L (98-107); Chol/HDL Ratio 3.2 (1-3.5); Cholesterol 206 mg/dl (140-200); Estimated Glomerular Filt Rate 83 ml/min (>60); GFR (African American) 101 ML/MIN (>60); Glucose 73 mg/dl (74-100); HDL Cholesterol 65 mg/dl (40-60); Magnesium 1.6 mg/dl (1.6-2.3); Potassium 4.1 mmoL/L (3.5-5.1); Sodium 138 mmol/L (136-145); Total Protein,Serum 6.7 g/dl (6.3-8.2); Triglycerides 60 mg/dl (30-150); VLDL Cholesterol 12 mg/dL (0-40)
[2024-08-27 15:40] LABS: Direct LDL Cholesterol 123.31 mg/dL (100-129)
[2024-08-27 15:44] LABS: Free T4 (Free Thyroxine) 0.81 ng/dl (0.78-2.19)
[2024-08-27 15:59] LABS: Thyroid Stimulating Hormone 1.61 uIU/mL (0.465-4.68)
== END 2024-08-27 23:59 | disposition home or self-care (01) ==
PROVIDERS: Visit Provider Nurse Practitioner
DX: R00.2 Palpitations (principal); I20.89 Other forms of angina pectoris; R06.09 Other forms of dyspnea; R53.83 Other fatigue; Z82.49 Family history of ischemic heart disease and other diseases of the circulatory system
CPT/HCPCS: 36415; 80048; 80061; 80076; 83735; 84439; 84443; 85025; 93270

== ENCOUNTER 2024-09-05 09:54 | Outpatient (CLI) | payer MEDICAID, SELFPAY ==
--- NOTE | 2024-09-05 09:59 | CA_ITS ---
APPROVED REPORT EXAM: Comprehensive 2D, Doppler, and color-flow Echocardiogram Can Reconditioner: Hanna Hall RVT Ht: 5 ft 3 in Wt: 172lbs BSA: 1.81 BP: 120/91 mmHg Indications: PALPS,FATIGUE,SMOKER,HTN,HLD,SOA 2D Dimensions LA Volume 28.10 mL LA Volume Index 15.44 mL/m2 (M/F) 16-34 M-Mode Dimensions RVDd 1.97 cm (0.9-2.6) LA Diam 3.77 cm (1.9-4.0) LVDd 4.88 cm (3.5-5.7) LVDs 3.14 cm (3.5-5.7) IVSd 1.10 cm (0.6-1.1) PWd 0.64 cm (0.6-1.1) EF (Teich) 65.00% FS 35.70% EDV (Teich) 111.70 mL TAPSE 2.37 (<1.7) ESV (Teich) 39.10 mL LV Diastology E Decel Time 207 (160-240 msec) E/A Ratio 1.1 Aortic Valve FRANKY Index 1.61 cm2/m2 AoV Peak Ron. 122.0 (50-130 cm/s) AO Peak GR. 6.00 mmHg AO Mean GR. 3.10 (<5 mmHg) AO VTI 25.2 (18-25 cm) FRANKY (VTI) 3.00 (2.5-4.5 cm2) Mitral Valve MV E Max Ron. 83.0 (40-130 cm/s) MV A Velocity 76.0 (40-130 cm/s) E/A Ratio 1.10 MV PHT 61.0 ms Pulmonary Valve PV Peak Velocity 95.0 (50-150 cm/s) Left Ventricle The left ventricle is normal size. The left ventricular systolic function is normal. The left ventricular ejection fraction is within the normal range. LVEF is 60%. There is normal left ventricular wall thickness. There is normal LV segmental wall motion. The left ventricular diastolic function is normal. Right Ventricle The right ventricle is normal size. The right ventricular systolic function is normal. Atria The left atrium size is normal. The right atrium size is normal. There is no Doppler evidence of interatrial shunt. Aortic Valve Aortic valve opens well. There is no aortic valvular stenosis. No aortic regurgitation is present. Mitral Valve The mitral valve is normal in structure. No evidence of mitral valve stenosis. Trace mitral regurgitation. Tricuspid Valve Tricuspid valve is grossly normal in structure and function. Trace tricuspid regurgitation. There is insufficient TR jet to estimate RVSP. Pulmonic Valve The pulmonary valve is normal in structure. Trace pulmonic regurgitation. Great Vessels The aortic root is normal in size. The ascending aorta is normal in size. IVC is normal in size and collapses >50% with inspiration. Pericardium There is no pericardial effusion. Other Information Study Quality: Fair Conclusion Normal biventricular systolic function. No significant valvular stenosis or regurgitation. Electronically signed by : Kailee Kee MD 09/14/2024 20:12:51
== END 2024-09-05 23:59 | disposition home or self-care (01) ==
LOC: RT 09:56
PROVIDERS: PCP Family Medicine; Visit Provider Nurse Practitioner
DX: R00.2 Palpitations (principal); I20.89 Other forms of angina pectoris; R06.09 Other forms of dyspnea; R53.83 Other fatigue; Z82.49 Family history of ischemic heart disease and other diseases of the circulatory system
CPT/HCPCS: 93306

== ENCOUNTER 2024-11-12 02:00 | Emergency (ER) | payer MEDICAID, SELFPAY ==
--- NOTE | 2024-11-12 01:53 | ECG_ITS ---
APPROVED REPORT Exam: Resting ECG HR:74 bpm ECG Measurements Heart Rate 74 AXES RI 158 P 37 QRSd 86 QRS 84 QT 350 T 60 QTc 377 Conclusion SINUS RHYTHM NORMAL ECG Electronically signed by : MICHELLE MEREDITH, 11/13/2024 07:04:28
--- NOTE | 2024-11-12 02:04 | ECG_ITS ---
APPROVED REPORT Exam: Resting ECG HR:92 bpm ECG Measurements Heart Rate 92 AXES PA 161 P 59 QRSd 88 QRS 86 QT 340 T 54 QTc 390 Conclusion SINUS RHYTHM NORMAL ECG Artifact secondary to patient movement, no STEMI Electronically signed by : MICHELLE MEREDITH, 11/12/2024 06:51:59
[2024-11-12 02:09] VITALS: BP 129/71; PULSE 89; RESP 20; TEMP 36.8; O2SAT 98; BMI 30.4
--- NOTE | 2024-11-12 02:10 | PC.NURSE ---
Assisted pt to the restroom. asked pt to give us a urine sample, pt states that she wants to talk to her cook apprentice first. her father said she needed to give one anyways but she refuses to give us one without speaking to her cook apprentice. doctor and charge nurse aware at this time.
--- NOTE | 2024-11-12 02:11 | HMH.EDCP ---
Discharge Plan Disposition Patient Disposition: Home, Self-Care Condition: Good Prescriptions Prescriptions: No Action albuterol sulfate 90 mcg/actuation HFA aerosol inhaler 2 inh inhalation Q4-6H PRN (Reason: shortness of breath or wheezing) Qty: 8.5 1RF mupirocin 2 % ointment topical propranolol 20 mg tablet 20 mg PO TID buspirone 10 mg tablet 10 mg PO BID Qty: 60 1RF Caplyta 42 mg capsule 42 mg PO DAILY Qty: 30 1RF Saline Nasal 0.65 % aerosol,spray 1 spray intranasal Q4H PRN (Reason: nasal congestion) Qty: 44 0RF budesonide-formoterol [Symbicort] 160-4.5 mcg/actuation HFA aerosol inhaler See Rx Instructions .ROUTE .COMPLEX Rx Instructions: see rx Preparation H 0.25-14-74.9 % ointment 1 applic ID TID PRN (Reason: hemorrhoids) Qty: 28 1RF Referrals Follow up/Referrals: Justyna Norris APRN [Nurse Practitioner] - See instructions (please re-eval, had reassuring CP workup in ER) Provider,Referral, [Primary Care Provider] - See instructions Activity Restrictions/Add. Instructions Additional Instructions/Restrictions: You were evaluated in the ER and are believed to be appropriate for discharge at this time. Please call your cardiology office and make an appointment for close follow-up. Also follow-up with your primary care doctor. Return to the ER with new, worsening, or otherwise concerning symptoms. Clinical Impressions Clinical Impression: Panic attack, Chest pain Print Language Print Language: Korean Discharge ED Provider: Patrick Saenz [facility] General Chief Complaint: Chest Pain Stated Complaint: chest pain Time Seen by Provider: 11/12/24 02:01 History of Present Illness HPI narrative: 33-year-old female with history of bipolar, schizophrenia, anxiety, panic attacks, conversion disorder with abnormal movement/PNES presents to the ER with chest pain. Reportedly she has had chest pain for the last 3 days and it continues to get progressively worse so she came to the ER for evaluation. She also reports associated nausea. She also reports she has been vomiting every morning. She reports she does not get periods due to having a prior ablation. No dizziness, numbness, tingling, weakness, headache, abdominal pain, difficulty breathing. She reports she recovered from influenza 3 to 4 weeks ago. Related Data Home Medications ?Medication ?Instructions ?Recorded ?Confirmed budesonide-formoterol HFA 160 See Rx Instructions .Route .COMPLEX 11/28/23 10/22/24 mcg-4.5 mcg/actuation aerosol inhaler (Symbicort) mupirocin 2 % topical ointment topical 01/15/24 10/22/24 propranolol 20 mg tablet 20 mg PO TID 08/27/24 10/22/24 Previous Rx's ?Medication ?Instructions ?Recorded albuterol sulfate 90 mcg/actuation 2 inh inhalation Q4-6H PRN 03/29/23 aerosol inhaler shortness of breath or wheezing #8.5 grams phenylephrine 0.25 %-mineral oil 1 applic ID TID PRN hemorrhoids 05/19/24 14 %-petrolatm 74.9 % rectal #28 grams ointment (Preparation H) sodium chloride 0.65 % nasal spray 1 spray intranasal Q4H PRN nasal 06/12/24 aerosol (Saline Nasal) congestion #44 mL buspirone 10 mg tablet 10 mg PO BID #60 tabs 07/15/24 lumateperone 42 mg capsule 42 mg PO DAILY #30 caps 09/24/24 (Caplyta) Allergies Allergy/AdvReac Type Severity Reaction Status Date / Time naloxone (From Narcan) Allergy Anaphylaxis Verified 10/22/24 15:13 Penicillins Allergy Rash Verified 10/22/24 15:13 [facility] Disclaimer: The information contained in this section may have been updated after the patient was seen, as this information can be updated by other users. Medical History (Updated 11/12/24 @ 02:49 by Patrick Saenz MD) Fatigue Atypical angina Family history of early CAD Palpitations History of UTI Hyperlipemia Seizures Kidney stone Urinary tract infection Chronic cough Asthma Sinus headache History of gastroesophageal reflux (GERD) Allergies Migraines Delirium Headache, migraine Anxiety Low back pain Bipolar disorder Nasal bleeding Cracked skin on feet Allergic rhinitis Chronic headaches Hypertension Anxiety Bipolar disorder Depression Surgical History History of esophagogastroduodenoscopy (EGD) History of tubal ligation History of surgery Family History Mother Ovarian cancer Diabetes Father Lung cancer Diabetes Liver failure Social History Smoking Status: Current every day smoker tobacco type: cigarettes packs per day: 1 years smoked: 15 second hand exposure: Yes alcohol intake: current alcohol intake frequency: holidays/special occasions only substance use type: former substance user and marijuana 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al status: unemployed Travel in the last 8 weeks: None housing: house number of children: 0 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al exposures/hazards: No caffeine: Yes Other Medical History Have you received the Flu Vaccine for this season: No Have you received the Pneumonia Vaccine: No ROS Obtained: Yes Systems reviewed as appropriate & no additional complaints except as documented Per HPI Physical Exam General General appearance: alert, in no apparent distress and anxious Head Head exam: atraumatic and normocephalic Eye Eye exam: Present PERRL and EOMI ENT ENT exam: Present mucous membranes moist Neck Neck exam: Present normal inspection and full ROM Chest Chest inspection: Present symmetric chest wall rise; Absent tenderness Respiratory Respiratory exam: Present normal lung sounds bilaterally; Absent respiratory distress, wheezes or stridor Cardiovascular Cardiovascular exam: Present regular rate and normal rhythm Abdominal Exam Abdominal exam: Present soft; Absent distention, tenderness, guarding or rebound Extremities Exam Extremities exam: Present full ROM Neurological Exam Neurological exam: Present alert and oriented X3; Absent motor sensory deficit Psychiatric Psychiatric exam: Present normal affect and normal mood Skin Skin exam: Present warm and dry HEART Score HEART Score HEART Score assessment performed?: Yes History (anamnesis): Slightly suspicious ECG: Non-specific disturbance Age: <45 years Risk factors: 1-2 risk factors Troponin: </= normal limit HEART Score: 2 Critical Care Critical Care Time Critical Care Time: No Medical Decision Making Medical Records Medical records reviewed: Yes I reviewed the patient's medical records. MR Comment: Patient has been seen multiple times in this ER, often for anxiety, seizure-like activity, psychogenic nonepileptic seizures. She has also been seen for extremity pains. Most recent encounter with behavioral health for bipolar was in June 2024. Nafisa Greenberg made medication changes and started Lybalvi [place] Inquiry Pt receiving controlled substance: No Vital Signs Vital Signs: 11/12/24 02:09 11/12/24 03:14 Temperature 98.2 F 98.2 F Temperature Source Oral Oral Pulse Rate 72 Pulse Rate [Right Brachial] 89 Respiratory Rate 20 20 Blood Pressure 112/73 Blood Pressure [Right Arm] 129/71 Blood Pressure Mean [Right Arm] 90 Blood Pressure Source Automatic Cuff Blood Pressure Source [Right Arm] Automatic Cuff Blood Pressure Position Sitting Blood Pressure Position [Right Arm] Supine 02 Sat by Pulse Oximetry 98 Oxygen Delivery Method Room Air Room Air Lab Data Labs: Lab Results 11/12/24 02:00: WBC 9.2, RBC 4.44, Hgb 14.4, Hct 40.7, MCV 91.7, MCH 32.4 H, MCHC 35.4, RDW 11.9, Plt Count 348, MPV 9.0, Neut % (Auto) 52.1, Lymph % (Auto) 38.0, [place] % (Auto) 8.3, Eos % (Auto) 0.1, Baso % (Auto) 0.3, Neut # (Auto) 4.8, Lymph # (Auto) 3.5, [place] # (Auto) 0.8, Eos # (Auto) 0.0, Baso # (Auto) 0.0, PT 10.6, INR 0.94, D-Dimer 0.48, Sodium 135 L, Potassium 4.0, Chloride 104, Carbon Dioxide 27, Anion Gap 8.0, BUN 5 L, Creatinine 0.80, Estimated Creat Clear 124, Estimated GFR 83, Est GFR ( Amer) 101, Glucose 103 H, Calcium 9.5, Total Bilirubin 0.5, AST 28, ALT 17, Alkaline Phosphatase 43, Troponin I < 0.01, NT-Pro-B Natriuret Pep 33.0, Total Protein 7.8, Albumin 4.9, Globulin 2.9, Albumin/Globulin Ratio 1.7, Serum HCG, Qual Negative 11/12/24 02:00 11/12/24 02:00 Response Orders (Tests/Meds): ED MEDICATIONS Discontinued Medications Generic Name Dose Route Start Last Admin Trade Name Manjinderq PRN Reason Stop Dose Admin Aspirin 324 mg 11/12/24 02:01 11/12/24 02:25 Aspirin 81mg Chewable Tablet PO 11/12/24 02:02 324 mg ONCE ONE Administration Hydroxyzine Pamoate 50 mg 11/12/24 02:48 11/12/24 02:52 Hydroxyzine Pamoate 25mg Capsule PO 11/12/24 02:49 50 mg ONCE ONE Administration Nitroglycerin 0.4 mg 11/12/24 02:01 11/12/24 02:26 Nitroglycerin 0.4mg Sl Tablet SL 11/13/24 02:01 0.4 mg Q5MINP PRN Administration Chest Pain Ondansetron HCl 4 mg 11/12/24 02:01 11/12/24 02:25 Ondansetron 4mg/2ml Vial IV 11/12/24 02:02 4 mg ONCE ONE Administration ORDERS Category Date Time Status CXR --portable [XR chest portable] Stat Exams 11/12/24 02:50 Taken Complete Blood Count Auto Diff Stat Lab 11/12/24 02:00 Completed Comprehensive Metabolic Panel Stat Lab 11/12/24 02:00 Completed D-Dimer Stat Lab 11/12/24 02:00 Completed HCG Qualitative, Serum Stat Lab 11/12/24 02:00 Completed NT Pro Brain Natriuretic Pep. Stat Lab 11/12/24 02:00 Completed Prothrombin Time INR Stat Lab 11/12/24 02:00 Completed Troponin I Stat Lab 11/12/24 02:00 Completed MDM Narrative Medical Decision Narrative: In summary, this 33-year-old female with comorbidities described in the HPI which may not be at goal therapy presents to the emergency department today with chest pain, nausea. On initial evaluation patient is hemodynamically stable, afebrile, cardiopulmonary exam is benign, abdominal exam benign, GCS 15 with no neurologic deficits. Differential diagnosis includes but is not limited to ACS, PE, electrolyte abnormality, esophageal spasm, patient has extensive history of anxiety as well and her chest pain could be related to this. She reports having an ablation but having vomiting every morning does increase my suspicion for possible . Based on these concerns, I ordered serum labs, cardiac workup, chest x-ray. Each time ECG leads were attached to the patient, she would have a pseudoseizure. She would respond to painful stimuli but continue exhibiting abnormal movements. Difficult to obtain ECG. ECG personally interpreted demonstrates sinus rhythm, rate 92, normal axis, normal ID and QTc, no STEMI or ischemic changes. Patient received aspirin, nitro, Zofran for initial treatment. Labs personally reviewed demonstrate no leukocytosis or anemia, normal platelets, PT/INR and D-dimer normal, nonactionable, no CTA PE indicated. CMP nonactionable, patient has initial troponin undetectably low less than 0.01. test negative. Given patient's multiple days of symptoms, I do not believe she requires serial troponins at this time. If her symptoms were cardiac in nature I would expect her troponin to be elevated. Chest x-ray personally interpreted does not demonstrate acute intrathoracic abnormality, see radiology read for final interpretation Patient received hydroxyzine for anxiety. She has not had additional seizure-like activity in the ER. She is not reporting chest pain at this time. She is appropriate for discharge. She already follows with cardiology and I instructed her to call their office for close outpatient follow-up. Patient was given instructions on symptomatic management, follow up instructions, and return precautions for the emergency department. Patient indicated understanding and was discharged in stable condition.
[2024-11-12 02:13] LABS: Basophils % 0.3 % (0.1-2.0); Eosinophils % 0.1 % (0.1-12.0); Hematocrit 40.7 % (37.0-47.0); Hemoglobin 14.4 g/dL (12.2-16.2); Lymphocytes # 3.5 K/mm3 (0.7-4.5); Mean Corpuscular HGB Conc 35.4 g/dL (31.8-35.4); Mean Corpuscular Hemoglobin 32.4 pg (27.0-31.2); Mean Corpuscular Volume 91.7 fl (81-99); Monocytes # 0.8 K/mm3 (0.1-1.0); Monocytes % 8.3 % (1.7-9.3); Neutrophils # 4.8 K/mm3 (1.8-7.8); Neutrophils % 52.1 % (37.0-80.0); Platelet Count 348 K/mm3 (142-424); Red Blood Count 4.44 M/mm3 (4.20-5.40); Red Cell Distribution Width 11.9 % (11.5-17.5); White Blood Count 9.2 K/mm3 (4.8-10.8)
--- NOTE | 2024-11-12 02:14 | PC.NURSE ---
Shortly after patient's arrival she had a pseudo seizure flailing her arms and legs, Speaking periodically holding her breath. Pt would close eyes when eyelashes brushed and would speak Pt tearful at times angry at times. Dad at bedside.
--- NOTE | 2024-11-12 02:17 | PC.NURSE ---
pt has agreed to give us a urine sample at this time. urine sent to lab. pt requested something to drink at this time, i informed her we would have to wait for the labs to come back. pt does not need anything else at this time. dad at bedside.
[2024-11-12 02:20] LABS: Albumin Level 4.9 g/dl (3.5-5.0); Chloride 104 mmol/L (98-107)
[2024-11-12 02:21] LABS: Sodium 135 mmol/L (136-145)
[2024-11-12 02:23] LABS: Alanine Aminotransferase 17 U/L (12-78); Albumin/Globulin Ratio 1.7 (1.1-1.8); Alkaline Phosphatase 43 U/L (38-126); Aspartate Amino Transferase 28 U/L (14-36); Bilirubin,Total 0.5 mg/dl (0.2-1.3); Blood Urea Nitrogen 5 mg/dl (7-17); Carbon Dioxide 27 mmol/L (22.0-30.0); Creatinine Clearance Estimated 124 mL/min (50-200); Estimated Glomerular Filt Rate 83 ml/min (>60); GFR (African American) 101 ML/MIN (>60); Globulin 2.9 g/dL (1.3-3.2); Total Protein,Serum 7.8 g/dl (6.3-8.2)
[2024-11-12 02:24] LABS: Calcium 9.5 mg/dl (8.4-10.2); Glucose 103 mg/dl (74-100)
[2024-11-12] MEDS: ASPIRIN 81MG CHEWABLE TABLET 324 MG PO (02:25)
[2024-11-12] MEDS: ONDANSETRON 4MG/2ML VIAL 4 MG IV (02:25)
[2024-11-12 02:26] LABS: INR 0.94 (0.9-1.1); Prothrombin Time 10.6 seconds (10.1-12.5)
[2024-11-12] MEDS: NITROGLYCERIN 0.4MG SL TABLET 0.4 MG SL (02:26)
[2024-11-12 02:32] LABS: HCG Qualitative, Serum Negative (Negative)
[2024-11-12 02:36] LABS: Troponin I < 0.01 ng/ml (0.00-0.034)
[2024-11-12 02:37] LABS: D-Dimer 0.48 ug/mL (0.0-0.5)
--- NOTE | 2024-11-12 02:50 | XR_ITS ---
PROCEDURE INFORMATION: Exam: XR Chest Exam date and time: 11/12/2024 2:53 AM Age: 33 years old Clinical indication: Pain; Chest pressure; Additional info: Cp TECHNIQUE: Imaging protocol: Radiologic exam of the chest. Views: 1 view. COMPARISON: CR XR CHEST PORTABLE 04/16/2024 9:13 PM FINDINGS: Lungs: Stable calcified pulmonary granulomas. Pleural spaces: Unremarkable. No pleural effusion. No pneumothorax. Heart/Mediastinum: Unremarkable. No cardiomegaly. Bones/joints: Unremarkable. IMPRESSION: No acute cardiopulmonary findings.
[2024-11-12] MEDS: hydrOXYzine pamoate 25MG CAPSULE 50 MG PO (02:52)
[2024-11-12 03:14] VITALS: BP 112/73; PULSE 72; RESP 20; TEMP 36.8; O2SAT 97
== END 2024-11-12 03:26 | disposition home or self-care (01) ==
PROVIDERS: Emergency Provider Emergency Medicine
DX: F41.0 Panic disorder [episodic paroxysmal anxiety] (principal); R07.9 Chest pain, unspecified; R11.2 Nausea with vomiting, unspecified; F17.210 Nicotine dependence, cigarettes, uncomplicated
CPT/HCPCS: 71045; 80053; 83880; 84484; 84703; 85025; 85378; 85610; 93005; 96374; 99284; J2405

== ENCOUNTER 2025-01-07 14:48 | Emergency (ER) | payer MEDICAID, SELFPAY ==
[2025-01-07 15:00] VITALS: BP 108/82; PULSE 90; PULSE 96; RESP 16; TEMP 36.9; O2SAT 98; BMI 32.5
--- NOTE | 2025-01-07 15:43 | HMH.EDGENADL ---
Discharge Plan Disposition Patient Disposition: Home, Self-Care Condition: Good Prescriptions Prescriptions: New sulfamethoxazole-trimethoprim [Bactrim DS] 800-160 mg tablet 1 tab PO BID 7 Days Qty: 14 0RF No Action albuterol sulfate 90 mcg/actuation HFA aerosol inhaler 2 inh inhalation Q4-6H PRN (Reason: shortness of breath or wheezing) Qty: 8.5 1RF mupirocin 2 % ointment topical propranolol 20 mg tablet 20 mg PO TID buspirone 10 mg tablet 10 mg PO BID Qty: 60 2RF trazodone 100 mg tablet 100 mg PO QHS Qty: 30 2RF Fanapt 6 mg tablet 6 mg PO BID Qty: 60 2RF Saline Nasal 0.65 % aerosol,spray 1 spray intranasal Q4H PRN (Reason: nasal congestion) Qty: 44 0RF budesonide-formoterol [Symbicort] 160-4.5 mcg/actuation HFA aerosol inhaler See Rx Instructions .ROUTE .COMPLEX Rx Instructions: see rx Preparation H 0.25-14-74.9 % ointment 1 applic [place] TID PRN (Reason: hemorrhoids) Qty: 28 1RF Referrals Follow up/Referrals: Real Avila MD [Primary Care Provider] - See instructions Activity Restrictions/Add. Instructions Additional Instructions/Restrictions: You were evaluated in the emergency department today. 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 Take Tylenol and ibuprofen as needed for pain. Follow-up with the primary care provider for reassessment, as the emergency department is not a replacement for primary care. Return to the emergency department for new or worsening symptoms. Clinical Impressions Clinical Impression: Paronychia Instructions Patient Instructions: DI for Paronychia Print Language Print Language: Niuean Discharge ED Provider: Tomasz Cheung General Adult HPI General Stated complaint: swollen tongue, pain in L arm with rash Time Seen by Provider: 01/07/25 15:08 History of Present Illness HPI narrative: This patient is a 34-year-old female well-known to the emergency department presenting with concern for swelling to her left thumb. She states that she woke up that way. She notes that she recently did clip her nails about a week ago and might of cut it too short. No other concerns or complaints noted at this time. Related Data Home Medications ?Medication ?Instructions ?Recorded ?Confirmed budesonide-formoterol HFA 160 See Rx Instructions .Route .COMPLEX 11/28/23 12/04/24 mcg-4.5 mcg/actuation aerosol inhaler (Symbicort) mupirocin 2 % topical ointment topical 01/15/24 12/04/24 propranolol 20 mg tablet 20 mg PO TID 08/27/24 12/04/24 Previous Rx's ?Medication ?Instructions ?Recorded albuterol sulfate 90 mcg/actuation 2 inh inhalation Q4-6H PRN 03/29/23 aerosol inhaler shortness of breath or wheezing #8.5 grams phenylephrine 0.25 %-mineral oil 1 applic [place] TID PRN hemorrhoids 05/19/24 14 %-petrolatm 74.9 % rectal #28 grams ointment (Preparation H) sodium chloride 0.65 % nasal spray 1 spray intranasal Q4H PRN nasal 06/12/24 aerosol (Saline Nasal) congestion #44 mL buspirone 10 mg tablet 10 mg PO BID #60 tabs 12/04/24 trazodone 100 mg tablet 100 mg PO QHS #30 tabs 12/04/24 iloperidone 6 mg tablet (Fanapt) 6 mg PO BID #60 tabs 12/31/24 sulfamethoxazole 800 1 tab PO BID 7 days #14 tabs 01/07/25 mg-trimethoprim 160 mg tablet (Bactrim DS) Allergies Allergy/AdvReac Type Severity Reaction Status Date / Time naloxone (From Narcan) Allergy Anaphylaxis Verified 12/04/24 10:41 Penicillins Allergy Rash Verified 12/04/24 10:41 [facility] Disclaimer: The information contained in this section may have been updated after the patient was seen, as this information can be updated by other users. Medical History Fatigue Atypical angina Family history of early CAD Palpitations History of UTI Hyperlipemia Seizures Kidney stone Urinary tract infection Chronic cough Asthma Sinus headache History of gastroesophageal reflux (GERD) Allergies Migraines Delirium Headache, migraine Anxiety Low back pain Bipolar disorder Nasal bleeding Cracked skin on feet Allergic rhinitis Chronic headaches Hypertension Anxiety Bipolar disorder Depression Surgical History History of esophagogastroduodenoscopy (EGD) History of tubal ligation History of surgery Family History Mother Ovarian cancer Diabetes Father Lung cancer Diabetes Liver failure Social History Smoking Status: Current every day smoker tobacco type: cigarettes packs per day: 1 years smoked: 15 second hand exposure: Yes alcohol intake: current alcohol intake frequency: holidays/special occasions only substance use type: former substance user and marijuana 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al status: unemployed Travel in the last 8 weeks?: None housing: house number of children: 0 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al exposures/hazards: No caffeine: Yes Have you lived/traveled outside US in past 30 days?: No Contact w/someone who lives/traveled outside US past 30 days?: No Exposure to someone with infectious disease in past 14 days?: No Do you have a fever (greater than 100.4 F or 38 C)?: No Have you tested positive for COVID-19?: No Exposed to someone with COVID-19 in past 14 days?: No Do you have a sore throat?: No Do you have a cough?: No Do you have any weakness?: No Do you have any diarrhea?: No Are you experiencing any unusual bleeding?: No Do you have any muscle aches/pain?: No Do you have any abdominal pain?: No Are you experiencing loss of taste or smell?: No Other Medical History Have you received the Flu Vaccine for this season: No Have you received the Pneumonia Vaccine: No ROS Obtained: Yes All systems reviewed & no additional complaints except as documented Physical Exam General General appearance: alert and in no apparent distress Head Head exam: atraumatic and normocephalic Eye Eye exam: Present normal appearance, PERRL and EOMI ENT ENT exam: Present normal exam, normal oropharynx, mucous membranes moist and normal external ear exam Neck Neck exam: Present normal inspection, full ROM and trachea midline; Absent tenderness Chest Chest inspection: Present normal inspection and symmetric chest wall rise; Absent tenderness Respiratory Respiratory exam: Present normal lung sounds bilaterally; Absent respiratory distress, wheezes, stridor or accessory muscle use Cardiovascular Cardiovascular exam: Present regular rate and normal rhythm Abdominal Exam Abdominal exam: Present soft; Absent distention, tenderness or guarding Extremities Exam Extremities exam: Present full ROM, normal capillary refill and other (Tenderness to palpation, mild swelling, and redness adjacent to the radial aspect of the left thumbnail that is very localized. No purulence, fluctuance, no induration ); Absent edema Back Exam Back exam: Present normal inspection and full ROM; Absent tenderness Neurological Exam Neurological exam: Present alert, oriented X3, CN II-XII intact and normal gait; Absent motor sensory deficit Psychiatric Psychiatric exam: Present normal affect and normal mood Skin Skin exam: Present warm and dry Medical Decision Making Medical Records Medical records reviewed: Yes I reviewed the patient's medical records. Screening: Per USPSTF and CDC recommendations, given the prevalence of disease in our region, it is our hospital?s policy to screen for HIV and viral Hepatitis for all patients aged 18 and over and those with ongoing risk factors. [place] Inquiry Pt receiving controlled substance: No Vital Signs: 01/07/25 15:00 Pulse Rate 96 H Blood Pressure 108/82 L 02 Sat by Pulse Oximetry 98 Oxygen Delivery Method Room Air Lab Data Lab results reviewed: Yes I reviewed the patient's lab results. Medical Decision Narrative: In summary, this patient is a 34-year-old female presenting to the Emergency Department for evaluation of left thumb redness and pain. Differential diagnoses considered include but are not limited to paronychia, abscess, eponychia, cellulitis. Ruling out the most morbid conditions drove assessment. On exam, the patient is well-appearing. She has minimal redness, swelling, tenderness adjacent to the left thumbnail on the radial aspect of the thumb. There is no fluctuance, purulence, or area of induration amenable to drainage. I feel she is developing a paronychia. At this time, I feel that she is appropriate for discharge home with prescription for antibiotics to cover skin and soft tissue infection. She is penicillin allergic, so she was prescribed Bactrim. She was given instructions for close follow-up with PCP, strict return precautions, and she was discharged after all questions were answered Critical Care Critical Care Time Critical Care Time: No
[2025-01-07 15:48] VITALS: BP 108/80; PULSE 70; RESP 20; TEMP 36.8; O2SAT 98
== END 2025-01-07 15:49 | disposition home or self-care (01) ==
PROVIDERS: Emergency Provider Emergency Medicine; PCP Family Medicine
DX: L03.012 Cellulitis of left finger (principal)
CPT/HCPCS: 99283

== ENCOUNTER 2025-04-13 12:45 | Outpatient (RCR) | payer MEDICAID, SELFPAY | END 2025-04-13 23:59 | disposition home or self-care (01) | LOC: PT 12:45 | PROVIDERS: PCP Family Medicine; Visit Provider Physician Assistant | DX: M54.2 Cervicalgia (principal) | CPT/HCPCS: 97162 ==

== ENCOUNTER 2025-04-17 15:07 | Emergency (ER) | payer MEDICAID, SELFPAY ==
[2025-04-17] VITALS (8 sets, daily range): BP systolic 101–120; BP diastolic 62–86; PULSE 55–83; RESP 14–18; TEMP 36.4–36.8; O2SAT 95–99; BMI 33.6
[2025-04-17 15:22] LABS: Coronavirus 19, PCR Not Detected (NotDetected); Influenza A, PCR Not Detected (NotDetected); Influenza B, PCR Not Detected (NotDetected)
--- OUTSIDE RECORDS SUMMARY | 2025-04-17 15:33 | XMS_ITS | Patient Health Record ---
Author Organization [facility] Address [address] [place] [address] [address] [place] [address] Care Team Providers Care Superintendent Marine Name Role Phone [place] Carrion Chaparrita Stewart Unavailable U navailable Allergies Allergen (clinical drug ingredient) Drug/Non Drug Allergy documented on EMR Reaction Allergy Type Onset Date Status naproxen Naprosyn rash Drug Allergy Active ibuprofen stomach upset Drug Allergy Act kingsley penicillin Unknown Drug Allergy Active Reason For Referral No Information Medications Medication SIG (Take, Route, Frequency, Duration) Notes Start Date End Date Status meloxicam 7.5 mg 1 tab(s) orally once a day; Duration: 30 day(s) Active doxepin 25 mg 1 cap(s) orally 4 ti mes a day Unknown clonazePAM 0.5 mg 1 tab(s) orally 2 ti mes a day Unknown risperiDONE 1 mg 1 tab(s) orally 2 ti mes a day; Duration: 30 day(s) Unknown propranolol 120 mg 1 cap(s) orally once a day; Duration: 30 day(s) Unknown methocarbamol 500 mg 1 tab(s) orally thr ee times a day; Duration: 30 days Active hydrOXYzine hydrochloride 25 mg 1 tab(s) orally 3 times a day Unknown Problems Problem Type SNOMED Code ICD Code Onset Dates Problem Status W/U Status Risk Notes Problem Lumbosacral spondylosis without myelopathy (14611932) Spondylosis without myelopathy or radiculopathy, lumbar region (M47.816) Active confirmed Problem Lumbar radiculopathy (823451406) Radiculopathy, lumbar region (M54.16) Active confirmed Problem Long-term current use of drug therapy (241185613) 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) Active confirmed Plan Of Treatment No Information Insurance Providers Payer Name Payer Address Payer Phone Subscriber Number Group Number Insured Name Patient Relationship to Insured Coverage Start Date Coverage End Date [employer] [address] [address] [place] [address] [id number] Kala Smith Self - patient is the insured 0 Medical (General) History Medical History History ICD Code Anxiety managed by Chaparrita Haynes, PA-C Panic attacks managed by Chaparrita Haynes, PA -C Depression managed by Chaparrita Haynes PA-C Surgical History Surgery Date(Month/[facility]) [facility] Hospitalization History Reason Date(Month/Year) [facility]
--- OUTSIDE RECORDS SUMMARY | 2025-04-17 15:33 | XMS_ITS | Clinical Summary ---
Author Organization Healthcare Address [address] [place] [address] Care Team Providers Care Motion Picture Camera Operator Name Role Phone Chaparrita Haynes Primary Care Provider [phone] Immunizations Immunization Administration Dates Next Due Influenza, injectable, quadrivalent, preservativ e free 07/07/2017 Family History Medical History Relation Name Comments Diabetes Father Hypertension Father Diabetes Mother Hypertension Mother Relation Name Status Comments Father Mother Social History Tobacco Use Types Packs/Day Years Used Date Smoking Tobacco: Every Day Alcohol Use Standard Drinks/Week Comments Yes 0 (1 standard drink = 0.6 oz pure alcohol) Alcoholic Drinks/day: Social alcohol use Comments Unknown Sex and Gender Information Value Date Recorded Sex Assigned at Not on file Legal Sex Female 8:33 PM EDT Gender Identity Not on file Sexual Orientation Not on file Last Filed Vital Signs Vital Sign Reading Time Taken Comments Blood Pressure - - Pulse - - Temperature - - Respiratory Rate - - Oxygen Saturation - - Inhaled Oxygen Concentration - - Weight 74.4 kg (164 lb) 11/29/2011 2:28 PM EDT Height 157.5 cm (5' 2 ) 10/31/2011 3:13 PM EDT Body Mass Index 30 10/31/2011 3:13 PM EDT Plan of Treatment Health Maintenance Due Date Last Done Comments [facility]-Depression Screening 1991 [facility]-/Child/Adol SDOH Screenings 1991 [facility]-IPV Vaccines (2 of 3 - 4-dose series) 04/17/1996 03/20/1996 [facility]-Varicella Vaccines (2 of 2 - 13+ 2-dose series) 04/02/2009 03/05/2009 HPV Vaccines (3 - 3-dose series) 07/17/2009 03/24/2009, 01/14/2009 [facility]- SDOH Screenings 11/25/2009 [facility]-Adult SDOH Screenings 11/25/2009 [facility]-Pap Smear 11/25/2012 [facility]-DTaP,Tdap,and Td Vaccines (4 - Td or Tdap) 03/05/2019 03/05/2009, 01/15/2004, 03/20/1996 [facility]-Cervical Cancer Screening 11/25/2021 [facility]-HPV/Cotest 11/25/2021 [id number]-85 Vaccine ( season) 2024 12/29/2020, 12/01/2020 [facility]-Influenza Vaccine (#1) 2025 05/20/2020, [facility]-Zoster Vaccines (1 of 2) 11/25/2041 03/05/2009 [facility]-Hepatitis B Vaccines Completed 009, 01/14/2009, 04/15/2004, Additional history exists [facility]-HIB Vaccines Aged Out No longer e ligible based on patient's age to complete this topic [facility]-Hepatitis A Vaccines Aged Out No longer eligible based on patient's age to complete this topic [facility]-Pneumococcal Vaccine: Pediatrics (0 to 5 Years) and At-Risk Patients (6 to 49 Years) Aged Out No longer eligible based on patient's age to complete this topic [facility]-Rotavirus Vaccines Aged Out No lo nger eligible based on patient's age to complete this topic Insurance [facility] MEDICAID Care Teams Motion Picture Camera Operator Relationship Specialty Start Date End Date Chaparrita Haynes PA [address] [place] [address] [facility] - General 12/31/20
--- OUTSIDE RECORDS SUMMARY | 2025-04-17 15:33 | XMS_ITS | Encounter Summary ---
Author Organization [facility] Address [address] [place] [address] Care Team Providers Care Special Class Welder Name Role Phone DallasChaparrita LEYDA Primary Care Provider [phone] Reason for Referral * Consultation (Routine) - Authorized Specialty Diagnoses / Procedures Referred By Danisha wayne Referred To Contact Neurology Diagnoses Seizure, epileptic (CMS/HCC) Real Avila MD [address] [address] Phone: tel: fax: Referral ID Status Reason Start Date Expiration Date Visits Requested Visits Authorized [id number] Authorized Specialty Services Required 01/15/2024 07/16/2025 1 1 Encounter Details Date Type Department Care Team (Late st Contact Info) Description 01/15/2024 [facility] [address] [place] [address] Real Avila MD [address] [address] Seizure, epileptic (CMS/HCC) (Primary Dx) Social History Tobacco Use Types Packs/Day Years [...] on file Sexual Orientation Not on file documented as of this encounter Plan of Treatment Scheduled Referrals Name Type Priority Associated Diagnoses Order Schedule Ambulatory referral to Neurology Outpatient Referral Routine Seizure, epileptic (CMS/HCC) Expected: 01/15/2024 (Approximate), Expires: 07/17/2025 documented as of this encounter Visit Diagnoses Diagnosis Seizure, epileptic (CMS/HCC)- Primary Unspecified epilepsy without mention of intractable epilepsy documented in this encounter Care Teams Special Class Welder Relationship Specialty Start Date End Date Chaparrita Haynes PA [address] [place] [address] PCP - General 12/31/20 documented as of this encounter
[2025-04-17 15:39] LABS: Strep Scrn Group A (Rapid) Negative (Negative)
[2025-04-17] MEDS: KETOROLAC 30MG/ML VIAL 30 MG IV (15:53)
[2025-04-17] MEDS: 0.9 % SODIUM CHLORIDE 1000ML 1,000 ML 999 ML IV (15:53)
[2025-04-17] MEDS: ACETAMINOPHEN 1,000MG/100ML VIAL 1000 MG IV (15:53)
--- NOTE | 2025-04-17 15:54 | ED_ITS ---
<Statement entered by Chandan Tinoco MD - 04/17/25 23:58> I was consulted by the BREA, and we discussed the complexity of the problems being addressed. I approved the treatment and management plan for this patient's care in the emergency department, thus performing a substantive portion of the medical decision making. Chandan Tinoco MD Discharge Plan Disposition Patient Disposition: Home, Self-Care Condition: Good Prescriptions Prescriptions: No Action iloperidone 10 mg tablet 10 mg PO BID Qty: 60 0RF quetiapine [Seroquel] 25 mg tablet 25 mg PO HS Qty: 30 0RF lamotrigine [Lamictal] 25 mg tablet See Rx Instructions PO DAILY Qty: 42 0RF Rx Instructions: 25mg for two weeks then 50mg orally daily; albuterol sulfate 90 mcg/actuation HFA aerosol inhaler 2 inh inhalation Q4-6H PRN (Reason: shortness of breath or wheezing) Qty: 8.5 1RF mupirocin 2 % ointment topical propranolol 20 mg tablet 20 mg PO TID buspirone 10 mg tablet 10 mg PO BID Qty: 60 2RF hydroxyzine HCl 10 mg tablet 10 mg PO TID PRN (Reason: anxiety) Qty: 90 0RF amitriptyline 25 mg tablet 25 mg PO DAILY Qty: 30 2RF Saline Nasal 0.65 % aerosol,spray 1 spray intranasal Q4H PRN (Reason: nasal congestion) Qty: 44 0RF sulfamethoxazole-trimethoprim [Bactrim DS] 800-160 mg tablet 1 tab PO BID 7 Days Qty: 14 0RF budesonide-formoterol [Symbicort] 160-4.5 mcg/actuation HFA aerosol inhaler See Rx Instructions .ROUTE .COMPLEX Rx Instructions: see rx Preparation H 0.25-14-74.9 % ointment 1 applic UT TID PRN (Reason: hemorrhoids) Qty: 28 1RF Referrals Follow up/Referrals: Real Avila MD [Primary Care Provider, Medical] - See instructions Activity Restrictions/Add. Instructions Additional Instructions/Restrictions: Increase fluids and rest. Please make appointment with PCP for follow-up care and further treatment and management of symptoms. If any further problems or concerns please return to the ED for emergent care. Clinical Impressions Clinical Impression: Viral illness Instructions Patient Instructions: DI for Viral Syndrome Print Language Print Language: Belarusian Discharge ED Provider: Chandan Tinoco General Adult HPI General Chief complaint: Upper Respiratory Infection Stated complaint: swollen all over,body sore,sore throat Time Seen by Provider: 04/17/25 15:20 Mode of Arrival: Ambulatory Source of Information: Patient Description of Symptoms (Recalled from ER Triage Doc. by RN): pt presents to the er for sore throat, chills, and nausea for 2 days, denies fever, also reports waking up this morning with generalized swelling all over, states pain from swelling is 8/10, constant, and aching History of Present Illness HPI narrative: 34-year-old female presents to the ED today for sore throat, chills, nausea for the past 2 days. She also tells me she has aches and swelling all over. She says she is weak and tired. She feels like she might have diabetes. She is on Vimpat and amitriptyline and says those make her drowsy. Related Data Home Medications ?Medication ?Instructions ?Recorded ?Confirmed budesonide-formoterol HFA 160 See Rx Instructions .Rou te .COMPLEX 11/28/23 03/09/25 mcg-4.5 mcg/actuation aerosol inhaler (Symbicort) mupirocin 2 % topical ointment topical 01/15/24 propranolol 20 mg tablet 20 mg PO TID 08/27/24 Previous Rx's ?Medication ?Instructions ?Recorded albuterol sulfate 90 mcg/actuation 2 inh inhalation Q4 -6H PRN 03/29/23 aerosol inhaler shortness of breath or wheez ing #8.5 grams phenylephrine 0.25 %-mineral oil 1 applic UT TID PRN h emorrhoids 05/19/24 14 %-petrolatm 74.9 % rectal #28 grams ointment (Preparation H) sodium chloride 0.65 % nasal spray 1 spray intranasal Q4H PRN nasal 06/12/24 aerosol (Saline Nasal) congestion #44 mL buspirone 10 mg tablet 10 mg PO BID #60 tabs sulfamethoxazole 800 1 tab PO BID 7 days #14 tabs 01/07/25 mg-trimethoprim 160 mg tablet (Bactrim DS) hydroxyzine HCl 10 mg tablet 10 mg PO TID PRN anxiety #90 tabs 02/18/25 amitriptyline 25 mg tablet 25 mg PO DAILY #30 tabs 07/14 iloperidone 10 mg tablet 10 mg PO BID #60 tabs lamotrigine 25 mg tablet (Lamictal) See Rx Instruction s PO DAILY #42 03/09/25 tabs quetiapine 25 mg tablet (Seroquel) 25 mg PO HS #30 tab s 03/09/25 Allergies Allergy/AdvReac Type Severity Reaction Status Date / Time bee venom protein (honey bee) Allergy Unknown Verified 04/17/25 15:23 allergy reaction naloxone (From Narcan) Allergy Anaphylaxis Verified 04/17/25 15:23 NSAIDS (Non-Steroidal Allergy Unknown Verified 04/17/25 15:23 Anti-Inflamma allergy reaction Penicillins Allergy Rash Verified 04/17/25 15:23 venom-wasp Allergy Unknown Verified 04/17/25 15:23 allergy reaction PFSH PFSH Disclaimer: The information contained in this section may have been updated after the patient was seen, as this information can be updated by other users. Medical History Fatigue Atypical angina Family history of early CAD Palpitations History of UTI Hyperlipemia Seizures Kidney stone Urinary tract infection Chronic cough Asthma Sinus headache History of gastroesophageal reflux (GERD) Allergies Migraines Delirium Headache, migraine Anxiety Low back pain Bipolar disorder Nasal bleeding Cracked skin on feet Allergic rhinitis Chronic headaches Hypertension Anxiety Bipolar disorder Depression Surgical History History of esophagogastroduodenoscopy (EGD) History of tubal ligation History of surgery KIDNEY STENT PLACED AND REMOVED Family History Mother Ovarian cancer Diabetes Father Lung cancer Diabetes Liver failure Social History Smoking Status: Current every day smoker tobacco type: cigarettes packs per day: 1 years smoked: 15 second hand exposure: Yes alcohol intake: current alcohol intake frequency: holidays/special occasions only substance use type: former substance user and marijuana 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al status: unemployed Travel in the last 8 weeks?: None housing: house number of children: 0 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: [employer] 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al exposures/hazards: No caffeine: Yes Have you lived/traveled outside US in past 30 days?: No Contact w/someone who lives/traveled outside US past 30 days?: No Exposure to someone with infectious disease in past 14 days?: No Do you have a fever (greater than 100.4 F or 38 C)?: No Have you tested positive for COVID-19?: No Exposed to someone with COVID-19 in past 14 days?: No Do you have a sore throat?: No Do you have a cough?: No Do you have any weakness?: No Do you have any diarrhea?: No Are you experiencing any unusual bleeding?: No Do you have any muscle aches/pain?: No Do you have any abdominal pain?: No Are you experiencing loss of taste or smell?: No Other Medical History Have you received the Flu Vaccine for this season: No Have you received the Pneumonia Vaccine: No ROS Obtained: Yes Systems reviewed as appropriate & no additional complaints except as documented Constitutional Constitutional: Reports as per HPI Physical Exam General General appearance: alert and in no apparent distress Head Head exam: normocephalic Eye Eye exam: Present PERRL ENT ENT exam: Present mucous membranes moist Neck Neck exam: Present trachea midline Chest Chest inspection: Present symmetric chest wall rise Respiratory Respiratory exam: Present normal lung sounds bilaterally Cardiovascular Cardiovascular exam: Present regular rate, normal rhythm, normal heart sounds, +S1 and +S2 Abdominal Exam Abdominal exam: Present soft and normal bowel sounds Extremities Exam Extremities exam: Present normal inspection, full ROM, normal capillary refill and edema (Bilateral lower extremities) Back Exam Back exam: Present full ROM Neurological Exam Neurological exam: Present alert and oriented X3 Psychiatric Psychiatric exam: Present anxious Skin Skin exam: Present warm and dry Medical Decision Making Medical Records Screening: Per USPSTF and CDC recommendations, given the prevalence of disease in our region, it is our hospital?s policy to screen for HIV and viral Hepatitis for all patients aged 18 and over and those with ongoing risk factors. Homer Inquiry Pt receiving controlled substance: No Homer was queried for this patient: No Vital Signs: 04/17/25 15:13 04/17/25 15:18 04/17/25 15:30 Temperature 97.6 F Temperature Source Oral Pulse Rate 73 65 Pulse Rate [Right Radial] 83 Respiratory Rate 18 Blood Pressure 110/64 108/66 L Blood Pressure [Right Arm] 110/64 Blood Pressure Mean Blood Pressure Mean [Right Arm] 79 Blood Pressure Source Blood Pressure Source [Right Arm] Automatic Cuff Blood Pressure Position Blood Pressure Position [Right Arm] Sitting 02 Sat by Pulse Oximetry 98 99 95 Oxygen Delivery Method Room Air 04/17/25 16:00 04/17/25 16:30 04/17/25 17:00 Temperature Temperature Source Pulse Rate 68 69 58 L Pulse Rate [Right Radial] Respiratory Rate 14 Blood Pressure 101/62 L 111/70 108/72 L Blood Pressure [Right Arm] Blood Pressure Mean 78 Blood Pressure Mean [Right Arm] Blood Pressure Source Blood Pressure Source [Right Arm] Blood Pressure Position Blood Pressure Position [Right Arm] 02 Sat by Pulse Oximetry 98 98 95 Oxygen Delivery Method 04/17/25 17:30 04/17/25 18:26 Temperature 98.3 F Temperature Source Oral Pulse Rate 66 55 L Pulse Rate [Right Radial] Respiratory Rate 16 Blood Pressure 114/84 120/86 Blood Pressure [Right Arm] Blood Pressure Mean Blood Pressure Mean [Right Arm] Blood Pressure Source Automatic Cuff Blood Pressure Source [Right Arm] Blood Pressure Position Sitting Blood Pressure Position [Right Arm] 02 Sat by Pulse Oximetry 97 Oxygen Delivery Method Room Air Lab Data Lab Results 04/17/25 15:15: Group A Strep Rapid Negative 04/17/25 15:17: SARS-CoV-2 (PCR) Not detected, Influenza A Untype (PCR) Not detected, Influenza Type B (PCR) Not detected 04/17/25 15:55: WBC 6.3, RBC 4.04 L, Hgb 12.9, Hct 36.9 L, MCV 91.3, MCH 31.9 H, MCHC 35.0, RDW 12.5, Plt Count 336, MPV 9.2, Neut % (Auto) 46.1, Lymph % (Auto) 39.8, [place] % (Auto) 10.4 H, Eos % (Auto) 1.4, Baso % (Auto) 0.5, Neut # (Auto) 2.9, Lymph # (Auto) 2.5, [place] # (Auto) 0.7, Eos # (Auto) 0.1, Baso # (Auto) 0.0, Sodium 139, Potassium 3.8, Chloride 112 H, Carbon Dioxide 23, Anion Gap 7.8, BUN 8, Creatinine 0.70, Estimated Creat Clear 156, Estimated GFR 96, Est GFR ( Amer) 117, Glucose 120 H, Calcium 8.5, Magnesium 1.5 L, Total Bilirubin 0.2, AST 33, ALT 16, Alkaline Phosphatase 42, NT-Pro-B Natriuret Pep 359 H, Total Protein 6.8, Albumin 3.9, Globulin 2.9, Albumin/Globulin Ratio 1.3, Lipase 39 04/17/25 16:16: Urine Color Yellow, Urine Appearance Sl cloudy, Urine pH 6.0, Ur Specific [place] 1.025, Urine Protein Negative, Urine Glucose (UA) Negative, Urine Ketones Negative, Urine Blood Negative, Urine Nitrate Negative, Urine Bilirubin Negative, Urine Urobilinogen 0.2, Ur Leukocyte Esterase Negative, Urine RBC None, Urine WBC Occasional, Ur Squamous Epith Cells 10-20, Urine Bacteria 1+ 04/17/25 15:55 04/17/25 15:55 Orders (Tests/Meds): ED MEDICATIONS Discontinued Medications Generic Name Dose Route Start Last Admin Trade Name Freq PRN Reason Stop Dose Admin Acetaminophen 1,000 mg 04/17/25 15:40 04/17/25 15:53 Acetaminophen 1,000mg/100ml Vial IV 04/17/25 15:41 1,000 mg ONCE ONE Administration Sodium Chloride 1,000 mls @ 999 mls/hr 04/17/25 15:42 04/17/25 17:06 Sod Chlor 0.9% 1000ml Bag IV 04/17/25 16:42 Infused .Q1H1M ONE Infusion Ketorolac Tromethamine 30 mg 04/17/25 15:40 04/17/25 15:53 Ketorolac 30mg/Ml Vial IV 04/17/25 15:41 30 mg ONCE ONE Administration ORDERS Category Date Time Status CXR --portable [XR chest portable] Stat Exams 04/17/25 17:13 Completed POCUS Point of Care (ER Only) Stat Exams 04/17/25 17:13 Taken BNP [NT Pro Brain Natriuretic Pep.] Stat Lab 04/17/25 15:55 Completed CBC [Complete Blood Count Auto Diff] Stat Lab 04/17/25 15:55 Completed Comprehensive Metabolic Panel Stat Lab 04/17/25 15:55 Completed Lipase Stat Lab 04/17/25 15:55 Completed Magnesium Stat Lab 04/17/25 15:55 Completed Rapid PCR Covid and Flu A/B Stat Lab 04/17/25 15:17 Completed Rapid Strep Scrn Group A [Strep Scrn Group A (Rapid)] Lab 04/17/25 15:15 Completed Stat Urinalysis and Microscopic Stat Lab 04/17/25 16:16 Completed Strep Screen Confirmation Stat Micro 04/17/25 15:15 Received Medical Decision Narrative: patient is a 34-year-old female presenting to the emergency department for evaluation of sore throat, cough, nausea, vomiting, aches and swelling. Patient is hemodynamically stable and nontoxic-appearing upon arrival, afebrile. Differential diagnosis includes viral illness, mono, strep, among others. Workup will be conducted with hematologic labs. Initial inventions include crystalloid bolus, analgesics. Initial workup reviewed by me hematologic labs are remarkable for slightly elevated glucose otherwise unremarkable labs. Imaging informally interpreted by me and remarkable for nothing acute. Formal read also said nothing acute. Upon repeat evaluation patient feels better feels improved after IV Tylenol and IV Toradol. Patient's COVID flu and strep swabs were negative. Patient will be sent home with close PCP follow-up. I did suggest an A1c and possible thyroid labs. Patient is safe for discharge home. Critical Care Critical Care Time Critical Care Time: No
[2025-04-17 16:06] LABS: Hematocrit 36.9 % (37.0-47.0); Hemoglobin 12.9 g/dL (12.2-16.2); Immature Granulocytes % 1.8 %; Mean Corpuscular HGB Conc 35.0 g/dL (31.8-35.4); Mean Corpuscular Hemoglobin 31.9 pg (27.0-31.2); Mean Corpuscular Volume 91.3 fl (81-99); Nucleated Red Blood Cells % 0 %; Platelet Count 336 K/mm3 (142-424); Red Blood Count 4.04 M/mm3 (4.20-5.40); Red Cell Distribution Width-SD 42.0 fL; White Blood Count 6.3 K/mm3 (4.8-10.8)
[2025-04-17 16:09] LABS: Chloride 112 mmol/L (98-107)
[2025-04-17 16:10] LABS: Albumin Level 3.9 g/dl (3.5-5.0); Potassium 3.8 mmoL/L (3.5-5.1); Sodium 139 mmol/L (136-145)
[2025-04-17 16:12] LABS: Blood Urea Nitrogen 8 mg/dl (7-17)
[2025-04-17 16:13] LABS: Alanine Aminotransferase 16 U/L (12-78); Albumin/Globulin Ratio 1.3 (1.1-1.8); Alkaline Phosphatase 42 U/L (38-126); Anion Gap 7.8 mEq/L (5-15); Aspartate Amino Transferase 33 U/L (14-36); Bilirubin,Total 0.2 mg/dl (0.2-1.3); Calcium 8.5 mg/dl (8.4-10.2); Carbon Dioxide 23 mmol/L (22.0-30.0); Creatinine Clearance Estimated 156 mL/min (50-200); Creatinine,Serum 0.70 mg/dl (0.52-1.04); Estimated Glomerular Filt Rate 96 ml/min (>60); GFR (African American) 117 ML/MIN (>60); Globulin 2.9 g/dL (1.3-3.2); Glucose 120 mg/dl (74-100); Lipase 39 U/L (23-300); Magnesium 1.5 mg/dl (1.6-2.3); Total Protein,Serum 6.8 g/dl (6.3-8.2)
[2025-04-17 16:20] LABS: Microscopic, Urine URINE MICROSCOPIC (MICROSCOPIC)
[2025-04-17 16:21] LABS: Bilirubin,Urine Negative (Negative); Color,Urine YELLOW (Yellow); Glucose,Urine (UA) Negative (Negative); Ketones,Urine Negative (Negative); Leukocyte Esterase,Urine Negative (Negative); PH,Urine 6.0 (5.0-8.5); Protein,Urine Negative (Negative); Specific Gravity, Urine 1.025 (1.005-1.030); Urobilinogen,Urine 0.2 EU/dl (0.2)
[2025-04-17 16:39] LABS: Bacteria,Urine 1+ /lpf; WBC,Urine Occasional #/hpf (0-3)
--- NOTE | 2025-04-17 16:39 | PC.NURSE ---
Delores on the phone with Peds GI
--- NOTE | 2025-04-17 17:13 | XR_ITS ---
PROCEDURE INFORMATION: Exam: XR Chest Exam date and time: 04/17/2025 5:17 PM Age: 34 years old Clinical indication: Cough TECHNIQUE: Imaging protocol: Radiologic exam of the chest. Views: 1 view. COMPARISON: CR XR CHEST PORTABLE 11/12/2024 2:53 AM FINDINGS: Lungs: Unremarkable. No consolidation. Pleural spaces: Unremarkable. No pleural effusion. No pneumothorax. Heart/Mediastinum: Unremarkable. No cardiomegaly. Bones/joints: Unremarkable. IMPRESSION: No acute findings.
--- NOTE | 2025-04-17 17:14 | PC.NURSE ---
radiology aware of xray
--- NOTE | 2025-04-17 17:20 | PC.NURSE ---
xray at bedside
[2025-04-17 17:40] LABS: NT Pro Brain Natriuretic Pep. 359 pg/mL (0-125)
[2025-04-18 00:07] LABS: HCG Qualitative, Serum Negative (Negative)
== END 2025-04-17 18:27 | disposition home or self-care (01) ==
PROVIDERS: Nurse Practitioner; Emergency Provider Emergency Medicine; PCP Family Medicine
DX: R07.0 Pain in throat (principal); R11.0 Nausea; R68.83 Chills (without fever); B34.9 Viral infection, unspecified
CPT/HCPCS: 71045; 80053; 81001; 83690; 83735; 83880; 84703; 85025; 87430; 87636; 96365; 96375; 99284; J0131; J1885; J7030

== ENCOUNTER 2025-07-11 13:48 | Emergency (ER) | payer MEDICAID, SELFPAY ==
[2025-07-11] VITALS (13 sets, daily range): BP systolic 111–141; BP diastolic 68–91; PULSE 80–138; RESP 16–18; TEMP 37; O2SAT 96–99; BMI 35.9
--- NOTE | 2025-07-11 13:52 | PC.NURSE ---
Seizure pads placed on the pts bed at this time. Call light in reach.
--- OUTSIDE RECORDS SUMMARY | 2025-07-11 13:56 | XMS_ITS | Patient Health Record ---
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.899) Active confirmed Plan Of Treatment No Information Insurance Providers Payer Name Payer Address Payer Phone Subscriber Number Group Number Insured Name Patient Relationship to Insured Coverage Start Date Coverage End Date [employer] [address] [address] [place] [address] [id number] Kala Smith Self - patient is the insured 0 Medical (General) History Medical History History ICD Code Anxiety managed by Chaparrita Haynes, PA-C Panic attacks managed by Chaparrita Haynes, PA -C Depression managed by Chaparrita Haynes PA-C Surgical History Surgery Date(Month/Year[facility] Hospitalization History Reason Date(Month/Year) [facility]
--- OUTSIDE RECORDS SUMMARY | 2025-07-11 13:56 | XMS_ITS | Clinical Summary ---
Author Organization Healthcare Address [address] [place] [address] Care Team Providers Care Flower Stripper Name Role Phone Chaparrita Haynes Primary Care Provider [phone] Immunizations Immunization Administration Dates Next Due Influenza, [...] Date Last Done Comments [facility]-Depression Screening 1991 [facility]-Infant/Child/Adol SDOH Screenings 1991 [facility]-IPV Vaccines (2 of 3 - 4-dose series) 04/17/1996 03/20/1996 [facility]-Varicella Vaccines (2 of 2 - 13+ 2-dose series) 04/02/2009 03/05/2009 HPV Vaccines (3 - 3-dose series) 07/17/2009 03/24/2009, 01/14/2009 [facility]- SDOH Screenings 11/25/2009 [facility]-Adult SDOH Screenings 11/25/2009 [facility]-Pap Smear 11/25/2012 [facility]-DTaP,Tdap,and Td Vaccines (4 - Td or Tdap) 03/05/2019 03/05/2009, 01/15/2004, 03/20/1996 [facility]-Cervical Cancer Screening 11/25/2021 [facility]-HPV/Cotest 11/25/2021 [id number]-07 Vaccine ( season) 2025 12/29/2020, 12/01/2020 [facility]-Influenza Vaccine (#1) 2025 05/20/2020, [...] patient's age to complete this topic Insurance [facility] [place] [address] Care Teams Flower Stripper Relationship Specialty Start Date End Date Chaparrita Haynes PA [address] [place] [address] [facility] - General 12/31/20
--- OUTSIDE RECORDS SUMMARY | 2025-07-11 13:56 | XMS_ITS | Encounter Summary ---
Author Organization [facility] Address [address] [id number] Care Team Providers Care Applications Support Lead Name Role Phone DallasChaparrita LEYDA Primary Care Provider [phone] Reason for Referral * Consultation (Routine) - Authorized Specialty Diagnoses / Procedures Referred By Danisha t Referred To Contact Neurology Diagnoses Seizure, epileptic Real Avila MD [address] [address] Phone: tel: fax: Referral ID Status Reason Start Date Expiration Date Visits Requested Visits Authorized [id number] Authorized Specialty Services Required 01/15/2024 07/16/2025 1 1 Encounter Details Date Type Department Care Team (Late st Contact Info) Description 01/15/2024 [facility] [address] [place] [address] Real Avila MD [address] [address] Seizure, epileptic (CMS/HCC) (Primary Dx) [...] of this encounter Visit Diagnoses Diagnosis Seizure, epileptic- Primary Unspecified epilepsy without mention of intractable epilepsy documented in this encounter Care Teams Applications Support Lead Relationship Specialty Start Date End Date Chaparrita Haynes PA [address] [place] [address] PCP - General 12/31/20 documented as of this encounter
--- NOTE | 2025-07-11 14:03 | CT_ITS ---
PROCEDURE INFORMATION: Exam: CT Cervical Spine Without Contrast Exam date and time: 07/11/2025 2:52 PM Age: 34 years old Clinical indication: Injury or trauma; Fall; Blunt trauma; Additional info: Fall, neck pain TECHNIQUE: Imaging protocol: Computed tomography of the cervical spine without contrast. Radiation optimization: All CT scans at this facility use at least one of these dose optimization techniques: automated exposure control; mA and/or kV adjustment per patient size (includes targeted exams where dose is matched to clinical indication); or iterative reconstruction. COMPARISON: CT CERVICAL SPINE WO CON 06/12/2024 12:40 AM FINDINGS: Bones: No acute fracture of the cervical spine. No subluxation or dislocation of the cervical spine. Mild Intervertebral disc space narrowing C5/C6 may represent degenerative disc disease.. Anterior osteophyte formation C5/C6. Posterior osteophyte formation C5/C6. Degenerative changes in the facets at multiple levels. Degenerative changes at C1/C2. 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 Thyroid: The thyroid is unremarkable Soft tissues: Unremarkable. IMPRESSION: 1. No acute fracture of the cervical spine. 2. No subluxation or dislocation of the cervical spine. 3. Mild Intervertebral disc space narrowing C5/C6 may represent degenerative disc disease..
--- NOTE | 2025-07-11 14:03 | XR_ITS ---
PROCEDURE INFORMATION: Exam: XR Left Humerus Exam date and time: 07/11/2025 2:55 PM Age: 34 years old Clinical indication: Injury or trauma; Fall; Blunt trauma (contusions or hematomas); Arm, upper; Left; Additional info: Fall, left arm pain TECHNIQUE: Imaging protocol: Radiologic exam of the left humerus. Views: 2 or more views. Total images: 1 COMPARISON: CR XR SHOULDER LT MIN 2V 01/25/2024 10:28 AM FINDINGS: Bones/joints: No evidence of acute fracture or dislocation. Soft tissues: Soft tissues are within normal limits. IMPRESSION: No evidence of acute fracture or dislocation.
--- NOTE | 2025-07-11 14:03 | XR_ITS ---
PROCEDURE INFORMATION: Exam: XR Left Hip Exam date and time: 07/11/2025 2:55 PM Age: 34 years old Clinical indication: Injury or trauma; Fall; Blunt trauma (contusions or hematomas); Left; Hip; Additional info: Fall, left hip pain TECHNIQUE: Imaging protocol: Radiologic exam of the left hip. Views: 2 or 3 views hip with pelvis when performed. Total images: 3 COMPARISON: CT ABDOMEN PELVIS W CON 05/25/2024 7:52 PM FINDINGS: Bones/joints: No evidence of acute fracture or dislocation. Soft tissues: Soft tissues are within normal limits. IMPRESSION: No evidence of acute fracture or dislocation.
--- NOTE | 2025-07-11 14:03 | CT_ITS ---
PROCEDURE INFORMATION: Exam: CT Head Without Contrast Exam date and time: 07/11/2025 2:50 PM Age: 34 years old Clinical indication: Injury or trauma; Fall; Blunt trauma (contusions or hematomas); Additional info: Fall/seizure, head trauma/barron TECHNIQUE: Imaging protocol: Computed tomography of the head without contrast. Radiation optimization: All CT scans at this facility use at least one of these dose optimization techniques: automated exposure control; mA and/or kV adjustment per patient size (includes targeted exams where dose is matched to clinical indication); or iterative reconstruction. COMPARISON: CT HEAD/BRAIN WO CON 06/12/2024 3:28 PM FINDINGS: Brain: Normal. No hemorrhage. Unremarkable white matter. No mass effect. Cerebral ventricles: No ventriculomegaly. Paranasal sinuses: Visualized sinuses are unremarkable. No fluid levels. Mastoid air cells: Visualized mastoid air cells are well aerated. Bones: Unremarkable. No acute fracture. Soft tissues: Unremarkable. IMPRESSION: No acute intracranial abnormality.
--- NOTE | 2025-07-11 14:03 | XR_ITS ---
PROCEDURE INFORMATION: Exam: XR Chest Exam date and time: 07/11/2025 2:55 PM Age: 34 years old Clinical indication: Cough TECHNIQUE: Imaging protocol: Radiologic exam of the chest. Views: 1 view. Total images: 3 COMPARISON: CR XR CHEST PORTABLE 04/17/2025 5:17 PM FINDINGS: Lungs: No consolidation. Pleural spaces: No pleural effusion. No pneumothorax. Heart/Mediastinum: No cardiomegaly. Bones/joints: Unremarkable. IMPRESSION: No acute cardiopulmonary abnormalities.
--- NOTE | 2025-07-11 14:03 | XR_ITS ---
PROCEDURE INFORMATION: Exam: XR Left Shoulder Exam date and time: 07/11/2025 2:55 PM Age: 34 years old Clinical indication: Injury or trauma; Fall; Blunt trauma (contusions or hematomas); Shoulder; Left; Additional info: Fall, left shoulder pain TECHNIQUE: Imaging protocol: Radiologic exam of the left shoulder. Views: 2 or more views. Total images: 1 COMPARISON: CR XR SHOULDER LT MIN 2V 01/25/2024 10:28 AM FINDINGS: Bones/joints: Narrowing of the acromial humeral distance may be consistent with chronic rotator cuff abnormality. No evidence of acute fracture or dislocation. Soft tissues: Soft tissues are within normal limits. IMPRESSION: 1. Narrowing of the acromial humeral distance may be consistent with chronic rotator cuff abnormality. 2. No evidence of acute fracture or dislocation.
--- NOTE | 2025-07-11 14:07 | ECG_ITS ---
APPROVED REPORT Exam: Resting ECG HR:113 bpm ECG Measurements Heart Rate 113 AXES RI 166 P 62 QRSd 89 QRS 85 QT 320 T 50 QTc 387 Conclusion SINUS TACHYCARDIA NONSPECIFIC T-WAVE ABNORMALITY ABNORMAL RHYTHM ECG Electronically signed by : VIKY CAMARENA, 07/12/2025 07:30:41
--- NOTE | 2025-07-11 14:07 | [facility].EDGENADL ---
Discharge Plan Disposition Patient Disposition: Home, Self-Care Condition: Good Prescriptions Prescriptions: No Action lamotrigine 150 mg tablet 150 mg PO DAILY Qty: 30 2RF hydroxyzine HCl 10 mg tablet 10 mg PO TID PRN (Reason: anxiety) Qty: 90 0RF iloperidone 10 mg tablet 10 mg PO BID Qty: 60 0RF albuterol sulfate 90 mcg/actuation HFA aerosol inhaler 2 inh inhalation Q4-6H PRN (Reason: shortness of breath or wheezing) Qty: 8.5 1RF mupirocin 2 % ointment topical propranolol 20 mg tablet 20 mg PO TID quetiapine [Seroquel] 25 mg tablet 50 mg PO HS Qty: 60 2RF amitriptyline 25 mg tablet 25 mg PO DAILY Qty: 30 2RF buspirone 10 mg tablet 10 mg PO BID Qty: 60 2RF Saline Nasal 0.65 % aerosol,spray 1 spray intranasal Q4H PRN (Reason: nasal congestion) Qty: 44 0RF sulfamethoxazole-trimethoprim [Bactrim DS] 800-160 mg tablet 1 tab PO BID 7 Days Qty: 14 0RF budesonide-formoterol [Symbicort] 160-4.5 mcg/actuation HFA aerosol inhaler See Rx Instructions .ROUTE .COMPLEX Rx Instructions: see rx Preparation H 0.25-14-74.9 % ointment 1 applic CA TID PRN (Reason: hemorrhoids) Qty: 28 1RF Referrals Follow up/Referrals: Real Avila MD [Primary Care Provider, Medical] - See instructions Activity Restrictions/Add. Instructions Additional Instructions/Restrictions: Please drink lots of water at home. If you develop progressively dark urine or begin to have low urine output please return. Clinical Impressions Clinical Impression: Psychogenic nonepileptic seizure, Elevated creatine kinase level Print Language Print Language: [place] Discharge ED Provider: Nomi Renteria General Adult HPI <Nomi Renteria MD - Last Filed: 07/11/25 15:24> General Chief complaint: PAIN Stated complaint: fell backwards two days ago, neck, head pain Time Seen by Provider: 07/11/25 13:58 History of Present Illness HPI narrative: Kala Smith is a 34-year-old female with past medical history of psychogenic nonepileptic seizures, tobacco use, history of intravenous drug use, anxiety, panic attacks, bipolar disorder who presents to the emergency department for complaints of headache, neck pain, left shoulder pain, left leg pain after a fall 2 days ago. Patient states that the was the anniversary of her mother's and she usually gets seizures when there is emotional stressors. She states that 2 days ago she had a seizure and fell and hit the left side of her body on the dresser. She also hit her head at that time. She did not seek care at the time but has had worsening neck pain, left shoulder arm pain and left hip pain since the fall. She is still been ambulatory. She denies any fevers. She also states that she likely has a viral illness as she has been congested has had a mild cough. She does report some mild chest pain and shortness of breath. Related Data Home Medications ?Medication ?Instructions ?Recorded ?Confirmed budesonide-formoterol HFA 160 See Rx Instructions .Route .COMPLEX 11/28/23 07/09/25 mcg-4.5 mcg/actuation aerosol inhaler (Symbicort) mupirocin 2 % topical ointment topical 01/15/24 07/09/25 propranolol 20 mg tablet 20 mg PO TID 08/27/24 07/09/25 Previous Rx's ?Medication ?Instructions ?Recorded albuterol sulfate 90 mcg/actuation 2 inh inhalation Q4-6H PRN 03/29/23 aerosol inhaler shortness of breath or wheezing #8.5 grams phenylephrine 0.25 %-mineral oil 1 applic CA TID PRN hemorrhoids 05/19/24 14 %-petrolatm 74.9 % rectal #28 grams ointment (Preparation H) sodium chloride 0.65 % nasal spray 1 spray intranasal Q4H PRN nasal 06/12/24 aerosol (Saline Nasal) congestion #44 mL sulfamethoxazole 800 1 tab PO BID 7 days #14 tabs 01/07/25 mg-trimethoprim 160 mg tablet (Bactrim DS) amitriptyline 25 mg tablet 25 mg PO DAILY #30 tabs 02/27/25 quetiapine 25 mg tablet (Seroquel) 50 mg (2 x 25 mg) PO HS #60 tabs 04/29/25 buspirone 10 mg tablet 10 mg PO BID #60 tabs 05/03/25 hydroxyzine HCl 10 mg tablet 10 mg PO TID PRN anxiety #90 tabs 06/04/25 iloperidone 10 mg tablet 10 mg PO BID #60 tabs 06/04/25 lamotrigine 150 mg tablet 150 mg PO DAILY #30 tabs 06/04/25 Allergies Allergy/AdvReac Type Severity Reaction Status Date / Time bee venom protein (honey bee) Allergy Unknown Verified 07/09/25 10:59 allergy reaction naloxone (From Narcan) Allergy Anaphylaxis Verified 07/09/25 10:59 NSAIDS (Non-Steroidal Allergy Unknown Verified 07/09/25 10:59 Anti-Inflamma allergy reaction Penicillins Allergy Swelling Verified 07/09/25 10:59 of Lip/Tongue/Throat venom-wasp Allergy Unknown Verified 07/09/25 10:59 allergy reaction PFSH <Nomi Renteria MD - Last Filed: 07/11/25 15:24> PFS Disclaimer: The information contained in this section may have been updated after the patient was seen, as this information can be updated by other users. Medical History Fatigue Atypical angina Family history of early CAD Palpitations History of UTI Hyperlipemia Seizures Kidney stone Urinary tract infection Chronic cough Asthma Sinus headache History of gastroesophageal reflux (GERD) Allergies Migraines Delirium Headache, migraine Anxiety Low back pain Bipolar disorder Nasal bleeding Cracked skin on feet Allergic rhinitis Chronic headaches Hypertension Anxiety Bipolar disorder Depression Surgical History History of esophagogastroduodenoscopy (EGD) History of tubal ligation History of surgery KIDNEY STENT PLACED AND REMOVED Family History Mother Ovarian cancer Diabetes Father Lung cancer Diabetes Liver failure Social History Smoking Status: Current every day smoker tobacco type: cigarettes packs per day: 1 years smoked: 15 second hand exposure: Yes alcohol intake: current alcohol intake frequency: holidays/special occasions only substance use type: former substance user and marijuana 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al status: unemployed Travel in the last 8 weeks?: None housing: house number of children: 0 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al exposures/hazards: No caffeine: Yes Have you lived/traveled outside [place] in past 30 days?: No Contact w/someone who lives/traveled outside US past 30 days?: No Exposure to someone with infectious disease in past 14 days?: No Do you have a fever (greater than 100.4 F or 38 C)?: No Have you tested positive for COVID-19?: No Exposed to someone with COVID-19 in past 14 days?: No Do you have a sore throat?: No Do you have a cough?: No Do you have any weakness?: No Do you have any diarrhea?: No Are you experiencing any unusual bleeding?: No Do you have any muscle aches/pain?: No Do you have any abdominal pain?: No Are you experiencing loss of taste or smell?: No Other Medical History Have you received the Flu Vaccine for this season: No Have you received the Pneumonia Vaccine: No <Nomi Renteria MD - Last Filed: 07/11/25 15:24> ROS Obtained: Yes Systems reviewed as appropriate & no additional complaints except as documented Physical Exam <Nomi Renteria MD - Last Filed: 07/11/25 15:24> General General appearance: alert and in no apparent distress Head Head exam: atraumatic Eye Eye exam: Present normal appearance, PERRL and EOMI ENT ENT exam: Present normal external ear exam Neck Neck exam: Present full ROM Chest Chest inspection: Present symmetric chest wall rise Respiratory Respiratory exam: Present normal lung sounds bilaterally; Absent respiratory distress, wheezes or stridor Cardiovascular Cardiovascular exam: Present normal rhythm and tachycardia Abdominal Exam Abdominal exam: Present soft; Absent distention, tenderness, guarding or rebound Extremities Exam Extremities exam: Present normal inspection Expanded Lower Extremity Exam Left: Comment: Left lower extremity: Tenderness over the left lateral hip without deformity or swelling. Plantar and dorsiflexion intact to the left lower extremity. 2+ DP pulse. Left upper extremity: Tenderness to palpation over the left anterolateral shoulder without deformity. Tenderness to the proximal humerus. Back Exam Back exam: Present normal inspection and vertebral tenderness (Midline C-spine tenderness without step-off or deformity.) Neurological Exam Neurological exam: Present alert and oriented X3 Psychiatric Psychiatric exam: Present normal affect Skin Skin exam: Present warm and dry Medical Decision Making <Nomi Renteria MD - Last Filed: 07/11/25 15:24> Medical Records Screening: Per USPSTF and CDC recommendations, given the prevalence of disease in our region, it is our hospital?s policy to screen for HIV and viral Hepatitis for all patients aged 18 and over and those with ongoing risk factors. [place] Inquiry Pt receiving controlled substance: No Vital Signs: 07/11/25 13:50 07/11/25 13:50 07/11/25 13:53 Temperature 98.6 F 98.6 F Temperature Source Oral Oral Pulse Rate 138 H 138 H Pulse Rate [Right] 138 H Respiratory Rate 18 18 Blood Pressure 138/91 H 138/91 H Blood Pressure [Right Arm] 138/91 H Blood Pressure Mean [Right Arm] 106 Blood Pressure Source Automatic Cuff Blood Pressure Source [Right Arm] Automatic Cuff Blood Pressure Position Supine Blood Pressure Position [Right Arm] Supine 02 Sat by Pulse Oximetry 97 97 96 Oxygen Delivery Method Room Air Room Air Room Air 07/11/25 14:00 07/11/25 14:15 07/11/25 15:04 Temperature Temperature Source Pulse Rate 134 H 117 H 118 H Pulse Rate [Right] Respiratory Rate Blood Pressure 138/90 132/83 120/83 Blood Pressure [Right Arm] Blood Pressure Mean [Right Arm] Blood Pressure Source Blood Pressure Source [Right Arm] Blood Pressure Position Blood Pressure Position [Right Arm] 02 Sat by Pulse Oximetry 97 98 98 Oxygen Delivery Method Room Air Room Air Room Air 07/11/25 15:10 07/11/25 15:15 07/11/25 15:30 Temperature Temperature Source Pulse Rate 116 H 109 H 104 H Pulse Rate [Right] Respiratory Rate Blood Pressure 120/83 128/87 111/86 Blood Pressure [Right Arm] Blood Pressure Mean [Right Arm] Blood Pressure Source Blood Pressure Source [Right Arm] Blood Pressure Position Blood Pressure Position [Right Arm] 02 Sat by Pulse Oximetry 96 97 98 Oxygen Delivery Method Room Air Room Air Room Air 07/11/25 16:00 07/11/25 16:30 07/11/25 16:45 Temperature Temperature Source Pulse Rate 104 H 107 H 98 H Pulse Rate [Right] Respiratory Rate Blood Pressure 141/74 H 131/82 112/73 Blood Pressure [Right Arm] Blood Pressure Mean [Right Arm] Blood Pressure Source Blood Pressure Source [Right Arm] Blood Pressure Position Blood Pressure Position [Right Arm] 02 Sat by Pulse Oximetry 98 99 99 Oxygen Delivery Method Room Air Room Air Room Air 07/11/25 17:01 Temperature Temperature Source Pulse Rate 80 Pulse Rate [Right] Respiratory Rate Blood Pressure 113/68 Blood Pressure [Right Arm] Blood Pressure Mean [Right Arm] Blood Pressure Source Blood Pressure Source [Right Arm] Blood Pressure Position Blood Pressure Position [Right Arm] 02 Sat by Pulse Oximetry 98 Oxygen Delivery Method Room Air Lab Data Lab Results 07/11/25 14:22: SARS-CoV-2 (PCR) Not detected, Influenza A Untype (PCR) Not detected, Influenza Type B (PCR) Not detected 07/11/25 14:36: WBC 9.6, RBC 3.74 L, Hgb 12.2, Hct 34.6 L, MCV 92.5, MCH 32.6 H, MCHC 35.3, RDW 12.9, Plt Count 285, MPV 9.7, Neut % (Auto) 52.4, Lymph % (Auto) 32.6, Grand % (Auto) 11.3 H, Eos % (Auto) 2.5, Baso % (Auto) 0.4, Neut # (Auto) 5.0, Lymph # (Auto) 3.1, Grand # (Auto) 1.1 H, Eos # (Auto) 0.2, Baso # (Auto) 0.0, D-Dimer 0.81 H, Sodium 131 L, Potassium 3.3 L, Chloride 101, Carbon Dioxide 25, Anion Gap 8.3, BUN 8, Creatinine 0.70, Estimated Creat Clear 166, Estimated GFR 96, Est GFR ( Amer) 117, Glucose 129 H, Lactate 1.8, Calcium 9.1, Total Bilirubin 0.7, AST 100 H, ALT 42, Alkaline Phosphatase 32 L, Total Creatine Kinase 2631 H*, Troponin I < 0.01, C-Reactive Protein 34.3 H, NT-Pro-B Natriuret Pep 192 H, Total Protein 7.0, Albumin 4.1, Globulin 2.9, Albumin/Globulin Ratio 1.4, Lipase 16 L, Serum HCG, Qual Negative, HCV Ab SHERWIN w/Rflx PCR Qn Reactive, HIV Ag/Ab Combo Qual Negative 07/11/25 14:45: Urine Opiates Screen Negative, Urine Methadone Screen Negative, Ur Barbituates Screen Negative, Ur Phencyclidine Scrn Negative, Ur Amphetamines Screen Negative, U Benzodiazepines Scrn Negative, Urine Cocaine Screen Negative, U Marijuana (THC) Screen Positive H 07/11/25 14:47: Urine Color Yellow, Urine Appearance Clear, Urine pH 6.5, Ur Specific [place] <= 1.005, Urine Protein Negative, Urine Glucose (UA) Negative, Urine Ketones Negative, Urine Blood Negative, Urine Nitrate Negative, Urine Bilirubin Negative, Urine Urobilinogen 0.2, Ur Leukocyte Esterase Negative, Urine RBC None, Urine WBC None, Ur Squamous Epith Cells Occasional, Urine Bacteria Trace 07/11/25 14:36 07/11/25 14:36 Orders (Tests/Meds): ED MEDICATIONS Generic Name Dose Route Start Last Admin Trade Name Freq PRN Reason Stop Dose Admin Sodium Chloride 10 ml 07/11/25 16:32 Sodium Chloride 0.9% 10ml Flush Syringe IV 07/12/25 04:33 NEEDED PRN Maintain IV Site Discontinued Medications Generic Name Dose Route Start Last Admin Trade Name Freq PRN Reason Stop Dose Admin Acetaminophen 1,000 mg 07/11/25 14:03 07/11/25 14:48 Acetaminophen 500mg Tab PO 07/11/25 14:04 Not Given ONCE ONE Lactated Ringer's 1,000 mls @ 999 mls/hr 07/11/25 14:09 07/11/25 16:07 Lactated Ringer's 1000 Ml Bag IV 07/11/25 15:09 Infused .Q1H1M ONE Infusion Lactated Ringer's 500 mls @ 999 mls/hr 07/11/25 15:27 07/11/25 16:34 Lactated Ringer's 1000 Ml Bag IV 07/11/25 15:57 Not Given .Q31M ONE Lactated Ringer's 1,000 mls @ 999 mls/hr 07/11/25 16:32 07/11/25 16:42 Lactated Ringer's 1000 Ml Bag IV 07/11/25 17:32 999 mls/hr .Q1H1M ONE Administration ORDERS Category Date Time Status CT cervical spine wo con Stat Cat Scan 07/11/25 14:[address] head/brain wo con Stat Cat Scan 07/11/25 14:03 Completed CXR --portable [XR chest portable] Stat Exams 07/11/25 14:03 Completed Hip XR left minimum 2 views [XR hip LT 2-3V w/pelvis] Exams 07/11/25 14:03 Completed Stat Humerus XR left [XR humerus LT] Stat Exams 07/11/25 14:03 Completed Shoulder XR left minimum 2 views [XR shoulder LT min 2V Exams 07/11/25 14:03 Completed ] Stat BNP [NT Pro Brain Natriuretic Pep.] Stat Lab 07/11/25 14:36 Completed CBC w/Auto Diff [Complete Blood Count Auto Diff] Stat Lab 07/11/25 14:36 Completed CK [Creatine Kinase] Stat Lab 07/11/25 14:36 Completed CMP [Comprehensive Metabolic Panel] Stat Lab 07/11/25 14:36 Completed CRP [C-Reactive Protein] Stat Lab 07/11/25 14:36 Completed D-Dimer Stat Lab 07/11/25 14:36 Completed HCG Qualitative, Serum Stat Lab 07/11/25 14:36 Completed HCV RNA PCR, Quant Stat Lab 07/11/25 14:36 Received HIV Combo Stat Lab 07/11/25 14:36 Completed Hepatitis C Ab Qual. W/ RFX Stat Lab 07/11/25 14:36 Completed Lactic Acid Stat Lab 07/11/25 14:36 Completed Lipase Stat Lab 07/11/25 14:36 Completed Rapid PCR Covid and Flu A/B Stat Lab 07/11/25 14:22 Completed Troponin I Q3H Lab 07/11/25 17:15 Ordered Troponin I Q3H Lab 07/11/25 20:15 Ordered Troponin I Stat Lab 07/11/25 14:36 Completed UA [Urinalysis and Microscopic] Stat Lab 07/11/25 14:47 Completed UDS [Drug Screen,Urine] Stat Lab 07/11/25 14:45 Completed ECG Data Tracing #1: I reviewed this ECG and interpreted as documented below: Sinus tachycardia. No ST elevation or depression. QTc of 387 Medical Decision Narrative: Kala Smith is a 34-year-old female with past medical history of psychogenic nonepileptic seizures, tobacco use, history of intravenous drug use, anxiety, panic attacks, bipolar disorder who presents to the emergency department for complaints of headache, neck pain, left shoulder pain, left leg pain after a fall 2 days ago. Patient states that the was the anniversary of her mother's and she usually gets seizures when there is emotional stressors. She states that 2 days ago she had a seizure and fell and hit the left side of her body on the dresser. She also hit her head at that time. She did not seek care at the time but has had worsening neck pain, left shoulder arm pain and left hip pain since the fall. She is still been ambulatory. She denies any fevers. She also states that she likely has a viral illness as she has been congested has had a mild cough. She does report some mild chest pain and shortness of breath. On arrival, on arrival, patient is tachycardic with a heart rate of 138, afebrile, blood pressure borderline hypertensive at 138/91. Physical exam, stated above, shows a nontoxic-appearing female in no distress but she is alert and oriented. She is moving all extremities. She has tenderness over the anterior lateral left shoulder and left proximal humerus. Neuro vastly intact distally. She has no tenderness over the left lateral thigh without deformity or swelling. She has good strength and sensation distally. Cardiopulmonary exam is unremarkable except for tachycardia without murmurs or rubs. No wheezing, rales or rhonchi. Abdomen soft, nontender nondistended. She does have midline cervical spine tenderness without step-off or deformity. Pupils equal round reactive to light. Differential diagnosis includes, but is not limited to: Intracranial hemorrhage, skull fracture, cervical spine fracture, long bone fracture, shoulder injury/fracture, hip fracture, viral respiratory illness, electrolyte derangement, metabolic derangement, rhabdomyolysis, among others. The most morbid conditions were considered and workup was based on these. At this time, patient's imaging and workup are pending. Patient's care was ultimately transferred to the oncoming physician, Dr. Chavez, pending completion of her workup and ultimate disposition. <Alberto Chavez, - Last Filed: 07/11/25 18:17> Medical Records Medical records reviewed: Yes I reviewed the patient's medical records. Vital Signs: 07/11/25 13:50 07/11/25 13:50 07/11/25 13:53 Temperature 98.6 F 98.6 F Temperature Source Oral Oral Pulse Rate 138 H 138 H Pulse Rate [Right] 138 H Respiratory Rate 18 18 Blood Pressure 138/91 H 138/91 H Blood Pressure [Right Arm] 138/91 H Blood Pressure Mean [Right Arm] 106 Blood Pressure Source Automatic Cuff Blood Pressure Source [Right Arm] Automatic Cuff Blood Pressure Position Supine Blood Pressure Position [Right Arm] Supine 02 Sat by Pulse Oximetry 97 97 96 Oxygen Delivery Method Room Air Room Air Room Air 11/22/25 14:00 07/11/25 14:15 07/11/25 15:04 Temperature Temperature Source Pulse Rate 134 H 117 H 118 H Pulse Rate [Right] Respiratory Rate Blood Pressure 138/90 132/83 120/83 Blood Pressure [Right Arm] Blood Pressure Mean [Right Arm] Blood Pressure Source Blood Pressure Source [Right Arm] Blood Pressure Position Blood Pressure Position [Right Arm] 02 Sat by Pulse Oximetry 97 98 98 Oxygen Delivery Method Room Air Room Air Room Air 07/11/25 15:10 07/11/25 15:15 07/11/25 15:30 Temperature Temperature Source Pulse Rate 116 H 109 H 104 H Pulse Rate [Right] Respiratory Rate Blood Pressure 120/83 128/87 111/86 Blood Pressure [Right Arm] Blood Pressure Mean [Right Arm] Blood Pressure Source Blood Pressure Source [Right Arm] Blood Pressure Position Blood Pressure Position [Right Arm] 02 Sat by Pulse Oximetry 96 97 98 Oxygen Delivery Method Room Air Room Air Room Air 07/11/25 16:00 07/11/25 16:30 07/11/25 16:45 Temperature Temperature Source Pulse Rate 104 H 107 H 98 H Pulse Rate [Right] Respiratory Rate Blood Pressure 141/74 H 131/82 112/73 Blood Pressure [Right Arm] Blood Pressure Mean [Right Arm] Blood Pressure Source Blood Pressure Source [Right Arm] Blood Pressure Position Blood Pressure Position [Right Arm] 02 Sat by Pulse Oximetry 98 99 99 Oxygen Delivery Method Room Air Room Air Room Air 07/11/25 17:01 Temperature Temperature Source Pulse Rate 80 Pulse Rate [Right] Respiratory Rate Blood Pressure 113/68 Blood Pressure [Right Arm] Blood Pressure Mean [Right Arm] Blood Pressure Source Blood Pressure Source [Right Arm] Blood Pressure Position Blood Pressure Position [Right Arm] 02 Sat by Pulse Oximetry 98 Oxygen Delivery Method Room Air Lab Data Lab Results 07/11/25 14:22: SARS-CoV-2 (PCR) Not detected, Influenza A Untype (PCR) Not detected, Influenza Type B (PCR) Not detected 07/11/25 14:36: WBC 9.6, RBC 3.74 L, Hgb 12.2, Hct 34.6 L, MCV 92.5, MCH 32.6 H, MCHC 35.3, RDW 12.9, Plt Count 285, MPV 9.7, Neut % (Auto) 52.4, Lymph % (Auto) 32.6, Grand % (Auto) 11.3 H, Eos % (Auto) 2.5, Baso % (Auto) 0.4, Neut # (Auto) 5.0, Lymph # (Auto) 3.1, Grand # (Auto) 1.1 H, Eos # (Auto) 0.2, Baso # (Auto) 0.0, D-Dimer 0.81 H, Sodium 131 L, Potassium 3.3 L, Chloride 101, Carbon Dioxide 25, Anion Gap 8.3, BUN 8, Creatinine 0.70, Estimated Creat Clear 166, Estimated GFR 96, Est GFR ( Amer) 117, Glucose 129 H, Lactate 1.8, Calcium 9.1, Total Bilirubin 0.7, AST 100 H, ALT 42, Alkaline Phosphatase 32 L, Total Creatine Kinase 2631 H*, Troponin I < 0.01, C-Reactive Protein 34.3 H, NT-Pro-B Natriuret Pep 192 H, Total Protein 7.0, Albumin 4.1, Globulin 2.9, Albumin/Globulin Ratio 1.4, Lipase 16 L, Serum HCG, Qual Negative, HCV Ab SHERWIN w/Rflx PCR Qn Reactive, HIV Ag/Ab Combo Qual Negative 07/11/25 14:45: Urine Opiates Screen Negative, Urine Methadone Screen Negative, Ur Barbituates Screen Negative, Ur Phencyclidine Scrn Negative, Ur Amphetamines Screen Negative, U Benzodiazepines Scrn Negative, Urine Cocaine Screen Negative, U Marijuana (THC) Screen Positive H 07/11/25 14:47: Urine Color Yellow, Urine Appearance Clear, Urine pH 6.5, Ur Specific [place] <= 1.005, Urine Protein Negative, Urine Glucose (UA) Negative, Urine Ketones Negative, Urine Blood Negative, Urine Nitrate Negative, Urine Bilirubin Negative, Urine Urobilinogen 0.2, Ur Leukocyte Esterase Negative, Urine RBC None, Urine WBC None, Ur Squamous Epith Cells Occasional, Urine Bacteria Trace Orders (Tests/Meds): ED MEDICATIONS Generic Name Dose Route Start Last Admin Trade Name Freq PRN Reason Stop Dose Admin Sodium Chloride 10 ml 07/11/25 16:32 Sodium Chloride 0.9% 10ml Flush Syringe IV 07/12/25 04:33 NEEDED PRN Maintain IV Site Discontinued Medications Generic Name Dose Route Start Last Admin Trade Name Freq PRN Reason Stop Dose Admin Acetaminophen 1,000 mg 07/11/25 14:03 07/11/25 14:48 Acetaminophen 500mg Tab PO 07/11/25 14:04 Not Given ONCE ONE Lactated Ringer's 1,000 mls @ 999 mls/hr 07/11/25 14:09 07/11/25 16:07 Lactated Ringer's 1000 Ml Bag IV 07/11/25 15:09 Infused .Q1H1M ONE Infusion Lactated Ringer's 500 mls @ 999 mls/hr 07/11/25 15:27 07/11/25 16:34 Lactated Ringer's 1000 Ml Bag IV 07/11/25 15:57 Not Given .Q31M ONE Lactated Ringer's 1,000 mls @ 999 mls/hr 07/11/25 16:32 07/11/25 16:42 Lactated Ringer's 1000 Ml Bag IV 07/11/25 17:32 999 mls/hr .Q1H1M ONE Administration ORDERS Category Date Time Status CT cervical spine wo con Stat Cat Scan 07/11/25 14:[address] head/brain wo con Stat Cat Scan 07/11/25 14:03 Completed CXR --portable [XR chest portable] Stat Exams 07/11/25 14:03 Completed Hip XR left minimum 2 views [XR hip LT 2-3V w/pelvis] Exams 07/11/25 14:03 Completed Stat Humerus XR left [XR humerus LT] Stat Exams 07/11/25 14:03 Completed Shoulder XR left minimum 2 views [XR shoulder LT min 2V Exams 07/11/25 14:03 Completed ] Stat BNP [NT Pro Brain Natriuretic Pep.] Stat Lab 07/11/25 14:36 Completed CBC w/Auto Diff [Complete Blood Count Auto Diff] Stat Lab 07/11/25 14:36 Completed CK [Creatine Kinase] Stat Lab 07/11/25 14:36 Completed CMP [Comprehensive Metabolic Panel] Stat Lab 07/11/25 14:36 Completed CRP [C-Reactive Protein] Stat Lab 07/11/25 14:36 Completed D-Dimer Stat Lab 07/11/25 14:36 Completed HCG Qualitative, Serum Stat Lab 07/11/25 14:36 Completed HCV RNA PCR, Quant Stat Lab 07/11/25 14:36 Received HIV Combo Stat Lab 07/11/25 14:36 Completed Hepatitis C Ab Qual. W/ RFX Stat Lab 07/11/25 14:36 Completed Lactic Acid Stat Lab 07/11/25 14:36 Completed Lipase Stat Lab 07/11/25 14:36 Completed Rapid PCR Covid and Flu A/B Stat Lab 07/11/25 14:22 Completed Troponin I Q3H Lab 07/11/25 17:15 Ordered Troponin I Q3H Lab 07/11/25 20:15 Ordered Troponin I Stat Lab 07/11/25 14:36 Completed UA [Urinalysis and Microscopic] Stat Lab 07/11/25 14:47 Completed UDS [Drug Screen,Urine] Stat Lab 07/11/25 14:45 Completed Medical Decision Narrative: Kala Smith is a 34-year-old female with past medical history of psychogenic nonepileptic seizures, tobacco use, history of intravenous drug use, anxiety, panic attacks, bipolar disorder who presents to the emergency department for complaints of headache, neck pain, left shoulder pain, left leg pain after a fall 2 days ago. Patient states that the was the anniversary of her mother's and she usually gets seizures when there is emotional stressors. She states that 2 days ago she had a seizure and fell and hit the left side of her body on the dresser. She also hit her head at that time. She did not seek care at the time but has had worsening neck pain, left shoulder arm pain and left hip pain since the fall. She is still been ambulatory. She denies any fevers. She also states that she likely has a viral illness as she has been congested has had a mild cough. She does report some mild chest pain and shortness of breath. On arrival, on arrival, patient is tachycardic with a heart rate of 138, afebrile, blood pressure borderline hypertensive at 138/91. Physical exam, stated above, shows a nontoxic-appearing female in no distress but she is alert and oriented. She is moving all extremities. She has tenderness over the anterior lateral left shoulder and left proximal humerus. Neuro vastly intact distally. She has no tenderness over the left lateral thigh without deformity or swelling. She has good strength and sensation distally. Cardiopulmonary exam is unremarkable except for tachycardia without murmurs or rubs. No wheezing, rales or rhonchi. Abdomen soft, nontender nondistended. She does have midline cervical spine tenderness without step-off or deformity. Pupils equal round reactive to light. Differential diagnosis includes, but is not limited to: Intracranial hemorrhage, skull fracture, cervical spine fracture, long bone fracture, shoulder injury/fracture, hip fracture, viral respiratory illness, electrolyte derangement, metabolic derangement, rhabdomyolysis, among others. The most morbid conditions were considered and workup was based on these. At this time, patient's imaging and workup are pending. Patient's care was ultimately transferred to the oncoming physician, Dr. Chavez, pending completion of her workup and ultimate disposition. This is Dr. Chavez. I received handoff of care on this patient at shift change at around [address] scan was pending at the time of transfer. CT scan ultimately resulted showing no acute intracranial hemorrhages. Additionally, CT scan of the cervical spine showed degenerative changes which the patient was already aware that she had. All the x-rays including x-ray of the shoulder, humerus, and hip were negative for acute pathology. The patient's CK did come back elevated at around 2000. This is consistent with very mild rhabdomyolysis. The patient describes having very vague constitutional symptoms such as body aches and a general overall feeling of malaise with rhinorrhea and congestion for the last couple days so I did add on a COVID and flu swab which was negative. I have infused patient with 2 L of lactated Ringer's here in the emergency department. I have counseled her on return to the emergency department if she begins having significant darkening of the urine or decreased urine output. At this time all questions been answered and all parties are agreeable with the decision to discharge home Critical Care <Nomi Renteria MD - Last Filed: 07/11/25 15:24> Critical Care Time Critical Care Time: No
[2025-07-11 14:24] LABS: Coronavirus 19, PCR Not Detected (NotDetected); Influenza A, PCR Not Detected (NotDetected); Influenza B, PCR Not Detected (NotDetected)
[2025-07-11 14:47] LABS: Hematocrit 34.6 % (37.0-47.0); Hemoglobin 12.2 g/dL (12.2-16.2); Immature Granulocytes % 0.8 %; Mean Corpuscular HGB Conc 35.3 g/dL (31.8-35.4); Mean Corpuscular Hemoglobin 32.6 pg (27.0-31.2); Mean Corpuscular Volume 92.5 fl (81-99); Nucleated Red Blood Cells % 0 %; Platelet Count 285 K/mm3 (142-424); Red Blood Count 3.74 M/mm3 (4.20-5.40); Red Cell Distribution Width-SD 44.0 fL; White Blood Count 9.6 K/mm3 (4.8-10.8)
[2025-07-11 14:48] LABS: Microscopic, Urine URINE MICROSCOPIC (MICROSCOPIC)
[2025-07-11] MEDS: LACTATED RINGERS 1000ML 1,000 ML 999 ML IV ×2 (14:48→16:42)
[2025-07-11 14:52] LABS: Bilirubin,Urine Negative (Negative); Color,Urine YELLOW (Yellow); Glucose,Urine (UA) Negative (Negative); Ketones,Urine Negative (Negative); Leukocyte Esterase,Urine Negative (Negative); PH,Urine 6.5 (5.0-8.5); Protein,Urine Negative (Negative); Specific Gravity, Urine <= 1.005 (1.005-1.030); Urobilinogen,Urine 0.2 EU/dl (0.2)
[2025-07-11 14:57] LABS: Alanine Aminotransferase 42 U/L (12-78); Albumin Level 4.1 g/dl (3.5-5.0); Albumin/Globulin Ratio 1.4 (1.1-1.8); Alkaline Phosphatase 32 U/L (38-126); Anion Gap 8.3 mEq/L (5-15); Aspartate Amino Transferase 100 U/L (14-36); Bilirubin,Total 0.7 mg/dl (0.2-1.3); Blood Urea Nitrogen 8 mg/dl (7-17); Calcium 9.1 mg/dl (8.4-10.2); Carbon Dioxide 25 mmol/L (22.0-30.0); Chloride 101 mmol/L (98-107); Creatinine Clearance Estimated 166 mL/min (50-200); Creatinine,Serum 0.70 mg/dl (0.52-1.04); Estimated Glomerular Filt Rate 96 ml/min (>60); GFR (African American) 117 ML/MIN (>60); Globulin 2.9 g/dL (1.3-3.2); Glucose 129 mg/dl (74-100); Lipase 16 U/L (23-300); Potassium 3.3 mmoL/L (3.5-5.1); Sodium 131 mmol/L (136-145); Total Protein,Serum 7.0 g/dl (6.3-8.2)
[2025-07-11 14:58] LABS: Bacteria,Urine Trace /lpf; Squamous Epithelial Cell,Urine Occasional #/hpf (0-5)
[2025-07-11 15:02] LABS: C-Reactive Protein 34.3 mg/L (0-4)
[2025-07-11 15:03] LABS: D-Dimer 0.81 ug/mL (0.0-0.5)
[2025-07-11 15:04] LABS: Barbiturates Screen,Urine Negative ng/ml (<200); Benzodiazepines Screen,Urine Negative ng/ml (<200)
[2025-07-11 15:05] LABS: Amphetamine/Metha Screen,Urine Negative ng/ml (<1000)
[2025-07-11 15:07] LABS: Methadone Screen,Urine Negative ng/ml (<300)
[2025-07-11 15:08] LABS: Opiate Screen,Urine Negative ng/ml (<300); Phencyclidine Screen,Urine Negative ng/ml (<25)
[2025-07-11 15:11] LABS: NT Pro Brain Natriuretic Pep. 192 pg/mL (0-125)
[2025-07-11 15:18] LABS: Troponin I < 0.01 ng/ml (0.00-0.034)
[2025-07-11 15:23] LABS: HCG Qualitative, Serum Negative (Negative)
[2025-07-11 15:24] LABS: Creatine Kinase 2631 U/L (30-135)
[2025-07-11 15:51] LABS: Hepatitis C Ab Qual. W/ RFX REACTIVE (Negative)
== END 2025-07-11 18:50 | disposition home or self-care (01) ==
PROVIDERS: Student in an Organized Health Care Education/Training Program; Emergency Provider Student in an Organized Health Care Education/Training Program; PCP Family Medicine
DX: E87.1 Hypo-osmolality and hyponatremia (principal); R79.89 Other specified abnormal findings of blood chemistry; R00.0 Tachycardia, unspecified; M54.2 Cervicalgia; F44.5 Conversion disorder with seizures or convulsions; F17.210 Nicotine dependence, cigarettes, uncomplicated; W19.XXXA Unspecified fall, initial encounter
CPT/HCPCS: 70450; 71045; 72125; 73030; 73060; 73502; 80053; 80307; 81001; 82550; 83605; 83690; 83880; 84484; 84703; 85025; 85378; 86140; 86803; 87389; 87522; 87636; 93005; 96360; 96361; 99285; J7120